=== PATIENT | female | born 1975 | race Caucasian/White ===

== ENCOUNTER → 2017-10-29 17:26 | Outpatient (CLI) | payer OTHER, SELFPAY | PROVIDERS: Family Provider Internal Medicine; PCP Internal Medicine; Visit Provider Internal Medicine | DX: M79.672 Pain in left foot (principal) | CPT/HCPCS: 73630 ==

== ENCOUNTER → 2018-01-06 16:30 | Outpatient (CLI) | payer OTHER, SELFPAY ==
[2018-01-19 13:10] LABS: HPV Reflexed? NOT INDICATED
== END ==
PROVIDERS: Family Provider Internal Medicine; PCP Internal Medicine; Referring Provider Obstetrics & Gynecology; Visit Provider Obstetrics & Gynecology
DX: Z12.4 Encounter for screening for malignant neoplasm of cervix (principal)
CPT/HCPCS: 87624; 88175; G0145

== ENCOUNTER → 2018-01-31 16:33 | Outpatient (CLI) | payer OTHER, SELFPAY ==
[2018-01-31 17:51] LABS: Ferritin 7 ng/mL (8-252); Iron 21 ug/dL (50-170); Iron Binding Capacity,Total 438 ug/dL (250-450); PERCENT IRON SATURATION 4.8 % (15.0-55.0)
--- OUTSIDE RECORDS SUMMARY | 2018-03-15 15:52 | XMS RPT_ITS | Continuity of Care Document ---
:1975 Author Organization [facility] Address [facility] [address] Phone Care Team Providers Name Role Phone Annie Anglin DO Unavailable Satish MENDENHALL, Cailin Man Unavailable Rizwan Blanca Unavailable Radha Sanford Unavailable Unavailable Phuc Quiroga Unavailable Unavailable Genesis PINTO Mohini Unavailable Unavailable Unavailable Problems Name Dates Details Abnormal blood chemistry (R79.9, 790.6) Status: Active Achilles tendinitis of left lower extremity (M76.62, 726.71) Status: Active Anemia (D64.9, 285.9) Status: Active BMI 40.0-44.9, adult (Z68.41, V85.41) Status: Active Current non-smoker (Z78.9, V49.89) Status: Active Deliveries (Parity) Comments: 2 Status: Active Elevated blood-pressure reading, without diagnosis of hypertension (Renamed from Elevated blood-pressure reading without diagnosis of hypertension) (R03.0, 796.2) Comments: drinks 3-4 16 oz coffee daily, recent ibuprofen use Status: Active Eustachian tube dysfunction (H69.80, 381.81) Status: Active Facial pressure (R68.89, 780.99) Status: Active Family history of diabetes mellitus (DM) (Z83.3, V18.0) Status: Active Family history of heart disease (Z82.49, V17.49) Status: Active Foot pain, left (M79.672, 729.5) Status: Active History of migraine (Z86.69, V12.49) Status: Active Influenza vaccination declined (Renamed from Refused influenza vaccine) (Z28.21, V64.06) Status: Active Nutritional counseling (Z71.3, V65.3) Status: Active Obesity, unspecified (E66.9, 278.00) Comments: corrina about diet and exericse and eating right Status: Active Pharyngitis, acute (J02.9, 462) Comments: antihistamien if not better and al negagitve then ent in 10 darrick Status: Active Pregnancies () Comments: 2 Status: Active Sinusitis, bacterial (J32.9, 473.9) Status: Active Well female exam with routine gynecological exam (Z01.419, V72.31) Comments: reveiwed with patient lipids and gluc at work good Status: Active Medications Name Dates Details AmLODIPine Besylate 5 MG Oral Tablet 1 (one) Tablet daily as directed for 0 days Quantity: 30 {Tablet} Refills: 1 Ordered:14-Jan-2018 Janicemohanclive PINTOKaitlynn Start : 14-Jan-2018 Active Ferrous Sulfate 325 (65 Fe) MG Oral Tablet 1 (one) Tablet two times daily for 30 days Quantity: 60 {Tablet} Refills: 0 Ordered:01-Feb-2018 Genesis PINTO Kaitlynn Collazo Start : 01-Feb-2018 Active Nasacort Allergy 24HR 55 MCG/ACT Nasal Aerosol 2 (two) Puff daily for 0 days Quantity: 1 {Bottle} Refills: 0 Ordered:14-Jan-2018 Janicemohanclive PINTOKaitlynn Start : 14-Jan-2018 Active Doxycycline Hyclate 100 MG Oral Tablet Delayed Release 1 (one) Tablet bid for 10 days Quantity: 20 {Tablet} Refills: 0 Ordered:24-Mar-2017 Klaudia Leblanc LPN Start : 24-Mar-2017 End : 03-Apr-2017 Inactive No Known Historical Medications ProAir HFA 108 (90 Base) MCG/ACT Inhalation Aerosol Solution 1 (one) Aerosol Soln tid for 0 days Quantity: 1 {Inhaler} Refills: 0 Ordered:13-Jan-2016 Enriqueta Cisse LPN Start : 19-Dec-2014 End : 13-Jan-2016 Inactive RHINOCORT AQUA, 32MCG/ACT (Nasal Suspension) 2 (two) Puff(s) daily for 0 days Quantity: 1 {Suspension} Refills: 0 Ordered:19-May-2011 Francisco Javier PARRISH Altagracia Start : 06-Apr-2011 End : 19-May-2011 Inactive Zithromax Z-Alexis 250 MG Oral Tablet 1 Tablet TAD for 0 days Quantity: 1 {Package} Refills: 0 Ordered:13-Jan-2016 Enriqueta Cisse LPN Start : 19-Dec-2014 End : 13-Jan-2016 Inactive Clarithromycin 500 MG Oral Tablet 1 (one) Tablet PO BID for 14 days Quantity: 28 {Tablet} Refills: 0 Ordered:24-Mar-2017 Magnolia Anglin DO, DO, Kathleen Start : 24-Mar-2017 End : 24-Mar-2017 Discontinued Comments:skin peeling Etodolac ER 400 MG Oral Tablet Extended Release 24 Hour 2 (two) Tablet qd with food for 0 days Quantity: 20 {Tablet} Refills: 0 Ordered:14-Jan-2018 Radha Sanford Start : 15-Jul-2017 End : 14-Jan-2018 Discontinued MULTIVITAMIN (PO Tab) 1 tab qd for 0 days Refills: 0 Ordered:18-Apr-2012 Dilcia Zepeda LPN End : 18-Apr-2012 Discontinued Comments:This order discontinued per [facility]. Allergies and Adverse Reactions Name Dates Details ketek (Renamed from PRASHANT Inhibitors) Status: Active (Allergy) Allergy to ketek (Renamed from Status: Inactive Acetaminophen) (Allergy) Biaxin *MACROLIDES* (Allergy) Status: Active Comments: skin peeling. feeling out of skin Allergy to Penicillins (Renamed from Status: Inactive Penicillins) (Allergy) Penicillins (Allergy) Status: Active Past Medical History Name Dates Details Abdominal pain, acute, left lower quadrant (R10.32, 789.04) Comments: us reveiwed with patient good. after eat certain foods so will watch .better. if return and stay then will do ct scan and scope Status: Inactive as of 28-Jul-2013 Abnormal blood chemistry (R79.9, 790.6) Status: Inactive as of 23-Jul-2008 Allergy to ketek (Renamed from Acetaminophen) Status: Inactive as of 23-Jul-2008 Allergy to Penicillins (Renamed from Penicillins) Status: Inactive as of 23-Jul-2008 Chest pain, unspecified (R07.9, 786.50) Status: Resolved as of 23-Jul-2008 Chills with fever (R50.9, 780.60) Status: Inactive as of 13-Jan-2016 Cough (R05, 786.2) Status: Inactive as of 13-Jan-2016 Cut caffeine Status: Inactive as of 23-Jul-2008 Diarrhea (R19.7, 787.91) Status: Inactive as of 28-Jul-2013 Hypertension, benign (I10, 401.1) Comments: goodoff meds. ? was stress at time. chol 11-12 125 total, 61 HDL trig 45. BS 93 Status: Inactive as of 13-Jan-2016 Need for prophylactic vaccination and inoculation against influenza (Renamed from Need for immunization against influenza) (Z23, V04.81) Status: Inactive as of 20-Mar-2016 Other chest pain (R07.89, 786.59) Status: Resolved as of 23-Jul-2008 Other specified viral infection, in conditions classified elsewhere and of unspecified site (B97.89, 079.89) Status: Inactive as of 28-Jul-2013 Physical exam (Z00.00, V70.9) Status: Inactive as of 20-Mar-2016 Screening for HPV (human papillomavirus) (Z11.51, V73.81) Status: Inactive as of 13-Jan-2016 Unspecified Diagnosis Status: Inactive as of 20-Mar-2016 Urinary frequency (R35.0, 788.41) Comments: better ? now that cut out caffiene urine cx good. Status: Inactive as of 28-Jul-2013 Procedures Procedure Dates Details Delivery Completed Comments: 1 Date Value Details 29-Oct-2017 Foot min 3 Views Result: Comments: See Note; NOTES: [facility] Imaging Services [address] [place] [address] Foot min 3 Views MR#: [id number] Acct: [id number] Name: MOISES DAVILA Rep #: [id number] : 1975 F 42 From: Harry Smith MD PCP: Linnette DO,Annie Status: REG CLI Study: Foot min 3 Views Date of Exam: 10/29/17 Exam# [id number] Ordering Dr: Annie Anglin DO STUDY: X-RAY - RIGHT FOOT CLINICAL: Female, 42 years old. Pain after trauma TECHNIQUE: 3 view(s) of the foot. COMPARISON: None. FINDINGS: Normal talus, and tarsal bones. Small calcane al spur Normal visualized subtalar, talonavicular, calcaneocuboid, tarsal and tarsometatarsal articulations. Normal metatarsi. Normal metatarsophalangeal joint of the great toe. Normal tibial and fib ular sesamoid bones. Normal interphalangeal joint of the great toe. Normal phalanges of the great toe. Normal second through fifth metatarsophalangeal joints. Normal interphalangeal joints and phalange s of the lesser toes. The soft tissue structures are unremarkable. RAD/Foot min 3 Views IMPRESSION: Calcaneal spur, no demonstrated fracture or suspicious osseous lesion Electronically Signed: Deandre Smith MD at 17:11 EDT , Service support , CC: Annie Anglin DO Senior Agricultural Assistant: Signed 20-Oct-2016 SCREENING MAMM (CAD), BILAT Result: Comments: See Note; NOTES: [facility] Imaging Services [address] [place] [id number] SCREENING MAMM (CAD), BILAT MR#: [id number] Acct: [id number] Name: LOLAMOISES Rep #: [id number] : 1975 F 41 From: Harry Kauffman MD PCP: Annie Anglin DO Status: REG CLI Study: SCREENING MAMM (CAD), BILAT Date of Exam: 10/20/16 Exam# [id number] Ordering Dr: Don Walker MAMMOGRAPHY - BILATERAL SCREENING REASON FOR EXAM: Female, 41 years old. Routine annual screening examination. PERTINENT HISTORY: Non-contributory. TECHNIQUE: Digital bilateral breast sujata (3D ma mmographic acquisition) in the CC and MLO projections. 2-D mediolateral oblique (MLO) and craniocaudad (CC) views of both breasts were obtained. CAD: Full Field Digital Mammography with Computer Added D etection was performed. COMPARISON: Comparison is made with prior study dated January 20, 2016 and October 12, 2014. FINDINGS: Breast Composition: The breasts are al most entirely fatty. There are no dominant masses or suspicious calcifications. No other significant abnormalities are identified. There has been no significant change since the prior study. HPBI/SCREENING MAMM (CAD), BILAT IMPRESSION: Stable bilateral screening mammogram. Yearly follow-up mammogram recommended. (A) ASSESSMENT CATEGORY: BIRADS Category 1: Negative. A letter regarding these results will be sent to the patient by the facility within 30 days. Approximately 10% of breast cancers are not det ected by mammography. A normal mammogram should not delay biopsy of a clinically suspicious abnormality. [id number] Electronically Signed: Harry Kauffman MD at 8:21 EDT Tel [phone], Ser vice support , CC: Don Walker MD; Annie Anglin DO Senior Agricultural Assistant: Signed 20-Jan-2016 Bilat Scrn Digital AND CAD Result: Comments: See Note; NOTES: [facility] Imaging Services [address] [place] [address] Verdana 4d Bilat Scrn Digital AND CAD MR#: [id number] Acct: [id number] Name: OLENA DAVILA Rep #: [id number] : 1975 F 40 From: Harry Kauffman MD PCP: Annie Anglin DO Status: REG CLI Study: Bilarcelia Johnson Digital AND CAD Date of Exam: 01/20/16 Exam# [id number] Ordering Dr: Don Walker MD MAMMOGRAPHY - BILATERAL SCREENING REASON FOR EXAM: Female, 40 years old. Routine annual screening examination. PERTINENT HISTORY: Non- contributory. TECHNIQUE: Digital bilateral breast to mo (3D mammographic acquisition) in the CC and MLO projections. 2-D mediolateral oblique (MLO) and craniocaudad (CC) views of both breasts were obtained. CAD: Full Field Digital Mammography with Compute r Added Detection was performed. COMPARISON: Comparison is made with prior examination dated October 12, 2014. FINDINGS: Breast Composition: The breasts are almost en tirely fatty. There are no dominant masses or suspicious calcifications. No other significant abnormalities are identified. There has been no significant change since the prior study. [facility]/Colten Johnson Digital AND CAD IMPRESSION: Stable bilateral screening mammogram. Yearly follow-up mammogram recommended. (A) __ ASSESSMENT CATEGORY: BIRADS Category 1: Negative. A letter regarding these results will be sent to the patient by the facility within 30 days. Approximately 10% of breast cancers are not detected b y mammography. A normal mammogram should not delay biopsy of a clinically suspicious abnormality. [id number] Electronically Signed: Harry Kauffman MD at 15:44 EST Tel [phone], Service s upport [phone], CC: Don Walker MD; Annie Anglin DO Senior Agricultural Assistant: Signed 12-Oct-2014 Bilat Elizabeth Digital AND CAD Result: Comments: See Note; NOTES: [facility] Imaging Services [address] [place] [address] Breast Imaging Report MR#: [id number] Acct: [id number] Name: MOISES DAVILA Rep #: [id number] : 1975 F 39 From: Harry Kauffman MD PCP: Cailin Covarrubias MD Status: REG CLI Study: Bilat Scrn Digital AND CAD Date of Exam: 10/12/14 Exam# [id number] Ordering Dr: Don Walker MD MAMMOGRAPHY - BILATERAL SCREENING REASON FOR EXAM: Female, 39 years old. Routine annual screening examination. PERTINENT HISTORY: Non-contributory. TECHNIQUE: Digital examination. Mediolater al oblique (MLO) and craniocaudad (CC) views of both breasts were obtained. CAD: CAD was performed on this study. COMPARISON: None. Baseline examination. FINDI NGS: Breast Composition: The breasts are almost entirely fatty. There are no dominant masses or suspicious calcifications. No other significant abnormalities are identified. IMPRESSION: Negative screening mammogram. Yearly followup recommended. (A) ASSESSMENT CATEGORY: BIRADS Category 1: Negative. A letter regarding these results will be sent to the patient by the facility within 30 days. Approximately 10% of breast cancers are not detected by mammography. A normal mammogram should not delay biopsy of a clinica lly suspicious abnormality. 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 Status: Active Living Situation Comments: lives with spouse Status: Active No Drug Use Status: Active Non Drinker/No Alcohol Use Status: Active Non Smoker/No Tobacco Use Status: Active Tobacco use: Never smoker. Status: Active Smoking Status Name Dates Details Never smoker Vital Signs Date Test Result Details [id number] Temperature 97.7 f Comments: Method: Temporal Pulse 112 /min Comments: Pattern: Regular Respiration Rate 16 /min Comments: Pattern: Unlabored O2 SAT 100 % Comments: Room air BP Systolic 142 mm[Hg] Comments: Patient Position: Sitting; Cuff Location: Left Arm; Cuff Size: Standard BP Diastolic 96 mm[Hg] Comments: Patient Position: Sitting; Cuff Location: Left Arm; Cuff Size: Standard Weight 242.125 lb Height 65 in Body Mass Index Calculated 40.29 kg/m2 Body Surface Area Calculated 2.15 m2 :00 Pulse 98 /min Comments: Pattern: Regular Respiration Rate 18 /min Comments: Pattern: Unlabored O2 SAT 98 % Comments: Room air BP Systolic 138 mm[Hg] Comments: Patient Position: Sitting; Cuff Location: Left Arm; Cuff Size: Large BP Diastolic 82 mm[Hg] Comments: Patient Position: Sitting; Cuff Location: Left Arm; Cuff Size: Large Weight 244 lb Height 65 in Body Mass Index Calculated 40.6 kg/m2 Body Surface Area Calculated 2.15 m2 :14 Temperature 98 f Comments: Method: Temporal Pulse 72 /min Comments: Pattern: Regular Respiration Rate 16 /min Comments: Pattern: Unlabored O2 SAT 99 % Comments: Room air BP Systolic 126 mm[Hg] Comments: Patient Position: Sitting; Cuff Location: Left Arm; Cuff Size: Standard BP Diastolic 74 mm[Hg] Comments: Patient Position: Sitting; Cuff Location: Left Arm; Cuff Size: Standard Weight 248 lb Height 65 in Body Mass Index Calculated 41.27 kg/m2 Body Surface Area Calculated 2.17 m2 [id number]:43 Temperature 97.9 f Comments: Method: Temporal Pulse 96 /min Comments: Pattern: Regular Respiration Rate 20 /min Comments: Pattern: Unlabored O2 SAT 98 % Comments: Room air BP Systolic 144 mm[Hg] Comments: Patient Position: Sitting; Cuff Location: Left Arm; Cuff Size: Large BP Diastolic 86 mm[Hg] Comments: Patient Position: Sitting; Cuff Location: Left Arm; Cuff Size: Large Weight 248 lb Height 65 in Body Mass Index Calculated 41.27 kg/m2 Body Surface Area Calculated 2.17 m2 [id number] Pulse 82 /min Comments: Pattern: Regular Respiration Rate 18 /min Comments: Pattern: Unlabored O2 SAT 99 % Comments: Room air BP Systolic 128 mm[Hg] Comments: Patient Position: Sitting; Cuff Location: Left Arm; Cuff Size: Large BP Diastolic 84 mm[Hg] Comments: Patient Position: Sitting; Cuff Location: Left Arm; Cuff Size: Large Weight 250.5 lb Height 65 in Body Mass Index Calculated 41.68 kg/m2 Body Surface Area Calculated 2.18 m2 :13 Temperature 97.9 f Comments: Method: Oral Pulse 105 /min Comments: Pattern: Regular Respiration Rate 16 /min Comments: Pattern: Unlabored O2 SAT 98 % Comments: Room air BP Systolic 115 mm[Hg] Comments: Patient Position: Sitting; Cuff Location: Left Arm; Cuff Size: Standard BP Diastolic 68 mm[Hg] Comments: Patient Position: Sitting; Cuff Location: Left Arm; Cuff Size: Standard Weight 243 lb :46 Temperature 97.8 f Pulse 66 /min Comments: Pattern: Regular Respiration Rate 18 /min Comments: Pattern: Unlabored O2 SAT 98 % Comments: Room air BP Systolic 130 mm[Hg] Comments: Patient Position: Sitting; Cuff Location: Left Arm; Cuff Size: Standard BP Diastolic 90 mm[Hg] Comments: Patient Position: Sitting; Cuff Location: Left Arm; Cuff Size: Standard Weight 243 lb :26 Temperature 97.6 f Comments: Method: Oral Pulse 86 /min Comments: Pattern: Regular Respiration Rate 20 /min Comments: Pattern: Unlabored BP Systolic 126 mm[Hg] Comments: Patient Position: Sitting; Cuff Location: Left Arm; Cuff Size: Large BP Diastolic 80 mm[Hg] Comments: Patient Position: Sitting; Cuff Location: Left Arm; Cuff Size: Large Weight 240 lb Height 65 in Body Mass Index Calculated 39.94 kg/m2 Body Surface Area Calculated 2.14 m2 :03 Temperature 99.1 f Comments: Method: Oral Pulse 104 /min Comments: Pattern: Regular Respiration Rate 16 /min Comments: Pattern: Unlabored BP Systolic 132 mm[Hg] Comments: Patient Position: Sitting; Cuff Location: Left Arm; Cuff Size: Standard BP Diastolic 74 mm[Hg] Comments: Patient Position: Sitting; Cuff Location: Left Arm; Cuff Size: Standard Weight 234 lb Height 65 in Body Mass Index Calculated 38.94 kg/m2 Body Surface Area Calculated 2.11 m2 :40 Temperature 99 f Comments: Method: Oral Pulse 88 /min Comments: Pattern: Regular Respiration Rate 16 /min Comments: Pattern: Unlabored BP Systolic 132 mm[Hg] Comments: Patient Position: Sitting; Cuff Location: Left Arm; Cuff Size: Standard BP Diastolic 80 mm[Hg] Comments: Patient Position: Sitting; Cuff Location: Left Arm; Cuff Size: Standard Weight 239 lb Height 65 in Body Mass Index Calculated 39.77 kg/m2 Body Surface Area Calculated 2.13 m2 :05 Temperature 99 f Comments: Method: Oral Pulse 98 /min Comments: Pattern: Regular Respiration Rate 16 /min O2 SAT 94 % Comments: Room air BP Systolic 132 mm[Hg] Comments: Patient Position: Sitting; Cuff Location: Left Arm; Cuff Size: Standard BP Diastolic 84 mm[Hg] Comments: Patient Position: Sitting; Cuff Location: Left Arm; Cuff Size: Standard Weight 239 lb Height 65 in Body Mass Index Calculated 39.77 kg/m2 Body Surface Area Calculated 2.13 m2 :25 Temperature 97.9 f Comments: Method: Oral Pulse 82 /min Comments: Pattern: Regular O2 SAT 99 % Comments: Room air BP Systolic 126 mm[Hg] Comments: Patient Position: Sitting; Cuff Location: Left Arm; Cuff Size: Standard BP Diastolic 76 mm[Hg] Comments: Patient Position: Sitting; Cuff Location: Left Arm; Cuff Size: Standard Weight 239 lb Height 65 in Body Mass Index Calculated 39.77 kg/m2 Body Surface Area Calculated 2.13 m2 :30 Temperature 99 f Comments: Method: Undefined Pulse 96 /min Comments: Pattern: Regular Respiration Rate 18 /min Comments: Pattern: Undefined BP Systolic 128 mm[Hg] Comments: Patient Position: Sitting; Cuff Location: Left Arm; Cuff Size: Standard BP Diastolic 76 mm[Hg] Comments: Patient Position: Sitting; Cuff Location: Left Arm; Cuff Size: Standard Weight 239 lb Height 0 in Head Circumference 0.00 cm :56 Pulse 96 /min Comments: Pattern: Regular Respiration Rate 18 /min Comments: Pattern: Unlabored O2 SAT 100 % Comments: Room air BP Systolic 148 mm[Hg] Comments: Patient Position: Sitting; Cuff Location: Left Arm; Cuff Size: Standard BP Diastolic 90 mm[Hg] Comments: Patient Position: Sitting; Cuff Location: Left Arm; Cuff Size: Standard Weight 0 lb Height 0 in Head Circumference 0.00 cm Results Date Description Value Details :35 Ferritin Comments: [facility] [id number] [place], [place], [address] FERRITIN 7 ng/mL (Abnormal) Range: 8-252 :35 Iron+Iron Binding Capacity Comments: [facility] [id number] [place], [place], [id number] IRON SATURATION 4.8 % (Abnormal) Range: 15.0-55.0 IRON 21 ug/dL (Abnormal) Range: 50-170 TIBC 438 ug/dL (Normal) Range: 250-450 :43 CALCIFEDIOL ([id number]) Comments: PATIENT NOT FASTINGPERFORMED BY: [employer] [id number] [facility] [id number] Vitamin D, 25-Hydroxy 22.0 ng/mL (Abnormal) Range: 30.0-100.0 Comments: Vitamin D deficiency has been defined by the [place] ofSt. [facility] and an Endocrine Society practice guideline as alevel of serum 25-OH vitamin D less than 20 ng/mL (1,2).The Endocrine Society went on to further define vitamin Dinsufficiency as a level between 21 and 29 ng/mL (2).1. IOM ([place] of Medicine). 2010. Dietary reference intakes for calcium and D. [place]: The National Academies Press.2. Oscar MF, Narendra NC, Andrew ORTIZ, et al. Evaluation, treatment, and prevention of vitamin D deficiency: an Endocrine Society clinical practice guideline. JCEM. 2010; 96(7):1911-30. :43 TSH ([id number]) Comments: PATIENT NOT FASTINGPERFORMED BY: [facility] [id number] [facility] [place] [id number] TSH 1.160 {uIU/mL} (Normal) Range: 0.450-4.500 4-Eya-914890:43 METABOLIC PANEL, COMPREHENSIVE Comments: PATIENT NOT FASTINGPERFORMED BY: [id number] [facility] [id number] ([id number]) ALT (SGPT) 11 [iU]/L (Normal) Range: 0-32 AST (SGOT) 14 [iU]/L (Normal) Range: 0-40 Alkaline Phosphatase 75 [iU]/L (Normal) Range: 39-117 Bilirubin, Total 0.3 mg/dL (Normal) Range: 0.0-1.2 A/G Ratio 1.3 (Normal) Range: 1.2-2.2 Globulin, Total 3.5 g/dL (Normal) Range: 1.5-4.5 Albumin 4.4 g/dL (Normal) Range: 3.5-5.5 Protein, Total 7.9 g/dL (Normal) Range: 6.0-8.5 Calcium 8.9 mg/dL (Normal) Range: 8.7-10.2 Carbon Dioxide, Total 22 mmol/L (Normal) Range: 20-29 Chloride 103 mmol/L (Normal) Range: 96-106 Potassium 3.9 mmol/L (Normal) Range: 3.5-5.2 Sodium 140 mmol/L (Normal) Range: 134-144 BUN/Creatinine Ratio 8 (Abnormal) Range: 9-23 eGFR If Africn Am 89 mL/min/1.73 (Normal) eGFR If NonAfricn Am 78 mL/min/1.73 (Normal) Creatinine 0.91 mg/dL (Normal) Range: 0.57-1.00 BUN 7 mg/dL (Normal) Range: 6-24 Glucose 102 mg/dL (Abnormal) Range: 65-99 4-Dgp-739408:43 CBC with auto diff ([id number]) Comments: PATIENT NOT FASTINGPERFORMED BY: [facility] [id number] [facility] [id number] Immature Grans (Abs) 0.0 {x10E3/uL} (Normal) Range: 0.0-0.1 Immature Granulocytes 0 % (Normal) Baso (Absolute) 0.0 {x10E3/uL} (Normal) Range: 0.0-0.2 Eos (Absolute) 0.2 {x10E3/uL} (Normal) Range: 0.0-0.4 Monocytes(Absolute) 0.5 {x10E3/uL} (Normal) Range: 0.1-0.9 Lymphs (Absolute) 1.7 {x10E3/uL} (Normal) Range: 0.7-3.1 Neutrophils (Absolute) 5.4 {x10E3/uL} (Normal) Range: 1.4-7.0 Basos 0 % (Normal) Eos 2 % (Normal) Monocytes 6 % (Normal) Lymphs 22 % (Normal) Neutrophils 70 % (Normal) Platelets 318 {x10E3/uL} (Normal) Range: 150-379 RDW 19.6 % (Abnormal) Range: 12.3-15.4 MCHC 29.7 g/dL (Abnormal) Range: 31.5-35.7 MCH 20.5 pg (Abnormal) Range: 26.6-33.0 MCV 69 fL (Abnormal) Range: 79-97 Hematocrit 31.3 % (Abnormal) Range: 34.0-46.6 Hemoglobin 9.3 g/dL (Abnormal) Range: 11.1-15.9 RBC 4.54 {x10E6/uL} (Normal) Range: 3.77-5.28 WBC 7.7 {x10E3/uL} (Normal) Range: 3.4-10.8 1-Gbv-069370:43 MICROALBUMIN: CREATININE RATIO Comments: PATIENT NOT FASTINGPERFORMED BY: [facility] [id number] [facility] [id number] ([id number]) AND ([id number]) Alb/Creat Ratio 7.8 {mg/g_creat} (Normal) Range: 0.0-30.0 Comments: Normal: 0.0 - 30.0 Albuminuria: 31.0 - 300.0 Clinical albuminuria: >300.0 Albumin, Urine 3.5 ug/mL (Normal) Creatinine, Urine 44.6 mg/dL (Normal) 1-Vie-351933:27 Urinalysis, Office ([id number]) UA - LEUKOCYTE ESTERASE Small (Normal) UA - NITRITE Negative (Normal) URINE UROBILINGN CINDY TIMED Normal mg/dL (Normal) UA - PROTEIN Negative mg/dL (Normal) UA - PH 6.0 (Normal) UA - BLOOD Non Hemolyzed Moderate (Normal) UA - SPECIFIC GRAVITY 1.025 (Normal) UA - KETONES Negative mg/dL (Normal) UA - BILIRUBIN Negative (Normal) UA - GLUCOSE Negative (Normal) 2-Rij-161821:30 PAP IG w/Reflex Comments: CYTOLOGY INFORMATION:- CLINICAL INFORMATION:- DATE LMP/MENOPAUSE: 12/30/17 LMP- COLLECTION VIAL: Thin Prep Vial- COMPUTER OPERATIONS TECHNICIAN SOURCE: CERVICAL/ENDOCERVICAL- COLLECTION TECHNIQUE: BRUSH/SPATULASpecimen Comment: HR HPV Aptima [id number] Comment: Source.............Cervix;EndocervixSpecimen Comment: LMP / Prev Treat...[id number] Comment: No. of containers..01 [facility] (refer to report for specific site)refer to report for address and phone number HPV RFLX Comment (Normal) Comments: The HPV DNA reflex criteria were not met with this specimenresult therefore, no HPV testing was performed.Performed at: [address] [id number] Director: Erika Ga MD, Phone: [phone] PAPSMR Comment (Normal) Comments: The Pap smear is a screening test designed to aid in thedetection of premalignant and malignant conditions of theuterine cervix. It is not a diagnostic procedure andshould not be used as the sole means of detecting cervicalcancer. Both false-positive and false-negative reports dooccur. COMM . (Normal) TEST METHOD Comment (Normal) Comments: This liquid based ThinPrep(R) pap test was screened withthe use of an image guided system. QC REV Comment (Normal) Comments: Lina Garcia, Supervisory Viticulturist (ASCP) PERFORM Comment (Normal) Comments: Zack Carbajal, Viticulturist (ASCP) ADEQ Comment (Normal) Comments: Satisfactory for evaluation. Endocervical and/or squamous metaplasticcells (endocervical component) are present. DIAGN Comment (Normal) Comments: NEGATIVE FOR INTRAEPITHELIAL LESION AND MALIGNANCY.THIS SPECIMEN WAS RESCREENED PART OF OUR [employer] PROGRAM. 46-Oum-096846:27 Rapid Strep Test, Office (01208) Rapid Strep Test, Office Negative (Normal) 11-Ief-128240:30 PAP I-G w/ Reflex to HR Comments: CYTOLOGY INFORMATION:- CLINICAL INFORMATION:- DATE LMP/MENOPAUSE: NO LMP GIVEN LMP- COLLECTION VIAL: Thin Prep Vial- COMPUTER OPERATIONS TECHNICIAN SOURCE: CERVICAL/ENDOCERVICAL- COLLECTION TECHNIQUE: BRUSH/SPATULACY TOLOGY INFOR HPV MATION:- CLINICAL INFORMATION:- DATE LMP/MENOPAUSE: NO LMP GIVEN LMP- COLLECTION VIAL: Thin Prep Vial- COMPUTER OPERATIONS TECHNICIAN SOURCE: CERVICAL/ENDOCERVICAL- COLLECTION TECHNIQUE: BRUSH/SPATULASpecimen Comment: [id number] Comment: No. of containers..01 CYTYC Thin Prep [facility]ialLab[facility] (refer to report for specific site)refer to report for address and phone number HPV RFLX Comment (Normal) Comments: The HPV DNA reflex criteria were not met with this specimenresult therefore, no HPV testing was performed.Performed at: [address] [id number] Director: Erika Ga MD, Phone: [phone] PAPSMR Comment (Normal) Comments: The Pap smear is a screening test designed to aid in thedetection of premalignant and malignant conditions of theuterine cervix. It is not a diagnostic procedure andshould not be used as the sole means of detecting cervicalcancer. Both false-positive and false-negative reports dooccur. COMM . (Normal) TEST METHOD Comment (Normal) Comments: This liquid based ThinPrep(R) pap test was screened withthe use of an image guided system. PERFORM Comment (Normal) Comments: Crissy Washington, Viticulturist (ASCP) ADEQ Comment (Normal) Comments: Satisfactory for evaluation. Endocervical and/or squamous metaplasticcells (endocervical component) are present. DIAGN Comment (Normal) Comments: NEGATIVE FOR INTRAEPITHELIAL LESION AND MALIGNANCY. 36-Neq-352007:19 C-REACT PROT HIGH SENS(hsCRP) Comments: PATIENT WAS FASTINGPERFORMED BY: [facility] CenterBofkxj4097 [facility] [id number] (01701) C-Reactive Protein, Cardiac 13.25 mg/L (Abnormal) Range: 0.00-3.00 Comments: Relative Risk for Future Cardiovascular Event Low <1.00 Average 1.00 - 3.00 High >3.00 87-Kxs-900293:19 GLUCOSE (82870) Comments: PATIENT WAS FASTINGPERFORMED BY: [facility]6[address] [facility] [id number] Glucose, Serum 92 mg/dL (Normal) Range: 65-99 44-Sbz-124845:19 LIPID PANEL (26932) Comments: PATIENT WAS FASTINGPERFORMED BY: [place] [id number] [facility] [id number] LDL/HDL Ratio 0.9 {ratio_units} (Normal) Range: 0.0-3.2 Comments: LDL/HDL Ratio Men Women 1/2 Avg.Risk 1.0 1.5 Av g.Risk 3.6 3.2 2X Avg.Risk 6.2 5.0 3X Avg.Risk 8.0 6.1 LDL Cholesterol Calc 56 mg/dL (Normal) Range: 0-99 VLDL Cholesterol Satinder 10 mg/dL (Normal) Range: 5-40 HDL Cholesterol 61 mg/dL (Normal) Comments: According to ATP-III Guidelines, HDL-C >59 mg/dL is considered anegative risk factor for CHD. Triglycerides 48 mg/dL (Normal) Range: 0-149 Cholesterol, Total 127 mg/dL (Normal) Range: 100-199 29-Eky-433245:09 ALFONSO CULTURE-OTHER (63789) Comments: PATIENT NOT FASTINGPERFORMED BY: [place] [id number] [facility] [id number] Information: SRC: THROAT Result 1 RRF (Normal) Comments: Routine respiratory shanice Upper Respiratory Culture Final report (Normal) 68-Uay-699384:00 Rapid Strep Test, Office (42691) Rapid Strep Test, Office Negative (Normal) 50-Aqa-09051:37 Pap IG, HPV-hr Comments: PERFORMED BY: [facility] Krnjfdpjki[address] [id number] BY: =G [facility] [address]qk[address] [id number] Information: [id number] HPV, high-risk Negative Comments: This high-risk HPV test detects thirteen high- risk types(16/18/31/33/35/39/45/51/52/56/58/59/68) without differentiation. . (Normal) Note: PAPSMR (Normal) Comments: The Pap smear is a screening test designed to aid in the detection ofpremalignant and malignant conditions of the uterine cervix. It is not adiagnostic procedure and should not be used as the sole mean s of detectingcervical cancer. Both false-positive and false-negative reports do occur. . See Note . (Normal) DIAGNOSIS: SPRCS (Normal) Comments: NEGATIVE FOR INTRAEPITHELIAL LESION AND MALIGNANCY.Satisfactory for evaluation. Endocervical and/or squamous metaplasticcells (endocervical component) are present.V70.0 ; [facility]ine [facility] ; Special screening examination, human papillomavirus [HPV]Makenna Samaniego, Viticulturist (ASCP) 50-Vdd-211760:51 PELVIC (NON ) Radiology Report See Note (Normal) Comments: PROCEDURE: ULTRASOUND OF THE FEMALE PELVIS - COMPLETE REASON FOR EXAM: Female, 36 years old. Left lower quadrant pain. LMP: Not reported TECHNIQUE: Transabdominal and Transvaginal TECHNICAL QU ALITY: Adequate. COMPARISON: None. FINDINGS:The uterus is anteverted and is in a midline position. The .4 x 4.5 x 5.6 cm. Normal uterine cervix. The endometrium measures 11mm in t hickness, and is hyperechoic. There is no demonstratedendometrialmass. There is no demonstrated myometrial mass. I.U.D. - No The right ovary is visualized. The right ovary measures 2.2 x 1.9 x 2.1c m. There is no right ovarian cyst or ovarian mass. There is novisualized right adnexal mass or complex lesion. There is normal arterialand normal venous vascularity. The left ovary is visualized. The left ovary measures 3.9 x 1.9 x 3.4cm.There is no left ovarian cyst or ovarian mass. There is no visualizedleftadnexal mass or complex lesion. There is normal arterial and normalvenousvascularity. Th ere is no fluid in the cul-de-sac. The distended urinary bladder had a volume of 522 cm? at the time of theexam. No postvoid residual volume is identified. IMPRESSION:Normal female pelvis. Signed:Yuli Fuller M.D.May 02, 2012 at 4:24:16 PM [id number] Signed DL/DL If you are the referring physician and would like to consult with theradiologist who provided this interpretation , please contact Angelika Nuñez at [phone]. If this radiologist is unavailable, youwillbe directed to another radiologist to assist. If you are a patient with a question regarding this report, pleasecontactyour referring physician directly. Professional Interpretation Provided By: ihiji, Phone , These documents contain legally protected and confidential he althinformation intended only for the use of the individual or entity namedabove. If you are not the intended recipient, you are hereby notifiedthatany disclosure, copying, distribution, or other use of these documents isstrictly prohibited. If you have received this information in error,pleasenotify the sender immediately and arrange for the return or destructionofthese documents. Dictated on 04/09 07/18 1510 by Philip Fuller MDTranscribed on 05/02/12 1657 by ITS IMPORTSign by Philip Fuller MD. on 05/02/12 1658 Sign by: Philip Fuller MD 05-Tbq-434799:21 URINE ALFONSO CULTURE (CINDY Comments: PATIENT NOT FASTINGPERFORMED BY: [facility]Co[facility] CenterXuodvi1703 [facility] [id number] Information: SRC:UR [id number] COL COUNT) ([id number]) Result 1 MUG (Normal) Comments: Mixed urogenital Colonies/mL Urine Culture,Comprehensive Final report (Normal) 73-Hxq-00832:44 Urinalysis, Office (73272) UA - BILIRUBIN Negative (Normal) UA - BLOOD Non Hemolyzed Trace (Normal) UA - GLUCOSE Negative (Normal) UA - KETONES Negative mg/dL (Normal) UA - LEUKOCYTE ESTERASE Negative (Normal) UA - NITRITE Negative (Normal) UA - PH 6.0 (Normal) UA - PROTEIN Negative mg/dL (Normal) UA - SPECIFIC GRAVITY 1.025 (Normal) Comments: 1.030 URINE UROBILINGN CINDY TIMED Normal mg/dL (Normal) 70-Hky-840723:35 LIPID CHOL 152 mg/dL (Normal) Comments: <200 mg/dL Desirable 200-240 mg/dL Borderline >240 mg/dL High Risk HDL 54 mg/dL (Normal) Comments: Reference Range HDL <40 mg/dL Low HDL Cholesterol HDL >or= 60 mg/dL High HDL Cholesterol LDL 89 mg/dL (Normal) Range: 0-130 TRIG 45 mg/dL (Normal) Comments: Serum Triglycerides Reference Interval Normal <150 mg/dL Borderline high 150 - 199 mg/dL High 200 - 499 mg/dL Very High > or = 500 mg/dL VLDL 9 mg/dL (Normal) Range: 5-40 96-Sph-043075:30 C-REACTIVE PROT 25.45 mg/L (Abnormal) Range: 0.0-6.0 Comments: Test performed using the Dimension C-Reactive ProteinExtended Range assay method. This assay meets the AHA/CDC 2003 recommendations fordetermining patients at high risk for cardiovasculardisease. Reference: High risk CRP >3.0 mg/L :30 COMP METABOLIC ALK P 78 U/L (Normal) Range: 50-136 ALT 53 U/L (Normal) Range: 30-65 CL 103 mmol/L (Normal) Range: 98-107 CO2 25.5 mmol/L (Normal) Range: 21.0-32.0 GAP 10 (Normal) Range: 5-15 K 4.0 mmol/L (Normal) Range: 3.5-5.1 NA 138 mmol/L (Normal) Range: 136-145 T BILI 0.24 mg/dL (Normal) Range: 0.00-1.00 A/G 0.9 {RATIO} (Normal) Range: 0.9-2.4 ALB 4.1 g/dL (Normal) Range: 3.4-5.0 AST 21 U/L (Normal) Range: 15-37 BUN 8 mg/dL (Normal) Range: 7-18 BUN/CRE 8.9 {RATIO} (Abnormal) Range: 10-20 CA 9.1 mg/dL (Normal) Range: 8.5-10.1 CREAT,SERUM 0.9 mg/dL (Normal) Range: 0.6-1.0 GLOB 4.5 g/dL (Abnormal) Range: 2.7-4.2 T PROT 8.6 g/dL (Abnormal) Range: 6.4-8.2 GLU 88 mg/dL (Normal) Range: 70-110 94-Dhd-942094:30 CPK ISO 2154 CK-BB 0 % (Normal) Comments: Performed At: [place] [id number] [place], [place] [id number] CK-MB 0 % (Normal) Range: 0-3 CK-MM 100 % (Normal) Range: 97-100 CPK,TOTAL,SERUM 62 U/L (Normal) Range: 24-173 Macro I 0 % (Normal) Macro II 0 % (Normal) :30 CPK TOTAL 63 U/L (Normal) Range: 21-215 :30 TSH 0.95 {uIU/mL} (Normal) Range: 0.34-4.82 Plan of Care Name Dates Details Instructions BMI 40.0-44.9, adult : Follow up in 3 weeks Indication: BMI 40.0-44.9, adult Elevated blood-pressure reading, without diagnosis of hypertension (Renamed from Elevated blood-pressure reading without diagnosis of hypertension) : Diet, Exercise, and Wt loss Indication: Elevated blood-pressure reading, without diagnosis of hypertension (Renamed from Elevated blood-pressure reading without diagnosis of hypertension) Elevated blood-pressure reading, without diagnosis of hypertension (Renamed from Elevated blood-pressure reading without diagnosis of hypertension) : HTN/CAD Red Flags Indication: Elevated blood-pressure reading, without diagnosis of hypertension (Renamed from Elevated blood-pressure reading without diagnosis of hypertension) Current non-smoker : Eprescribed prescriptions (G8553) Indication: Current non-smoker Sinusitis, bacterial : Sinusitis *: sinus infection Indication: Sinusitis, bacterial Sinusitis, bacterial : Follow up if no improvement or if symptoms worsen Indication: Sinusitis, bacterial BMI 40.0-44.9, adult : Eprescribed prescriptions (G8553) Indication: BMI 40.0-44.9, adult Abnormal blood chemistry : Reviewed Lab Indication: Abnormal blood chemistry Pharyngitis, acute : Eprescribed prescriptions (G8553) Indication: Pharyngitis, acute Pharyngitis, acute : Sore throat: diagnosis and treatment Indication: Pharyngitis, acute Well female exam with routine gynecological exam : *Well Female Maintenance (SMC) Indication: Well female exam with routine gynecological exam Well female exam with routine gynecological exam : Pap/Pelvic/Bimanual/Rectal/Breast Exam was done. Indication: Well female exam with routine gynecological exam Diarrhea : *Abd Pain Red Flags Indication: Diarrhea Diarrhea : Diarrhea instructions Indication: Diarrhea Other specified viral infection, in conditions classified elsewhere and of unspecified site : *URI Symptoms Indication: Other specified viral infection, in conditions classified elsewhere and of unspecified site Other specified viral infection, in conditions classified elsewhere and of unspecified site : *URI Treatment Indication: Other specified viral infection, in conditions classified elsewhere and of unspecified site Hypertension, benign : Diet and Exercise Indication: Hypertension, benign Cut caffeine : FOLLOW UP IN 1 WEEK Indication: Cut caffeine Hypertension, benign : Diet, Exercise, and Wt loss Indication: Hypertension, benign Hypertension, benign : HTN/CAD Red Flags Indication: Hypertension, benign Planned Observations IRON ([id number])Indication: Anemia On: 91-Wod-61314:09 Request FERRITIN (31992)Indication: Anemia On: 11-Dcq-22002:09 Request CBC & PLATELETS (AUTO) (75125)Indication: Anemia On: :09 Request OCCULT BLOOD FECES SCREEN (65461)Indication: Anemia On: :18 Request FERRITIN (38919)Indication: Anemia On: 80-Euv-10483:18 Request IRON BINDING CAPACITY (TIBC) (79768)Indication: Anemia On: :18 Request IRON (21604)Indication: Anemia On: 94-Bdf-53726:18 Request THROAT CULTURE (69373)Indication: Pharyngitis, acute On: 62-Loh-697195:35 Request Rapid Strep Test, Office (86758)Indication: Pharyngitis, acute On: 11-Wpv-171697:14 Request HPV automatic (93617)Indication: Screening for HPV (human papillomavirus) On: 09-Idp-135179:52 Request Thin prep Pap (31775) (no STD testing)Indication: Well female exam with routine gynecological exam On: 31-Xdt-359876:51 Request OVA & PARASITE DIR SMEAR (38776)Indication: Diarrhea On: :11 Request OCCULT BLOOD FECES SCREEN (71248)Indication: Diarrhea On: :11 Request LEUKOCYTE COUNT, FECAL (27693)Indication: Diarrhea On: :11 Request C-DIFFICILE, STOOL (63046)Indication: Diarrhea On: :11 Request ALFONSO CULTURE-STOOL (38838)Indication: Diarrhea On: :11 Request SED RATE ERYTHROCYTE (19843)Indication: Abnormal blood chemistry On: :47 Request C-REACTIVE PROTEIN (13572)Indication: Abnormal blood chemistry On: :47 Request Urine Protein Electrophoresis (UPEP) (81303)Indication: Abnormal blood chemistry On: :47 Request Serum Protein Electrophoresis (SPEP) (33657)Indication: Abnormal blood chemistry On: :47 Request C-Reactive Protein (53370)Indication: Chest pain, unspecified On: 20-Dms-732329:25 Request TSH (19231)Indication: Chest pain, unspecified On: 06-Vfb-426822:20 Request Lipid Panel (41299)Indication: Chest pain, unspecified On: 62-Jzk-681632:20 Request Metabolic Panel, Comprehensive (37991)Indication: Chest pain, unspecified On: 87-Yba-747759:20 Request CPK TOTAL & ISOENZYMES (43586)Indication: Chest pain, unspecified On: 92-Qld-502563:19 Request Planned Encounters Medical; 3 Week FU - On: 04-Feb-2018 14:30 [facility] Annie Anglin DO, DO, Kathleen Planned Procedures ELECTROCARDIOGRAM, COMPLETE (ECG) On: 14-Jan-2018 Intent (15140)By: Kaitlynn Hurtado CNP Comments: sinus rhtym Radiology - Foot - RightBy: Linnette WILSON, On: 29-Oct-2017 Intent Annie Carter DO ELECTROCARDIOGRAM, COMPLETE (ECG) On: 13-Jan-2016 Intent (68912)By: Annie Anglin DO Comments: see comments on ekg Annie WILSON Aerosol Treatment (86693)By: Genesis PINTO, On: 19-Dec-2014 Intent Mohini SPECIMEN HNDLNG/TRNSPRT, OFFC > LAB On: 21-Jun-2014 Intent (48002)By: Cailin Covarrubias MD Eprescribed prescriptions (G8553)By: On: 06-May-2012 Intent Dilcia Zepeda LPN Ultrasound - PelvisBy: Cailin Covarrubias MD On: 18-Apr-2012 Intent Donovan Comments: with post void residual bladder measurements. Eprescribed prescriptions (G8553)By: On: 18-Apr-2012 Intent Dilcia Zepeda LPN Stress Echo with TreadmillBy: Genesis On: 25-Aug-2007 Intent BLAIR Kaitlynn Collazo Echo CompleteBy: Ciesa BLAIR Mohini On: 25-Aug-2007 Intent EKG (38557)By: Altagracia Mcintyre LPN On: 25-Aug-2007 Intent Pulse Oximetry (00614)By: Francisco Javier PARRISH, On: 25-Aug-2007 Intent Altagracia Instructions Name Dates Details Current non-smoker : How to access health information online Indication: Current non-smoker Current non-smoker : How to access health information online - Detail Indication: Current non-smoker Current non-smoker : Patient Instructions Indication: Current non-smoker Current non-smoker : How to access health information online Indication: Current non-smoker Current non-smoker : How to access health information online - Detail Indication: Current non-smoker Current non-smoker : Patient Instructions Indication: Current non-smoker BMI 40.0-44.9, adult : How to access health information online Indication: BMI 40.0-44.9, adult BMI 40.0-44.9, adult : How to access health information online - Detail Indication: BMI 40.0-44.9, adult Sinusitis, bacterial : Patient Instructions Indication: Sinusitis, bacterial BMI 40.0-44.9, adult : How to access health information online Indication: BMI 40.0-44.9, adult BMI 40.0-44.9, adult : How to access health information online - Detail Indication: BMI 40.0-44.9, adult BMI 40.0-44.9, adult : Patient Instructions Indication: BMI 40.0-44.9, adult BMI 40.0-44.9, adult : How to access health information online Indication: BMI 40.0-44.9, adult BMI 40.0-44.9, adult : How to access health information online - Detail Indication: BMI 40.0-44.9, adult BMI 40.0-44.9, adult : Patient Instructions Indication: BMI 40.0-44.9, adult BMI 40.0-44.9, adult : How to access health information online Indication: BMI 40.0-44.9, adult BMI 40.0-44.9, adult : How to access health information online - Detail Indication: BMI 40.0-44.9, adult BMI 40.0-44.9, adult : Patient Instructions Indication: BMI 40.0-44.9, adult Pharyngitis, acute : How to access health information online Indication: Pharyngitis, acute Pharyngitis, acute : How to access health information online - Detail Indication: Pharyngitis, acute Pharyngitis, acute : Patient Instructions Indication: Pharyngitis, acute Obesity, unspecified : Patient Instructions Indication: Obesity, unspecified Abdominal pain, acute, left lower quadrant : Patient Instructions Indication: Abdominal pain, acute, left lower quadrant Urinary frequency : Patient Instructions Indication: Urinary frequency Encounters Lab Order On: 01-Feb-2018 8:07 Encounter Diagnosis: Anemia End: 01-Feb-2018 8:10 [facility] Annotation/Addendum On: 01-Feb-2018 8:05 Encounter Diagnosis: Anemia End: 01-Feb-2018 8:07 [facility] Lab Order On: 17-Jan-2018 9:15 Encounter Diagnosis: Anemia End: 17-Jan-2018 9:18 [facility] Office Visit On: 14-Jan-2018 12:58 Encounter Reason: Earache - The onset of the earache has been acute. It affects the left ear. The pain affects the internal ear. Note for Earache: Left ear pain and history of hypertension at [employer] was 190/98, End: 14-Jan-2018 14:02 [ADDITIONAL REASON] Hypertension - Note for Hypertension: Drinking too much coffee daily 3-4 16 oz coffee Encounter Diagnosis: Current non-smoker, BMI 40.0-44.9, adult, Elevated blood-pressure reading, without diagnosis of hypertension (Renamed from Elevated blood-pressure reading without diagnosis of hypertension), History of migraine, Eustachian tube dysfunction [facility] Phone Encounter On: 29-Oct-2017 12:21 Encounter Diagnosis: Foot pain, left End: 29-Oct-2017 12:23 [facility] Office Visit On: 15-Jul-2017 12:41 Encounter Reason: Ankle Pain - This condition occurred without any known injury. The patient sustained an injury to the left ankle. This occurred month(s) ago. Symptoms include ankle pain, swelling, decreased range of mo End: 15-Jul-2017 13:30 tion and difficulty bearing weight. Symptoms are located in the left ankle.Encounter Diagnosis: BMI 40.0-44.9, adult, Current non-smoker, Foot pain, left, Achilles tendinitis of left lower extremity [facility] Annotation/Addendum On: 24-Mar-2017 17:18 Encounter Diagnosis: Sinusitis, bacterial End: 24-Mar-2017 17:21 [facility] Office Visit On: 18-Mar-2017 13:13 Encounter Reason: Sinusitis/ - The duration of the symptoms are 1 1/2 months The course has been worsening. Note for Sinusitis/: Symptoms started about 5 weeks ago-headaches, facial pressure and pain along cheeks and t End: 18-Mar-2017 14:10 eeth, nasal drainage-green, slight cough, chills. No fever, SOB, CP.Encounter Diagnosis: Current non-smoker, BMI 40.0-44.9, adult, Pharyngitis, acute, Sinusitis, bacterial, Facial pressure [facility] Office Visit On: 20-Mar-2016 11:42 Encounter Reason: Follow up, Diagnostic Procedure Results - Diagnostic tests include mammography and other (labs, pap ). Date: ().Encounter Diagnosis: BMI 40.0-44.9, adult, Current non-smoker, Family history of heart disease, End: 20-Mar-2016 13:45 Abnormal blood chemistry [facility] Office Visit On: 13-Jan-2016 11:36 Encounter Reason: Physical female exam - Last seen more than 1 year ago. General health: feels well with minor complaints, has good energy level and is sleeping well. The patient's appetite is normal. Nutrition: normal/a End: 13-Jan-2016 13:29 dequate. Exercises 2 days per week. Sleeps on average 6 hours per night. Normal bowel and bladder habits. Safety measures include appropriate use of safety belts and home smoke detectors. There are no c urrent emotional problems. screening, mammography (2014) and screening, Pap smear (2014).Encounter Diagnosis: Current non-smoker, BMI 40.0-44.9, adult, Physical exam, Need for prophylactic vaccination and inoculation against influenza (Renamed from Need for immunization against influenza), Influenza vaccination declined (Renamed from Refused influenza vaccine), Family history of diabetes mellitus (DM), Family history of heart disease, Nutritional counseling [facility] Office Visit On: 19-Dec-2014 13:10 Encounter Reason: Cold Symptoms - Symptoms include nasal congestion, sore throat and dry cough. Onset was day(s) ago. The patient describes this as worsening. Associated symptoms include ear pain, fatigue and fever. Curr End: 19-Dec-2014 13:41 ent treatment includes non-prescription cold medication and antihistamines.Encounter Diagnosis: Chills with fever, Pharyngitis, acute, Cough [facility] Office Visit On: 21-Jun-2014 14:43 Encounter Reason: Sore Throat - The last clinic visit was 3 day(s) ago. No changes in management were made at the last visit. Symptoms include sore throat, dysphagia and swollen glands, while symptoms do not include odyn End: 21-Jun-2014 15:00 ophagia, nasal congestion, postnasal drainage, myalgias, drooling, stridor, fever or chills. The symptoms are on the left side more than the right. The pain radiates to the left ear, left neck, right ea r and right neck. The patient describes the pain as burning. Onset was sudden 3 day(s) ago. The symptoms occur constantly. This problem has not been previously evaluated. This problem has not been previously treated.Encounter Diagnosis: ACUTE PHARYNGITIS (462.) [facility] Office Visit On: 28-Jul-2013 11:26 Encounter Reason: Well Women Exam - The patient feels well with minor complaints, has good energy level and is sleeping well. Pap smear: date of last pap: (October 2012 ). Contraceptive history: The patient is not using a End: 28-Jul-2013 11:56 ny method of contraception at this time. Patient does not exercise. The patient's libido is normal. The patient reports that she performs monthly self breast exam. Calcium intake includes 1 serving milk daily. Menstruation: Last menstrual period date: (07-07-13 ).Encounter Diagnosis: Obesity,unspecified (278.00), Well Female (Younger Female) (V72.31), SCREENING FOR HUMAN PAPILLOMAVIRUS (HPV) (V73.81) [facility] Office Visit On: 06-May-2012 6:58 Encounter Reason: Follow up tests - Date: (U/S). Current symptoms include abdominal pain (Eerything else is gone but still the strange pain or pressure in my side (L)).Encounter Diagnosis: Abdominal Pain,LLQ (789.04), Urinary Frequency (788.41), End: 06-May-2012 7:31 HYPERTENSION (401.1), Obesity,unspecified (278.00) [facility] Office Visit On: 18-Apr-2012 9:38 Encounter Reason: Urinary problems - The urinary problems have been occurring for 10 days. Note for Urinary problems: felt had to go to bathroom alot but not had alot to urinate. not burn to urinate. feel full on left End: 18-Apr-2012 10:23 side. no urinary issues before. no new meds. just finished menses. no vaginal discharge. no pernium rash. moving bowels okayEncounter Diagnosis: Urinary Frequency (788.41), Abdominal Pain,LLQ (789.04) [facility] Office Visit On: 19-May-2011 13:56 Encounter Reason: Diarrhea - The onset of the diarrhea has been sudden and has been occurring in an intermittent pattern for 2 days. The course has been decreasing. The stools are watery. The volume of the stools is larg End: 19-May-2011 14:17 e. The symptoms have been associated with abdominal pain (cramping ), fever, nausea and weakness (on wednesday), while the symptoms have not been associated with vomiting.Encounter Diagnosis: Diarrhea (787.91) [facility] Office Visit On: 06-Apr-2011 15:19 Encounter Reason: Sinusitis/ - The duration of the symptoms are 3 days The course has been worsening. The sinusitis/ are relieved by nothing (tylenol cold multi sx ). Associated features include The symptoms have been as End: 06-Apr-2011 15:43 sociated with ear pain (bilatteral ), nasal discharge/stuffy nose (clear) and sinus pain, while the symptoms have not been associated with cough, sore throat, swollen lymph glands or teeth pain.Encounter Diagnosis: Viral infection, unspecified (079.99), Eustachian tube dysfunction (381.81) [facility] Office Visit On: 13-Sep-2007 16:21 Encounter Reason: Follow up, Diagnostic Procedure Results - Diagnostic tests include ECHO (in scanned documents). Date: (09/02/07). Note for Follow up, Diagnostic Procedure Results: she is doing better and chest pain is End: 13-Sep-2007 21:26 gone thinks musculoskeletal-- as gone- echo and stress reviewed-- she cut caffeine and stopped control-- and bp looks much better-- lost 5 pounds and she is trying to lose-- she is walking for ex ercise-- her bps are really good and she is tracking them at home-- and are great-- she is getting pap done-- , [ADDITIONAL REASON] Follow up, Laboratory Test Results - Date: (08/25/07 and 08/30/07). Encounter Diagnosis: Abnormal blood chemistry (790.6), HYPERTENSION (401.1) [facility] Office Visit On: 25-Aug-2007 15:38 Encounter Reason: Chest pain - The onset of the pain has been gradual and has been occurring in an intermittent (when taking deep breath ) pattern for 4 days. The pain is described as a mild to moderate sharp pain. The p End: 25-Aug-2007 16:43 ain is described as being located in the left chest. The pain does not radiate. There are no precipitating factors. The symptoms are aggravated by deep breathing. The symptoms have no relieving factors. There has been no associated abdominal pain ,arthritis ,blurred vision ,breast pain ,cough ,dizziness ,diaphoresis ,dysphagia ,dyspnea ,emotional stress ,fever ,headache ,hemoptysis ,history of heart d isease ,history of ulcer disease ,hypertension ,immobilization ,increased nitroglycerine consumption ,nausea ,neck pain ,palpitations ,shoulder pain ,syncope ,trauma ,vomiting ,wheezing or heartburn. Pr evious evaluations include ECG. There is no medical history of cigarette smoking. There is a family history of myocardial infarction before age 55 (mother - @ 43 ). There is a history of use of oral contraceptives and NSAIDs (aleve ). Note for Chest pain: I feel it more today, under my breast.After taking aleve for my back it went away. Today Ihave noticed. Encounter Diagnosis: HYPERTENSION (401.1), SYMPTOMS INVOLVING RESPIRATORY SYSTEM AND OTHER CHEST SYMPTOMS; UNSPECIFIED CHEST PAIN (786.50), Cut caffeine [facility] Payers Carlton Davila; clive guarantor
--- OUTSIDE RECORDS SUMMARY | 2018-03-15 15:52 | XMS RPT_ITS | Continuity of Care Document ---
:1975 Author Organization [facility] Address [address] [place] [address] Phone Care Team Providers Name Role Phone Annie Anglin DO Unavailable Satish MENDENHALL, Cailin Man Unavailable Rizwan Blanca Unavailable Radha Sanford Unavailable Unavailable Genesis PINTO, Kaitlynn Collazo Unavailable Unavailable Unavailable Problems Name Dates Details [...] days Quantity: 30 {Tablet} Refills: 1 Ordered:14-Jan-2018 Genesis PINTO Mohini Start : 14-Jan-2018 Active Nasacort Allergy 24HR 55 MCG/ACT Nasal Aerosol 2 (two) Puff daily for 0 days Quantity: 1 {Bottle} Refills: 0 Ordered:14-Jan-2018 Genesis PINTO Mohini Start : 14-Jan-2018 Active Doxycycline Hyclate 100 [...] 1 {Suspension} Refills: 0 Ordered:19-May-2011 Francisco Javier FRANCOISAltagracia Start : 06-Apr-2011 End : 19-May-2011 Inactive Zithromax Z-Alexis 250 MG Oral Tablet 1 Tablet TAD for 0 days Quantity: 1 {Package} Refills: 0 Ordered:13-Jan-2016 Enriqueta Cisse FRANCOIS Start : 19-Dec-2014 End : 13-Jan-2016 Inactive Clarithromycin 500 MG Oral Tablet 1 (one) Tablet PO BID for 14 days Quantity: 28 {Tablet} Refills: 0 Ordered:24-Mar-2017 Linnette DO DominicMargie Annie Start : 24-Mar-2017 End : 24-Mar-2017 Discontinued [...] : 18-Apr-2012 Discontinued Comments:This order discontinued per -Span. Allergies and Adverse Reactions Name Dates Details [...] 3 Views Result: Comments: See Note; NOTES: [facility] Imaging Services [address] [place] [address] Foot min 3 Views MR#: [id number] Acct: [id number] Name: MOISES DAVILA Santa Rep #: [id number] : 1975 F 42 From: Harry Smith MD PCP: Annie Anglin DO Status: REG CLI Study: Foot min 3 Views Date of Exam: 10/29/17 Exam# [id number] Ordering Dr: Annie Anglin DO STUDY: X-RAY [...] Service support , CC: Annie Anglin DO Water Pipe Installer: Signed 20-Oct-2016 SCREENING MAMM (CAD), BILAT Result: Comments: See Note; NOTES: [facility] Imaging Services [address] [place] [address] SCREENING MAMM (CAD), BILAT MR#: [id number] Acct: [id number] Name: MOISES DAVILA Rep #: [id number] : 1975 F 41 From: Harry Kuaffman MD PCP: Annie Anglin DO Status: REG CLI Study: SCREENING MAMM (CAD), BILAT Date of Exam: 10/20/16 Exam# [id number] Ordering Dr: Don Walker MAMMOGRAPHY - BILATERAL [...] delay biopsy of a clinically suspicious abnormality. [id number] Electronically Signed: Harry Kauffman MD at 8:21 EDT Tel [phone], Ser vice support , CC: Don Walker MD; Annie Anglin DO Water Pipe Installer: Signed 20-Jan-2016 Bilat Scrn Digital AND CAD Result: Comments: See Note; NOTES: [facility] Imaging Services [address] [place] [address] Verdana 4d Bilat Scrn Digital AND CAD MR#: [id number] Acct: [id number] Name: OLENA DAVILA ALIYAH Rep #: [id number] : 1975 F 40 From: Harry Kauffman MD PCP: Annie Anglin DO Status: REG CLI Study: Bilat Scrn Digital AND CAD Date of Exam: 01/20/16 Exam# [id number] Ordering Dr: Don Walker MD MAMMOGRAPHY - [...] significant change since the prior study. [facility]/Colten Velezn Digital AND CAD IMPRESSION: Stable bilateral screening mammogram. Yearly follow-up mammogram recommended. (A) __ ASSESSMENT CATEGORY: BIRADS Category 1: Negative. A letter regarding these results will be sent to the patient by the facility within 30 days. Approximately 10% of breast cancers are not detected b y mammography. A normal mammogram should not delay biopsy of a clinically suspicious abnormality. [id number] Electronically Signed: Harry Kauffman MD at 15:44 EST Tel [phone], Service s upport [phone], CC: Don Walker MD; Annie Anglin DO Water Pipe Installer: Signed 12-Oct-2014 Colten Johnson Digital AND CAD Result: Comments: See Note; NOTES: [facility] Imaging Services [address] [place] [address] Breast Imaging Report MR#: [id number] Acct: [id number] Name: MOISES DAVILA Rep #: [id number] : 1975 F 39 From: Harry Kauffman MD PCP: Cailin Covarrubias MD Status: REG CLI Study: Colten Johnson Digital AND CAD Date of Exam: 10/12/14 Exam# [id number] Ordering Dr: Don Walker MD MAMMOGRAPHY - [...] Harry Kauffman MD at 10:50 EDT Tel [phone], Service support [phone], CC: Cailin Covarrubias MD; Don Walker MD Water Pipe Installer: Signed Social History Name Dates Details Caffeine Use Comments: 3 cups qd Status: Active 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 Status: Active Living Situation Comments: lives with spouse Status: Active No Drug Use Status: Active Non Drinker/No Alcohol Use Status: Active Non Smoker/No Tobacco Use Status: Active Tobacco use: Never smoker. Status: Active Smoking Status Name Dates Details Never smoker Vital Signs Date Test Result Details 1-Onl-322394:59 Temperature 97.7 f Comments: Method: Temporal Pulse [...] kg/m2 Body Surface Area Calculated 2.15 m2 59-Ogu-978155:00 Pulse 98 /min Comments: Pattern: Regular Respiration [...] kg/m2 Body Surface Area Calculated 2.15 m2 90-Qns-867471:14 Temperature 98 f Comments: Method: Temporal Pulse [...] kg/m2 Body Surface Area Calculated 2.17 m2 17-Wso-853428:43 Temperature 97.9 f Comments: Method: Temporal Pulse [...] kg/m2 Body Surface Area Calculated 2.17 m2 3-Bvk-258157:00 Pulse 82 /min Comments: Pattern: Regular Respiration [...] 0.00 cm Results Date Description Value Details 0-Ivk-652897:43 CALCIFEDIOL (32138) Comments: PATIENT NOT FASTINGPERFORMED BY: [facility] [facility] [id number] Vitamin D, 25-Hydroxy 22.0 ng/mL (Abnormal) Range: 30.0-100.0 Comments: Vitamin D deficiency has been defined by the [place] of[place]icine and an Endocrine Society practice guideline as alevel of serum 25-OH vitamin D less than 20 ng/mL (1,2).The Endocrine Society went on to further define vitamin Dinsufficiency as a level between 21 and 29 ng/mL (2).1. IOM ([place] of Medicine). 2010. Dietary reference intakes for calcium and D. [place]: The National Academies Press.2. Oscar MF, Narendra FLETCHER, Andrew ORTIZ, et al. Evaluation, treatment, and prevention of vitamin D deficiency: an Endocrine Society clinical practice guideline. JCEM. 2010; 96(7):1911-30. 9-Gsh-023141:43 TSH (99419) Comments: PATIENT NOT FASTINGPERFORMED BY: [facility] HospitalXlbbvv4481 [facility] [id number] TSH 1.160 {uIU/mL} (Normal) Range: 0.450-4.500 8-Kxe-859645:43 METABOLIC PANEL, COMPREHENSIVE Comments: PATIENT NOT FASTINGPERFORMED BY: [facility] [facility] [id number] (71495) ALT (SGPT) 11 [iU]/L (Normal) Range: 0-32 [...] 6-24 Glucose 102 mg/dL (Abnormal) Range: 65-99 6-Yiz-961893:43 CBC with auto diff (40969) Comments: PATIENT NOT FASTINGPERFORMED BY: [facility] HospitalUglcyf6960 [facility] [id number] Immature Grans (Abs) 0.0 {x10E3/uL} (Normal) Range: [...] 3.77-5.28 WBC 7.7 {x10E3/uL} (Normal) Range: 3.4-10.8 4-Yve-512349:43 MICROALBUMIN: CREATININE RATIO Comments: PATIENT NOT FASTINGPERFORMED BY: [facility] Qbxlig0192 [facility] [id number] (14989) AND (19256) Alb/Creat Ratio 7.8 {mg/g_creat} (Normal) Range: 0.0-30.0 Comments: Normal: 0.0 - 30.0 Albuminuria: 31.0 - 300.0 Clinical albuminuria: >300.0 Albumin, Urine 3.5 ug/mL (Normal) Creatinine, Urine 44.6 mg/dL (Normal) 2-Cyu-597143:27 Urinalysis, Office (28267) UA - LEUKOCYTE ESTERASE Small (Normal) UA - NITRITE Negative (Normal) URINE UROBILINGN CINDY TIMED Normal mg/dL (Normal) UA - PROTEIN Negative mg/dL (Normal) UA - PH 6.0 (Normal) UA - BLOOD Non Hemolyzed Moderate (Normal) UA - SPECIFIC GRAVITY 1.025 (Normal) UA - KETONES Negative mg/dL (Normal) UA - BILIRUBIN Negative (Normal) UA - GLUCOSE Negative (Normal) 2-Ggr-051358:30 PAP IG w/Reflex Comments: CYTOLOGY INFORMATION:- CLINICAL INFORMATION:- DATE LMP/MENOPAUSE: 12/30/17 LMP- COLLECTION VIAL: Thin Prep Vial- NET PROGRAMMER SOURCE: CERVICAL/ENDOCERVICAL- COLLECTION TECHNIQUE: BRUSH/SPATULASpecimen Comment: HR HPV Aptima [id number] Comment: Source.............Cervix;EndocervixSpecimen Comment: LMP / Prev Treat...[id number] Comment: No. of containers..01 ThinPrep VialLabCorp (refer to report for specific site)refer to report for address and phone number HPV RFLX Comment (Normal) Comments: The HPV DNA reflex criteria were not met with this specimenresult therefore, no HPV testing was performed.Performed at: [address] [place] [id number] Director: Erika Ga MD, Phone: [phone] PAPSMR Comment (Normal) Comments: The Pap smear [...] REV Comment (Normal) Comments: Lina Garcia, Supervisory Auto Claims Adjuster (ASCP) PERFORM Comment (Normal) Comments: Zack Carbajal, Auto Claims Adjuster (ASCP) ADEQ Comment (Normal) Comments: Satisfactory for evaluation. Endocervical and/or squamous metaplasticcells (endocervical component) are present. DIAGN Comment (Normal) Comments: NEGATIVE FOR INTRAEPITHELIAL LESION AND MALIGNANCY.THIS SPECIMEN WAS RESCREENED PART OF OUR LICENSED AUDIOLOGIST PROGRAM. 64-Ntz-036615:27 Rapid Strep Test, Office (41368) Rapid Strep Test, Office Negative (Normal) 38-Dfx-237059:30 PAP I-G w/ Reflex to HR Comments: CYTOLOGY INFORMATION:- CLINICAL INFORMATION:- DATE LMP/MENOPAUSE: NO LMP GIVEN LMP- COLLECTION VIAL: Thin Prep Vial- NET PROGRAMMER SOURCE: CERVICAL/ENDOCERVICAL- COLLECTION TECHNIQUE: BRUSH/SPATULACY TOLOGY INFOR HPV MATION:- CLINICAL INFORMATION:- DATE LMP/MENOPAUSE: NO LMP GIVEN LMP- COLLECTION VIAL: Thin Prep Vial- NET PROGRAMMER SOURCE: CERVICAL/ENDOCERVICAL- COLLECTION TECHNIQUE: BRUSH/SPATULASpecimen Comment: [id number] Comment: No. of containers..01 CYTYC Thin Prep VialLabCorp (refer to report for specific site)refer to report for address and phone number HPV RFLX Comment (Normal) Comments: The HPV DNA reflex criteria were not met with this specimenresult therefore, no HPV testing was performed.Performed at: [address] [place] [id number] Director: Erika Ga MD, Phone: [phone] PAPSMR Comment (Normal) Comments: The Pap smear [...] system. PERFORM Comment (Normal) Comments: Crissy Washington, Auto Claims Adjuster (ASCP) ADEQ Comment (Normal) Comments: Satisfactory for evaluation. Endocervical and/or squamous metaplasticcells (endocervical component) are present. DIAGN Comment (Normal) Comments: NEGATIVE FOR INTRAEPITHELIAL LESION AND MALIGNANCY. 86-Fko-577756:19 C-REACT PROT HIGH SENS(hsCRP) Comments: PATIENT WAS FASTINGPERFORMED BY: [employer]6[facility] [id number] (77808) C-Reactive Protein, Cardiac 13.25 mg/L (Abnormal) Range: 0.00-3.00 Comments: Relative Risk for Future Cardiovascular Event Low <1.00 Average 1.00 - 3.00 High >3.00 52-Nhb-859752:19 GLUCOSE (15398) Comments: PATIENT WAS FASTINGPERFORMED BY: [employer]6[facility] [id number] Glucose, Serum 92 mg/dL (Normal) Range: 65-99 61-Tjw-982576:19 LIPID PANEL (62514) Comments: PATIENT WAS FASTINGPERFORMED BY: [employer]6[facility] [id number] LDL/HDL Ratio 0.9 {ratio_units} (Normal) Range: 0.0-3.2 [...] Cholesterol, Total 127 mg/dL (Normal) Range: 100-199 71-Rib-936596:09 ALFONSO CULTURE-OTHER (38397) Comments: PATIENT NOT FASTINGPERFORMED BY: [facility] HospitalYyixeg4603 [facility] [id number] Information: SRC: THROAT Result 1 RRF (Normal) Comments: Routine respiratory shanice Upper Respiratory Culture Final report (Normal) 25-Aiv-030295:00 Rapid Strep Test, Office (94718) Rapid Strep Test, Office Negative (Normal) 68-Waj-16172:37 Pap IG, HPV-hr Comments: PERFORMED BY: [employer] [place] [address] [id number] BY: =G [facility] Tfeccaenxf511 [facility] [id number] Information: [id number] HPV, high-risk Negative Comments: This high-risk HPV [...] (endocervical component) are present.V70.0 ; Routine general me dical examin [facility] hospitalV73.81 ; Special screening examination, human papillomavirus [HPV]Makenna Samaniego, Auto Claims Adjuster (ASCP) 67-Tqw-361984:51 PELVIC (NON ) Radiology Report See Note (Normal) Comments: PROCEDURE: ULTRASOUND OF THE FEMALE PELVIS - COMPLETE REASON FOR EXAM: Female, 36 years old. Left lower quadrant pain. LMP: Not reported TECHNIQUE: Transabdominal and Transvaginal TECHNICAL QU ALITY: Adequate. COMPARISON: None. FINDINGS:The uterus is anteverted and is in a midline position. The lrfnndugrllwcm60.4 x 4.5 x 5.6 cm. Normal uterine [...] Fuller M.D.May 02, 2012 at 4:24:16 PM [id number] Signed DL/DL If you are the referring physician and would like to consult with theradiologist who provided this interpretation , please contact Angelika Nuñez at [phone]. If this radiologist is unavailable, youwillbe directed to another radiologist to assist. If you are a patient with a question regarding this report, pleasecontactyour referring physician directly. Professional Interpretation Provided By: [employer], Phone , These documents contain legally protected [...] 07/18 1510 by Philip Fuller MDTranscribed on 05/02/121656 by ITS IMPORTSign by Philip Fuller MD on 05/02/121657 Sign by: Philip Fuller MD 84-Xrh-640897:21 URINE ALFONSO CULTURE (CINDY Comments: PATIENT NOT FASTINGPERFORMED BY: [facility] [id number] Information: SRC:UR [id number] COL COUNT) (10431) Result 1 MUG (Normal) Comments: Mixed urogenital [id number] Colonies/mL Urine Culture,Comprehensive Final report (Normal) 74-Agz-17400:44 Urinalysis, Office (60316) UA - BILIRUBIN Negative (Normal) UA - BLOOD Non Hemolyzed Trace (Normal) UA - GLUCOSE Negative (Normal) UA - KETONES Negative mg/dL (Normal) UA - LEUKOCYTE ESTERASE Negative (Normal) UA - NITRITE Negative (Normal) UA - PH 6.0 (Normal) UA - PROTEIN Negative mg/dL (Normal) UA - SPECIFIC GRAVITY 1.025 (Normal) Comments: 1.030 URINE UROBILINGN CINDY TIMED Normal mg/dL (Normal) 66-Udi-711158:35 LIPID CHOL 152 mg/dL (Normal) Comments: <200 [...] mg/dL VLDL 9 mg/dL (Normal) Range: 5-40 38-Uog-081983:30 C-REACTIVE PROT 25.45 mg/L (Abnormal) Range: 0.0-6.0 Comments: Test performed using the Dimension C-Reactive ProteinExtended Range assay method. This assay meets the AHA/CDC 2003 recommendations fordetermining patients at high risk for cardiovasculardisease. Reference: High risk CRP >3.0 mg/L 08-Uoe-452997:30 COMP METABOLIC ALK P 78 U/L (Normal) [...] 6.4-8.2 GLU 88 mg/dL (Normal) Range: 70-110 28-Luv-149649:30 CPK ISO 2154 CK-BB 0 % (Normal) Comments: Performed At: [address] [id number] CK-MB 0 % (Normal) Range: 0-3 CK-MM 100 % (Normal) Range: 97-100 CPK,TOTAL,SERUM 62 U/L (Normal) Range: 24-173 Macro I 0 % (Normal) Macro II 0 % (Normal) 21-Ctg-698499:30 CPK TOTAL 63 U/L (Normal) Range: 21-215 83-Sgo-263465:30 TSH 0.95 {uIU/mL} (Normal) Range: 0.34-4.82 Plan [...] routine gynecological exam : *Well Female Maintenance ([facility]) Indication: Well female exam with routine gynecological [...] Red Flags Indication: Hypertension, benign Planned Observations OCCULT BLOOD FECES SCREEN (82144)Indication: Anemia On: :18 Request FERRITIN (42355)Indication: Anemia On: :18 Request IRON BINDING CAPACITY (TIBC) (46305)Indication: Anemia On: :18 Request IRON (22912)Indication: Anemia On: :18 Request THROAT CULTURE (11199)Indication: Pharyngitis, acute On: 27-Jmi-661622:35 Request Rapid Strep Test, Office (98480)Indication: Pharyngitis, acute On: 70-Nus-027863:14 Request HPV automatic (46675)Indication: Screening for HPV (human papillomavirus) On: 28-Uez-025692:52 Request Thin prep Pap (01644) (no STD testing)Indication: Well female exam with routine gynecological exam On: 87-Rmu-104639:51 Request OVA & PARASITE DIR SMEAR (65168)Indication: Diarrhea On: 09-Inz-514914:11 Request OCCULT BLOOD FECES SCREEN (10468)Indication: Diarrhea On: 52-Zul-505390:11 Request LEUKOCYTE COUNT, FECAL (56902)Indication: Diarrhea On: 75-Luy-985239:11 Request C-DIFFICILE, STOOL (48670)Indication: Diarrhea On: 14-Fxv-019891:11 Request ALFONSO CULTURE-STOOL (85730)Indication: Diarrhea On: 82-Yed-587712:11 Request SED RATE ERYTHROCYTE (94500)Indication: Abnormal blood chemistry On: :47 Request C-REACTIVE PROTEIN (01875)Indication: Abnormal blood chemistry On: :47 Request Urine Protein Electrophoresis (UPEP) (36463)Indication: Abnormal blood chemistry On: :47 Request Serum Protein Electrophoresis (SPEP) (55169)Indication: Abnormal blood chemistry On: 4-Ycx-555746:47 Request C-Reactive Protein (95054)Indication: Chest pain, unspecified On: 68-Lrf-107576:25 Request TSH (62254)Indication: Chest pain, unspecified On: 96-Wim-748067:20 Request Lipid Panel (89899)Indication: Chest pain, unspecified On: 36-Skk-024487:20 Request Metabolic Panel, Comprehensive (74492)Indication: Chest pain, unspecified On: 42-Ifg-954306:20 Request CPK TOTAL & ISOENZYMES (81520)Indication: Chest pain, unspecified On: 02-Ybb-314943:19 Request Planned Encounters Medical; 3 Week FU - On: 04-Feb-2018 14:30 [facility] Annie Anglin DO, DO, Kathleen Planned Procedures ELECTROCARDIOGRAM, COMPLETE (ECG) On: 14-Jan-2018 Intent (29964)By: Kaitlynn Hurtado CNP Comments: sinus rhtym Radiology - Foot - RightBy: Linnette WISLON, On: 29-Oct-2017 Intent Annie Carter DO ELECTROCARDIOGRAM, COMPLETE (ECG) On: 13-Jan-2016 Intent (94873)By: Annie Anglin DO Comments: see comments on ekg Annie WILSON Aerosol Treatment (68110)By: Genesis PINTO, On: 19-Dec-2014 Intent Kaitlynn Collazo SPECIMEN HNDLNG/TRNSPRT, OFFC > LAB On: 21-Jun-2014 Intent (93523)By: Cailin Covarrubias MD Eprescribed prescriptions (G8553)By: On: 06-May-2012 Intent Dilcia Zepeda LPN Ultrasound - PelvisBy: Cailin Covarrubias MD On: 18-Apr-2012 Susie Man Comments: with post void residual bladder measurements. Eprescribed prescriptions (G8553)By: On: 18-Apr-2012 Intent Dilcia Zepeda LPN Stress Echo with TreadmillBy: Genesis On: 25-Aug-2007 Intent Kaitlynn PINTO Echo CompleteBy: Kaitlynn Hurtado CNP On: 25-Aug-2007 Intent EKG (52713)By: Altagracia Mcintyre LPN On: 25-Aug-2007 Intent Pulse Oximetry (51852)By: Francisco Javier PARRISH, On: 25-Aug-2007 Intent Altagracia [...] Indication: Urinary frequency Encounters Lab Order On: 17-Jan-2018 9:15 Encounter Diagnosis: Anemia End: 17-Jan-2018 9:18 [facility] Office Visit On: 14-Jan-2018 12:58 Encounter Reason: Earache - The onset of the earache has been acute. It affects the left ear. The pain affects the internal ear. 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
--- OUTSIDE RECORDS SUMMARY | 2018-03-15 15:52 | XMS RPT_ITS | Continuity of Care Document ---
:1975 Author Organization [facility] Address [facility] [address] Phone Care Team Providers Name Role Phone Annie Anglin DO Unavailable Satish MENDENHALL, Cailin Man Unavailable Rizwan Blanca Unavailable Radha Sanford Unavailable Unavailable Genesis PINTO, Kaitlynn Collazo Unavailable Unavailable Unavailable Problems Name Dates Details Abnormal blood chemistry (R79.9, 790.6) Status: Active Achilles tendinitis of left lower extremity (M76.62, 726.71) Status: Active BMI 40.0-44.9, adult (Z68.41, V85.41) [...] days Quantity: 1 {Suspension} Refills: 0 Ordered:19-May-2011 Altagracia Mcintyre LPN Start : 06-Apr-2011 End : 19-May-2011 Inactive [...] 3 Views Result: Comments: See Note; NOTES: [facility] Imaging Services [address] [place] [address] Foot min 3 Views MR#: [id number] Acct: [id number] Name: MOISES DAVILA Rep #: [id number] : 1975 F 42 From: Harry Smith MD PCP: Annie Anglin DO Status: REG CLI Study: Foot min 3 Views Date of Exam: 10/29/17 Exam# [id number] Ordering Dr: Annie Anglin DO STUDY: X-RAY [...] Service support , CC: Annie Anglin DO Pelt Grader: Signed 20-Oct-2016 SCREENING MAMM (CAD), BILAT Result: Comments: See Note; NOTES: [facility] Imaging Services [address] [place] [address] SCREENING MAMM (CAD), BILAT MR#: [id number] Acct: [id number] Name: MOISES DAVILA Rep #: [id number] : 1975 F 41 From: Harry Kauffman MD PCP: Annie Anglin DO Status: [facility] Study: SCREENING MAMM (CAD), BILAT Date of Exam: 10/20/16 Exam# [id number] Ordering Dr: Don Walker MAMMOGRAPHY - BILATERAL [...] delay biopsy of a clinically suspicious abnormality. [id number] Electronically Signed: Harry Kauffman MD at 8:21 EDT Tel [phone], Ser vice support , CC: Don Walker MD; Annie Anglin DO Pelt Grader: Signed 20-Jan-2016 Bilat Scrn Digital AND CAD Result: Comments: See Note; NOTES: [facility] Imaging Services [address] [place] [address] Verdana 4d Bilat Scrn Digital AND CAD MR#: [id number] Acct: [id number] Name: OLENA DAIVLA Rep #: [id number] : 1975 F 40 From: Harry Kauffman MD PCP: Annie Anglin DO Status: REG CLI Study: Bilat Scrn Digital AND CAD Date of Exam: 01/20/16 Exam# [id number] Ordering Dr: Don Walker MD MAMMOGRAPHY - [...] no significant change since the prior study. [facility]/Colten Johnson Digital AND CAD IMPRESSION: Stable bilateral screening mammogram. Yearly follow-up mammogram recommended. (A) __ ASSESSMENT CATEGORY: BIRADS Category 1: Negative. A letter regarding these results will be sent to the patient by the facility within 30 days. Approximately 10% of breast cancers are not detected b y mammography. A normal mammogram should not delay biopsy of a clinically suspicious abnormality. [id number] Electronically Signed: Harry Kauffman MD at 15:44 EST Tel [phone], Service s upport [phone], CC: Don Walker MD; Annie Anglin DO Pelt Grader: Signed 12-Oct-2014 Colten Johnson Digital AND CAD Result: Comments: See Note; NOTES: [facility] Imaging Services [address] [place] [id number] Breast Imaging Report MR#: [id number] Acct: [id number] Name: MOISES DAVILA Rep #: [id number] : 1975 F 39 From: Harry Kauffman MD PCP: Cailin Covarrubias MD Status: REG CLI Study: Colten Scrn Digital AND CAD Date of Exam: 10/12/14 Exam# [id number] Ordering Dr: Don Walker MD MAMMOGRAPHY - [...] Harry Kauffman MD at 10:50 EDT Tel [phone], Service support [phone], CC: Cailin Covarrubias MD; Don Walker MD Pelt Grader: Signed Social History Name Dates Details Caffeine Use Comments: 3 cups qd Status: Active 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 Status: Active Living Situation Comments: lives with spouse Status: Active No Drug Use Status: Active Non Drinker/No Alcohol Use Status: Active Non Smoker/No Tobacco Use Status: Active Tobacco use: Never smoker. Status: Active Smoking Status Name Dates Details Never smoker Vital Signs Date Test Result Details 1-Bji-815557:59 Temperature 97.7 f Comments: Method: Temporal Pulse [...] kg/m2 Body Surface Area Calculated 2.15 m2 67-Bay-812007:00 Pulse 98 /min Comments: Pattern: Regular Respiration [...] kg/m2 Body Surface Area Calculated 2.17 m2 61-Xbw-243329:43 Temperature 97.9 f Comments: Method: Temporal Pulse [...] kg/m2 Body Surface Area Calculated 2.17 m2 :00 Pulse 82 /min Comments: Pattern: Regular Respiration [...] 0.00 cm Results Date Description Value Details 2-Lja-182074:27 Urinalysis, Office (05283) UA - LEUKOCYTE ESTERASE Small (Normal) UA - NITRITE Negative (Normal) URINE UROBILINGN CINDY TIMED Normal mg/dL (Normal) UA - PROTEIN Negative mg/dL (Normal) UA - PH 6.0 (Normal) UA - BLOOD Non Hemolyzed Moderate (Normal) UA - SPECIFIC GRAVITY 1.025 (Normal) UA - KETONES Negative mg/dL (Normal) UA - BILIRUBIN Negative (Normal) UA - GLUCOSE Negative (Normal) 9-Yze-137998:30 PAP IG w/Reflex Comments: CYTOLOGY INFORMATION:- CLINICAL INFORMATION:- DATE LMP/MENOPAUSE: 12/30/17 LMP- COLLECTION VIAL: Thin Prep Vial- SPORTS PSYCHOLOGIST SOURCE: CERVICAL/ENDOCERVICAL- COLLECTION TECHNIQUE: BRUSH/SPATULASpecimen Comment: HR HPV Aptima [id number] Comment: Source.............Cervix;EndocervixSpecimen Comment: LMP / Prev Treat...CYQ=[id number] Comment: No. of containers..01 [facility] (refer to report for specific site)refer to report for address and phone number HPV RFLX Comment (Normal) Comments: The HPV DNA reflex criteria were not met with this specimenresult therefore, no HPV testing was performed.Performed at: [address] [id number] Director: Erika Ga MD, Phone: [phone] PAPSMR Comment (Normal) Comments: The Pap smear [...] REV Comment (Normal) Comments: Lina Garcia, Supervisory Management Associate (ASCP) PERFORM Comment (Normal) Comments: Zack Carbajal, Management Associate (ASCP) ADEQ Comment (Normal) Comments: Satisfactory for evaluation. Endocervical and/or squamous metaplasticcells (endocervical component) are present. DIAGN Comment (Normal) Comments: NEGATIVE FOR INTRAEPITHELIAL LESION AND MALIGNANCY.THIS SPECIMEN WAS RESCREENED PART OF OUR CAR SUPERVISOR PROGRAM. 71-Sml-896694:27 Rapid Strep Test, Office (31836) Rapid Strep Test, Office Negative (Normal) 54-Brd-704695:30 PAP I-G w/ Reflex to HR Comments: CYTOLOGY INFORMATION:- CLINICAL INFORMATION:- DATE LMP/MENOPAUSE: NO LMP GIVEN LMP- COLLECTION VIAL: Thin Prep Vial- SPORTS PSYCHOLOGIST SOURCE: CERVICAL/ENDOCERVICAL- COLLECTION TECHNIQUE: BRUSH/SPATULACY TOLOGY INFOR HPV MATION:- CLINICAL INFORMATION:- DATE LMP/MENOPAUSE: NO LMP GIVEN LMP- COLLECTION VIAL: Thin Prep Vial- SPORTS PSYCHOLOGIST SOURCE: CERVICAL/ENDOCERVICAL- COLLECTION TECHNIQUE: BRUSH/SPATULASpecimen Comment: [id number] Comment: No. of containers..01 CYTYC Thin Prep VialLabCorp (refer to report for specific site)refer to report for address and phone number HPV RFLX Comment (Normal) Comments: The HPV DNA reflex criteria were not met with this specimenresult therefore, no HPV testing was performed.Performed at: [address], [place] [id number] Director: Erika Ga MD, Phone: [phone] PAPSMR Comment (Normal) Comments: The Pap smear [...] system. PERFORM Comment (Normal) Comments: Crissy Washington, Management Associate (ASCP) ADEQ Comment (Normal) Comments: Satisfactory for evaluation. Endocervical and/or squamous metaplasticcells (endocervical component) are present. DIAGN Comment (Normal) Comments: NEGATIVE FOR INTRAEPITHELIAL LESION AND MALIGNANCY. 83-Tgx-256418:19 C-REACT PROT HIGH SENS(hsCRP) Comments: PATIENT WAS FASTINGPERFORMED BY: CB [facility] Zhglja3786 [facility] [id number] (42822) C-Reactive Protein, Cardiac 13.25 mg/L (Abnormal) Range: 0.00-3.00 Comments: Relative Risk for Future Cardiovascular Event Low <1.00 Average 1.00 - 3.00 High >3.00 19-Pri-235230:19 GLUCOSE (59297) Comments: PATIENT WAS FASTINGPERFORMED BY: [address] [id number] Glucose, Serum 92 mg/dL (Normal) Range: 65-99 93-Nak-843555:19 LIPID PANEL (10894) Comments: PATIENT WAS FASTINGPERFORMED BY: [address] [id number] LDL/HDL Ratio 0.9 {ratio_units} (Normal) Range: 0.0-3.2 [...] Cholesterol, Total 127 mg/dL (Normal) Range: 100-199 48-Lgp-202687:09 ALFONSO CULTURE-OTHER (13183) Comments: PATIENT NOT FASTINGPERFORMED BY: [facility] [place] [address] [id number] Information: SRC: THROAT Result 1 RRF (Normal) Comments: Routine respiratory shanice Upper Respiratory Culture Final report (Normal) 60-Nwt-530515:00 Rapid Strep Test, Office (42626) Rapid Strep Test, Office Negative (Normal) 13-Ewk-48195:37 Pap IG, HPV-hr Comments: PERFORMED BY: [address] [id number] BY: =G [facility] Ziierjbhrg19234 [address] StreetYovanyconemaugh memorial medical center [place] [id number] Information: [id number] HPV, high-risk Negative Comments: This high-risk HPV [...] (endocervical component) are present.V70.0 ; Routine general [facility] ; Special screening examination, human papillomavirus [HPV]Makenna Samaniego, Management Associate (ASCP) 82-Czb-709321:51 PELVIC (NON ) Radiology Report See Note (Normal) Comments: PROCEDURE: ULTRASOUND OF THE FEMALE PELVIS - COMPLETE REASON FOR EXAM: Female, 36 years old. Left lower quadrant pain. LMP: Not reported TECHNIQUE: Transabdominal and Transvaginal TECHNICAL QU ALITY: Adequate. COMPARISON: None. FINDINGS:The uterus is anteverted and is in a midline position. The fimyplsnmbgcqm54.4 x 4.5 x 5.6 cm. Normal uterine [...] Fuller M.D.May 02, 2012 at 4:24:16 PM [id number] Signed DL/DL If you are the referring physician and would like to consult with theradiologist who provided this interpretation , please contact Angelika Nuñez at [phone]. If this radiologist is unavailable, youwillbe directed to another radiologist to assist. If you are a patient with a question regarding this report, pleasecontactyour referring physician directly. Professional Interpretation Provided By: [employer], Phone , These documents contain legally protected [...] 07/18 1510 by Philip Fuller MDTranscribed on 05/02/127 by ITS IMPORTSign by Philip Fuller MD on 05/02/121657 Sign by: Philip Fuller MD 99-Rtd-289059:21 URINE ALFONSO CULTURE (CINDY Comments: PATIENT NOT FASTINGPERFORMED BY: [facility] Dwlbly0735 [facility] [id number] Information: SRC:LARY [id number] COL COUNT) (09598) Result 1 MUG (Normal) Comments: Mixed urogenital [id number] Colonies/mL Urine Culture,Comprehensive Final report (Normal) :44 Urinalysis, Office (89887) UA - BILIRUBIN Negative (Normal) UA - BLOOD Non Hemolyzed Trace (Normal) UA - GLUCOSE Negative (Normal) UA - KETONES Negative mg/dL (Normal) UA - LEUKOCYTE ESTERASE Negative (Normal) UA - NITRITE Negative (Normal) UA - PH 6.0 (Normal) UA - PROTEIN Negative mg/dL (Normal) UA - SPECIFIC GRAVITY 1.025 (Normal) Comments: 1.030 URINE UROBILINGN CINDY TIMED Normal mg/dL (Normal) 10-Xoa-472792:35 LIPID CHOL 152 mg/dL (Normal) Comments: <200 [...] mg/dL VLDL 9 mg/dL (Normal) Range: 5-40 91-Rqa-814718:30 C-REACTIVE PROT 25.45 mg/L (Abnormal) Range: 0.0-6.0 [...] 6.4-8.2 GLU 88 mg/dL (Normal) Range: 70-110 :30 CPK ISO 2154 CK-BB 0 % (Normal) Comments: Performed At: [facility] [id number] [place], [place] [id number] CK-MB 0 % (Normal) Range: 0-3 CK-MM 100 % (Normal) Range: 97-100 CPK,TOTAL,SERUM 62 U/L (Normal) Range: 24-173 Macro I 0 % (Normal) Macro II 0 % (Normal) 93-Rtn-407982:30 CPK TOTAL 63 U/L (Normal) Range: 21-215 89-Gcg-896511:30 TSH 0.95 {uIU/mL} (Normal) Range: 0.34-4.82 Plan [...] Red Flags Indication: Hypertension, benign Planned Observations CALCIFEDIOL (07180)Indication: Elevated blood-pressure reading, without diagnosis of hypertension (Renamed from Elevated blood-pressure reading without diagnosis of hypertension) On: 7-Yut-346329:01 Request TSH (38402)Indication: Elevated blood-pressure reading, without diagnosis of hypertension (Renamed from Elevated blood-pressure reading without diagnosis of hypertension) On: 6-Zrg-441786:54 Request METABOLIC PANEL, COMPREHENSIVE (06903)Indication: Elevated blood-pressure reading, without diagnosis of hypertension (Renamed from Elevated blood-pressure reading without diagnosis of hypertension) On: :54 Request CBC with auto diff (80024)Indication: Elevated blood-pressure reading, without diagnosis of hypertension (Renamed from Elevated blood-pressure reading without diagnosis of hypertension) On: 8-Ljw-660735:54 Request MICROALBUMIN: CREATININE RATIO (50499) AND (17817)Indication: Elevated blood-pressure reading, without diagnosis of hypertension (Renamed from Elevated blood- pressure reading without diagnosis of hypertension) On: 3-Jhw-550569:28 Request THROAT CULTURE (87320)Indication: Pharyngitis, acute On: 75-Bjv-915901:35 Request Rapid Strep Test, Office (36545)Indication: Pharyngitis, acute On: 17-Awj-962375:14 Request HPV automatic (64997)Indication: Screening for HPV (human papillomavirus) On: 92-Heu-149889:52 Request Thin prep Pap (04015) (no STD testing)Indication: Well female exam with routine gynecological exam On: 96-Diz-258601:51 Request OVA & PARASITE DIR SMEAR (05379)Indication: Diarrhea On: :11 Request OCCULT BLOOD FECES SCREEN (46151)Indication: Diarrhea On: :11 Request LEUKOCYTE COUNT, FECAL (95637)Indication: Diarrhea On: :11 Request C-DIFFICILE, STOOL (94880)Indication: Diarrhea On: :11 Request ALFONSO CULTURE-STOOL (14579)Indication: Diarrhea On: :11 Request SED RATE ERYTHROCYTE (63445)Indication: Abnormal blood chemistry On: :47 Request C-REACTIVE PROTEIN (28949)Indication: Abnormal blood chemistry On: 4-Zrq-571409:47 Request Urine Protein Electrophoresis (UPEP) (41893)Indication: Abnormal blood chemistry On: :47 Request Serum Protein Electrophoresis (SPEP) (17888)Indication: Abnormal blood chemistry On: 3-Xqh-536546:47 Request C-Reactive Protein (54550)Indication: Chest pain, unspecified On: 04-Tss-304277:25 Request TSH (29000)Indication: Chest pain, unspecified On: 00-Ysk-221677:20 Request Lipid Panel (52628)Indication: Chest pain, unspecified On: 52-Nql-501313:20 Request Metabolic Panel, Comprehensive (05902)Indication: Chest pain, unspecified On: 14-Qtr-395357:20 Request CPK TOTAL & ISOENZYMES (90057)Indication: Chest pain, unspecified On: 87-Eza-186554:19 Request Planned Encounters Medical; 3 Week FU - On: 04-Feb-2018 14:30 [facility] Linnette WILSON Annie Anglin DO Annie Planned Procedures ELECTROCARDIOGRAM, COMPLETE (ECG) On: 14-Jan-2018 Intent (37621)By: Kaitlynn Hurtado CNP Comments: sinus rhtym Radiology - Foot - RightBy: Linnette , On: 29-Oct-2017 Intent Annie Linnette WILSON Annie ELECTROCARDIOGRAM, COMPLETE (ECG) On: 13-Jan-2016 Intent (57024)By: Annie Anglin DO Comments: see comments on ekg Annie Aerosol Treatment (69719)By: Genesis PINTO, On: 19-Dec-2014 Intent Kaitlynn Collazo SPECIMEN HNDLNG/TRNSPRT, OFFC > LAB On: 21-Jun-2014 Intent (02398)By: Cailin Covarrubias MD Eprescribed prescriptions (G8553)By: On: 06-May-2012 Intent Dilcia Zepeda LPN Ultrasound - PelvisBy: Cailin Covarrubias MD On: 18-Apr-2012 Intent Donovan Comments: with post void residual bladder measurements. Eprescribed prescriptions (G8553)By: On: 18-Apr-2012 Intent Dilcia Zepeda LPN Stress Echo with TreadmillBy: Genesis On: 25-Aug-2007 Intent Kaitlynn PINTO Echo CompleteBy: Kaitlynn Hurtado CNP On: 25-Aug-2007 Intent EKG (50372)By: Altagracia Mcintyre LPN On: 25-Aug-2007 Intent Pulse Oximetry (58003)By: Francisco Javier PARRISH On: 25-Aug-2007 Intent Altagracia Instructions Name Dates [...] : Patient Instructions Indication: Urinary frequency Encounters Office Visit On: 14-Jan-2018 12:58 Encounter Reason: Earache - The onset of the earache has been acute. It affects the left ear. The pain affects the internal ear. 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
--- OUTSIDE RECORDS SUMMARY | 2018-03-15 15:53 | XMS RPT_ITS ---
:1975 Author Organization OHIP Care Team Providers Name Role Phone Annie Anglin DO Attending Unavailable Cailin Covarrubias MD Referring Unavailable Annie Anglin DO Consulting Unavailable Annie Anglin Attending Unavailable Annie Anglin Referring Unavailable Annie Anglin Primary Care Unavailable Don Walker Attending Unavailable Don Walker Referring Unavailable Annie Anglin Primary Care Unavailable Kaitlynn Hurtado Attending Unavailable Annie Anglin Primary Care Unavailable Kaitlynn Hurtado Referring Unavailable Purpose Purpose PROBLEMS PROBLEMS DATE TYPE CONDITION / CODE ATTENDING STATUS SOURCE 01/07/2018 Unknown Z12.4 - Don Walker Active [place] Encounter for Community screening for Hospital malignant Repository neoplasm of cervix / Z12.4(ICD-10) 10/29/2017 Unknown M79.672 - Pain Annie Anglin Active [place] in left foot / Community M79.672(ICD-10) Hospital Repository PROCEDURES PROCEDURES No Procedure Records FoundVITAL SIGNS VITAL SIGNS No Vital Signs Records FoundRESULTS RESULTS IRON+IRON BINDING Collected: 01/31/2018 Status: F Source: [facility]ELON CAPACITY 4:35 PM [facility] REPOSITORY TYPE CODE TESTS RESULT OUT OF RANGE REFERENCE UNITS LAB L503.6075 250-450 ug/dL TIBC Normal 438 LAB L503.6150 50-170 ug/dL Low IRON 21 LAB L503.6250 15.0-55.0 % Low IRON SATURATION 4.8 Performed By: #### L503.6030, L503.6550 #### [facility] [address] [place], [address] FERRITIN Collected: 01/31/2018 Status: F Source: [place] 4:35 PM [facility] REPOSITORY TYPE CODE TESTS RESULT OUT OF REFERENCE UNITS RANGE LAB L503.6550 8-252 ng/mL Low FERRITIN 7 Performed By: #### L503.6030, L503.6550 #### [facility] [address] [place], [address] PAP IG W/REFLEX HR Collected: 01/06/2018 Status: F Source: PELON HPV APTIMA 4:30 PM [facility] REPOSITORY Order Comment: CYTOLOGY INFORMATION: - CLINICAL INFORMATION: - DATE LMP/MENOPAUSE: 12/30/17 LMP - COLLECTION VIAL: Thin Prep Vial - STEM ROLLER OPERATOR SOURCE: CERVICAL/ENDOCERVICAL - COLLECTION TECHNIQUE: BRUSH/SPATULA Specimen Comment: [id number] Specimen Comment: Source.............Cervix;Endocervix Specimen Comment: LMP / Prev Treat...DCX=[id number] Specimen Comment: No. of containers..01 ThinPrep Vial TYPE CODE TESTS RESULT OUT OF RANGE REFERENCE UNITS LAB L7400.0800 . Normal DIAGN Comment Result Comment: NEGATIVE FOR INTRAEPITHELIAL LESION AND MALIGNANCY. THIS SPECIMEN WAS RESCREENED PART OF OUR CIRCUIT BREAKER ASSEMBLER PROGRAM. LAB L7400.0900 . Normal ADEQ Comment Result Comment: Satisfactory for evaluation. Endocervical and/or squamous metaplastic cells (endocervical component) are present. LAB L7400.1400 . Normal PERFORM Comment Result Comment: Zack Carbajal, Credit Control Manager (ASCP) LAB L7400.1500 . Normal QC Comment REV Result Comment: Lina Garcia, Supervisory Credit Control Manager (ASCP) LAB L7400.3780 . Normal TEST METHOD Comment Result Comment: This liquid based ThinPrep(R) pap test was screened with the use of an image guided system. LAB L7400.2600 . Normal . COMM LAB L7400.2700 . Normal PAPSMR Comment Result Comment: The Pap smear is a screening test designed to aid in the detection of premalignant and malignant conditions of the uterine cervix. It is not a diagnostic procedure and should not be used as the sole means of detecting cervical cancer. Both false-positive and false-negative reports do occur. LAB L7400.2800 . Normal HPV RFLX Comment Result Comment: The HPV DNA reflex criteria were not met with this specimen result therefore, no HPV testing was performed. Performed at: - [facility] [id number] Desktop Publisher: Erika Ga MD, Phone: [phone] Performed By: #### L7400.0357 #### [facility] (refer to report for specific site) refer to report for address and phone number FOOT MIN 3 VIEWS Observed: 10/29/2017 Status: F Source: [place] 5:29 PM [facility] REPOSITORY [facility] Imaging Services [address] [place] [address] Foot min 3 Views MR#: [id number] Acct: [id number] Name: MOISES FLETCHER Santa Rep #: [id number] : 1975 F 42 From: Harry Smith MD PCP: Annie Anglin DO Status: REG CLI Study: Foot min 3 Views Date of Exam: 10/29/17 Exam# [id number] Ordering Dr: Annie Anglin DO STUDY: X-RAY - RIGHT FOOT CLINICAL: Female, 42 years old. Pain after trauma TECHNIQUE: 3 view(s) of the foot. COMPARISON: None. FINDINGS: Normal talus, and tarsal bones. Small calcaneal spur Normal visualized subtalar, talonavicular, calcaneocuboid, tarsal and tarsometatarsal articulations. Normal metatarsi. Normal metatarsophalangeal joint of the great toe. Normal tibial and fibular sesamoid bones. Normal interphalangeal joint of the great toe. Normal phalanges of the great toe. Normal second through fifth metatarsophalangeal joints. Normal interphalangeal joints and phalanges of the lesser toes. The soft tissue structures are unremarkable. 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 ALLERGIES ALLERGIES No Allergies Records FoundENCOUNTERS ENCOUNTERS ADMIT/DISCHARGE ACCOUNT ADMITTING ENCOUNTER LOCATION SOURCE NUMBER CLASS 02/04/2018 [id number] Ambulatory Building:[facility] [place] Practices Repository 01/31/2018 [id number] Ambulatory [facility] ing:LAB.FUTUR Repository E 01/06/2018 [id number] Ambulatory [facility] 2 [facility] ing:LABSPEC Repository 10/29/2017 [id number] [facility] ing:RAD Repository FUNCTIONAL STATUS FUNCTIONAL STATUS No Functional Status Records FoundEQUIPMENT EQUIPMENT No Equipment Records FoundPAYERS PAYERS ENCOUNTER GUARANTOR PAYER SUBSCRIBER SOURCE 02/04/2018 Moises Pratt [facility] Moises Pratt [place] Practices DotsonDOB: Insurance:AETNABijany DotsonDOB: Repository [id number] Number: [id number] Violeta Alba [id number] 0 CORNELIA Huizar Date:[id number] [place]PORT [place], [place] [address]Pex: ([phone]) Name:SINDI VICENTE [id number]: LAMAR ONEILL [id number]: [phone] (HP) (HP)Tel: (WP) 02/04/2018 Secondary Moises L [facility] Practices Insurance:The DotsonDOB: Repository Health PlanPolicy [id number] Number: [address] [id number] [place], [place] Date:2005-03-08 [address]Trs: [phone] (HP) Name:[facility] [address] [place], [place] [address]RX: 02/04/2018 Tertiary Moises L [facility] Practices Insurance:First DotsonDOB: Repository Federal Credit [id number] [employer]Policy [address] Number: [place] Date: [address]Ycw: [phone]) [id number] [phone] (HP) Name:[id number] [address] [address]EH: 01/31/2018 MOISES L Primary MOISES L [place] [id number] Insurance:AETNAPolicy DOTSONDOB: Community OBERLY DRAPPLE Number: [id number], [place] [id number] Repository [address]Vjr: (330) Date:4196-35-23BX [phone] () [id number] LAMAR ONEILL [phone]: 01/31/2018 Secondary NOT GIVENUNK [place] Insurance:SELF PAY [facility] Number: Effective Repository Date:2018-01-25 01/06/2018 MOISES L Primary MOISES L [place] [id number] Insurance:AETNAPolicy DOTSONDOB: Community OBERLY DRAPPLE Number: [id number] Hills, [place] [id number] Repository [address]Mui: (330) Date:4129-88-94UJ [phone] (HP) [id number] LAMAR ONEILL [address]MA: 01/06/2018 Secondary NOT GIVENUNK [place] Insurance:SELF PAY [facility] Number: Effective Repository Date:2018-01-06 10/29/2017 MOISES L Primary MOISES L [place] [id number] Insurance:AETNAPolgigi DOTSONDOB: Community OBERLY DRAPPLE Number: [id number] Hills, [place] [id number] Repository [address]Rta: 330) Date:0590-58-57AG [phone] ( [id number] LAMAR ONEILL [phone]: 10/29/2017 Secondary NOT GIVENUNK [place] Insurance:SELF PAY [facility] Number: Effective Repository Date:2017-10-29 SOCIAL HISTORY SOCIAL HISTORY No Social History Records FoundFAMILY HISTORY FAMILY HISTORY No Family History Records FoundADVANCE DIRECTIVES ADVANCE DIRECTIVES No Advanced Directives Records FoundINFORMATION SOURCE INFORMATION SOURCE DATE CREATED AUTHOR AUTHOR'S ORGANIZATION 02/22/2018 CORNELIA
== END ==
PROVIDERS: Family Provider Internal Medicine; PCP Internal Medicine; Referring Provider Nurse Practitioner; Visit Provider Nurse Practitioner
DX: D64.9 Anemia, unspecified (principal)
CPT/HCPCS: 36415; 82728; 83540; 83550

== ENCOUNTER → 2018-05-14 09:27 | Outpatient (CLI) | payer OTHER, SELFPAY ==
[2018-05-14 09:56] LABS: Absolute Lymphocyte Count 1.28 X10^3/ul (0.83-4.51); Absolute Neutrophil Count 4.1 X10^3/uL (2.0-7.7); Basophil# 0.02 X10^3/uL; Basophil% 0.3 % (0-1); Eosinophils% 1.7 % (0-5); Hematocrit 38.3 % (37-47); Lymphocyte # 1.28 X10^3/ul (4.0); Lymphocyte % 21.3 % (19-41); Mean Corp Hgb Conc 31.3 g/gl (32-36); Mean Corpuscular Hgb 26.5 pg (27.0-32.0); Mean Corpuscular Volume 84.5 fL (81-99); Mean Platelet Vol. 9.8 fl (6.2-12.0); Monocyte# 0.49 X10^3/uL; Monocyte% 8.1 % (0-10); Neutrophil # 4.13 X10^3/uL (2.7-7.7); Neutrophil % 68.6 % (47-70); Platelet Count 269 K/mm3 (150-450); RBC Distribution Width CV 14.8 % (11.6-14.6); RBC Distribution Width SD 44.3 fl (35.1-43.9); Red Blood Count 4.53 M/mm3 (4.2-5.4)
[2018-05-14 10:01] LABS: POSITIVE COUNT NO; POSITIVE DIFFERENTIAL NO; POSITIVE MORPHOLOGY NO
[2018-05-14 10:29] LABS: Ferritin 19 ng/mL (8-252); Iron 48 ug/dL (50-170); Iron Binding Capacity,Total 394 ug/dL (250-450)
== END ==
PROVIDERS: Family Provider Internal Medicine; PCP Internal Medicine; Referring Provider Internal Medicine; Visit Provider Internal Medicine
DX: D50.9 Iron deficiency anemia, unspecified (principal)
CPT/HCPCS: 36415; 82728; 83540; 83550; 85025

== ENCOUNTER → 2018-12-14 | Outpatient (CLI) | payer OTHER, SELFPAY ==
[2018-12-14 14:45] VITALS: BMI 37.4
--- NOTE | 2018-12-14 14:49 | RAD_ITS ---
STUDY: X-RAY - LEFT SHOULDER REASON FOR EXAM: Female, 43 years old. Left shoulder pain. TECHNIQUE: 4 view(s) of the shoulder. COMPARISON: None. FINDINGS: Normal glenohumeral articulation. Normal acromioclavicular joint. Normal acromion. Normal humeral head and visualized proximal humerus. The soft tissue structures are unremarkable. There is no demonstrated fracture. Normal visualized pulmonary apex. RAD/Shoulder min 2 Views IMPRESSION: Normal x-ray examination of the shoulder. Electronically Signed: Sandy Katz MD at 15:43 EDT , Service support ,
== END | disposition home or self-care (01) ==
LOC: HPRAD 14:49
PROVIDERS: Family Provider Internal Medicine; PCP Internal Medicine; Referring Provider Orthopaedic Surgery; Visit Provider Orthopaedic Surgery
DX: M25.512 Pain in left shoulder (principal)
CPT/HCPCS: 73030

== ENCOUNTER → 2019-01-05 | Outpatient (CLI) | payer OTHER, SELFPAY ==
[2018-12-14 14:45] VITALS: BMI 37.4
--- NOTE | 2019-01-05 16:35 | BI_ITS ---
MAMMOGRAPHY - BILATERAL SCREENING REASON FOR EXAM: Female, 43 years old. Routine annual screening examination. PERTINENT HISTORY: Non-contributory. TECHNIQUE: Digital bilateral breast juan (3D mammographic acquisition) in the CC and MLO projections. 2-D mediolateral oblique (MLO) and craniocaudad (CC) views of both breasts were obtained. CAD: Full Field Digital Mammography with Computer Added Detection was performed. COMPARISON: Comparison is made with prior examination October 20, 2016 and January 20, 2016. FINDINGS: Breast Composition: The breasts are almost entirely fatty. There are no dominant masses or suspicious calcifications. No other significant abnormalities are identified. There has been no significant change since the prior study. BI/SCREEN MAMM (CAD) W/JUAN BILAT IMPRESSION: Stable bilateral screening mammogram. Yearly follow-up mammogram recommended. (A) ASSESSMENT CATEGORY: BIRADS Category 1: Negative. A letter regarding these results will be sent to the patient by the facility within 30 days. Approximately 10% of breast cancers are not detected by mammography. A normal mammogram should not delay biopsy of a clinically suspicious abnormality. [id number] Electronically Signed: Harry Kauffman, at 9:04 EDT , Service support ,
== END | disposition home or self-care (01) ==
PROVIDERS: Family Provider Internal Medicine; PCP Internal Medicine; Referring Provider Obstetrics & Gynecology; Visit Provider Obstetrics & Gynecology
DX: Z12.31 Encounter for screening mammogram for malignant neoplasm of breast (principal)
CPT/HCPCS: 77063; 77067

== ENCOUNTER → 2019-02-03 10:51 | Outpatient (CLI) | payer OTHER, SELFPAY ==
[2018-12-14 14:45] VITALS: BMI 37.4
== END ==
PROVIDERS: Family Provider Internal Medicine; PCP Internal Medicine; Referring Provider Internal Medicine; Visit Provider Internal Medicine
DX: R94.31 Abnormal electrocardiogram [ECG] [EKG] (principal)
CPT/HCPCS: 93225; 93226

== ENCOUNTER → 2020-01-11 14:38 | Outpatient (CLI) | payer OTHER, SELFPAY ==
[2018-12-14 14:45] VITALS: BMI 37.4
--- NOTE | 2020-01-11 14:39 | BI_ITS ---
MAMMOGRAPHY - BILATERAL SCREENING REASON FOR EXAM: Female, 44 years old. Routine annual screening examination. PERTINENT HISTORY: Non-contributory. TECHNIQUE: Digital bilateral breast juan (3D mammographic acquisition) in the CC and MLO projections. 2-D mediolateral oblique (MLO) and craniocaudad (CC) views of both breasts were obtained. CAD: Full Field Digital Mammography with Computer Added Detection was performed. COMPARISON: Comparison is made with prior study dated 01/05/2019 and 10/20/2016. FINDINGS: Breast Composition: The breasts are almost entirely fatty. There are no dominant masses or suspicious calcifications. No other significant abnormalities are identified. There has been no significant change since the prior study. BI/SCREEN MAMM (CAD) W/JUAN BILAT IMPRESSION: Stable bilateral screening mammogram. Yearly follow-up mammogram recommended. (A) ASSESSMENT CATEGORY: BIRADS Category 1: Negative. A letter regarding these results will be sent to the patient by the facility within 30 days. Approximately 10% of breast cancers are not detected by mammography. A normal mammogram should not delay biopsy of a clinically suspicious abnormality. [id number] Electronically Signed: Harry Kauffman, at 15:40 EST , Service support ,
== END ==
PROVIDERS: PCP Internal Medicine; Referring Provider Obstetrics & Gynecology; Visit Provider Obstetrics & Gynecology
DX: Z12.31 Encounter for screening mammogram for malignant neoplasm of breast (principal)
CPT/HCPCS: 77063; 77067

== ENCOUNTER → 2021-09-16 | Outpatient (CLI) | payer OTHER, SELFPAY ==
--- NOTE | 2021-09-16 10:30 | VUL_PTH ---
PATIENT: MOISES DAVILA LOC: [facility] U#:[id number] AGE/SX: 46/F ROOM: RE09/16/[address]: Dr. Don Walker MD : 1975 BED: DIS: 09/16/2021 SPEC #: [id number] RECD: 09/16/21 16:01 STATUS: JAMILAH LIVIA #: [id number] SCAR: 09/16/21 10:[address]: Don Walker DEPT: SURGICAL PATHOLOGY RECD BY: Sb Belle ENTERED: 09/17/21 09:39 SP TYPE: VULVA BX OTHR DR: Dr. Annie Anglin, DO Tissues: Vulva, NOS Procedures: Surgery Specimen Level III HEADER OPERATION: Punch biopsy PRE-OP DIAGNOSIS: N76.4 TISSUE SUBMITTED: Vulvar abscess MICROSCOPIC DIAGNOSIS Vulvar lesion, punch biopsy: Epidermal inclusion cyst. JOHNY:david 09/18/2021 MICROSCOPIC DESCRIPTION Slides are reviewed. GROSS DESCRIPTION Received in fixative is one container labeled with the patient's name and designated vulvar abscess. The specimen consists of a piece of pizano-light brown skin measuring 0.6 x 0.4 x 0.2 cm. The entire specimen is submitted in one cassette. / SJ:rg 09/17/2021 TC:5 CPT: 98005
[2021-09-18 15:45] LABS: HPV Reflexed? NOT INDICATED
== END | disposition home or self-care (01) ==
LOC: LABSPEC 14:26
PROVIDERS: PCP Internal Medicine; Visit Provider Obstetrics & Gynecology
DX: L72.0 Epidermal cyst (principal)
CPT/HCPCS: 88175; 88304; 88305; G0145

== ENCOUNTER → 2022-07-17 | Outpatient (CLI) | payer OTHER, SELFPAY ==
--- NOTE | 2022-07-16 16:16 | BI_ITS ---
MAMMOGRAPHY - BILATERAL SCREENING REASON FOR EXAM: Female, 46 years old. Routine annual screening examination. PERTINENT HISTORY: Non-contributory. TECHNIQUE: Digital bilateral breast juan (3D mammographic acquisition) in the CC and MLO projections. 2-D mediolateral oblique (MLO) and craniocaudad (CC) views of both breasts were obtained. CAD: Full Field Digital Mammography with Computer Added Detection was performed. COMPARISON: Comparison is made with prior study dated January 11, 2020 and January 05, 2019. FINDINGS: Breast Composition: The breasts are almost entirely fatty. There are no dominant masses or suspicious calcifications. Stable small benign-appearing bilateral axillary lymph nodes. No other significant abnormalities are identified. There has been no significant change since the prior study. BI/SCRN MAMM (CAD)W/JUAN BILAT IMPRESSION: Stable bilateral screening mammogram. Yearly follow-up mammogram recommended. (A) ASSESSMENT CATEGORY: BIRADS Category 2: Benign. A letter regarding these results will be sent to the patient by the facility within 30 days. Approximately 10% of breast cancers are not detected by mammography. A normal mammogram should not delay biopsy of a clinically suspicious abnormality. [id number] Electronically Signed: Harry Kauffman MD at 8:54 EDT ,
== END | disposition home or self-care (01) ==
LOC: OPBI 07-20 07:01
PROVIDERS: PCP Internal Medicine; Referring Provider Obstetrics & Gynecology; Visit Provider Obstetrics & Gynecology
DX: Z12.31 Encounter for screening mammogram for malignant neoplasm of breast (principal)
CPT/HCPCS: 77063; 77067

== ENCOUNTER → 2022-11-18 | Outpatient (CLI) | payer OTHER, SELFPAY ==
[2022-11-18 15:48] LABS: ALB/GLOB Ratio 0.8 RATIO (0.9-2.4); AST(SGOT) 13 U/L (15-37); Alanine Aminotransfer ALT/SGPT 19 U/L (13-56); Albumin, Serum 3.5 g/dL (3.2-5.0); Alkaline Phosphatase 61 U/L (45-117); Anion Gap 5 (5-15); BUN 10 mg/dL (7-18); BUN/Creat Ratio 13.1 RATIO (10-20); Calcium,Total 8.4 mg/dL (8.5-10.1); Chloride 110 mmol/L (98-107); Cholesterol 128 mg/dL (200); Creatinine, Serum 0.76 mg/dL (0.55-1.02); EST Glomerular Filtration Rate 86 mL/min (>60); Est Glom Filt Rate - Afr Amer 104 mL/min (>60); Globulin 4.2 g/dL (2.2-4.2); Glucose 95 mg/dL (74-106); High Density Lipoprotein 73 mg/dL; Potassium 3.8 mmol/L (3.5-5.1); Protein, Total 7.7 g/dL (6.4-8.2); Sodium Level 141 mmol/L (136-145); Thyroid Stim Hormone (TSH) 1.15 uIU/mL (0.358-3.74); Triglycerides 34 mg/dL; Very Low Density Lipoprotein 7 mg/dL (5-40)
[2022-11-18 15:49] LABS: Absolute Lymphocyte Count 1.72 X10^3/uL (0.83-4.51); Absolute Neutrophil Count 3.2 X10^3/uL (2.0-7.7); Basophil# 0.04 X10^3/uL; Basophil% 0.7 % (0-1); Eosinophil# 0.19 X10^3/uL; Eosinophils% 3.5 % (0-5); Hematocrit 32.6 % (37-47); Hemoglobin 9.5 g/dL (12.0-15.0); Lymphocyte # 1.72 X10^3/ul (0.83-4.51); Lymphocyte % 31.4 % (19-41); Mean Corp Hgb Conc 29.1 g/dL (32-36); Mean Corpuscular Hgb 24.1 pg (27.0-32.0); Mean Corpuscular Volume 82.7 fL (81-99); Mean Platelet Vol. 10.8 fl (6.2-12.0); Monocyte# 0.34 X10^3/uL; Monocyte% 6.2 % (0-10); NRBC Flagged by Analyzer 0 % (0-5); Neutrophil # 3.17 X10^3/uL (2.7-7.7); Neutrophil % 57.8 % (47-70); Platelet Count 314 K/mm3 (150-450); RBC Distribution Width CV 15.9 % (11.6-14.6); RBC Distribution Width SD 48.3 fl (35.1-43.9); Red Blood Count 3.94 M/mm3 (4.2-5.4); White Blood Count 5.5 K/mm3 (4.4-11.0)
[2022-11-18 15:51] LABS: Hemoglobin A1c 5.1 % (3.8-5.6)
== END | disposition home or self-care (01) ==
LOC: MTLAB 12:52
PROVIDERS: PCP Family Medicine; Referring Provider Family Medicine; Visit Provider Family Medicine
DX: Z00.00 Encounter for general adult medical examination without abnormal findings (principal); Z13.0 Encounter for screening for diseases of the blood and blood-forming organs and certain disorders involving the immune mechanism; Z13.1 Encounter for screening for diabetes mellitus; Z13.220 Encounter for screening for lipoid disorders; Z13.29 Encounter for screening for other suspected endocrine disorder
CPT/HCPCS: 36415; 80053; 80061; 83036; 84443; 85025

== ENCOUNTER → 2022-11-26 | Outpatient (CLI) | payer OTHER, SELFPAY ==
[2022-11-26 18:26] LABS: Ferritin 9 ng/mL (8-252); Iron Binding Capacity,Total 460 ug/dL (250-450)
[2022-11-26 18:28] LABS: Absolute Neutrophil Count 3.6 X10^3/uL (2.0-7.7); Basophil# 0.07 X10^3/uL; Basophil% 1.2 % (0-1); Eosinophil# 0.23 X10^3/uL; Eosinophils% 3.8 % (0-5); Hemoglobin 10.2 g/dL (12.0-15.0); Lymphocyte % 28.1 % (19-41); Mean Corp Hgb Conc 29.1 g/dL (32-36); Mean Corpuscular Hgb 23.9 pg (27.0-32.0); Mean Platelet Vol. 10.5 fl (6.2-12.0); Monocyte# 0.42 X10^3/uL; Monocyte% 6.9 % (0-10); NRBC Flagged by Analyzer 0 % (0-5); Neutrophil # 3.63 X10^3/uL (2.7-7.7); Neutrophil % 59.8 % (47-70); Platelet Count 336 K/mm3 (150-450); RBC Distribution Width SD 47.6 fl (35.1-43.9); RET-HE 26.3 pg (30-35); Red Blood Count 4.27 M/mm3 (4.2-5.4); Reticulocyte Count 1.64 % (0.5-1.5); White Blood Count 6.1 K/mm3 (4.4-11.0)
[2022-11-26 18:44] LABS: Vitamin B12 663 pg/mL (211-911)
== END | disposition home or self-care (01) ==
LOC: MFPLAB 14:16
PROVIDERS: PCP Family Medicine; Visit Provider Family Medicine
DX: D64.9 Anemia, unspecified (principal)
CPT/HCPCS: 36415; 82607; 82728; 82746; 83550; 85025; 85045

== ENCOUNTER → 2023-06-17 | Outpatient (CLI) | payer OTHER, SELFPAY ==
--- NOTE | 2023-06-17 16:03 | RAD_ITS ---
INDICATION: L hip/groin pain EXAMINATION/TECHNIQUE: X-RAY - XR Left Hip Unilateral with Pelvis when performed; 3 Views COMPARISON: FINDINGS: PELVIC BONES: No displaced fracture, destructive or sclerotic lesions. Note that overlapping bowel shadows may however obscure fine detail. Sacroiliac joints are unremarkable. No widening of the pubic symphysis. HIPS: The articular structures are unremarkable. No displaced fracture seen in this frontal view. SOFT TISSUES: No soft tissue swelling or gas. RAD/HIP, UNI W/ Pelvis 2-3 Views IMPRESSION: No evidence of displaced pelvic or hip fracture. Electronically Signed: Brady Randolph DO at 23:07 EDT Reading Location ID and State: [facility] / [place] Tel [phone], Service support ,
== END | disposition home or self-care (01) ==
LOC: MTRAD 16:03
PROVIDERS: PCP Family Medicine; Referring Provider Family Medicine; Visit Provider Family Medicine
DX: M25.552 Pain in left hip (principal)
CPT/HCPCS: 73502

== ENCOUNTER 2024-08-24 08:17 | Day surgery (SDC) | payer OTHER, SELFPAY ==
[2024-06-16 17:23] LABS: Hematocrit 34.6 % (37-47); Hemoglobin 10.9 g/dL (12.0-15.0); Mean Corp Hgb Conc 31.5 g/dL (32-36); Mean Corpuscular Hgb 26.7 pg (27.0-32.0); Mean Corpuscular Volume 84.6 fL (81-99); Mean Platelet Vol. 9.7 fl (6.2-12.0); Platelet Count 381 K/mm3 (150-450); RBC Distribution Width CV 13.2 % (11.6-14.6); RBC Distribution Width SD 40.8 fl (35.1-43.9); Red Blood Count 4.09 M/mm3 (4.2-5.4); White Blood Count 6.3 K/mm3 (4.4-11.0)
[2024-06-16 17:28] LABS: International Normalized Ratio 1.1; Prothrombin Time (Protime)PT. 14.1 SECONDS (11.7-14.9)
[2024-06-16 17:29] LABS: Partial Thromboplast Time 30.7 Seconds (24.1-36.2)
[2024-06-16 17:49] LABS: Magnesium 1.8 mg/dL (1.5-2.2)
[2024-06-16 18:24] LABS: Anion Gap 14 (5-15); BUN 11 mg/dL (4-19); BUN/Creat Ratio 13.4 RATIO (10-20); Carbon Dioxide 23.3 mmol/L (21.0-32.0); Chloride 102 mmol/L (98-108); EST Glomerular Filtration Rate 91 (>60); Glucose 84 mg/dL (70-99); Potassium 4.1 mmol/L (3.3-5.1); Sodium Level 139 mmol/L (133-145)
--- NOTE | 2024-08-14 08:37 | PCM.HP.BLA ---
History and Physical Date of Admission: 08/24/24 Expand All Collapse All Pre-Op History and Physical HPI: The patient is a 48 year old female presenting for pre-operative visit. She is scheduled for TLH, Bilateral salpingectomy, cysto for Fibroid uterus, menorrhagia on 08/24/24. Procedure discussed along with risks, benefits and complications. Other alternatives discussed for management. Consent form signed? Yes. PAST MEDICAL HISTORY PAST MEDICAL HISTORY Diagnosis Date ? Fibroids uterine PAST SURGICAL HISTORY PAST SURGICAL HISTORY Procedure Laterality Date ? DELIVERY ONLY 2002 ? ENDOMETRIAL BIOPSY 04/19/2024 ? TOOTH EXTRACTION 1994 wisdom teeth CURRENT MEDICATIONS No current outpatient medications on file. No current facility-administered medications for this visit. ALLERGIES: Penicillin G PERSONAL HISTORY: SOCIAL HISTORY Social History Tobacco Use ? Smoking status: Never ? Smokeless tobacco: Never Vaping Use ? Vaping status: Never Used Substance Use Topics ? Alcohol use: Yes Comment: rare ? Drug use: Never FAMILY HISTORY: FAMILY HISTORY FAMILY HISTORY Problem Relation Age of Onset ? Heart Attack Mother ? No Known Problems Half-brother ? No Known Problems Half-brother ? Diabetes Maternal Grandmother diet controlled ? Diabetes Maternal Grandfather ? Hypertension Maternal Grandfather REVIEW OF SYMPTOMS: negative except as noted above PHYSICAL EXAMINATION: VITALS: Last menstrual period 01/08/2024. GENERAL: The patient is well nourished, well hydrated in no acute distress. , The patient is oriented to time, place, and person. NECK: full range of motion LUNGS: Clear to auscultation bilaterally. no wheezes, rhonchi or rales HEART: Regular rate and rhythm, Normal heart sounds, and No murmurs or gallops IMPRESSION: 48yo with fibroid uterus and menorrhagia PLAN: TLH, Bilateral salpingectomy, Cyto- possible ELZA Pt has been counseled on risks/benefits and alternatives of surgery including but not limited to anesthesia, bleeding, infection, injury to pelvic structures including bowel, bladder, ureters and vessels. Pt wishes to proceed with surgery at this time. Pre and post op instructions reviewed I have reviewed and updated past medical and surgical history, medications and allergies Shante Padgett MD Office Visit on 08/11/2024 Note shared with patient
--- NOTE | 2024-08-14 10:53 | PAT.ANESEVAL ---
Pre-Assessment Diagnosis/Proposed Procedure Planned Operative Procedure(s): B) Hysterectomy,TLH, bilateral salpingectomy, cystoscopy, POSSIBLE TOTAL ABDOMINAL HYSTERECTOMY Anesthesia History Anesthesia History - glue bone drier: Anesthesia History - glue bone drier Hx Hospitalization No 08/14/24 09:17 Any Problems With Anesthesia No 08/14/24 09:17 Cholinesterase deficiency No 08/14/24 09:17 You/Your Family Experience No 08/14/24 09:17 fever (hyperthermia) with Relationship Recent Exposure to Contagious Disease Does patient have nerve No 08/14/24 09:17 stimulator Patient instructed to have device shut off --Does patient have Pacemaker or ICD? When Was Last Pacemaker Check QUESTION #4 FULL TEXT: You/Your Family Experience fever (hyperthermia) with Anesthesia Last Oral Intake Last Oral intake: Last Oral Intake NPO since Meds taken in AM with sips of water? Meds patient instructed to take am of surgery PONV PONV - glue bone drier: PONV - glue bone drier Female Yes 08/14/24 09:17 HX of Motion Sickness No 08/14/24 09:17 HX of N/V After Surgery No 08/14/24 09:17 Non-Smoker Yes 08/14/24 09:17 Duration of Surgery greater No 08/14/24 09:17 than 60 minutes Number of Risk Factors 2 08/14/24 09:17 PONV Score Moderate Risk 08/14/24 09:17 Respiratory Assessment Respiratory Assessment - glue bone drier: Respiratory Tract Infection Hx - glue bone drier Hx Respiratory Tract Infection No 08/14/24 09:17 STOP Sleep Apnea STOP Sleep Apnea - glue bone drier: STOP Sleep Apnea - glue bone drier Hx Hypertension No 08/14/24 09:17 Hx Sleep Apnea No 08/14/24 09:17 CPAP BIPAP Do you snore loudly (louder No 08/14/24 09:17 than talking or can be heard Do you often feel tired/ No 08/14/24 09:17 fatigued/ sleepy during daytime? Has anyone observed you stop No 08/14/24 09:17 breathing during sleep? STOP Results Negative 08/14/24 09:17 QUESTION #5 FULL TEXT : Do you snore loudly (louder than talking or can be heard through closed doors)? Tobacco Use History Tobacco Use History - glue bone drier: Tobacco Use History - glue bone drier Tobacco Use Smoking Status Never smoker 08/14/24 09:17 Hx Tobacco Use No 08/14/24 09:17 Years Smoking Packs Smoked per Day Smoking Cessation Date was within the last 15 years Hx Smoking Cessation Date Hx Smoking Cessation Counseling Hematologic Medial History Hematologic Hx - glue bone drier: Hematologic Medical Hx - leadite heater Hx of Blood Transfusion No 08/14/24 09:17 Hx of Transfusion in last 3 No 08/14/24 09:17 Months Date of Last Transfusion (if within last 3 months) Ever experience any problems No 08/14/24 09:17 with transfusion(s)? Specify any problems Hx of Preganancy in last 3 No 08/14/24 09:17 Months Nurse Filling Out Transfusion MGRISHU 08/14/24 09:17 & Questions: Date: 08/14/24 08/14/24 09:17 Time: 09:17 08/14/24 09:17 Patient unable to answer at this time (ie. confused, unrespo /Reproduction History /Reproductive History - glue bone drier: /Reproductive Hx- glue bone drier Hx Now No 08/14/24 09:17 Gestational Age (in weeks): EDC: Hx Hx Para Hx Section SAB No 08/14/24 09:17 [facility] Medical History (Updated 08/14/24 @ 09:45 by Marina Lopez) Anemia History of Holter monitoring History of COVID-19 Wears glasses Non-smoker History of stress test Hypertension Home Medications ?Medication ?Instructions ?Recorded ?Last Taken ?Type polysaccharide iron complex 150 mg 150 mg PO DAILY #30 caps 12/14/18 Unknown History iron capsule cholecalciferol (vitamin D3) 25 25 mcg PO DAILY 06/09/24 Unknown History mcg (1,000 unit) capsule (Vitamin D3) multivitamin 1 tab PO DAILY 08/14/24 Unknown History Allergy/AdvReac Type Severity Reaction Status Date / Time Penicillins Allergy Unknown unknown Verified 08/14/24 09:16 clarithromycin (From Biaxin) AdvReac Mild feeling Verified 08/14/24 09:16 out of body telithromycin (From Ketek) AdvReac rapid Verified 08/14/24 09:16 heart rate Surgical History (Updated 06/09/24 @ 08:35 by Bindu Joshua) Hx of section Hx of wisdom tooth extraction Social History (Updated 12/14/18 @ 15:[address] Merrill Paul, DO) Smoking Status: Never smoker Audit: Pertinent Findings Pertinent Findings Additional pertinent findings: Holter monitor. For fast heart rate. Results currently not available. Recommendation Anesthesia Recommendation Anesthesia recommendation: OPTIMIZED for anesthesia
[2024-08-19 11:19] LABS: Hematocrit 36.1 % (37-47); Hemoglobin 11.3 g/dL (12.0-15.0); Mean Corp Hgb Conc 31.3 g/dL (32-36); Mean Corpuscular Hgb 27.2 pg (27.0-32.0); Mean Platelet Vol. 10.4 fl (6.2-12.0); Platelet Count 274 K/mm3 (150-450); RBC Distribution Width CV 13.8 % (11.6-14.6); RBC Distribution Width SD 43.8 fl (35.1-43.9); Red Blood Count 4.15 M/mm3 (4.2-5.4); White Blood Count 4.7 K/mm3 (4.4-11.0)
[2024-08-19 11:29] LABS: Internal QC Validated? YES +Cl - CLEAR BKGD; Pregnancy, Urine Negative Negative
[2024-08-19 13:08] LABS: Anion Gap 12 (5-15); BUN 11 mg/dL (4-19); BUN/Creat Ratio 14.9 RATIO (10-20); Carbon Dioxide 23.2 mmol/L (21.0-32.0); Chloride 103 mmol/L (98-108); Creatinine, Serum 0.71 mg/dL (0.70-1.20); EST Glomerular Filtration Rate 104 (>60); Glucose 102 mg/dL (70-99); Sodium Level 138 mmol/L (133-145)
[2024-08-24] VITALS (13 sets, daily range): BP systolic 106–148; BP diastolic 73–98; PULSE 63–87; RESP 16; TEMP 36.1–37.2; O2SAT 97–400; BMI 39.9
--- OUTSIDE RECORDS SUMMARY | 2024-08-24 08:41 | XMS RPT_ITS | CCD ---
Author Organization [facility] Care Team Providers Care Manager Enterprise Name Role Phone Annie Anglin Unavailable Cailin Covarrubias Unavailable Rizwan Blanca Unavailable Radha Sanford Unavailable Unavailable Kaitlynn Hurtado Unavailable Unavailable Unavailable Annie Anglin Unavailable Cailin Covarrubias Unavailable Rizwan Blanca Unavailable Enriqueta Cisse Unavailable Unavailable Unavailable Unavailable Annie Anglin Attending Unavailable Cailin Covarrubias Referring Unavailable Annie Anglin Consulting Unavailable Enriqueta Cisse Unavailable Unavailable Gravius, Rae Unavailable Unavailable Phuc Quiroga Unavailable Unavailable Phuc Hernandez Unavailable Unavailable Annie Anglin DO Unavailable Cailin Covarrubias MD Unavailable Rizwan Blanca Unavailable Enriqueta Cisse RN Unavailable Unavailable Gravius SENIOR JAVA PROGRAMMER, Rae Unavailable Unavailable Phuc Hernandez LPN Unavailable Unavailable Unavailable Unavailable Unavailable Primary Care Provider Unavailabl e SHANTE FLEMING Attending Unavail able JANINE BARNARD Referring Unavailable JANINE BARNARD Referring Unavailable JANINE BARNARD Attending Unavailable JANINE BARNARD Attending Unavailable BRIDGER OFSS Attending Unavailable JANINE BARNARD Referring Unavailable SHANTE FLEMING Attending Unavail able SHANTE FLEMING Attending Unavail able SHANTE FLEMING Referring Unavail able Shante Dai Attending Unavail able Shante Dai Referring Unavail able [facility] Unavailable Allergies Allergy Classification Reported Allergen(s) Allergy Type Date of Onset Reaction(s) Facility Macrolides (antibiotic) (1 source) Clarithromycin; Translations: [Biaxin *MACROLIDES*] Drug Allergy [facility] Work Phone: Comment on above: skin peeling. feelin g out of skin Penicillins (antibiotic) (2 sources) Penicillins; Translations: [Allergy to Penicillins (Renamed from Penicillins)] Drug Allergy [facility]; [facility] Work Phone: telithromycin (1 source) telithromycin Drug Allergy [facility]; [facility] Work Phone: (15 sources) clarithromycin; Translations: [Biaxin *MACROLIDES*] Drug Allergy 12-15-19 19 feeling out of body [facility] Work Phone: Comment on above: skin peeling. feelin g out of skin (12 sources) Penicillins; Translations: [Allergy to Penicillins (Renamed from Penicillins)] allergy to substance [facility] Work Phone: (16 sources) Penicillins; Translations: [Penicillins] allergy to substance 12-15-19 19 unknown [facility] Work Phone: (1 source) allergy to substance [facility] Work Phone: (13 sources) Allergy to ketek (Renamed from Acetaminophen); Translations: [Allergy to ketek (Renamed from Acetaminophen)] allergy to substance [facility] Work Phone: (1 source) allergy to substance [facility] Work Phone: (1 source) allergy to substance [facility] Work Phone: (1 source) allergy to substance [facility] Work Phone: (1 source) allergy to substance [facility] Work Phone: (1 source) allergy to substance [facility] Work Phone: (1 source) allergy to substance [facility] Work Phone: (5 sources) telithromycin Drug Allergy [facility] Work Phone: (3 sources) telithromycin Drug Allergy 12-15-19 19 rapid heart rate [facility] (17 sources) Penicillin G; Translations: [PENICILLIN G] Drug Allergy 01-25-20 24 Unknown [facility] (1 source) Clarithromycin Drug Allergy 08-15-19 [facility] (1 source) telithromycin Drug Allergy 08-15-19 [facility] Medications Current Medications Medication Drug Class(es) Dates Sig (Normalized) Sig (Original) meloxicam 15 mg oral tablet (7 sources) Nonsteroidal Anti-inflammatory Drug Start: 12-14-2018 take 1 tablet by mouth once daily Meloxicam (Mobic) 15 mg tablet Active 15 MG PO DAILY December 14, 2018 12:00am Do not take with other NSAIDs Comment on above: for shoulder injury Xx-Aou-Uqmjy-Calcium Carb-K1 (Women's 50 Plus Multivitamin) 400 mcg-500 mg calcium-20 mcg tablet (3 sources) Start: 12-14-2018 take 1 tablet by mouth once Dl-Jkg-Rrznz-Calciu m Carb-K1 (Women's 50 Plus Multivitamin) 400 mcg-500 mg calcium-20 mcg tablet Active TABLET PO December 14, 2018 12:00am polysaccharide iron complex 150 mg oral capsule (14 sources) Start: 12-14-2018 Polysaccharide Iron Complex Active PO December 14, 2018 12:00am Start: 07-12-2018 End: 05-20-2018 take 1 capsule by mouth once daily Ferrex 150 150 MG Oral Capsule 1 (one) Capsule qd for 0 days Quantity: 30 {Capsule} Refills: 3 Ordered: 12-Jul-2018 Annie Anglin DO, DO, Kathleen Start : 12-Jul-2018 End : 20-May-2018 Active Start: 07-12-2018 End: 05-20-2018 take 1 capsule by mouth once daily Ferrex 150 150 MG Oral Capsule 1 (one) Capsule qd for 0 days Quantity: 30 {Capsule} Refills: 3 Ordered: 12-Jul-2018 Linnette DOAnnie DO, Kathleen Start : 12-Jul-2018 End : 20-May-2018 Active Start: 07-12-2018 End: 05-20-2018 take 1 capsule by mouth once daily Ferrex 150 150 MG Oral Capsule 1 (one) Capsule qd for 0 days Quantity: 30 {Capsule} Refills: 3 Ordered: 12-Jul-2018 Linnette DOAnnie DOAnnie Start : 12-Jul-2018 End : 20-May-2018 Active Start: 07-12-2018 End: 05-20-2018 take 1 capsule by mouth once daily Ferrex 150 150 MG Oral Capsule 1 (one) Capsule qd for 0 days Quantity: 30 {Capsule} Refills: 3 Ordered: 12-Jul-2018 Linnette DOAnnie DO, Kathleen Start : 12-Jul-2018 End : 20-May-2018 Active Start: 07-12-2018 End: 05-20-2018 take 1 capsule by mouth once daily Ferrex 150 150 MG Oral Capsule 1 (one) Capsule qd for 0 days Quantity: 30 {Capsule} Refills: 3 Ordered: 12-Jul-2018 Linnette DOAnnie DO, Kathleen Start : 12-Jul-2018 End : 20-May-2018 Active Start: 07-12-2018 End: 05-20-2018 take 1 capsule by mouth once daily Ferrex 150 150 MG Oral Capsule 1 (one) Capsule qd for 0 days Quantity: 30 {Capsule} Refills: 3 Ordered: 12-Jul-2018 Linnette DOAnnie DO, Kathleen Start : 12-Jul-2018 End : 20-May-2018 Active Start: 07-12-2018 End: 05-20-2018 take 1 capsule by mouth once daily Ferrex 150 150 MG Oral Capsule 1 (one) Capsule qd for 0 days Quantity: 30 {Capsule} Refills: 3 Ordered: 12-Jul-2018 Linnette DOAnnie DO, Kathleen Start : 12-Jul-2018 End : 20-May-2018 Active Start: 07-12-2018 End: 05-20-2018 take 1 capsule by mouth once daily Ferrex 150 150 MG Oral Capsule 1 (one) Capsule qd for 0 days Quantity: 30 {Capsule} Refills: 3 Ordered: 12-Jul-2018 Linnette Annie WILSON DO, Kathleen Start : 12-Jul-2018 End : 20-May-2018 Active Start: 02-04-2018 End: 05-20-2018 take 1 capsule by mouth once daily Ferrex 150 150 MG Oral Capsule 1 (one) Capsule qd for 0 days Quantity: 30 {Capsule} Refills: 3 Ordered: 20-May-2018 Enriqueta Cisse LPN Start : 04-Feb-2018 End : 20-May-2018 Inactive Completed/Discontinued Medications Medication Drug Class(es) Dates Sig (Normalized) Sig (Original) [id number] 200 actuat albuterol 0.09 mg/actuat metered dose inhaler (13 sources) beta2-Adrenergic Agonist Start: 12-19-2014 End: 01-13-2016 ProAir HFA 108 (90 Base) MCG/ACT Inhalation Aerosol Solution 1 (one) Aerosol Soln tid for 0 days Quantity: 1 {Inhaler} Refills: 0 Ordered: 13-Jan-2016 Enriqueta Cisse RN Start : 19-Dec-2014 End : 13-Jan-2016 Inactive Start: 12-19-2014 End: 01-13-2016 ProAir HFA 108 (90 Base) MCG /ACT Inhalation Aerosol Solution 1 (one) Aerosol Soln tid for 0 days Quantity: 1 {Inhaler} Refills: 0 Ordered: 13-Jan-2016 Enriqueta Cisse RN Start : 19-Dec-2014 End : 13-Jan-2016 Inactive amLODIPine 5 mg oral tablet (16 sources) Dihydropyridine Calcium Channel Yarelis Start: 01-08-2020 take 1 tablet by mouth once daily amLODIPine Besylate 5 MG Oral Tablet 1 (one) Tablet daily as directed for 0 days Quantity: 30 {Tablet} Refills: 3 Ordered: 08-Jan-2020 Annie Anglin DO, DO, Kathleen Start : 08-Jan-2020 Active Start: 08-24-2019 take 1 tablet by alexi th once daily amLODIPine Besylate 5 MG Oral Tablet 1 (one) Tablet daily as directed for 0 days Quantity: 30 {Tablet} Refills: 3 Ordered: 24-Aug-2019 Annie Anglin DO, DO, Kathleen Start : 24-Aug-2019 Active Start: 01-09-2019 take 1 tablet by alexi th once daily amLODIPine Besylate 5 MG Oral Tablet 1 (one) Tablet daily as directed for 0 days Quantity: 30 {Tablet} Refills: 0 Ordered: 09-Jan-2019 Pamela Hurtado CMA Start : 09-Jan-2019 Active Start: 12-14-2018 Amlodipine Act percy PO December 14, 2018 12:00am Start: 11-09-2018 take 1 tablet by alexi once daily amLODIPine Besylate 5 MG Oral Tablet 1 (one) Tablet daily as directed for 0 days Quantity: 30 {Tablet} Refills: 1 Ordered: 09-Nov-2018 Annie Anglin DO, DO, Kathleen Start : 09-Nov-2018 Active Start: 08-15-2018 take 1 tablet by alexi th once daily amLODIPine Besylate 5 MG Oral Tablet 1 (one) Tablet daily as directed for 0 days Quantity: 30 {Tablet} Refills: 1 Ordered: 15-Aug-2018 LinnetteAnnie carlin DO, DO, Kathleen Start : 15-Aug-2018 Active Start: 07-07-2018 take 1 tablet by alexi once daily AmLODIPine Besylate 5 MG Oral Tablet 1 (one) Tablet Tablet daily as directed for 0 days Quantity: 30 {Tablet} Refills: 1 Ordered: 07-Jul-2018 Linnette Annie DO, Kathleen Start : 07-Jul-2018 Active Start: 05-10-2018 take 1 tablet by alexi once daily AmLODIPine Besylate 5 MG Oral Tablet 1 (one) Tablet Tablet daily as directed for 0 days Quantity: 30 {Tablet} Refills: 1 Ordered: 10-May-2018 LinnetteAnnie carlin DO, DO, Kathleen Start : 10-May-2018 Active Start: 01-14-2018 take 1 tablet by alexi once daily AmLODIPine Besylate 5 MG Oral Tablet 1 (one) Tablet daily as directed for 0 days Quantity: 30 {Tablet} Refills: 1 Ordered: 14-Jan-2018 Genesis PINTO Mohini Start : 14-Jan-2018 Active azithromycin 250 mg oral tablet (13 sources) Macrolide Antimicrobial Start: 12-19-2014 End: 01-13-2016 Zithromax Z-Alexis 250 MG Oral Tablet 1 Tablet TAD for 0 days Quantity: 1 {Package} Refills: 0 Ordered: 13-Jan-2016 Enriqueta Cisse RN Start : 19-Dec-2014 End : 13-Jan-2016 Inactive budesonide 0.032 mg/actuat metered dose nasal spray (13 sources) Corticosteroid Start: 04-06-2011 End: 05-19-2011 RHINOCORT AQUA, 32MCG/ACT (Nasal Suspension) 2 (two) Puff(s) daily for 0 days Quantity: 1 {Suspension} Refills: 0 Ordered: 19-May-2011 Altagracia Mcintyre LPN Start : 06-Apr-2011 End : 19-May-2011 Inactive clarithromycin 500 mg oral tablet (13 sources) Macrolide Antimicrobial Start: 03-24-2017 End: 03-24-2017 take 1 tablet by mouth twice daily Clarithromycin 500 MG Oral Tablet 1 (one) Tablet PO BID for 14 days Quantity: 28 {Tablet} Refills: 0 Ordered: 24-Mar-2017 Annie Anglin DO, DO, Kathleen Start : 24-Mar-2017 End : 24-Mar-2017 Discontinued Comments: skin peeling Comment on above: skin peeling doxycycline hyclate 100 mg delayed release oral tablet (13 sources) Tetracycline-class Drug Start: 03-24-2017 End: 04-03-2017 take 1 tablet by mouth twice daily Doxycycline Hyclate 100 MG Oral Tablet Delayed Release 1 (one) Tablet bid for 10 days Quantity: 20 {Tablet} Refills: 0 Ordered: 24-Mar-2017 Klaudia Leblanc LPN Start : 24-Mar-2017 End : 03-Apr-2017 Inactive 24 hr etodolac 400 mg extended release oral tablet (13 sources) Nonsteroidal Anti-inflammatory Drug Start: 07-15-2017 End: 01-14-2018 take 2 tablets by mouth once daily at mealtime Etodolac ER 400 MG Oral Tablet Extended Release 24 Hour 2 (two) Tablet qd with food for 0 days Quantity: 20 {Tablet} Refills: 0 Ordered: 14-Jan-2018 Radha Sanford Start : 15-Jul-2017 End : 14-Jan-2018 Discontinued ferrous sulfate 325 mg oral tablet (11 sources) Start: 02-01-2018 End: 03-03-2018 take 1 tablet by mouth twice daily Ferrous Sulfate 325 (65 Fe) MG Oral Tablet 1 (one) Tablet Tablet two times daily for 30 days Quantity: 60 {Tablet} Refills: 0 Ordered: 10-Mar-2018 Kaitlynn Hurtado CNP Start : 01-Feb-2018 End : 03-Mar-2018 Inactive multivitamin (13 sources) End: 04-18-2012 take 1 tablet by mouth once daily MULTIVITAMIN (PO Tab) 1 tab qd for 0 days Refills: 0 Ordered: 18-Apr-2012 Dilcia Zepeda RN End : 18-Apr-2012 Discontinued Comments: This order discontinued per [facility]. End: 04-18-2012 take 1 tablet by mouth once daily MULTIVITAMIN (PO Tab) 1 tab qd for 0 days Refills: 0 Ordered: 18-Apr-2012 Dilcia Zepeda LPN End : 18-Apr-2012 Discontinued Comments: This order discontinued per [facility]. Comment on above: This order discontin ued per [facility]. triamcinolone acetonide 0.055 mg/actuat metered dose nasal spray (13 sources) Corticosteroid Start: 01-14-2018 Nasacort Allergy 24HR 55 MCG/ACT Nasal Aerosol 2 (two) Puff Puff daily for 0 days Quantity: 1 {Bottle} Refills: 0 Ordered: 04-Feb-2018 Enriqueta Cisse RN Start : 14-Jan-2018 Active NEGATED: Highlighted row has not occurred!drug or medication (12 sources) No Known Histori angelito Medications NEGATED: Highlighted row has not occurred!No Known Historical Medications (1 source) No Known Histori angelito Medications Problems Active Problems Problem Classification Problem Date Documented Da te Episodic/Chronic Abdominal pain (14 sources) Acute abdominal pain; Translations: [Abdominal pain, acute, left lower quadrant] Resolved: 07-28-2013 01-21-2015 Episodic Comment on above: us reveiwed with cale white. after eat certain foods so will watch .better. if return and stay then will do ct scan and scope Administrative/social admission (20 sources) Counseling procedure with explicit context; Translations: [Medical examinations/report s status] 01-14-2018 Episodic Comment on above: reveiwed with patisandra t lipids and gluc at work good Cardiac dysrhythmias (20 sources) Tachycardia; Translations: [Tachycardia] 05-20-2018 Episodic Comment on above: follow --nerv when c k bp Deficiency and other anemia (20 sources) Anemia; Translations: [Anemia] 01-17-2018 Episodic Deficiency and other anemia (11 sources) Iron deficiency anemia; Translations: [Iron deficiency anemia, unspecified iron deficiency anemia type] 02-04-2018 Episodic Diabetes mellitus without complication (20 sources) Hyperglycemia; Translations: [Hyperglycemia] 02-04-2018 Episodic Essential hypertension (20 sources) Benign hypertension; Translations: [Hypertensive disorder] Resolved: 01-13-2016 07-15-2017 Chronic Comment on above: goodoff meds. ? was stress at time. chol 01-17 125 total, 61 HDL trig 45. BS 93 cont louise and papito santana on lifestyle la in 3mo cont louise and papito santana on lifestyle la in6-7 has lost >20# so far Genitourinary symptoms and ill-defined conditions (20 sources) Increased frequency of urination; Translations: [Urinary frequency] Resolved: 07-28-2013 12-11-2014 Episodic Comment on above: better ? now that cu t out caffiene urine cx good. Immunizations and screening for infectious disease (16 sources) Need for prophylactic vaccination and inoculation against influenza; Translations: [Needs influenza immunization] Resolved: 03-20-2016 03-20-2016 Episodic Menopausal disorders (1 source) Excessive bleeding in the premenopausal period; Translations: [Excessive bleeding in premenopausal period] Onset: 05-10-2024 Chronic Menstrual disorders (16 sources) Menorrhagia; Translations: [Excessive and frequent menstruation with regular cycle] Onset: 04-10-2024 04-10-2024 Chronic Nutritional deficiencies (20 sources) Vitamin D deficiency; Translations: [Vitamin D deficiency] 02-04-2018 Chronic Other circulatory disease (20 sources) Elevated blood-pressure reading without diagnosis of hypertension; Translations: [Elevated blood-pressure reading, without diagnosis of hypertension (Renamed from Elevated blood-pressure reading without diagnosis of hypertension)] 01-14-2018 Episodic Comment on above: drinks 3-4 16 oz cof fee daily, recent ibuprofen use Other female genital disorders (2 sources) Abnormal uterine bleeding; Translations: [Abnormal uterine and vaginal bleeding, unspecified] 04-19-2024 Chronic Other gastrointestinal disorders (20 sources) Diarrhea; Translations: [Diarrhea] Resolved: 07-28-2013 07-28-2013 Episodic Other lower respiratory disease (20 sources) Cough; Translations: [Cough] Resolved: 01-13-2016 01-13-2016 Episodic Other nervous system disorders (20 sources) H/O: migraine; Translations: [History of migraine] 01-14-2018 Episodic Other nutritional; endocrine; and metabolic disorders (13 sources) Body mass index 40+ - severely obese; Translations: [BMI 40.0-44.9, adult] 01-14-2018 Chronic Other nutritional; endocrine; and metabolic disorders (20 sources) Obesity, unspecified Chronic Other nutritional; endocrine; and metabolic disorders (13 sources) Obesity; Translations: [Obesity, unspecified] 01-14-2018 Chronic Comment on above: corrina about diet and e xericse and eating right Other nutritional; endocrine; and metabolic disorders (20 sources) Body mass index 30+ - obesity; Translations: [BMI 36.0-36.9,adult] 02-04-2018 Chronic Other skin disorders (4 sources) Eruption; Translations: [Rash] 01-27-2019 Episodic Comment on above: heat rash??- take an tihistamine and cool layers and follow if no better see derm Other upper respiratory infections (20 sources) Acute pharyngitis; Translations: [Pharyngitis, acute] 01-14-2018 Episodic Comment on above: antihistamien if not better and al negagitve then ent in 10 darrick Otitis media and related conditions (13 sources) Dysfunction of eustachian tube; Translations: [Eustachian tube dysfunction] 01-14-2018 Episodic Residual codes; unclassified (11 sources) FH: Cardiac disorder; Translations: [Family history of heart disease] 02-04-2018 Episodic Residual codes; unclassified (1 source) Current non-smoker ; Translations: [Current non-smoker] 01-27-2019 Episodic Residual codes; unclassified (1 source) Influenza vaccination declined; Translations: [Influenza vaccination declined (Renamed from Refused influenza vaccine)] 01-27-2019 Episodic Residual codes; unclassified (1 source) Non-smoker; Translations: [Non-smoker] 01-27-2019 Episodic Unclassified (20 sources) Family history of diabetes mellitus; Translations: [FH: Cardiac disorder] Resolved: 03-20-2016 01-14-2018 Episodic Unclassified (1 source) OPENED IN ERROR 06-09-2024 Unclassified (1 source) Pre-Op Visit Onset: 08-11-2024 Viral infection (20 sources) Viral infection, unspecified; Translations: [Viral disease] Resolved: 07-28-2013 01-21-2015 Episodic Past or Other Problems Problem Classification Problem Date Documented Date Episodic/Chronic Benign neoplasm of uterus (20 sources) Uterine leiomyoma; Translations: [Uterine fibroid] Onset: 03-17-2024 01-27-2019 Episodic Comment on above: being watched by hybrid derivatives trader to remove Deficiency and other anemia (20 sources) Deficiency and other anemia Fever of unknown origin (13 sources) Fever with chills; Translations: [Chills with fever] Resolved: 01-13-2016 01-13-2016 Episodic Nonspecific chest pain (20 sources) Chest pain; Translations: [Chest pain, unspecified] Resolved: 07-23-2008 02-15-2015 Episodic Other connective tissue disease (8 sources) Pain in left foot; Translations: [Pain in left foot] Resolved: 05-20-2018 01-14-2018 Episodic Other connective tissue disease (8 sources) Achilles tendinitis, left leg; Translations: [Left achilles tendonitis] Resolved: 05-20-2018 01-14-2018 Episodic Other connective tissue disease (5 sources) Left achilles tendonitis; Translations: [Achilles tendinitis of left lower extremity] Resolved: 05-20-2018 07-07-2018 Other connective tissue disease (5 sources) Pain in left foot; Translations: [Foot pain, left] Resolved: 05-20-2018 07-07-2018 Other upper respiratory infections (13 sources) Chronic sinusitis, unspecified; Translations: [Bacterial sinusitis] Resolved: 05-20-2018 01-14-2018 Chronic Residual codes; unclassified (11 sources) Other general symptoms and signs; Translations: [Abnormal sensation] Resolved: 05-20-2018 02-04-2018 Episodic Residual codes; unclassified (10 sources) Needs influenza immunization; Translations: [Need for prophylactic vaccination and inoculation against influenza (Renamed from Need for immunization against influenza)] Resolved: 03-20-2016 03-20-2016 Episodic Unclassified (20 sources) Blood chemistry abnormal; Translations: [Electrocardiogram abnormal] Onset: 02-11-2024 Resolved: 05-20-2018 12-11-2014 Episodic Unclassified (20 sources) Cut caffeine Resolved: 07-23-2008 07-28-2013 Unclassified (13 sources) Eustachian tube dysfunction Unclassified (20 sources) Foot pain, left Unclassified (20 sources) Unclassified (20 sources) BMI 40.0-44.9, adult Unclassified (20 sources) Current non-smoker ; Translations: [Current non-smoker] 01-14-2018 Unclassified (13 sources) Achilles tendinitis of left lower extremity Unclassified (20 sources) Sinusitis, bacterial Unclassified (12 sources) Deliveries (Parity); Translations: [Deliveries (Parity)] 01-14-2018 Comment on above: 2 Unclassified (20 sources) Pharyngitis, acute Unclassified (13 sources) Facial pressure Unclassified (20 sources) Family history of heart disease Unclassified (13 sources) Abnormal blood chemistry Unclassified (15 sources) Physical exam; Translations: [Patient encounter status] Resolved: 03-20-2016 03-20-2016 Unclassified (20 sources) Influenza vaccination declined (Renamed from Refused influenza vaccine); Translations: [Influenza vaccination declined] 01-14-2018 Unclassified (13 sources) Allergy to ketek (Renamed from Acetaminophen) Resolved: 07-23-2008 08-26-2016 Unclassified (20 sources) Nutritional counseling Unclassified (13 sources) Chills with fever Unclassified (13 sources) Allergy to Penicillins (Renamed from Penicillins); Translations: [Allergy to Penicillins (Renamed from Penicillins)] Resolved: 07-23-2008 07-28-2013 Unclassified (12 sources) Pregnancies (); Translations: [Pregnancies ()] 01-14-2018 Comment on above: 2 Unclassified (13 sources) Well Female (Younger Female) (V72.31) Unclassified (13 sources) SCREENING FOR HUMAN PAPILLOMAVIRUS (HPV) (V73.81) Unclassified (20 sources) Abdominal Pain,LLQ (789.04) Unclassified (20 sources) Patient encounter status; Translations: [Screening for HPV (human papillomavirus)] Resolved: 03-20-2016 01-13-2016 Unclassified (13 sources) Unspecified Diagnosis Resolved: 03-20-2016 03-20-2016 Unclassified (13 sources) Eustachian tube dysfunction (381.81) Unclassified (13 sources) Abnormal blood chemistry (790.6) Unclassified (13 sources) SYMPTOMS INVOLVING RESPIRATORY SYSTEM AND OTHER CHEST SYMPTOMS; UNSPECIFIED CHEST PAIN (786.50) Unclassified (10 sources) Influenza vaccination declined; Translations: [Influenza vaccination declined (Renamed from Refused influenza vaccine)] 02-04-2018 Unclassified (11 sources) BMI 39.0-39.9,adult Unclassified (20 sources) HTN (hypertension), benign Unclassified (10 sources) BMI 36.0-36.9,adult Unclassified (7 sources) Non-smoker; Translations: [Non-smoker] 01-27-2019 Unclassified (4 sources) BMI 37.0-37.9, adult Unclassified (4 sources) Well woman exam (Renamed from Encounter for well woman exam) Unclassified (4 sources) Rash Unclassified (4 sources) Uterine fibroid Unclassified (4 sources) Abnormal EKG Unclassified (1 source) Deliveries (Parity); Translations: [Deliveries (Parity)] 01-27-2019 Comment on above: 2 Unclassified (1 source) Pregnancies (); Translations: [Pregnancies ()] 01-27-2019 Comment on above: 2 Results Test Name Value Interpretation Reference Range Facility Basic Metabolic Profile (BMP )on 08-19-2024 BUN/CRE 14.9 RATIO Normal 10-20 [facility] Comment on above: Performed By: #### B TSPAT, L100.0500, L500.2500, L400.7600 #### [facility] [address] [place], [address] Calcium [Mass/Vol] 9.0 mg/dL Normal 7.6-11.0 [facility] Comment on above: Performed By: #### B TSPAT, L100.0500, L500.2500, L400.7600 #### [facility] [address] [place], [address] Chloride [Moles/Vol] 103 mmol/L Normal 98-108 [facility] Comment on above: Performed By: #### B TSPAT, L100.0500, L500.2500, L400.7600 #### [facility] [address] [place], [address] CO2 [Moles/Vol] 23.2 mmol/L Normal 21.0-32.0 [facility] Comment on above: Performed By: #### B TSPAT, L100.0500, L500.2500, L400.7600 #### [facility] [address] [place], [address] Creatinine [Mass/Vol] 0.71 mg/dL Normal 0.70-1.20 [facility] Comment on above: Performed By: #### B TSPAT, L100.0500, L500.2500, L400.7600 #### [facility] [address] [place], [address] GAP 12 Normal 5-15 [facility] Comment on above: Performed By: #### B TSPAT, L100.0500, L500.2500, L400.7600 #### [facility] [address] [place], [address] GFR/1.73 sq M.predicted among non-blacks MDRD (S/P/Bld) [Vol rate/Area] 104 mL/min/{1.73_m2} Normal >60 [facility] Comment on above: Result Comment: mL/m in/1.73m2 CKD-EPI Creatinine Equation (2020) Performed By: #### B TSPAT, L100.0500, L500.2500, L400.7600 #### [facility] [address] [place], [address] Glucose [Mass/Vol] 102 mg/dL High 70-99 [facility] Comment on above: Performed By: #### B TSPAT, L100.0500, L500.2500, L400.7600 #### [facility] [address] [place], [address] Potassium [Moles/Vol] 4.0 mmol/L Normal 3.3-5.1 [facility] Comment on above: Performed By: #### B TSPAT, L100.0500, L500.2500, L400.7600 #### [facility] [address] [place], [address] Sodium [Moles/Vol] 138 mmol/L Normal 133-145 [facility] Comment on above: Performed By: #### B TSPAT, L100.0500, L500.2500, L400.7600 #### [facility] [address] [place], [address] Urea nitrogen [Mass/Vol] 11 mg/dL Normal 4-19 [facility] Comment on above: Performed By: #### B TSPAT, L100.0500, L500.2500, L400.7600 #### [facility] [address] [place], [address] CBC-Complete Blood Cnt No Di ffon 08-19-2024 Erythrocyte distribution width (RBC) [Ratio] 13.8 % Normal 11.6-14.6 [facility] Comment on above: Performed By: #### B TSPAT, L100.0500, L500.2500, L400.7600 #### [facility] [address] [place], [address] Hematocrit (Bld) [Volume fraction] 36.1 % Low 37-47 [facility] Comment on above: Performed By: #### B TSPAT, L100.0500, L500.2500, L400.7600 #### [facility] [address] [place], [address] Hemoglobin (Bld) [Mass/Vol] 11.3 g/dL Low 12.0-15.0 [facility] Comment on above: Performed By: #### B TSPAT, L100.0500, L500.2500, L400.7600 #### [facility] [address] [place], [address] MCH (RBC) [Entitic mass] 27.2 pg Normal 27.0-32.0 [facility] Comment on above: Performed By: #### B TSPAT, L100.0500, L500.2500, L400.7600 #### [facility] [address] [place], [address] MCHC (RBC) [Mass/Vol] 31.3 g/dL Low 32-36 [facility] Comment on above: Performed By: #### B TSPAT, L100.0500, L500.2500, L400.7600 #### [facility] [address] [place], [address] MCV (RBC) [Entitic vol] 87.0 fL Normal 81-99 [facility] Comment on above: Performed By: #### B TSPAT, L100.0500, L500.2500, L400.7600 #### [facility] [address] [place], [address] Platelet mean volume (Bld) [Entitic vol] 10.4 fL Normal 6.2-12.0 [facility] Comment on above: Performed By: #### B TSPAT, L100.0500, L500.2500, L400.7600 #### [facility] [address] [place], [address] Platelets (Bld) [#/Vol] 274 10*3/uL Normal 150-450 [facility] Comment on above: Performed By: #### B TSPAT, L100.0500, L500.2500, L400.7600 #### [facility] [address] [place], [address] RBC (Bld) [#/Vol] 4.15 10*6/uL Low 4.2-5.4 [facility] Comment on above: Performed By: #### B TSPAT, L100.0500, L500.2500, L400.7600 #### [facility] [address] [place], [address] RDW SD 43.8 fl Normal 35.1-43.9 [facility] Comment on above: Performed By: #### B TSPAT, L100.0500, L500.2500, L400.7600 #### [facility] [address] [place], [address] WBC (Bld) [#/Vol] 4.7 10*3/uL Normal 4.4-11.0 [facility] Comment on above: Performed By: #### B TSPAT, L100.0500, L500.2500, L400.7600 #### [facility] [address] [place], [address] ,Urineon 08-19-2024 Beta HCG ( test) Ql (U) Negative Normal [facility] Comment on above: Result Comment: Very dilute urine specimens, as indicated by a low specific gravity, may not contain agency service representative levels of hCG. If is still suspected, a first morning urine specimen should be collected 48 hours later and tested. Performed By: #### B TSPAT, L100.0500, L500.2500, L400.7600 #### [facility] [address] [place], [address] Type AND Screen - PAT ONLYon 08-19-2024 Ab SCREEN GEL Negative Normal [facility] Comment on above: Order Comment: Surge ry Date: 08/24/24 Reason for Laboratory Test PREOP [id number] No N N S (B) ERAS, Hysterectomy, TLH, Salpingectomy, Cystosopy, Performed By: #### B TSPAT, L100.0500, L500.2500, L400.7600 #### [facility] [address] [place], [address] H AND P Exam - OB/GYNon H&P Exam - SUPERVISOR DAIRY SANITATION [facility] Medical Records Department [address] [place] [address] H P Exam - SUPERVISOR [employer]Y [employer]ITATION 08/14/24 0837 MR#: [id number] Acct: [id number] Name: MOISES DAVILA Rep #: [id number] : 1975 48 From: Shante Dai MD PCP: Daya Quintana DO Status:PRE [facility] Location: PAT History and Physical Date of Admission: 08/24/24 Expand All Collapse All Pre-Op History and Physical HPI: The patient is a 48 year old female presenting for pre-operative visit. She is scheduled for TLH, Bilateral salpingectomy, cysto for Fibroid uterus, menorrhagia on 08/24/24. Procedure discussed along with risks, benefits and complications. Other alternatives discussed for management. Consent form signed? Yes. PAST MEDICAL HISTORY PAST MEDICAL HISTORY Diagnosis Date ??? Fibroids uterine PAST SURGICAL HISTORY PAST SURGICAL HISTORY Procedure Laterality Date ??? DELIVERY ONLY 2002 ??? ENDOMETRIAL BIOPSY 04/19/2024 ??? TOOTH EXTRACTION 1994 wisdom teeth CURRENT MEDICATIONS No current outpatient medications on file. No current facility-administered medications for this visit. ALLERGIES: Penicillin G PERSONAL HISTORY: SOCIAL HISTORY Social History Tobacco Use ??? Smoking status: Never ??? Smokeless tobacco: Never Vaping Use ??? Vaping status: Never Used Substance Use Topics ??? Alcohol use: Yes Comment: rare ??? Drug use: Never FAMILY HISTORY: FAMILY HISTORY FAMILY HISTORY Problem Relation Age of Onset ??? Heart Attack Mother ??? No Known Problems Half-brother ??? No Known Problems Half-brother ??? Diabetes Maternal Grandmother diet controlled ??? Diabetes Maternal Grandfather ??? Hypertension Maternal Grandfather REVIEW OF SYMPTOMS: negative except as noted above PHYSICAL EXAMINATION: VITALS: Last menstrual period 01/08/2024. GENERAL: The patient is well nourished, well hydrated in no acute distress. , The patient is oriented to time, place, and person. NECK: full range of motion LUNGS: Clear to auscultation bilaterally. no wheezes, rhonchi or rales HEART: Regular rate and rhythm, Normal heart sounds, and No murmurs or gallops IMPRESSION: 48yo with fibroid uterus and menorrhagia PLAN: TLH, Bilateral salpingectomy, Cyto- possible ELZA Pt has been counseled on risks/benefits and alternatives of surgery including but not limited to anesthesia, bleeding, infection, injury to pelvic structures including bowel, bladder, ureters and vessels. Pt wishes to proceed with surgery at this time. Pre and post op instructions reviewed I have reviewed and updated past medical and surgical history, medications and allergies Shante Vickers MD Office Visit on 08/11/2024 Note shared with patient 08/14/24 0838 Cosigner Signature (if applicable): CC: Dr Shante Dai MD; Daya Quintana DO Signed Normal [facility] MR/PAT.Aline 08-14-2024 MR/PAT.[facility] Medical Records Department [address] [address] PAT - Anesthesia 08/14/24 1053 MR#: [id number] Acct: [id number] Name: MOISES DAVILA Rep #: [id number] : 1975 48 From: Diony Walker MD PCP: Daya Quintana DO Status:PRE SDC Y Race: UTD Location: [facility] Pre-Assessment Diagnosis/Proposed Procedure Planned Operative Procedure(s): B) Hysterectomy,TLH, bilateral salpingectomy, cystoscopy, POSSIBLE TOTAL ABDOMINAL HYSTERECTOMY Anesthesia History 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 When Was Last Pacemaker Check QUESTION #4 FULL TEXT: You/Your Family Experience fever (hyperthermia) with Anesthesia Last Oral Intake Last Oral intake: Last Oral Intake NPO since Meds taken in AM with sips of water? Meds patient instructed to take am of surgery PONV PONV - sas developer analyst: PONV - sas developer analyst Female Yes 08/14/24 09:17 HX of Motion Sickness No 08/14/24 09:17 HX of N/V After Surgery No 08/14/24 09:17 Non-Smoker Yes 08/14/24 09:17 Duration of Surgery greater No 08/14/24 09:17 than 60 minutes Number of Risk Factors 2 08/14/24 09:17 PONV Score Moderate Risk 08/14/24 09:17 Respiratory Assessment Respiratory Assessment - sas developer analyst: Respiratory Tract Infection Hx - sas developer analyst Hx Respiratory Tract Infection No 08/14/24 09:17 STOP Sleep Apnea STOP Sleep Apnea - sas developer analyst: STOP Sleep Apnea - sas developer analyst Hx Hypertension No 08/14/24 09:17 Hx Sleep Apnea No 08/14/24 09:17 CPAP BIPAP Do you snore loudly (louder No 08/14/24 09:17 than talking or can be heard Do you often feel tired/ No 08/14/24 09:17 fatigued/ sleepy during daytime? Has anyone observed you stop No 08/14/24 09:17 breathing during sleep? STOP Results Negative 08/14/24 09:17 QUESTION #5 FULL TEXT : Do you snore loudly (louder than talking or can be heard through closed doors)? 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 Specify any problems Hx of Preganancy in last 3 No 08/14/24 09:17 Months Nurse Filling Out Transfusion MGRIFFITH 08/14/24 09:17 Questions: Date: 08/14/24 08/14/24 09:17 Time: 09:17 08/14/24 09:17 Patient unable to answer at this time (ie. confused, unrespo /Reproduction History /Reproductive History - sas developer analyst: /Reproductive Hx- sas developer analyst Hx Now No 08/14/24 09:17 Gestational Age (in weeks): EDC: Hx Hx Para Hx Section SAB No 08/14/24 09:17 PFSH Medical History (Updated 08/14/24 @ 09:45 by Marina Lopez) Anemia History of Holter monitoring History of COVID-19 Wears glasses Non-smoker History of stress test Hypertension Home Medications ???Medication ???Instructions ???Recorded ???Last Taken ???Type polysaccharide iron complex 150 mg 150 mg PO DAILY #30 caps 9 Unknown History iron capsule cholecalciferol (vitamin D3) 25 25 mcg PO DAILY 06/09/24 Unknown H istory mcg (1,000 unit) capsule (Vitamin D3) multivitamin 1 tab PO DAILY 08/14/24 Unknown Hi story Allergy/AdvReac Type Severity Reaction Status Date / Time Penicillins Allergy Unknown unknown Verified 08/14/24 09:16 clarithromycin (From Biaxin) AdvReac Mild feeling Verified 08/14/24 09:16 out of body telithromycin (From Ketek) AdvReac rapid Verified 08/14/24 09:16 heart rate Surgical History (Updated 06/09/24 @ 08:35 by Bindu Joshua) Hx of section Hx of wisdom tooth extraction Social History (Updated 10 (more content not included)... Normal [facility] CNOVon 08-11-2024 CNOV Office Visit (OBGYWM ) MOISES DAVILA ([id number]) 1975 F Date Time Provider Department 08/11/24 4:20 PM SHANTE FLEMING OBGYWM During your visit today, we recorded the following information about you: Blood pressure Weight Height Last Period 148/84 108.9 kg 1.651 m 08/02/24 Shante Fleming MD 08/11/2024 4:59 PM Signed Shante Fleming MD 08/11/2024 4:59 PM Signed Pre-Op History and Physical HPI: The patient is a 48 year old female presenting for pre-operative visit. She is scheduled for TLH, Bilateral salpingectomy, cysto for Fibroid uterus, menorrhagia on 08/24/24. Procedure discussed along with risks, benefits and complications. Other alternatives discussed for management. Consent form signed? Yes. PAST MEDICAL HISTORY Diagnosis Date Fibroids uterine PAST SURGICAL HISTORY Procedure Laterality Date DELIVERY ONLY 2003 ENDOMETRIAL BIOPSY 04/19/2024 TOOTH EXTRACTION 1994 wisdom teeth No current outpatient medications on file. No current facility-administered medications for this visit. ALLERGIES: Penicillin G PERSONAL HISTORY: Social History Tobacco Use Smoking status: Never Smokeless tobacco: Never Vaping Use Vaping status: Never Used Substance Use Topics Alcohol use: Yes Comment: rare Drug use: Never FAMILY HISTORY: FAMILY HISTORY Problem Relation Age of Onset Heart Attack Mother No Known Problems Half-brother No Known Problems Half-brother Diabetes Maternal Grandmother diet controlled Diabetes Maternal Grandfather Hypertension Maternal Grandfather REVIEW OF SYMPTOMS: negative except as noted above PHYSICAL EXAMINATION: VITALS: Last menstrual period 01/08/2024. GENERAL: The patient is well nourished, well hydrated in no acute distress. , The patient is oriented to time, place, and person. NECK: full range of motion LUNGS: Clear to auscultation bilaterally. no wheezes, rhonchi or rales HEART: Regular rate and rhythm, Normal heart sounds, and No murmurs or gallops IMPRESSION: 48yo with fibroid uterus and menorrhagia PLAN: TLH, Bilateral salpingectomy, Cyto- possible ELZA Pt has been counseled on risks/benefits and alternatives of surgery including but not limited to anesthesia, bleeding, infection, injury to pelvic structures including bowel, bladder, ureters and vessels. Pt wishes to proceed with surgery at this time. Pre and post op instructions reviewed I have reviewed and updated past medical and surgical history, medications and allergies Shante Vickers MD Allergies As of Date: 08/11/2024 Noted Allergy Reaction PENICILLIN G 01/25/2024 16 - Unknown Date Reviewed: 08/11/2024 Reviewed by: Glenn Monterroso MA - Fully Assessed Reason for Visit: Pre-Op Visit [1235] Primary Visit Diagnosis:Abnormal uterine bleeding (AUB) [N93.9] Other Visit Diagnosis:Uterine leiomyoma, unspecified location [D25.9] Problem List As Of Date 08/11/2024 Noted Resolved Uterine leiomyoma [D25.9] 04/10/2024 Menorrhagia with regular cycle [N92.0] 04/10/2024 Encounter Status:Closed by SHANTE VICKERS on 08/11/[address] [facility] HISTORY PHYSICALon HISTORY PHYSICAL HNO ID: [id number] Author: SHANTE FLEMING MD Service: ? Author Type: Physician Type: H&P Filed: 08/11/2024 16:59 Note Text: Pre-Op History and Physical HPI: The patient is a 48 year old female presenting for pre-operative visit. She is scheduled for TLH, Bilateral salpingectomy, cysto for Fibroid uterus, menorrhagia on 08/24/24. Procedure discussed along with risks, benefits and complications. Other alternatives discussed for management. Consent form signed? Yes. PAST MEDICAL HISTORY Diagnosis Date Fibroids uterine PAST SURGICAL HISTORY Procedure Laterality Date DELIVERY ONLY 2002 ENDOMETRIAL BIOPSY 04/19/2024 TOOTH EXTRACTION 1994 wisdom teeth No current outpatient medications on file. No current facility-administered medications for this visit. ALLERGIES: Penicillin G PERSONAL HISTORY: Social History Tobacco Use Smoking status: Never Smokeless tobacco: Never Vaping Use Vaping status: Never Used Substance Use Topics Alcohol use: Yes Comment: rare Drug use: Never FAMILY HISTORY: FAMILY HISTORY Problem Relation Age of Onset Heart Attack Mother No Known Problems Half-brother No Known Problems Half-brother Diabetes Maternal Grandmother diet controlled Diabetes Maternal Grandfather Hypertension Maternal Grandfather REVIEW OF SYMPTOMS: negative except as noted above PHYSICAL EXAMINATION: VITALS: Last menstrual period 01/08/2024. GENERAL: The patient is well nourished, well hydrated in no acute distress. , The patient is oriented to time, place, and person. NECK: full range of motion LUNGS: Clear to auscultation bilaterally. no wheezes, rhonchi or rales HEART: Regular rate and rhythm, Normal heart sounds, and No murmurs or gallops IMPRESSION: 48yo with fibroid uterus and menorrhagia PLAN: TLH, Bilateral salpingectomy, Cyto- possible ELZA Pt has been counseled on risks/benefits and alternatives of surgery including but not limited to anesthesia, bleeding, infection, injury to pelvic structures including bowel, bladder, ureters and vessels. Pt wishes to proceed with surgery at this time. Pre and post op instructions reviewed I have reviewed and updated past medical and surgical history, medications and allergies Shante Vickers MD [facility] 07-11-[address] [facility] Telephone (OBGYWM) MOISES DAVILA ([id number]) 1975 F Date Time Provider Department 07/11/24 SHANTE FLEMING During your visit today, we recorded the following information about you: Shante Fleming MD 07/11/2024 8:11 AM Signed Please notify patient that her original blood work done at [facility] for pre op shows she is anemic- please have her start PO iron daily. She will need to continue this through her surgery that was rescheduled. Allergies As of Date: 07/11/2024 Noted Allergy Reaction PENICILLIN G 01/25/2024 16 - Unknown Date Reviewed: 05/10/2024 Reviewed by: Adina Madrigal MA - Fully Assessed Reason for Visit: Results [95] Problem List As Of Date 07/11/2024 Noted Resolved Uterine leiomyoma [D25.9] 04/10/2024 Menorrhagia with regular cycle [N92.0] 04/10/2024 Encounter Status:Closed by SANJUANA ORTEZ on 07/12/24 [facility] 06-19-[address] [facility] Telephone (OBGYWM) MOISES DAVILA ([id number]) 1975 F Date Time Provider Department 06/19/24 SHANTE FLEMING During your visit today, we recorded the following information about you: Janine Moseley RN 06/19/2024 11:20 AM Signed Patient is scheduled for a TLH on Wednesday with DM. States she is still ill and has congestion. Said that DM told her to call in if she felt the same and her surgery would be cancelled for Wednesday and rescheduled. DIONNE Powell Deidre, MD 06/19/2024 11:51 AM Signed Rikki FERRERA - please schedule for convenient time for patient as I am gone in end of August- will want RR for assistance Jasmin Schilling LPN 06/20/2024 4:43 PM Signed Patient rescheduled to 08/24/2024 Allergies As of Date: 06/19/2024 Noted Allergy Reaction PENICILLIN G 01/25/2024 16 - Unknown Date Reviewed: 05/10/2024 Reviewed by: Adina Madrigal MA - Fully Assessed Reason for Visit: Cancel Surgery due to Illness [Other] Problem List As Of Date 06/19/2024 Noted Resolved Uterine leiomyoma [D25.9] 04/10/2024 Menorrhagia with regular cycle [N92.0] 04/10/2024 Encounter Status:Closed by JASMIN SCHILLING on 06/20/[address] [facility] Basic Metabolic Profile (BMP )on 06-16-2024 BUN/CRE 13.4 RATIO Normal 10-20 [facility] Comment on above: Performed By: #### L 500.2500 #### [facility] [address] [place], [place], [id number] Calcium [Mass/Vol] 9.0 mg/dL Normal 7.6-11.0 [facility] Comment on above: Performed By: #### L 500.2500 #### [facility] [address] [place], [address] Chloride [Moles/Vol] 102 mmol/L Normal 98-108 [facility] Comment on above: Performed By: #### L 500.2500 #### [facility] [address] [place], [address] CO2 [Moles/Vol] 23.3 mmol/L Normal 21.0-32.0 [facility] Comment on above: Performed By: #### L 500.2500 #### [facility] [address] [place], [address] Creatinine [Mass/Vol] 0.80 mg/dL Normal 0.70-1.20 [facility] Comment on above: Performed By: #### L 500.2500 #### [facility] [address] [place], [address] GAP 14 Normal 5-15 [facility] Comment on above: Performed By: #### L 500.2500 #### [facility] [address] [place], [address] GFR/1.73 sq M.predicted among non-blacks MDRD (S/P/Bld) [Vol rate/Area] 91 mL/min/{1.73_m2} Normal >60 [facility] Comment on above: Result Comment: mL/m in/1.73m2 CKD-EPI Creatinine Equation (2020) Performed By: #### L 500.2500 #### [facility] [address] [place], [address] Glucose [Mass/Vol] 84 mg/dL Normal 70-99 [facility] Comment on above: Performed By: #### L 500.2500 #### [facility] [address] [place], [address] Potassium [Moles/Vol] 4.1 mmol/L Normal 3.3-5.1 [facility] Comment on above: Performed By: #### L 500.2500 #### [facility] [address] [place], [address] Sodium [Moles/Vol] 139 mmol/L Normal 133-145 [facility] Comment on above: Performed By: #### L 500.2500 #### [facility] [address] [place], [address] Urea nitrogen [Mass/Vol] 11 mg/dL Normal 4-19 [facility] Comment on above: Performed By: #### L 500.2500 #### [facility] [address] [place], [address] CBC-Complete Blood Cnt No Di ffon 06-16-2024 Erythrocyte distribution width (RBC) [Ratio] 13.2 % Normal 11.6-14.6 [facility] Comment on above: Performed By: #### L 501.5200, L100.0500, L300.4310, L300.3900 #### [facility] [address] [place], [address] Hematocrit (Bld) [Volume fraction] 34.6 % Low 37-47 [facility] Comment on above: Performed By: #### L 501.5200, L100.0500, L300.4310, L300.3900 #### [facility] [address] [place], [address] Hemoglobin (Bld) [Mass/Vol] 10.9 g/dL Low 12.0-15.0 [facility] Comment on above: Performed By: #### L 501.5200, L100.0500, L300.4310, L300.3900 #### [facility] [address] [place], [address] MCH (RBC) [Entitic mass] 26.7 pg Low 27.0-32.0 [facility] Comment on above: Performed By: #### L 501.5200, L100.0500, L300.4310, L300.3900 #### [facility] Laboratory [address] [place], [address] MCHC (RBC) [Mass/Vol] 31.5 g/dL Low 32-36 [facility] Comment on above: Performed By: #### L 501.5200, L100.0500, L300.4310, L300.3900 #### [facility] Laboratory [address] [place], [address] MCV (RBC) [Entitic vol] 84.6 fL Normal 81-99 [facility] Comment on above: Performed By: #### L 501.5200, L100.0500, L300.4310, L300.3900 #### [facility] Laboratory [address] [place], [address] Platelet mean volume (Bld) [Entitic vol] 9.7 fL Normal 6.2-12.0 [facility] Comment on above: Performed By: #### L 501.5200, L100.0500, L300.4310, L300.3900 #### [facility] Laboratory [address] [place], [address] Platelets (Bld) [#/Vol] 381 10*3/uL Normal 150-450 [facility] Comment on above: Performed By: #### L 501.5200, L100.0500, L300.4310, L300.3900 #### [facility] Laboratory [address] [place], [address] RBC (Bld) [#/Vol] 4.09 10*6/uL Low 4.2-5.4 [facility] Comment on above: Performed By: #### L 501.5200, L100.0500, L300.4310, L300.3900 #### [facility] Laboratory [address] [place], [address] RDW SD 40.8 fl Normal 35.1-43.9 [facility] Comment on above: Performed By: #### L 501.5200, L100.0500, L300.4310, L300.3900 #### [facility] Laboratory [address] [place], [address] WBC (Bld) [#/Vol] 6.3 10*3/uL Normal 4.4-11.0 [facility] Comment on above: Performed By: #### L 501.5200, L100.0500, L300.4310, L300.3900 #### [facility] Laboratory [address] [place], [address] Magnesiumon 06-16-2024 Magnesium [Mass/Vol] 1.8 mg/dL Normal 1.5-2.2 [facility] Comment on above: Performed By: #### L 501.5200, L100.0500, L300.4310, L300.3900 ####[facility] [address] [place], [address] Partial Thromboplast Timeon 06-16-2024 aPTT Coag (Bld) [Time] 30.7 s Normal 24.1-36.2 [facility] Comment on above: Performed By: #### L 501.5200, L100.0500, L300.4310, L300.3900 #### [facility] Laboratory [address] [place], [address] Prothrombin Time w/INRon INR Coag (PPP) [Relative time] 1.1 {INR} Normal [facility] Comment on above: Performed By: #### L 501.5200, L100.0500, L300.4310, L300.3900 #### [facility] [address] [place], [address] PT Coag (PPP) [Time] 14.1 s Normal 11.7-14.9 [facility] Comment on above: Performed By: #### L 501.5200, L100.0500, L300.4280, L300.3900 #### [facility] Laboratory [place], [address] HISTORY PHYSICALon HISTORY PHYSICAL HNO ID: [id number] Author: SHANTE FLEMING MD Service: ? Author Type: Physician Type: H&P Filed: 06/13/2024 09:58 Note Text: HANDP virtual visit This is a virtual visit using [employer] Zoom Video Visit. It required patient-provider interaction for the medical decision making as documented below. I have communicated my name and active licensure. The patient's identity and physical location were verified at the time of this visit. Either the patient or their legal agency service representative has been informed of the risks and benefits of -- and alternatives to -- treatment through a remote evaluation and consents to proceed with the evaluation remotely. Pre-Op History and Physical HPI: The patient is a 48 year old female presenting for discussion regarding surgical mgmt for fibroids and heavy menses. pre-operative visit. She is scheduled for TLH, bilateral salpingectomy and cystoscopy and possible ELZA, for Fibroid uterus and menorrhagia on 06/23/24. Procedure discussed along with risks, benefits and complications. Other alternatives discussed for management. Consent form signed? Will come to office Wednesday06/16/24 to sign- was positive for covid last week- fever for one day. PAST MEDICAL HISTORY Diagnosis Date Fibroids uterine PAST SURGICAL HISTORY Procedure Laterality Date DELIVERY ONLY 2002 ENDOMETRIAL BIOPSY 04/19/2024 TOOTH EXTRACTION 1994 wisdom teeth No current outpatient medications on file. No current facility-administered medications for this visit. ALLERGIES: Penicillin G PERSONAL HISTORY: Social History Tobacco Use Smoking status: Never Smokeless tobacco: Never Vaping Use Vaping status: Never Used Substance Use Topics Alcohol use: Yes Comment: rare Drug use: Never FAMILY HISTORY: FAMILY HISTORY Problem Relation Age of Onset Heart Attack Mother No Known Problems Half-brother No Known Problems Half-brother Diabetes Maternal Grandmother diet controlled Diabetes Maternal Grandfather Hypertension Maternal Grandfather REVIEW OF SYMPTOMS: negative except as noted above PHYSICAL EXAMINATION: VITALS: Last menstrual period 01/08/2024. GENERAL: The patient is well nourished, well hydrated in no acute distress. , The patient is oriented to time, place, and person. NECK: full range of motion IMPRESSION: 48yo with symptomatic fibroid uterus, menorrhagia PLAN: TLH, Bilateral salpingectomy, cystoscopy possible ELZA Pt has been counseled on risks/benefits and alternatives of surgery including but not limited to anesthesia, bleeding, infection, injury to pelvic structures including bowel, bladder, ureters and vessels. Pt wishes to proceed with surgery at this time. PRE AND POST OP INSTRUCTIONS REVIEWED WILL COME TO OFFICE TO SIGN CONSENT AND WASTEWATER PROJECT ENGINEER ERAS PACKET/DRINKS/BODY WASH I have reviewed and updated past medical and surgical history, medications and allergies Shante Vickers MD Normal [facility] CBC panel Auto (Bld)on 05-10 Erythrocyte distribution width (RBC) [Ratio] 14.3 % 11.5 - 15.0 % [facility] Hematocrit (Bld) [Volume fraction] 37.5 % 36.0 - 46.0 % [facility] Hemoglobin (Bld) [Mass/Vol] 11.7 g/dL 11.5 - 15.5 g/dL [facility] Interpretation and review of laboratory results Normal [facility] MCH (RBC) [Entitic mass] 26.8 pg 26.0 - 34.0 pg [facility] MCHC (RBC) [Mass/Vol] 31.2 g/dL 30.5 - 36.0 g/dL [facility] MCV (RBC) [Entitic vol] 85.8 fL 80.0 - 100.0 fL [facility] Nucleated RBC (Bld) [#/Vol] NINF [facility] Platelet mean volume (Bld) [Entitic vol] 9.5 fL 9.0 - 12.7 fL [facility] Platelets (Bld) [#/Vol] 241 10*3/uL [facility] RBC (Bld) [#/Vol] 4.37 10*6/uL 3.90 - 5.2 0 m/uL [facility] WBC (Bld) [#/Vol] 6.22 10*3/uL [facility] Erythrocyte distribution width (RBC) [Ratio] 14.3 % Normal 11.5-15.0 [facility] Comment on above: Order Comment: Speci men Type: BLOOD SPECIMENOrdering Facility: [facility] Address: [address] [place] [address] Performed By: #### 5 8410-2 ####[facility] MILLIPARKERSBURGJUSTINELIA [id number] [place] [address] [place] Hematocrit (Bld) [Volume fraction] 37.5 % Normal 36.0-46.0 [facility] Comment on above: Order Comment: Speci men Type: BLOOD SPECIMENOrdering Facility: [facility] Address: [address] [place] [address] Performed By: #### 5 8410-2 ####[facility] [id number] [place] [address] [place] Hemoglobin (Bld) [Mass/Vol] 11.7 g/dL Normal 11.5-15.5 [facility] Comment on above: Order Comment: Speci men Type: BLOOD SPECIMENOrdering Facility: [facility] Address: [address] [place] [address] Performed By: #### 5 8410-2 ####[facility] [id number] [place] [address] [place] MCH (RBC) [Entitic mass] 26.8 pg Normal 26.0-34.0 [facility] Comment on above: Order Comment: Speci men Type: BLOOD SPECIMENOrdering Facility: [facility] Address: [address] [place] [address] Performed By: #### 5 8410-2 ####[facility] [id number] [place] [address] [place] MCHC (RBC) [Mass/Vol] 31.2 g/dL Normal 30.5-36.0 [facility] Comment on above: Order Comment: Speci men Type: BLOOD SPECIMENOrdering Facility: [facility] Address: [address] [place] [address] Performed By: #### 5 8410-2 ####[facility] [id number] [place] [address] [place] MCV (RBC) [Entitic vol] 85.8 fL Normal 80.0-100.0 [facility] Comment on above: Order Comment: Speci men Type: BLOOD SPECIMENOrdering Facility: [facility] Address: [address] [place] [address] Performed By: #### 5 8410-2 ####[facility] MILLIPARKERSBURGJENN [id number] [place] [address] [place] Nucleated RBC (Bld) [#/Vol] 10*3/uL Normal <0.01 [facility] Comment on above: Order Comment: Speci men Type: BLOOD SPECIMENOrdering Facility: [facility] Address: [address] [place] [address] Performed By: #### 5 8410-2 ####[facility] CENTERNCTATI [id number] [place] [address] [place] Platelet mean volume (Bld) [Entitic vol] 9.5 fL Normal 9.0-12.7 [facility] Comment on above: Order Comment: Speci men Type: BLOOD SPECIMENOrdering Facility: [facility] Address: [address] [place] [address] Performed By: #### 5 8410-2 ####[facility] MILLIPARKERSBURGGANESHA [id number] [place] [address] [place] Platelets (Bld) [#/Vol] 241 10*3/uL Normal 150-400 [facility] Comment on above: Order Comment: Speci men Type: BLOOD SPECIMENOrdering Facility: [facility] Address: [address] [place] [address] Performed By: #### 5 8410-2 ####[facility]CLIA [id number] [place] [address] [place] RBC (Bld) [#/Vol] 4.37 10*6/uL Normal 3.90-5.20 [facility] Comment on above: Order Comment: Speci men Type: BLOOD SPECIMENOrdering Facility: [facility] Address: [address] [place] [address] Performed By: #### 5 8410-2 ####[facility] ARIELNCLIA [id number] [place] [address] [place] WBC (Bld) [#/Vol] 6.22 10*3/uL Normal 3.70-11.00 [facility] Comment on above: Order Comment: Speci men Type: BLOOD SPECIMENOrdering Facility: [facility] Address: [address] [place] [address] Performed By: #### 5 8410-2 ####[facility] ARIELNCLIA [id number] [address] [place] CNOVon 05-10-2024 CNOV Office Visit (OBGYWM ) RAMANDEEP DAVILAOLE ([id number]) 1975 F Date Time Provider Department 05/10/24 3:00 PM SHANTE FLEMING OBGYWM During your visit today, we recorded the following information about you: Blood pressure Weight 130/84 108.4 kg Shante Fleming MD 05/10/2024 3:35 PM Signed Moises Davila is a 48 year old female who presents for discussion regarding surgical intervention for fibroid uterus. Patient reports has heavy menses for the past 5 to 6 years but getting much worse over the last year thought it was just due to changing hormones. Patient reports menses are approximately every month but they do come approximately 4 to 5 days early every month. She states that she bleeds for 6 days day 2 is typically the worst where she has to wear disposable underwear passes large clots. The menstruation interferes with her daily life during her menses she feels fatigued due to blood loss she does have anemia. She denies ever happening to have a blood transfusion or iron infusion. Patient reports she feels a lot of pelvic pressure due to the fibroids. She states she has only had 1 and 1 vaginal delivery no other abdominal surgeries. Patient did have a recent endometrial biopsy which was benign and did have a Pap which was also benign. Patient would like to proceed with surgical intervention at this time. She denies any other concerns today. 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: Sexual Activity: Yes; Male Contraception: Condom PAST MEDICAL HISTORY Diagnosis Date Fibroids uterine PAST SURGICAL HISTORY Procedure Laterality Date DELIVERY ONLY 2003 ENDOMETRIAL BIOPSY 04/19/2024 TOOTH EXTRACTION 1994 wisdom teeth FAMILY HISTORY Problem Relation Age of Onset Heart Attack Mother No Known Problems Half-brother No Known Problems Half-brother Diabetes Maternal Grandmother diet controlled Diabetes Maternal Grandfather Hypertension Maternal Grandfather Social History Tobacco Use Smoking status: Never Smokeless tobacco: Never Vaping Use Vaping status: Never Used Substance Use Topics Alcohol use: Yes Comment: rare Drug use: Never No current outpatient medications on file. No current facility-administered medications for this visit. Allergies As of Date: 05/10/2024 Allergen Noted Reaction PENICILLIN G 01/25/2024 Unknown Fully Assessed 05/10/2024 REVIEW OF SYSTEMS Abdomen: pelvic pressure Bladder: no dysuria.. Expanded ROS: GENERAL: Fatigue Allergies and current medication updated:Yes SENSITIVE EXAM: The sensitive examination was discussed with the Patient or Patient's Authorized Power And Recovery Shift Engineer. As applicable, any other physician, advance practice provider, medical student, or other health professional student that will be observing or involved in the sensitive examination for educational or training purposes was discussed with the Patient or Authorized Power And Recovery Shift Engineer. The Patient or Authorized Power And Recovery Shift Engineer has agreed to proceed with the sensitive examination. (Sensitive examination includes inspection and/or palpation of the breasts, pelvis, prostate and anorectal regions). EXAM: BP 130/84 Wt 239 lb (108.4kg) LMP 01/08/2024 GENERAL: pleasant, female in no apparent distress HEENT: atraumatic NECK: full range of motion DERMATOLOGY: without lesions ABDOMEN: soft, non-tender, and uterus palpable at 16 weeks size PELVIC: external genitalia normal, normal Bartholin's glands, urethra, [place]'s glands, no vulvar lesions, no cervical lesions, good vaginal support, physiologic discharge present, normal appearing perineal body and perianal region BIMANUAL: enlarged uterus 16 week size and fibroid(s) palpable - bulky- more on right NEURO: alert and oriented x3,exam grossly non-focal EXTREMITIES: normal ASSESSMENT AND PLAN: Assessment AND Plan Intramural, submucous, and subserous leiomyoma of uterus Excessive bleeding in premenopausal period Orders: COMPLETE BLOOD COUNT; Future THYROID STIMULATING HORMONE; Future Dysmenorrhea Pelvic pressure in female I reviewed with the patient options for surgery including consultation with minimally invasive gynecologic surgery for laparoscopic surgery. Discussed with the patient that consultation with minimally invasive gynecologic surgery for laparoscopic surgery. Discussed with the patient that I would attempt it laparoscopically however due to how bulky the uterus is this could make laparoscopic surgery more difficult. It could also make removal of the uterus through the vagina difficult. We discussed potential need for making an incision on the abdomen or possibly (more content not included)... Normal [facility] TSH SerPl-aCncon 05-10-2024 TSH Qn 1.630 m[IU]/L Normal 0.270-4.200 [facility] Comment on above: Order Comment: Speci men Type: BLOOD SPECIMENOrdering Facility: [facility] Address: [address] [place] [address] Result Comment: If t he patient is , TSH reference range varies by gestational period: First Trimester (weeks 9-12): 0.180-2.990 mIU/L Second Trimester: 0.110-3.980 mIU/L Third Trimester: 0.480-4.710 mIU/L Hilario Pratt et al. A Practical Approach for the Verifications and Determination of Site- and Trimester-Specific Reference Intervals for Thyroid Function tests in . Thyroid, 2019:29:3:412-420. Konstantin Collazo, et al. 2017 Guidelines of the [place] Thy[employer] for the Diagnosis and Management of Thyroid Disease during and the . Thyroid, 2017:27:3:315-389. Performed By: #### 3 016-3 ####[facility] LABORATORYCLIA [id number] [place] [address] [place] CNOVon 04-19-2024 CNOV Office Visit (OBGYWM ) MOISES DAVILA ([id number]) 1975 F Date Time Provider Department 04/19/24 2:45 PM BRIDGER FOSS OBGYWM During your visit today, we recorded the following information about you: Blood pressure Weight 120/80 108.4 kg Bridger Foss APRN.CNP 04/19/2024 2:59 PM Signed Radio Television Announcer offered: Patient declinesSunil James is a 48 year old Female who presents today for an endometrial biopsy for abnormal uterine bleeding. test: negative UNIVERSAL PROTOCOL / SAFETY CHECKLIST Procedure to be Performed: Endometrial Biopsy Sign In: A Moment of CARE was completed. Personnel directly involved with the procedure wore the appropriate PPE (Personal Protective Equipment). Patient/Surrogate Stated/Verified: PATIENT VERIFIED(optional for EMERGENT procedures): Patient name, Date of , Relevant allergies, and The intended procedure Time Out Communication: Intended patient and procedure match the source documents. Consent documented and matches the intended procedure. Sign Out: SIGN OUT (optional for EMERGENT procedures): All specimen containers correctly labeled. All instruments, equipment, possible retained foreign bodies accounted for. Post-procedure follow-up management communicated and Plan of Care Visit completed when applicable. Bridger Foss APRN.CNP PROCEDURE: EXTERNAL GENITALIA: Normal in appearance without lesions VAGINA: Normal in appearance without lesions BIOPSY: Speculum placed into the vagina with excellent visualization of the cervix. Cervix cleaned with betadine. Anterior lip of cervix grasped with single toothed tenaculum. Uterus sounded to 12 cm. Pipelle inserted into the uterus without difficulty and endometrial biopsy obtained. Specimen labeled and sent to pathology. Hemostasis achieved. Procedure Summary: Patient tolerated procedure well. ASSESSMENT: abnormal uterine bleeding PLAN: Specimens labeled and sent to Pathology. Will notify patient of results in 1-2 weeks. Post-procedure instructions reviewed and written material given to the patient. Bridger Foss APRN.Barb Garza MA 04/19/2024 2:00 PM Signed YOUR RECOVERY After your biopsy you may have: Vaginal bleeding (less than a normal menstrual period) Mild cramping Do NOT put anything in the vagina for 1 week after your endometrial biopsy. This includes: tampons douches and refraining from having sexual intercourse If you have any discomfort, you may take an over the counter pain medication (motrin, advil, ibuprofen, tylenol, etc). If this does not relieve your discomfort, contact the office. It is okay to wear a sanitary pad until the discharge and spotting stops. RISKS Although problems seldom occur with endometrial biopsies, there can be some complications. You may feel faint during and shortly after the procedure as well as have some bleeding after the procedure. There is also a risk of infection after the procedure. These complications are rare and can be easily treated. You should contact you doctor is you have any of the following: Heavy bleeding (more than your normal period) Bleeding with clots Severe abdominal pain Fever (more than 100.4F) Foul smelling vaginal discharge RESULTS We will have the results of your biopsy in 1-2 weeks. If you do not hear the results of your biopsy after 2 weeks, please contact the office for the results. If you have any additional questions or concerns please do not hesitate to contact the office. Referring Provider: JANINE BARNARD [[id number]] Allergies As of Date: 04/19/2024 Noted Allergy Reaction PENICILLIN G 01/25/2024 16 - Unknown Date Reviewed: 04/19/2024 Reviewed by: Bridger Foss APRN.[employer] - Fully Assessed Reason for Visit: Endometrial Biopsy [7501] Primary Visit Diagnosis:Abnormal uterine bleeding [N93.9] Order(s):ENDOMETRIAL BIOPSY [3635819] Order #: [id number] SURGICAL PATHOLOGY [MHR7629] Order #: [id number]. #:[id number] UA DIP,URINE HCG (POC) [2299424] Order #: [id number]. #:[id number] [facility] Problem List As Of Date 04/19/2024 Noted Resolved Uterine leiomyoma [D25.9] 04/10/2024 Menorrhagia with regular cycle [N92.0] 04/10/2024 Other instructions from your clinician: YOUR RECOVERY After your biopsy you may have: Vaginal bleeding (less than a normal menstrual period) Mild cramping Do NOT put anything in the vagina for 1 week after your endometrial biopsy. This includes: tampons douches and refraining from having sexual intercourse If you have any discomfort, you may take an over the counter pain medication (motrin, advil, ibuprofen, tylenol, etc). If this does not relieve your discomfort, contact the office. It is okay to wear a sanitary pad until the discharge and spotting stops. RISKS Although problems seldom occur with endometrial biopsies, there can be (more content not included)... Normal [facility] Pathology biopsy report Yogesh (Tiss)on 04-19-[address] [facility] Comment on above: Order Comment: Speci men Type: TISSUE SPECIMENOrdering Facility: [facility] Address: [address] [place] [address] Result Comment: Surg [facility] Pathology Report Case: [id number] Authorizing Provider: Bridger Foss APRN.[employer] Collected: 04/19/2024 02:58 PM Ordering Location: OB/Gynecology Received: 04/19/2024 04:05 PM Pathologist: Nithya Schwarz MD Specimen: Endometrium, Biopsy Performed By: #### 6 6121-5 ####[facility] LABCLIA [id number] [place] [address] [place] CLINICAL HISTORY uterine leiomyoma Normal [facility] Comment on above: Order Comment: Speci men Type: TISSUE SPECIMENOrdering Facility: [facility] Address: [address] [place] [address] Performed By: #### 6 6121-5 ####[facility] LABCLIA [id number] [address] [place] FINAL DIAGNOSIS Normal [facility] Comment on above: Order Comment: Speci men Type: TISSUE SPECIMENOrdering Facility: [facility] Address: [address] [place] [address] Result Comment: Endo metrium, biopsy: -Mid secretory pattern endometrium. -Benign cervical tissue. at 1430 EST Performed By: #### 6 6121-5 ####[facility] LABCLIA [id number] [place] [address] [place] FINAL PERFORMING LAB Normal [facility] Comment on above: Order Comment: Speci men Type: TISSUE SPECIMENOrdering Facility: [facility] Address: [address] [place] [address] Result Comment: Diag nostic interpretation performed at: [facility], [address] [place] [address] CLIA# [id number] Sales Trader: Prasad Corona MD Performed By: #### 6 6121-5 ####[facility] LABCLIA [id number] [address] [place] GROSS DESCRIPTION Normal [facility] Comment on above: Order Comment: Speci men Type: TISSUE SPECIMENOrdering Facility: [facility] Address: [address] [place] [address] Result Comment: A. E ndometrium, Biopsy Received in formalin are multiple brown-red, soft feathery segments of tissue admixed with mucinous material aggregating to 3.0 x 1.5 x 0.3 cm. Totally submitted in one cassette. DL April 19, 2024 9:55 PM Gross examination performed at [facility], [address] [place] [address] Performed By: #### 6 [id number] ####[facility] LABCLIA [id number] [place] [address] [place] UA DIP,URINE HCG (POC)on Beta HCG ( test) Ql (U) Negative Negative [facility] Comment on above: Location:[facility], [address], [place], [address] [employer] (POCT) Internal QC OK [facility] Location:[facility], [address], [place], [address] [facility]ARE [facility] CNOVon 04-10-2024 CNOV Office Visit (OBGYWM ) MOISES DAVILA ([id number]) 1975 F Date Time Provider Department 04/10/24 11:30 AM JANINE BARNARD During your visit today, we recorded the following information about you: Blood pressure Weight 130/88 107.8 kg Janine Barnard MD 04/10/2024 12:26 PM Signed Moises Davila is a 48 year old female who presents for problem visit f/u US HPI: Known fibroids. US from 2018 with 4 ranging from 2 cm to 3 cm at the largest dimension. Having heavy periods. Especially on day 2. Usually can't leave the house on that day. Recent US shows 5 fibroids. All have nearly doubled in size over the last 6 years. There is now a submucous fibroid that is likely the cause of the heavy bleeding. Reviewed options of Low dose Ocs, GNRH analogs, DANDC hysteroscopy with removal of submucous fibroid and hysterectomy. She does not have HTN, is not a smoker or have a HX of DVT. The uterus is over 13 cm and she can feel the heaviness. She is leaning toward a hysterectomy. Discussed EMB no matter what treatment plan she chooses. 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: Sexual Activity: Yes; Male Contraception: Condom PAST MEDICAL HISTORY Diagnosis Date Fibroids uterine PAST SURGICAL HISTORY Procedure Laterality Date DELIVERY ONLY 2003 TOOTH EXTRACTION 1994 wisdom teeth FAMILY HISTORY Problem Relation Age of Onset Heart Attack Mother No Known Problems Half-brother No Known Problems Half-brother Diabetes Maternal Grandmother diet controlled Diabetes Maternal Grandfather Hypertension Maternal Grandfather Social History Tobacco Use Smoking status: Never Smokeless tobacco: Never Vaping Use Vaping status: Never Used Substance Use Topics Alcohol use: Yes Comment: rare Drug use: Never No current outpatient medications on file. No current facility-administered medications for this visit. Allergies As of Date: 04/10/2024 Allergen Noted Reaction PENICILLIN G 01/25/2024 Unknown Fully Assessed 04/10/2024 REVIEW OF SYSTEMS Abdomen: No bloating, early satiety, indigestion, or increased flatulence. No abdominal pain, nausea, vomiting, diarrhea, or constipation. Bladder: No dysuria, gross hematuria, urinary frequency, urinary urgency, or incontinence. Breast: No breast lumps, nipple d/c, overlying skin changes, redness or skin retraction. Expanded ROS: N/A Allergies and current medication updated:Yes SENSITIVE EXAM: Sensitive exam not performed. EXAM: BP 130/88 Wt 237 lb 9.6 oz (107.8kg) LMP 01/08/2024 GENERAL: pleasant, female in no apparent distress HEENT: Normocephalic, atraumatic, mucus membranes moist, and no lesions NECK: full range of motion DERMATOLOGY: Normal, without lesions, non-icteric, and non-hirsute BREAST: deferred CHEST: Normal inspiratory effort ABDOMEN: Deferred PELVIC: deferred BIMANUAL: deferred NEURO: alert and oriented x3,exam grossly non-focal EXTREMITIES: normal ASSESSMENT AND PLAN: Assessment AND Plan Uterine leiomyoma, unspecified location Orders: ENDOMETRIAL BIOPSY Menorrhagia with regular cycle MD Akil Cross Jennifer, MD 04/10/2024 12:26 PM Written Orders: ENDOMETRIAL BIOPSY Janine Barnard MD 04/10/2024 12:26 PM Written Allergies As of Date: 04/10/2024 Noted Allergy Reaction PENICILLIN G 01/25/2024 16 - Unknown Date Reviewed: 04/10/2024 Reviewed by: Janine Barnard MD - Fully Assessed Reason for Visit: Follow Up [171] Cmt: From ultrasound Primary Visit Diagnosis:Uterine leiomyoma, unspecified location [D25.9] Other Visit Diagnosis:Menorrhagia with regular cycle [N92.0] Order(s):ENDOMETRIAL BIOPSY [[id number]] Order #: [id number] Problem List As Of Date 04/10/2024 Noted Resolved Uterine leiomyoma [D25.9] 04/10/2024 Menorrhagia with regular cycle [N92.0] 04/10/2024 Level of Service: OFFICE/OUTPATIENT ESTABLISHED LOW [facility] 20 MIN [01199] Encounter Status:Closed by JANINE BARNARD on 04/10/[address] [facility] US [place] 03-20-2024 Indication history of fibroids Impression Enlarged axial fibroid uterus that measures 136 mm x 87 mm x 95 mm. The largest fibroids are described below. 1. Size 50 mm x 38 mm x 50 mm. Mean 45.8 mm. Vol 49.086 cm . Right lateral posterior wall. Subserous 2. Size 35 mm x 38 mm x 41 mm. Mean 38.1 mm. Vol 28.756 cm . Right lateral posterior wall. intramural 3. Size 32 mm x 29 mm x 28 mm. Mean 29.6 mm. Vol 13.483 cm . Right lateral anterior wall. Subserous 4. Size 43 mm x 24 mm x 49 mm. Mean 38.6 mm. Vol 26.070 cm . Left lateral posterior wall. Subserous 5. Size 22 mm x 24 mm x 21 mm. Mean 22.5 mm. Vol 5.910 cm . Left lateral posterior wall intramural vs , Submucous, visualized without fluid enhancement Endometrium is vascular and measures 9.4 mm. Neither ovary is visualized.. No adnexal masses were observed. There is no free fluid visualized in the peritoneal cavity. Recommendations Possible submucous fibroid. Consider endometrial evaluation as clinically indicated. History Medical History Surgery: section Menstrual History LMP on 02/28/2024 Method Transabdominal, transvaginal, 3D ultrasound examination, Color Doppler examination. View: Suboptimal view: fibroids prevented a clear view of the adnexa Uterus Uterus: Visualized Uterus position: axial Description of uterine malformations: suboptimal Myometrium: heterogeneous, numerous fibroids noted Endometrium: homogenous Cervix details: normal Uterus length 136 mm Uterus width 95 mm Uterus height 87 mm Uterus Vol 587.0 cm Endometrial thickness, total 9.4 mm Fibroids: Fibroids identified Uterine fibroid D1 50 mm Uterine fibroid D2 38 mm Uterine fibroid D3 50 mm Uterine fibroid mean 45.8 mm Uterine fibroid vol 49.086 cm Uterine fibroids findings: Right lateral posterior wall. Subserous Uterine fibroid D1 35 mm Uterine fibroid D2 38 mm Uterine fibroid D3 41 mm Uterine fibroid mean 38.1 mm Uterine fibroid vol 28.756 cm Uterine fibroids findings: Right lateral posterior wall. intramural Uterine fibroid D1 32 mm Uterine fibroid D2 29 mm Uterine fibroid D3 28 mm Uterine fibroid mean 29.6 mm Uterine fibroid vol 13.483 cm Uterine fibroids findings: Right lateral anterior wall. Subserous Uterine fibroid D1 43 mm Uterine fibroid D2 24 mm Uterine fibroid D3 49 mm Uterine fibroid mean 38.6 mm Uterine fibroid vol 26.070 cm Uterine fibroids findings: Left lateral posterior wall. Subserous Uterine fibroid D1 22 mm Uterine fibroid D2 24 mm Uterine fibroid D3 21 mm Uterine fibroid mean 22.5 mm Uterine fibroid vol 5.910 cm Uterine fibroids findings: Left lateral posterior wall intramural vs , Submucous, visualized without fluid enhancement Polyps: No polyps identified Right Ovary Rt ovary: Not visualized Left Ovary Lt ovary: Not visualized Cul de Sac Visualized. no free fluid visualized Performed By: Radha Torres RDMS Read By: Ping Faulkner M.D. MATERNAL MEDICINE [facility] US Pelvison 03-17-2024 Radiology Study observation (narrative) [facility] TRISTAN SCREENING W TOMOon 02-10 TRISTAN SCREENING W JUAN * * *Final Report* * * DATE OF EXAM: Feb 11 2024 10:09AM [facility] 0582 - [facility] SCREENING W JUAN / PROCEDURE REASON: Encounter for screening mammogram for breast cancer * * * * Physician Interpretation * * * * RESULT: [address] [address] [place] [address] #[id number] - TRISTAN SCREENING W JUAN HISTORY: Patient is 48 years old and is seen for screening and is asymptomatic in both breasts. Patient states no personal history of breast cancer. Patient states no personal history of other cancers. COMPARISON STUDIES: The present examination has been compared to prior imaging studies dated 01/05/2019 (mammogram), 01/11/2020 (mammogram) and 07/16/2022 (mammogram). MAMMOGRAM TECHNIQUE: The study was acquired using full field digital technology and interpreted from soft copy. Digital Breast Tomosynthesis (DBT) images were obtained and used to assist in the interpretation of this examination. Computer-aided detection was utilized by the radiologist in the interpretation of this examination. MAMMOGRAM FINDINGS: The breasts are almost entirely fatty. No suspicious masses, calcifications or other abnormalities are seen in either breast. There are no significant interval changes. IMPRESSION: There is no mammographic evidence of malignancy. Routine screening mammogram is recommended. Annual mammogram will be due in 1 year. BI-RADS Category 1: Negative RISK: Based on the Tyrer-Cuzick (TC) risk assessment model, this patient has a 5.2% lifetime risk of developing breast cancer, meaning they are at average risk for developing breast cancer. However, this is only an estimate based on available history provided on the patient's questionnaire. We encourage all patients to talk with their providers about these results, further recommendations for managing breast health, and appropriate supplemental screening options if the patient has dense breast tissue. Interpreting Radiologist: Sandy Bal M.D. Electronically signed on: 02/15/2024 Glycerin Operator: PANFILO Transcribe Date/Time: Feb 11 2024 9:55A Dictated by: SANDY BAL MD This examination was interpreted and the report reviewed and electronically signed by: SANDY BAL MD on Feb 15 2024 2:00PM EST [id number] Normal [facility] CNOVon 01-25-2024 CNOV Office Visit (OBGYWM ) MOISES DAVILA ([id number]) 1975 F Date Time Provider Department 01/25/24 9:20 AM JANINE BARNARD OBGYWDonovan During your visit today, we recorded the following information about you: Blood pressure Weight Height Last Period 122/84 106.1 kg 1.638 m 01/08/24 Janine Barnard MD 01/25/2024 11:31 AM Signed Radio Television Announcer offered: Patient declines. Moises is a 48 year old who presents for an annual gynecologic exam with complaints, heavy and irregular bleeding. Know fibroids. About 5-6. Has been getting heavier more irregular periods. Third day is always the heaviest. Can't leave the house some times. Not a lot of pain. Last US several years ago. Menses: cycles every 21-34 days and 7 days of flow. 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: Sexual Activity: Yes; Male Contraception: Condom PAST MEDICAL HISTORY Diagnosis Date Fibroids uterine PAST SURGICAL HISTORY Procedure Laterality Date DELIVERY ONLY 2003 TOOTH EXTRACTION 1994 wisdom teeth FAMILY HISTORY Problem Relation Age of Onset Heart Attack Mother No Known Problems Half-brother No Known Problems Half-brother Diabetes Maternal Grandmother diet controlled Diabetes Maternal Grandfather Hypertension Maternal Grandfather SOCIAL HISTORY Social History Tobacco Use Smoking status: Never Smokeless tobacco: Never Vaping Use Vaping status: Never Used Substance Use Topics Alcohol use: Yes Comment: rare Drug use: Never REVIEW OF SYSTEMS Abdomen: No abdominal pain, nausea, vomiting, diarrhea, or constipation. No bloating, early satiety, indigestion, or increased flatulence. Bladder: No dysuria, gross hematuria, urinary frequency, urinary urgency, or incontinence. Breast: No breast lumps, nipple d/c, overlying skin changes, redness or skin retraction. Allergies and current medication updated:Yes SENSITIVE EXAM: The sensitive examination was discussed with the Patient or Patient's Authorized Power And Recovery Shift Engineer. As applicable, any other physician, advance practice provider, medical student, or other health professional student that will be observing or involved in the sensitive examination for educational or training purposes was discussed with the Patient or Authorized Power And Recovery Shift Engineer. The Patient or Authorized Power And Recovery Shift Engineer has agreed to proceed with the sensitive examination. (Sensitive examination includes inspection and/or palpation of the breasts, pelvis, prostate and anorectal regions). EXAM: BP 122/84 Ht 5' 4.5 (1.64m) Wt 234 lb (106.1kg) LMP 01/08/2024 BMI 39.56 kg/(m2). GENERAL: pleasant, female in no apparent distress HEENT: Normocephalic, atraumatic, mucus membranes moist, and no lesions NECK: Supple, full range of motion, no adenopathy, and thyroid normal DERMATOLOGY: Normal, without lesions, non-icteric, and non-hirsute BREAST: soft, non-tender, symmetric, no dominant mass, normal nipple-areolar complex, no lymphadenopathy, and no nipple discharge CHEST: Normal inspiratory effort ABDOMEN: soft, non-tender, and no masses PELVIC: external genitalia normal, normal Bartholin's glands, urethra, Stokesdale's glands, no vulvar lesions, no cervical lesions, good vaginal support, physiologic discharge present, normal appearing perineal body and perianal region BIMANUAL: no adnexal masses, non-tender, and enlarged uterus 16-18 week size RECTOVAGINAL: deferred. NEURO: alert and oriented x3,exam grossly non-focal EXTREMITIES: normal ASSESSMENT/PLAN: 1) Health maintenance: Pap done with HPV. Mammogram ordered. US to evaluate fibroid size and location 2) Contraception: condoms. Contraceptive options reviewed and information provided. 3) STD screening: Declined STD check. 4) Follow up one year or sooner as needed Janine Barnard MD Allergies As of Date: 01/25/2024 Noted Allergy Reaction PENICILLIN G 01/25/2024 16 - Unknown Date Reviewed: 01/25/2024 Reviewed by: Janine Barnard MD - Fully Assessed Reason for Visit: Well Woman [1463] Primary Visit Diagnosis:Encounter for gynecological examination (general) (routine) without abnormal findings [Z01.419] Other Visit Diagnoses:Screening for cervical cancer [Z12.4] Encounter for screening for human papillomavirus (HPV) [Z11.51] Encounter for screening mammogram for breast cancer [Z12.31] Uterine leiomyoma, unspecified location [D25.9] Order(s):PAP TEST [[id number]] Order #: [id number]. #:[id number] TRISTAN SCREENING W JUAN [[id number]] Order (more content not included)... Normal [facility] HIGH RISK HUMAN PAPILLOMA CAROLA (HPV), PCR FOR DETECTION AND GENOTYPINGon 01-25-2024 HPV 16 Ag Ql (Unsp spec) Not detected Normal Not detected [facility] Comment on above: Order Comment: Speci men Type: FLUID SPECIMENOrdering Facility: [facility] Address: [address] [place] [address] Performed By: #### H PVHRT ####[facility] LABCLIA [id number] [place] [address] [place] HPV 18 Ag Ql (Unsp spec) Not detected Normal Not detected [facility] Comment on above: Order Comment: Speci men Type: FLUID SPECIMENOrdering Facility: [facility] Address: [address] [place] [address] Performed By: #### H PVHRT ####[facility]CLIA [id number] [place] [address] [place] HPV 31+33+35+39+45+51+52+ 56+58+59+66+68 DNA LAURITA+probe Ql (Cvx) Not detected Normal Not detected [facility] Comment on above: Order Comment: Speci men Type: FLUID SPECIMENOrdering Facility: [facility] Address: [address] [place] [address] Result Comment: High Risk HPV Other Type includes HPV types 31, 33, 35, 39, 45, 51, 52, 56, 58, 59, 66 and 68. Performed By: #### H PVHRT ####[facility]CL[facility] [id number] [place] [address] [place] PAP TESTon 01-25-2024 ADEQUACY Satisfactory for interpretation. Normal [facility] Comment on above: Order Comment: Speci men Type: FLUID SPECIMENOrdering Facility: [facility] Address: [address] [place] [address] Performed By: #### L [id number] ####[facility] [id number] [address] LABCLIA [id number] [place] [address] [place] CASE REPORT Normal [facility] Comment on above: Order Comment: Speci men Type: FLUID SPECIMENOrdering Facility: [facility] Address: [address] [place] [address] Result Comment: Gyne cologic Cytology Report Case: [id number] Authorizing Provider: Janine Barnard MD Collected: 01/25/2024 09:43 AM Ordering Location: OB/Gynecology Received: 01/25/2024 01:04 PM First Screen: Faraz Jose CT, ASCP Pathologist: Lai Myers MD Specimen: Pap Test, ThinPrep, Cervix Performed By: #### L [id number] ####[facility]ORY[facility]IA [id number] [place] [address] [place] [facility] LABCLIA [id number] [place] [address] [place] CLINICAL HISTORY, CYTOLOGY, TRACK PATROL Routine Exam Normal [facility] Comment on above: Order Comment: Speci men Type: FLUID SPECIMENOrdering Facility: [facility] Address: [address] [place] [address] Performed By: #### L [id number] ####[facility]ORY[facility]IA [id number] [place] [address] [place] [facility] [id number] [place] [address] [place] FINAL PERFORMING LAB Normal [facility] Comment on above: Order Comment: Speci men Type: FLUID SPECIMENOrdering Facility: [facility] Address: [address] [place] [address] Result Comment: Tech nical component, farm management professor screening performed at [facility], [address] [place], [place] [id number] CLIA# [id number] Diagnostic interpretation performed at [facility], [address] [facility], [place] [address] CLIA# [id number] Sales Trader: Heaven Gaona M.D. Performed By: #### L [id number] ####[facility] [id number] [address] STATES OF [facility] LABCLIA [id number] [place] [address] [place] INTERPRETATION, CYTOLOGY, TRACK PATROL Normal [facility] Comment on above: Order Comment: Speci men Type: FLUID SPECIMENOrdering Facility: [facility] Address: [address] [place] [address] Result Comment: Nega tive for intraepithelial lesion or malignancy. Performed By: #### L [id number] ####[facility]ORYCLIA [id number] [place] [address] [place] [facility] [id number] [place] [address] [place] LMP 01/08/[address] [facility] Comment on above: Order Comment: Speci men Type: FLUID SPECIMENOrdering Facility: [facility] Address: [address] [place] [address] Performed By: #### L [id number] ####[facility]ORYCLIA [id number] [place] [address] [place] [facility] [id number] [place] [address] [place] PAP DISCLAIMER COMMENT The Pap Smear is a screening test for cervical cancer. False negative results occur with all screening tests, emphasizing the need for rescreening at recommended intervals, and clinical correlation. Normal [facility] Comment on above: Order Comment: Speci men Type: FLUID SPECIMENOrdering Facility: [facility] Address: [address] [place] [address] Performed By: #### L [id number] ####[facility]ORY[facility]IA [id number] [address] LABCLIA [id number] [place] [address] [place] PAP CONFERENCE CONCIERGE COMMENT This specimen has be en analyzed by the ThinPrep Imaging System, an automated imaging and review system, which assists the laboratory in evaluating cells on ThinPrep Pap tests. Following automated imaging, selected mcgowan from every slide are reviewed by a farm management professor. Normal [facility] Comment on above: Order Comment: Speci men Type: FLUID SPECIMENOrdering Facility: [facility] Address: [address] [place] [address] Performed By: #### L [id number] ####[facility] [id number] [address] LABCLIA [id number] [address] [place] Absolute lymphocyte countOrd ered By: Brooke Quintana on 11-26-2022 Lymphocytes Auto (Unsp spec) [#/Vol] 1.70 10*3/uL 0.83-4.51 [facility] Basophil percentageOrdered B y: Brooke Quintana on 11-26-2022 Basophils/100 WBC (Bld) 1.2 % 0-1 [facility] Eosinophils/100 WBC (Bld) 3.8 % 0-5 [facility] Neutrophils (Bld) [#/Vol] 3.6 10*3/uL 2.0-7.7 [facility] Neutrophils/100 WBC (Bld) 59.8 % 47-70 [facility] WBC (Bld) [#/Vol] 6.1 10*3/uL 4.4-11.0 [facility] Blood erythrocytes count (nu mber/volume)Ordered By: Brooke Quintana on 11-26-2022 RBC (Bld) [#/Vol] 4.27 10*6/uL 4.2-5.4 [facility] Blood hemoglobin measurement (mass/volume)Ordered By: Brooke Quintana on 11-26-2022 Hemoglobin (Bld) [Mass/Vol] 10.2 g/dL 12.0-15.0 [facility] Blood lymphocytes/100 leukoc ytesOrdered By: Brooke Quintana on 11-26-2022 Lymphocytes/100 WBC (Bld) 28.1 % 19-41 [facility] Blood monocytes/100 leukocyt esOrdered By: Brooke Quintana on 11-26-2022 Monocytes/100 WBC (Bld) 6.9 % 0-10 [facility] Blood platelet mean volumeOr dered By: Brooke Quintana on 11-26-2022 Platelet mean volume (Bld) [Entitic vol] 10.5 fL 6.2-12.0 [facility] Determination of erythrocyte mean corpuscular volume (MCV)Ordered By: Brooke Quintana on 11-26-2022 MCV (RBC) [Entitic vol] 82.0 fL 81-99 [facility] Hematocrit Auto (Bld) [Volum e fraction]Ordered By: Brooke Quintana on 11-26-2022 Hematocrit (Bld) [Volume fraction] 35.0 % 37-47 [facility] Hemoglobin in reticulocytes (mass per reticulocyte)Ordered By: Brooke Quintana on 11-26-2022 Hemoglobin (Reticulocytes) [Entitic mass] 26.3 pg 30-35 [facility] Laboratory - Chemistry and C hemistry - challengeOrdered By: Brooke Quintana on 11-26-2022 Cobalamin (Vitamin B12) [Mass/Vol] 663 pg/mL 211-911 [facility] - Hematology and Cell countsOrdered By: Brooke Quintana on 11-26-2022 Erythrocyte distribution width (RBC) [Entitic vol] 47.6 fL 35.1-43.9 [facility] Erythrocyte distribution width (RBC) [Ratio] 16.0 % 11.6-14.6 [facility] Immature granulocytes/100 WBC (Bld) 0.200 % 0.0-0.9 [facility] Comment on above: IG% - Immature Granu locytes (promyelocytes, myelocytes and metamyelocytes) > 1% indicates that a LEFT SHIFT is Present. MCH (RBC) [Entitic mass] 23.9 pg 27.0-32.0 [facility] Nucleated RBC/100 WBC (Bld) [Ratio] 0 % 0-5 [facility] MCHC Auto (RBC) [Mass/Vol]Or dered By: Brooke Quintana on 11-26-2022 MCHC (RBC) [Mass/Vol] 29.1 g/dL 32-36 [facility] No Panel InformationOrdered By: Brooke Quintana on 11-26-2022 Immature Reticulocyte Fraction 20.30 % 3.00-15.90 [facility] Reticulocyte Count 1.64 % 0.5-1.5 [facility] Total Iron Binding Capacity 460 ug/dL 250-450 [facility] Platelets bldOrdered By: Ghada Quintana on 11-26-2022 Platelets (Bld) [#/Vol] 336 10*3/uL 150-450 [facility] Serum or plasma ferritin amanda surement (mass/volume)Ordered By: Brooke Quintana on 11-26-2022 Ferritin [Mass/Vol] 9 ng/mL 8-252 [facility] Serum or plasma folate measu rement (mass/volume)Ordered By: Brooke Quintana on 11-26-2022 Folate [Mass/Vol] 19.30 ng/mL 3.1-55.4 [facility] Absolute lymphocyte countOrd ered By: Brooke Quintana on 11-18-2022 Lymphocytes Auto (Unsp spec) [#/Vol] 1.72 10*3/uL 0.83-4.51 [facility] Basophil percentageOrdered B y: Brooke Quintana on 11-18-2022 Basophils/100 WBC (Bld) 0.7 % 0-1 [facility] Bilirubin [Mass/Vol] 0.30 mg/dL 0.20-1.00 [facility] Comment on above: For patients on eltr ombopag therapy, use of Dimension [place] TBIL is not recommended. Chloride [Moles/Vol] 110 mmol/L 98-107 [facility] Cholesterol [Mass/Vol] 128 mg/dL <200 [facility] Comment on above: <200 mg/dL Desirable 200-240 mg/dL Borderline >240 mg/dL High Risk Eosinophils/100 WBC (Bld) 3.5 % 0-5 [facility] Glucose [Mass/Vol] 95 mg/dL 74-106 [facility] Neutrophils (Bld) [#/Vol] 3.2 10*3/uL 2.0-7.7 [facility] Neutrophils/100 WBC (Bld) 57.8 % 47-70 [facility] Potassium [Moles/Vol] 3.8 mmol/L 3.5-5.1 [facility] Protein [Mass/Vol] 7.7 g/dL 6.4-8.2 [facility] Sodium [Moles/Vol] 141 mmol/L 136-145 [facility] Triglyceride [Mass/Vol] 34 mg/dL <199 [facility] Comment on above: The drugs N-Acetylcy steine and Metamizole may falsely depress this assay.Serum Triglycerides Reference Interval Normal <150 mg/dL Borderline high 150 - 199 mg/dL High 200 - 499 mg/dL Very High > or = 500 mg/dL WBC (Bld) [#/Vol] 5.5 10*3/uL 4.4-11.0 [facility] Blood erythrocytes count (nu mber/volume)Ordered By: Brooke Quintana on 11-18-2022 RBC (Bld) [#/Vol] 3.94 10*6/uL 4.2-5.4 [facility] Blood hemoglobin measurement (mass/volume)Ordered By: Brooke Quintana on 11-18-2022 Hemoglobin (Bld) [Mass/Vol] 9.5 g/dL 12.0-15.0 [facility] Blood lymphocytes/100 leukoc ytesOrdered By: Brooke Quintana on 11-18-2022 Lymphocytes/100 WBC (Bld) 31.4 % 19-41 [facility] Blood monocytes/100 leukocyt esOrdered By: Brooke Quintana on 11-18-2022 Monocytes/100 WBC (Bld) 6.2 % 0-10 [facility] Blood platelet mean volumeOr dered By: Brooke Quintana on 11-18-2022 Platelet mean volume (Bld) [Entitic vol] 10.8 fL 6.2-12.0 [facility] Determination of erythrocyte mean corpuscular volume (MCV)Ordered By: Brooke Quintana on 11-18-2022 MCV (RBC) [Entitic vol] 82.7 fL 81-99 [facility] Hematocrit Auto (Bld) [Volum e fraction]Ordered By: Brooke Quintana on 11-18-2022 Hematocrit (Bld) [Volume fraction] 32.6 % 37-47 [facility] Laboratory - Chemistry and C hemistry - challengeOrdered By: Brooke Quintana on 11-18-2022 ALP [Catalytic activity/Vol] 61 U/L 45-117 [facility] ALT [Catalytic activity/Vol] 19 U/L 13-56 [facility] CO2 [Moles/Vol] 26.0 mmol/L 21.0-32.0 [facility] Globulin (S) [Mass/Vol] 4.2 g/dL 2.2-4.2 [facility] Urea nitrogen/Creatinine [Mass ratio] 13.1 mg/mg 10-20 [facility] Laboratory - Hematology and Cell countsOrdered By: Brooke Quintana on 11-18-2022 Erythrocyte distribution width (RBC) [Entitic vol] 48.3 fL 35.1-43.9 [facility] Erythrocyte distribution width (RBC) [Ratio] 15.9 % 11.6-14.6 [facility] Immature granulocytes/100 WBC (Bld) 0.400 % 0.0-0.9 [facility] Comment on above: IG% - Immature Granu locytes (promyelocytes, myelocytes and metamyelocytes) > 1% indicates that a LEFT SHIFT is Present. MCH (RBC) [Entitic mass] 24.1 pg 27.0-32.0 [facility] Nucleated RBC/100 WBC (Bld) [Ratio] 0 % 0-5 [facility] MCHC Auto (RBC) [Mass/Vol]Or dered By: Brooke Quintana on 11-18-2022 MCHC (RBC) [Mass/Vol] 29.1 g/dL 32-36 [facility] No Panel InformationOrdered By: Brooke Quintana on 11-18-2022 Estimated GFR (MDRD) Amer 104 mL/min >60 [facility] Comment on above: GFR Calc Estimated GFR (MDRD) Non-Af Amer 86 mL/min >60 [facility] Comment on above: Non- GFR Calc Thyroid Stimulating Hormone (TSH) 1.15 uIU/mL 0.358-3.74 [facility] Platelets bldOrdered By: Ghada Quintana on 11-18-2022 Platelets (Bld) [#/Vol] 314 10*3/uL 150-450 [facility] Serum or plasma albumin paul urement (mass/volume)Ordered By: Brooke Quintana on 11-18-2022 Albumin [Mass/Vol] 3.5 g/dL 3.2-5.0 [facility] Serum or plasma albumin/glob ulin mass ratioOrdered By: Brooke Quintana on 11-18-2022 Albumin/Globulin [Mass ratio] 0.8 {ratio} 0.9-2.4 [facility] Serum or plasma calcium paul urement (mass/volume)Ordered By: Brooke Quintana on 11-18-2022 Calcium [Mass/Vol] 8.4 mg/dL 8.5-10.1 [facility] Serum or plasma cholesterol in HDL measurement (mass/volume)Ordered By: Brooke Quintana on 11-18-2022 Cholesterol in HDL [Mass/Vol] 73 mg/dL >40 [facility] Comment on above: The drugs N-Acetylcy steine and Metamizole may falsely depress this assay. Reference Range HDL <40 mg/dL Low HDL Cholesterol HDL >or= 60 mg/dL High HDL Cholesterol Serum or plasma cholesterol in VLDL measurement (mass/volume)Ordered By: Brooke Quintana on 11-18-2022 Cholesterol in VLDL [Mass/Vol] 7 mg/dL 5-40 [facility] Serum or plasma creatinine m easurement (mass/volume)Ordered By: Brooke Quintana on 11-18-2022 Creatinine [Mass/Vol] 0.76 mg/dL 0.55-1.02 [facility] Comment on above: The validity of the calculated GFR & GFRAA in patients over 70 years has not been determined. Clinical correlation is essential. Serum or plasma low density lipoprotein (LDL) cholesterol measurement (mass/volume)Ordered By: Brooke Quintana on 11-18-2022 Cholesterol in LDL [Mass/Vol] 48 mg/dL 0-130 [facility] Serum or plasma urea nitroge n measurement (mass/volume)Ordered By: Brooke Quintana on 11-18-2022 Urea nitrogen [Mass/Vol] 10 mg/dL 7-18 [facility] Thin prep Papanicolaou smear with manual screeningOrdered By: Brooke Quintana on 11-18-2022 Thin prep Papanicolaou smear with manual screening 13 U/L 15-37 [facility] Thin prep Papanicolaou smear with manual screening 5 5-15 [facility] Whole blood hemoglobin A1c/t otal hemoglobin ratio (mass fraction)Ordered By: Brooke Quintana on 11-18-2022 HbA1c (Bld) [Mass fraction] 5.1 % 3.8-5.6 [facility] Comment on above: Normal < 5.7 % Predi abetic 5.7 - 6.4 % Diabetic >or= 6.5 % Please note range changes. Cervical or vagninal specime n microscopic examination by cytology stain (reported ason 09-16-2021 Cytology report Cyto stain Doc (Cvx/Vag) Comment . [facility] Work Phone: Comment on above: The Pap smear is a s creening test designed to aid in thedetection of premalignant and malignant conditions of theuterine cervix. It is not a diagnostic procedure andshould not be used as the sole means of detecting cervicalcancer. Both false-positive and false-negative reports dooccur. Laboratory - Cytologyon 09-05 Multiple Slide Operator Cyto stain Nom (Cvx/Vag) [ID] Comment . [facility] Work Phone: Comment on above: Donya Mesa, Cyto technologist (ASCP) Laboratory - Miscellaneous t estson 09-16-2021 Service comment (Unsp spec) [Interp] Comment . [facility] Work Phone: Comment on above: This liquid based Th inPrep(R) pap test was screened withthe use of an image guided system. Service comment (Unsp spec) [Interp] . . [facility] Work Phone: No Panel Informationon 09-16 Human Papillomavirus Screen Comment . [facility] Work Phone: Comment on above: The HPV DNA reflex c riteria were not met with this specimenresult therefore, no HPV testing was performed.Performed at: [facility] [employer] [place], [place] [id number] Director: Erika Ga MD, Phone: [phone] Pathology report final diagnosis Narrative Comment . [facility] Work Phone: Comment on above: NEGATIVE FOR INTRAEP ITHELIAL LESION OR MALIGNANCY. HPV Auto Reflex PAP (05597)O rdered By: Industrial Organization Manager on 01-27-2019 Microscopic observation Other stain Nom (Unsp spec) . Normal [facility] Work Phone: Comment on above: Source.............C ervix;EndocervixNo. of containers..01 ThinPrep VialPATIENT NOT FASTINGPERFORMED BY: wywy [address] [id number] Information: [id number] Pathology report final diagnosis Narrative [facility] Normal [facility] Work Phone: Comment on above: NEGATIVE FOR INTRAEP ITHELIAL LESION OR MALIGNANCY.Satisfactory for evaluation. Endocervical and/or squamous metaplasticcells (endocervical component) are present.Z01.419Elizakatie Haskins Endoscopy Tech (ASCP) Source.............C ervix;EndocervixNo. of containers..01 ThinPrep VialPATIENT NOT FASTINGPERFORMED BY: [employer] [id number] Information: [id number] HPV Auto Reflex PAP (86537) PAPSMR Normal [facility] Work Phone: Comment on above: The Pap smear is a s creening test designed to aid in the detection ofpremalignant and malignant conditions of the uterine cervix. It is not adiagnostic procedure and should not be used as the sole means of detectingcervical cancer. Both false-positive and false-negative reports do occur. .This liquid based ThinPrep(R) pap test was screened with theuse of an image guided system.The HPV DNA reflex criteria were not met with this specimen resulttherefore, no HPV testing was performed. . Source.............C ervix;EndocervixNo. of containers..01 ThinPrep VialPATIENT NOT FASTINGPERFORMED BY: LabC[employer] [place] [id number] Information: [id number] CALCIFIDIOL (10042) VIT D 25 Ordered By: Industrial Organization Manager on 01-24-2019 25-Hydroxyvitamin D2+25-Hydroxyvitamin D3 [Mass/Vol] 50.8 ng/mL Normal 30.0-100.0 [facility] Work Phone: Comment on above: Vitamin D deficiency has been defined by the [place] ofMedicine and an Endocrine Society practice guideline as alevel of serum 25-OH vitamin D less than 20 ng/mL (1,2).The Endocrine Society went on to further define vitamin Dinsufficiency as a level between 21 and 29 ng/mL (2).1. IOM ([place] of Medicine). 2010. Dietary reference intakes for calcium and D. [place]: The National Academies Press.2. Oscar MF, Narendra FLETCHER, Andrew VILLALTA, et al. Evaluation, treatment, and prevention of vitamin D deficiency: an Endocrine Society clinical practice guideline. JCEM. 2010; 96(7):1911-30. Test(s) 898569-OOB-S ; 248535-ROC-M; 204816-OTS-O; 035118-Iaxmlflbjjvqp; 619899-Elpbkqenttk, Total; 888361-VVM-G (Total);678730-Mbjxd LDL-P; 568998-MXD Size; 025960-AM-LQ Scorewas developed and its performance characteristics determinedby wywy. It has not been cleared or approved by the Foodand Drug Administration.PATIENT WAS FASTINGPERFORMED BY: BN [employer] Braqtgzxsv4485 [facility] [id number] BY: CB LabC.D. Barkley Insurance AgencySt. Francis Medical CenterGjxzaw3720 [facility] [id number] CBC W/AUTO DIFF WBC (43697)O rdered By: Industrial Organization Manager on 01-24-2019 Basophils (Bld) [#/Vol] 0.0 {x10E3/uL} Normal 0.0-0.2 [facility] Work Phone: Comment on above: Test(s) 894541-ULC-K ; 909768-VMH-V; 829979-KFH-S; 940487-Xkraidclgilvb; 739097-Iylfdacemys, Total; 788569-TTE-Q (Total);078800-Mwjru LDL-P; 767842-GTZ Size; 042268-PS-OC Scorewas developed and its performance characteristics determinedby wywy. It has not been cleared or approved by the Foodand Drug Administration.PATIENT WAS FASTINGPERFORMED BY: [employer] [address] [id number] BY: [employer] [facility] [id number] Basophils (Bld) [#/Vol] 0.0 10*3/uL Normal 0.0-0.2 [facility]; [facility] Work Phone: Comment on above: Test(s) 806293-COT-O ; 927034-GKD-U; 164011-JHC-C; 426357-Xyxfyunltmmye; 728576-Pdjgmksifcf, Total; 392677-YUF-O (Total);926005-Zofzj LDL-P; 309148-JSC Size; 108016-FN-DP Scorewas developed and its performance characteristics determinedby wywy. It has not been cleared or approved by the Foodand Drug Administration.PATIENT WAS FASTINGPERFORMED BY: [employer] [address] [id number] BY: Brille24[address] [place] UnpaktAtrium Health [facility] [id number] Basophils/100 WBC (Bld) 1 % Normal [facility] Work Phone: Comment on above: Test(s) 351700-UHZ-Q ; 377469-FQO-D; 072419-AHV-E; 312052-Pheaddmhwgmvu; 694324-Ekhcyqemkiw, Total; 398274-QEE-E (Total);484185-Dcqnr LDL-P; 003671-RCL Size; 879854-ZN-XR Scorewas developed and its performance characteristics determinedby wywy. It has not been cleared or approved by the Foodand Drug Administration.PATIENT WAS FASTINGPERFORMED BY: [employer] [id number] BY: IDENTEC GROUPJeffery Ville 9730970 [facility] [id number] Eosinophils (Bld) [#/Vol] 0.1 {x10E3/uL} Normal 0.0-0.4 [facility] Work Phone: Comment on above: Test(s) 491523-CNV-S ; 387557-YVA-I; 659092-KOE-G; 385923-Acvwglberfpmo; 211722-Uilawuzgyta, Total; 181685-XWQ-Z (Total);409344-Rsltb LDL-P; 573848-DNC Size; 602277-CD-QT Scorewas developed and its performance characteristics determinedby wywy. It has not been cleared or approved by the Foodand Drug Administration.PATIENT WAS FASTINGPERFORMED BY: wywy [address] [id number] BY: IDENTEC GROUPSt. Francis Medical CenterOgnnmo2807 [facility] [id number] Eosinophils (Bld) [#/Vol] 0.1 10*3/uL Normal 0.0-0.4 [facility]; [facility] Work Phone: Comment on above: Test(s) 449268-LMV-G ; 851361-BAB-L; 715554-BGS-D; 278442-Fvwokrzrfhjfk; 287953-Hklspnzopqw, Total; 464975-QZF-U (Total);130800-Xgwkb LDL-P; 615966-PCO Size; 536845-DO-VL Scorewas developed and its performance characteristics determinedby wywy. It has not been cleared or approved by the Foodand Drug Administration.PATIENT WAS FASTINGPERFORMED BY: [employer] [id number] BY: Fin Quiver6370 [facility] [id number] Eosinophils/100 WBC (Bld) 3 % Normal [facility] Work Phone: Comment on above: Test(s) 047258-XWE-D ; 280541-BCX-G; 174830-GXT-I; 322164-Ntlcrhakvprkd; 338782-Bbvzfxxcpmt, Total; 896386-BMY-K (Total);872429-Jwdzy LDL-P; 923439-ROL Size; 169839-MT-CJ Scorewas developed and its performance characteristics determinedby wywy. It has not been cleared or approved by the Foodand Drug Administration.PATIENT WAS FASTINGPERFORMED BY: [employer] [id number] BY: Fin Quiver6370 BrigadeAtrium Health [facility] [id number] Erythrocyte distribution width (RBC) [Ratio] 14.7 % Normal 12.3-15.4 [facility] Work Phone: Comment on above: Test(s) 268799-VUT-U ; 319524-KHL-Q; 224918-ARD-R; 651122-Xvmmazhutigve; 191907-Iltcidosbgj, Total; 091245-FDH-G (Total);053542-Mxrek LDL-P; 488699-DQN Size; 910506-ES-KV Scorewas developed and its performance characteristics determinedby wywy. It has not been cleared or approved by the Foodand Drug Administration.PATIENT WAS FASTINGPERFORMED BY: [employer] [address] [id number] BY: Fin Quiver6370 [facility] [id number] Hematocrit (Bld) [Volume fraction] 38.2 % Normal 34.0-46.6 [facility] Work Phone: Comment on above: Test(s) 727325-VYU-V ; 989421-EGL-V; 785143-YSX-Q; 094296-Zhjjdfkcrrnyy; 470842-Wlcfmwofsew, Total; 425125-CBO-G (Total);629476-Sxwjs LDL-P; 304411-ZVN Size; 140952-PE-CX Scorewas developed and its performance characteristics determinedby wywy. It has not been cleared or approved by the Foodand Drug Administration.PATIENT WAS FASTINGPERFORMED BY: [employer] [address] [id number] BY: [employer]70 [facility] [id number] Hemoglobin (Bld) [Mass/Vol] 12.4 g/dL Normal 11.1-15.9 [facility] Work Phone: Comment on above: Test(s) 969273-GIY-V ; 364704-NJD-H; 183872-NZQ-C; 196929-Xoohrmdcclmxn; 711948-Ojuonzpnnse, Total; 308817-PSR-B (Total);333588-Xlutt LDL-P; 630209-YKL Size; 026432-ZR-BS Scorewas developed and its performance characteristics determinedby wywy. It has not been cleared or approved by the Foodand Drug Administration.PATIENT WAS FASTINGPERFORMED BY: [employer] [address] [id number] BY: Fin Quiver6370 [facility] [id number] Immature granulocytes (Bld) [#/Vol] 0.0 {x10E3/uL} Normal 0.0-0.1 [facility] Work Phone: Comment on above: Test(s) 779320-ROL-G ; 754905-XLJ-M; 709051-EEQ-G; 058741-Vchrxshmzcldp; 919485-Ebemghyqehn, Total; 532978-ZPI-M (Total);062066-Wzvqa LDL-P; 047758-IMN Size; 343348-VK-NQ Scorewas developed and its performance characteristics determinedby wywy. It has not been cleared or approved by the Foodand Drug Administration.PATIENT WAS FASTINGPERFORMED BY: [employer] [address] [id number] BY: Fin Quiver6370 [facility] [id number] Immature granulocytes (Bld) [#/Vol] 0.0 10*3/uL Normal 0.0-0.1 [facility]; [facility] Work Phone: Comment on above: Test(s) 451636-DFW-C ; 765682-FXC-Y; 068238-YXZ-E; 829039-Zxdlixxgyewzw; 143309-Noiuznixfpv, Total; 539573-BCH-U (Total);743091-Xiwmn LDL-P; 669533-UOK Size; 197300-GA-IX Scorewas developed and its performance characteristics determinedby wywy. It has not been cleared or approved by the Foodand Drug Administration.PATIENT WAS FASTINGPERFORMED BY: [employer] [address] [id number] BY: Fin Quiver6370 [facility] [id number] Immature granulocytes/100 WBC (Bld) 0 % Normal [facility] Work Phone: Comment on above: Test(s) 746776-RCN-X ; 775974-AQT-O; 897210-FZO-B; 581090-Kthjfbwwzayff; 991170-Hodvcbsrzeq, Total; 230336-YPW-J (Total);718652-Ceuok LDL-P; 472919-NIU Size; 347121-OF-WJ Scorewas developed and its performance characteristics determinedby wywy. It has not been cleared or approved by the Foodand Drug Administration.PATIENT WAS FASTINGPERFORMED BY: [employer] [address] [id number] BY: [employer] Nwytcg6395 [facility] [id number] Lymphocytes (Bld) [#/Vol] 1.7 {x10E3/uL} Normal 0.7-3.1 [facility] Work Phone: Comment on above: Test(s) 419100-RVW-V ; 972607-FYU-A; 432037-JPL-D; 746815-Cfyonlpwaujnc; 748907-Cbtlkekgnoh, Total; 758617-AXG-J (Total);680080-Rlmix LDL-P; 067458-VFR Size; 644994-JY-YX Scorewas developed and its performance characteristics determinedby wywy. It has not been cleared or approved by the Foodand Drug Administration.PATIENT WAS FASTINGPERFORMED BY: [employer] [address] [id number] BY: wywy Qlyuvi9741 [facility] [id number] Lymphocytes (Bld) [#/Vol] 1.7 10*3/uL Normal 0.7-3.1 [facility]; [facility] Work Phone: Comment on above: Test(s) 147719-XYB-K ; 784695-KXT-J; 401699-JKS-J; 292042-Cvfouylkyfatc; 052125-Ajvgclhdvco, Total; 036277-YXH-T (Total);355036-Zwaqd LDL-P; 157174-QTG Size; 901520-AI-XA Scorewas developed and its performance characteristics determinedby wywy. It has not been cleared or approved by the Foodand Drug Administration.PATIENT WAS FASTINGPERFORMED BY: [employer] [address] [id number] BY: Fin Quiver6370 [facility] [id number] Lymphocytes/100 WBC (Bld) 33 % Normal [facility] Work Phone: Comment on above: Test(s) 817724-ZQO-O ; 097361-WBE-L; 063297-CHV-K; 965021-Uhrxtqgbfqihe; 178849-Bhgmoqbijyp, Total; 826291-GXV-A (Total);253493-Hoirx LDL-P; 255953-UZW Size; 546072-MA-BN Scorewas developed and its performance characteristics determinedby wywy. It has not been cleared or approved by the Foodand Drug Administration.PATIENT WAS FASTINGPERFORMED BY: [employer] [address] [id number] BY: Fin Quiver6370 AndersonW[facility] Memorial HospitalDistributive NetworksFormerly [facility] [id number] MCH (RBC) [Entitic mass] 28.2 pg Normal 26.6-33.0 [facility] Work Phone: Comment on above: Test(s) 260143-BKO-W ; 282859-JFR-T; 304933-XGA-I; 719760-Iakozlmekpisv; 449421-Bnadjblpqne, Total; 133063-HEO-R (Total);581192-Fvcvt LDL-P; 810290-LXV Size; 103661-ED-IV Scorewas developed and its performance characteristics determinedby wywy. It has not been cleared or approved by the Foodand Drug Administration.PATIENT WAS FASTINGPERFORMED BY: [employer] [id number] BY: Fin Quiver6370 AndersonW[facility] Memorial HospitalDistributive NetworksFormerly [facility] [id number] MCHC (RBC) [Mass/Vol] 32.5 g/dL Normal 31.5-35.7 [facility] Work Phone: Comment on above: Test(s) 045283-RYF-M ; 274331-YBZ-U; 188404-IHB-C; 841514-Ifdtfdauijdek; 301609-Kqlggalrarn, Total; 873829-MIN-E (Total);626485-Ekteh LDL-P; 415954-QMD Size; 521657-AW-OJ Scorewas developed and its performance characteristics determinedby wywy. It has not been cleared or approved by the Foodand Drug Administration.PATIENT WAS FASTINGPERFORMED BY: [employer] [address] [id number] BY: Fin Quiver6370 [facility] [id number] MCV (RBC) [Entitic vol] 87 fL Normal 79-97 [facility] Work Phone: Comment on above: Test(s) 322055-YXB-C ; 523154-WOE-I; 503714-BXE-J; 614011-Ejlxyviscchwm; 544555-Loltvvnddof, Total; 296807-RKA-Q (Total);121712-Ruaiv LDL-P; 660379-DVT Size; 398677-FP-PM Scorewas developed and its performance characteristics determinedby wywy. It has not been cleared or approved by the Foodand Drug Administration.PATIENT WAS FASTINGPERFORMED BY: [employer] GROUP[address] [id number] BY: IDENTEC GROUPSt. Francis Medical CenterAzvvmv1972 [facility] [id number] Monocytes (Bld) [#/Vol] 0.4 {x10E3/uL} Normal 0.1-0.9 [facility] Work Phone: Comment on above: Test(s) 363127-SUO-K ; 263628-PUM-D; 918591-WST-L; 165066-Jnzrnibglrhyt; 676042-Ducdmlqarqh, Total; 815021-PQB-R (Total);244047-Ehlya LDL-P; 462942-VEK Size; 055537-NI-OG Scorewas developed and its performance characteristics determinedby wywy. It has not been cleared or approved by the Foodand Drug Administration.PATIENT WAS FASTINGPERFORMED BY: wywy [address] [id number] BY: IDENTEC GROUPSt. Francis Medical CenterPmotgw1050 [facility] [id number] Monocytes (Bld) [#/Vol] 0.4 10*3/uL Normal 0.1-0.9 [facility]; [facility] Work Phone: Comment on above: Test(s) 368326-SOD-Z ; 781268-YKA-E; 837212-WKR-P; 502219-Fhxxgskgebjpi; 818344-Cyicytrkojj, Total; 879415-KSB-V (Total);247381-Aogmv LDL-P; 356461-OZQ Size; 255088-BK-EU Scorewas developed and its performance characteristics determinedby wywy. It has not been cleared or approved by the Foodand Drug Administration.PATIENT WAS FASTINGPERFORMED BY: wywy [address] [id number] BY: [employer] Lkezzj7424 [facility] [id number] Monocytes/100 WBC (Bld) 7 % Normal [facility] Work Phone: Comment on above: Test(s) 242353-FNO-A ; 524913-RWC-W; 154978-EAU-V; 859710-Njanbxcbgxtpk; 311353-Heunodrdchq, Total; 358382-ZJP-B (Total);265020-Lzkey LDL-P; 278724-XGE Size; 726972-AT-BY Scorewas developed and its performance characteristics determinedby wywy. It has not been cleared or approved by the Foodand Drug Administration.PATIENT WAS FASTINGPERFORMED BY: [employer] [address] [id number] BY: Fin Quiver6370 [facility] [id number] Neutrophils (Bld) [#/Vol] 3.0 {x10E3/uL} Normal 1.4-7.0 [facility] Work Phone: Comment on above: Test(s) 792698-CKE-O ; 276060-WIL-L; 308064-FKG-E; 577547-Liuzvtyfpbvok; 051878-Ojlyaqdhmjs, Total; 592657-OIA-G (Total);050346-Zgdjp LDL-P; 534807-NDT Size; 574388-ZE-CS Scorewas developed and its performance characteristics determinedby wywy. It has not been cleared or approved by the Foodand Drug Administration.PATIENT WAS FASTINGPERFORMED BY: [employer] [address] [id number] BY: [employer] Ypxduu6725 [facility] [id number] Neutrophils (Bld) [#/Vol] 3.0 10*3/uL Normal 1.4-7.0 [facility]; [facility] Work Phone: Comment on above: Test(s) 095254-OSV-G ; 015378-KFP-H; 856446-VCA-L; 135147-Gntdyqtrnfdmj; 581557-Zozdateaoer, Total; 833360-LDW-J (Total);253332-Wksbl LDL-P; 559380-QGE Size; 918499-NU-PU Scorewas developed and its performance characteristics determinedby wywy. It has not been cleared or approved by the Foodand Drug Administration.PATIENT WAS FASTINGPERFORMED BY: [employer] [address] [id number] BY: Stylitics70 [place] airpimFormerly [facility] [id number] Neutrophils/100 WBC (Bld) 56 % Normal [facility] Work Phone: Comment on above: Test(s) 543423-DJP-Y ; 781053-MXY-X; 491633-SHV-N; 008815-Pfrccergplqye; 432185-Ynfokxujrvo, Total; 468054-IBM-Q (Total);319962-Jrvej LDL-P; 780456-BQK Size; 198401-GC-TV Scorewas developed and its performance characteristics determinedby wywy. It has not been cleared or approved by the Foodand Drug Administration.PATIENT WAS FASTINGPERFORMED BY: [employer] [address] [id number] BY: Fin Quiver6370 [facility] [id number] Platelets (Bld) [#/Vol] 235 {x10E3/uL} Normal 150-450 [facility] Work Phone: Comment on above: Test(s) 038716-BNB-C ; 938916-UWE-T; 468635-FJU-Q; 064340-Uxuvgnfddslwn; 222441-Wfznijsbjkf, Total; 727361-WSC-M (Total);040456-Isrqv LDL-P; 891356-VHR Size; 643161-YT-OR Scorewas developed and its performance characteristics determinedby wywy. It has not been cleared or approved by the Foodand Drug Administration.PATIENT WAS FASTINGPERFORMED BY: [employer] [address] [id number] BY: Brille2470 [facility] [id number] Platelets (Bld) [#/Vol] 235 10*3/uL Normal 150-450 [facility]; [facility] Work Phone: Comment on above: Test(s) 837254-QTB-D ; 382637-WMD-N; 808533-WTO-Y; 592389-Wjqsofoblyqmz; 785226-Dbddurkwtpe, Total; 032605-SAT-E (Total);617979-Ujufu LDL-P; 666466-VKG Size; 419657-OE-GV Scorewas developed and its performance characteristics determinedby wywy. It has not been cleared or approved by the Foodand Drug Administration.PATIENT WAS FASTINGPERFORMED BY: Linkage[address] [id number] BY: Fin Quiver6370 [facility] [id number] RBC (Bld) [#/Vol] 4.39 {x10E6/uL} Normal 3.77-5.28 [facility] Work Phone: Comment on above: Test(s) 962298-WBI-N ; 741798-QYS-I; 115307-DYO-C; 217155-Vetbejfuccdso; 053807-Kvyimzkemkq, Total; 437650-FJP-S (Total);765589-Goznh LDL-P; 874681-BQH Size; 591839-QO-XU Scorewas developed and its performance characteristics determinedby wywy. It has not been cleared or approved by the Foodand Drug Administration.PATIENT WAS FASTINGPERFORMED BY: [employer] [address] [id number] BY: [employer] Twrjhv9708 [facility] [id number] RBC (Bld) [#/Vol] 4.39 10*6/uL Normal 3.77-5.28 [facility]; [facility] Work Phone: Comment on above: Test(s) 055318-MBW-G ; 879148-NYA-P; 044413-XEX-K; 355439-Nfdsdiztrwzku; 192965-Iykyxjsynig, Total; 696333-XSP-L (Total);292489-Xxwmk LDL-P; 134102-YUB Size; 562182-MM-HC Scorewas developed and its performance characteristics determinedby wywy. It has not been cleared or approved by the Foodand Drug Administration.PATIENT WAS FASTINGPERFORMED BY: [employer] [address] [id number] BY: [employer] Fiijuo7756 [facility] [id number] WBC (Bld) [#/Vol] 5.3 {x10E3/uL} Normal 3.4-10.8 [facility] Work Phone: Comment on above: Test(s) 803080-MUE-Q ; 014979-CCY-E; 499499-KKI-C; 463372-Klekasvqmedkn; 544675-Zerxybidukg, Total; 549385-YJH-I (Total);023523-Crpfi LDL-P; 977239-IQG Size; 832397-YW-SU Scorewas developed and its performance characteristics determinedby wywy. It has not been cleared or approved by the Foodand Drug Administration.PATIENT WAS FASTINGPERFORMED BY: [employer] [address] [id number] BY: [employer] Uncuri0859 [facility] [id number] WBC (Bld) [#/Vol] 5.3 10*3/uL Normal 3.4-10.8 [facility]; [facility] Work Phone: Comment on above: Test(s) 559202-NDY-I ; 455635-EHH-W; 854751-ADT-G; 186444-Vrktjqscxgfbe; 979020-Afniyvkxeju, Total; 808662-SBP-X (Total);690370-Yxpsc LDL-P; 906482-TZU Size; 829344-OC-FL Scorewas developed and its performance characteristics determinedby wywy. It has not been cleared or approved by the Foodand Drug Administration.PATIENT WAS FASTINGPERFORMED BY: PubNative7 [facility] [id number] BY: Brille2470 [place] [facility]aktAt[facility] [id number] FERRITIN (90229)Ordered By: Industrial Organization Manager on 01-24-2019 Ferritin [Mass/Vol] 17 ng/mL Normal 15-150 [facility] Work Phone: Comment on above: Test(s) 772988-KSS-N ; 349876-QAH-T; 574305-QXB-I; 123015-Tnhqobwurhtrk; 014057-Pumeszzgido, Total; 342426-LUY-M (Total);865433-Fdcec LDL-P; 462906-OPO Size; 147598-YN-WP Scorewas developed and its performance characteristics determinedby wywy. It has not been cleared or approved by the Foodand Drug Administration.PATIENT WAS FASTINGPERFORMED BY: Senzari [facility] [id number] BY: Brille2470 [facility] [id number] IRON BINDING CAPACITY (TIBC) (00183)Ordered By: Industrial Organization Manager on 01-24-2019 Iron [Mass/Vol] 36 ug/dL Normal 27-159 [facility] Internal Medicine Work Phone: Comment on above: Test(s) 407531-LEK-F ; 739807-EUS-V; 319451-AII-B; 836743-Drozjbyceybjr; 193328-Sevzuphkdfu, Total; 134873-UMZ-A (Total);642664-Lucri LDL-P; 891198-NSZ Size; 371198-JM-TL Scorewas developed and its performance characteristics determinedby wywy. It has not been cleared or approved by the Foodand Drug Administration.PATIENT WAS FASTINGPERFORMED BY: Linkageton1447 [facility] [id number] BY: Fin Quiver6370 [facility] [id number] Iron binding capacity [Mass/Vol] 328 ug/dL Normal 250-450 [facility] Internal Medicine Work Phone: Comment on above: Test(s) 150817-CRT-X ; 651941-FGL-G; 239325-KAL-T; 117438-Hwxhupyucnxkw; 200601-Uvifhysdtle, Total; 409955-CPU-M (Total);044195-Icnpp LDL-P; 551233-QQQ Size; 990299-MJ-DH Scorewas developed and its performance characteristics determinedby wywy. It has not been cleared or approved by the Foodand Drug Administration.PATIENT WAS FASTINGPERFORMED BY: [employer] [address] [id number] BY: Brille2470 BrigadeAt[facility] [id number] Iron binding capacity.unsaturated [Mass/Vol] 292 ug/dL Normal 131-425 [facility] Work Phone: Comment on above: Test(s) 674123-PWB-N ; 424201-MWU-Z; 797695-HUX-S; 745288-Odrdscdgxkqvk; 264885-Colelciicqj, Total; 061989-TCB-B (Total);413777-Usmcl LDL-P; 827291-YKM Size; 855268-XT-AG Scorewas developed and its performance characteristics determinedby wywy. It has not been cleared or approved by the Foodand Drug Administration.PATIENT WAS FASTINGPERFORMED BY: [employer] [address] [id number] BY: Fin Quiver6370 [place] UnpaktAt[facility] [id number] Iron saturation [Mass fraction] 11 % Abnormal 15-55 [facility] Work Phone: Comment on above: Test(s) 150624-EYJ-B ; 387278-CHJ-Y; 875367-JHT-O; 224185-Eaxmcvlgcldwr; 206845-Orzgvlkqoti, Total; 977665-PZO-Z (Total);069043-Rjbiq LDL-P; 936843-WCG Size; 880721-JP-ZL Scorewas developed and its performance characteristics determinedby wywy. It has not been cleared or approved by the Foodand Drug Administration.PATIENT WAS FASTINGPERFORMED BY: Linkageton1447 [facility] [id number] BY: Fin Quiver6370 [facility] [id number] METABOLIC PANEL, COMPREHENSI VE (79866)Ordered By: Industrial Organization Manager on 01-24-2019 Albumin [Mass/Vol] 4.2 g/dL Normal 3.5-5.5 [facility] Internal Medicine Work Phone: Comment on above: Test(s) 556558-LQN-M ; 742251-GTT-V; 712952-ESS-O; 783334-Agrsxwfqfnspp; 048092-Dmxelwagbxc, Total; 097871-OFE-C (Total);204762-Pnlcp LDL-P; 421577-APP Size; 219521-LY-BV Scorewas developed and its performance characteristics determinedby wywy. It has not been cleared or approved by the Foodand Drug Administration.PATIENT WAS FASTINGPERFORMED BY: Linkage[address] [id number] BY: Fin Quiver6370 [facility] [id number] Albumin/Globulin [Mass ratio] 1.3 {ratio} Normal 1.2-2.2 [facility] Internal Medicine Work Phone: Comment on above: Test(s) 709890-SEU-X ; 955170-OTK-K; 586211-WEE-R; 035088-Lmzutdpwbfowy; 420552-Enxqoofoubv, Total; 829606-QHJ-Z (Total);738526-Eigjd LDL-P; 675162-HDT Size; 961339-CQ-HU Scorewas developed and its performance characteristics determinedby wywy. It has not been cleared or approved by the Foodand Drug Administration.PATIENT WAS FASTINGPERFORMED BY: [employer] [address] [id number] BY: Fin Quiver6370 [facility] [id number] ALP [Catalytic activity/Vol] 59 [iU]/L Normal 39-117 [facility] Work Phone: Comment on above: Test(s) 325631-LGE-X ; 814183-HEW-D; 403363-VKH-V; 239762-Vwozozfpyhsgn; 719964-Efjelekorrg, Total; 890303-MIW-I (Total);925631-Ufsvq LDL-P; 080303-ZBY Size; 844121-LB-HZ Scorewas developed and its performance characteristics determinedby wywy. It has not been cleared or approved by the Foodand Drug Administration.PATIENT WAS FASTINGPERFORMED BY: wywy [address] [id number] BY: Stylitics70 [facility] [id number] ALP [Catalytic activity/Vol] 59 U/L Normal 39-117 [facility]; [facility] Work Phone: Comment on above: Test(s) 570781-ZYK-K ; 446304-GQZ-B; 459650-ABO-E; 970708-Sdhzjaqbofeka; 761705-Nngbidsyfgp, Total; 337141-KRO-O (Total);666019-Lwftz LDL-P; 543877-IYO Size; 158143-GO-CJ Scorewas developed and its performance characteristics determinedby wywy. It has not been cleared or approved by the Foodand Drug Administration.PATIENT WAS FASTINGPERFORMED BY: [employer] GROUP[address] [id number] BY: Vinsula6370 [facility] [id number] ALT [Catalytic activity/Vol] 13 [iU]/L Normal 0-32 [facility] Work Phone: Comment on above: Test(s) 933666-ARQ-T ; 675157-MCI-D; 234042-IFA-Z; 506729-Ttjwqfrkxepvz; 393713-Fmaiyhxness, Total; 378444-PNR-R (Total);949325-Ltfwn LDL-P; 999095-SAA Size; 506510-NH-FJ Scorewas developed and its performance characteristics determinedby wywy. It has not been cleared or approved by the Foodand Drug Administration.PATIENT WAS FASTINGPERFORMED BY: [employer] GROUP[address] [id number] BY: IDENTEC GROUPSt. Francis Medical CenterXjgsqy0002 [facility] [id number] ALT [Catalytic activity/Vol] 13 U/L Normal 0-32 [facility]; [facility] Work Phone: Comment on above: Test(s) 210902-TAS-C ; 458950-KWV-F; 470449-VOJ-R; 276520-Tyloxsgwhbgym; 049759-Lorizhqshvw, Total; 679417-SUL-Z (Total);692419-Jvuhp LDL-P; 844730-RPL Size; 460679-ST-AD Scorewas developed and its performance characteristics determinedby [employer]. It has not been cleared or approved by the Foodand Drug Administration.PATIENT WAS FASTINGPERFORMED BY: Becovillage[address] [id number] BY: [employer] Btomxm2783 [facility] [id number] AST [Catalytic activity/Vol] 17 [iU]/L Normal 0-40 [facility] Work Phone: Comment on above: Test(s) 327570-SBU-T ; 368780-TKC-C; 328088-NTI-Y; 788804-Zlvqriqscirdy; 755318-Bifdxnqvqcm, Total; 307292-SZG-R (Total);860983-Owefl LDL-P; 080219-LXT Size; 632494-QL-PT Scorewas developed and its performance characteristics determinedby wywy. It has not been cleared or approved by the Foodand Drug Administration.PATIENT WAS FASTINGPERFORMED BY: [employer] GROUP[address] [id number] BY: IDENTEC GROUPJeffery Ville 9730970 [facility] [id number] AST [Catalytic activity/Vol] 17 U/L Normal 0-40 [facility]; [facility] Work Phone: Comment on above: Test(s) 843988-JTA-B ; 705263-KEX-T; 656937-RYF-Q; 627695-Uknrfnckcylqy; 067446-Xbcwccepyxf, Total; 690036-TII-K (Total);961790-Myevf LDL-P; 362331-XIP Size; 343288-DG-YX Scorewas developed and its performance characteristics determinedby wywy. It has not been cleared or approved by the Foodand Drug Administration.PATIENT WAS FASTINGPERFORMED BY: [employer] [address] [id number] BY: wywy Qckhff7455 [facility] [id number] Bilirubin [Mass/Vol] 0.2 mg/dL Normal 0.0-1.2 [facility] Internal Medicine Work Phone: Comment on above: Test(s) 111074-FVG-E ; 469885-CSX-Z; 549855-WRV-A; 815820-Pfcetirvauucu; 941704-Istylgvkcdr, Total; 990583-CKU-V (Total);970846-Aszrh LDL-P; 765106-ZWD Size; 476323-VZ-KJ Scorewas developed and its performance characteristics determinedby wywy. It has not been cleared or approved by the Foodand Drug Administration.PATIENT WAS FASTINGPERFORMED BY: [employer] [address] [id number] BY: wywy Vskqba8709 [facility] [id number] Calcium [Mass/Vol] 8.7 mg/dL Normal 8.7-10.2 [facility] Internal Medicine Work Phone: Comment on above: Test(s) 228076-HNJ-P ; 374049-NSJ-R; 409266-WKC-B; 376217-Rbdkolrjyvxqu; 470393-Jgqstslahox, Total; 201454-ZWR-K (Total);142205-Qryho LDL-P; 586741-MZH Size; 917380-QN-SF Scorewas developed and its performance characteristics determinedby wywy. It has not been cleared or approved by the Foodand Drug Administration.PATIENT WAS FASTINGPERFORMED BY: BN LabCo[address] [id number] BY: IDENTEC GROUPSt. Francis Medical CenterDmootp3450 [facility] [id number] Chloride [Moles/Vol] 107 mmol/L Abnormal 96-106 [facility] Work Phone: Comment on above: Test(s) 761052-KKZ-I ; 791717-KCD-G; 715470-ZOE-I; 212016-Ryuoegfilwbhe; 497790-Tgrlbcfbuwv, Total; 752969-QHH-Y (Total);818588-Ibsek LDL-P; 438371-KDD Size; 699882-YJ-DQ Scorewas developed and its performance characteristics determinedby wywy. It has not been cleared or approved by the Foodand Drug Administration.PATIENT WAS FASTINGPERFORMED BY: Linkage[address] [id number] BY: Vinsula6370 [facility] [id number] CO2 [Moles/Vol] 21 mmol/L Normal 20-29 [facility] Internal Medicine Work Phone: Comment on above: Test(s) 236565-PPI-N ; 507997-BUV-Z; 398315-QZM-C; 409874-Xtjolmwraovgi; 532328-Btqxsmvawhj, Total; 394674-KSY-J (Total);570858-Tgbgz LDL-P; 831650-ACR Size; 596499-DN-OK Scorewas developed and its performance characteristics determinedby wywy. It has not been cleared or approved by the Foodand Drug Administration.PATIENT WAS FASTINGPERFORMED BY: wywy [address] [id number] BY: wywy Rblzdu7938 [facility] [id number] Creatinine [Mass/Vol] 0.86 mg/dL Normal 0.57-1.00 [facility] Work Phone: Comment on above: Test(s) 880024-MGQ-H ; 180552-AQG-F; 725081-PZY-L; 871493-Jelfidlfarlxw; 995847-Bitfonizpaf, Total; 148224-MNR-Q (Total);444594-Dpiie LDL-P; 543825-ISG Size; 698207-CB-QH Scorewas developed and its performance characteristics determinedby wywy. It has not been cleared or approved by the Foodand Drug Administration.PATIENT WAS FASTINGPERFORMED BY: [employer] GROUP[address] [id number] BY: IDENTEC GROUPJeffery Ville 9730970 [facility] [id number] GFR/1.73 sq M predicted among blacks CKD-EPI (S/P/Bld) [Vol rate/Area] 95 mL/min/1.73 Normal [facility] Work Phone: Comment on above: Test(s) 324635-GQV-T ; 566274-JYT-K; 852940-QBG-V; 606120-Ycsbrgeulavcm; 990758-Ypmhoeigoah, Total; 338142-HPJ-J (Total);115132-Jmhmm LDL-P; 060753-NBL Size; 780084-KD-NO Scorewas developed and its performance characteristics determinedby wywy. It has not been cleared or approved by the Foodand Drug Administration.PATIENT WAS FASTINGPERFORMED BY: [employer] GROUP[address] [id number] BY: wywy Dwficr8513 [facility] [id number] GFR/1.73 sq M predicted among non-blacks CKD-EPI (S/P/Bld) [Vol rate/Area] 82 mL/min/1.73 Normal [facility] Work Phone: Comment on above: Test(s) 736782-MKX-H ; 389433-JZX-S; 967207-AJD-J; 836703-Kudpbtskhntni; 878519-Hwjvecgefmn, Total; 175187-XMR-T (Total);476863-Ahxfg LDL-P; 395513-AKD Size; 250711-AC-FW Scorewas developed and its performance characteristics determinedby wywy. It has not been cleared or approved by the Foodand Drug Administration.PATIENT WAS FASTINGPERFORMED BY: [employer] [address] [id number] BY: [employer] Thkupg4053 [place] UnpaktAtrium Health [facility] [id number] Globulin (S) [Mass/Vol] 3.2 g/dL Normal 1.5-4.5 [facility] Internal Medicine Work Phone: Comment on above: Test(s) 135506-WAE-T ; 315708-OZO-Z; 426521-VGE-U; 296621-Vrdapvhwqwtde; 453398-Pdpkwppajhx, Total; 911013-RJU-Z (Total);592121-Osziq LDL-P; 057883-WEI Size; 795013-XC-TD Scorewas developed and its performance characteristics determinedby wywy. It has not been cleared or approved by the Foodand Drug Administration.PATIENT WAS FASTINGPERFORMED BY: Linkage[address] [id number] BY: Fin Quiver6370 [facility] [id number] Glucose [Mass/Vol] 95 mg/dL Normal 65-99 [facility] Internal Medicine Work Phone: Comment on above: Test(s) 277819-TVM-G ; 915104-NCG-O; 217199-SQY-I; 760159-Liubvnbljskbg; 140789-Csvsiggmcxm, Total; 710888-IBB-D (Total);117683-Sgsqw LDL-P; 094591-AAL Size; 303948-XH-IQ Scorewas developed and its performance characteristics determinedby wywy. It has not been cleared or approved by the Foodand Drug Administration.PATIENT WAS FASTINGPERFORMED BY: Becovillage[address] [id number] BY: [employer] Qogttb5532 [facility] [id number] Potassium [Moles/Vol] 4.5 mmol/L Normal 3.5-5.2 [facility] Internal Medicine Work Phone: Comment on above: Test(s) 122192-QOQ-H ; 727273-BIL-A; 484311-QPB-P; 667130-Omjtytvxbwfxn; 970749-Bckckfvmyve, Total; 445845-ECM-C (Total);721002-Mukbq LDL-P; 771134-LKO Size; 908496-XO-ND Scorewas developed and its performance characteristics determinedby wywy. It has not been cleared or approved by the Foodand Drug Administration.PATIENT WAS FASTINGPERFORMED BY: [employer] [address] [id number] BY: [employer] Kagwqz9964 [facility] [id number] Protein [Mass/Vol] 7.4 g/dL Normal 6.0-8.5 [facility] Internal Medicine Work Phone: Comment on above: Test(s) 209702-VAO-N ; 016872-NKP-O; 968367-UPM-W; 077444-Qjdzliqtwelvn; 176257-Inctmaxicwc, Total; 719886-CLR-S (Total);578167-Etjfu LDL-P; 721672-DLD Size; 141207-GF-EH Scorewas developed and its performance characteristics determinedby wywy. It has not been cleared or approved by the Foodand Drug Administration.PATIENT WAS FASTINGPERFORMED BY: [employer] [address] [id number] BY: wywy Ubmcdv6725 [facility] [id number] Sodium [Moles/Vol] 141 mmol/L Normal 134-144 [facility] Internal Medicine Work Phone: Comment on above: Test(s) 932413-WQP-T ; 386972-CLF-S; 072135-KUA-W; 952446-Qyrhrktbcyalj; 832652-Ixryxsanwsl, Total; 854013-FMD-M (Total);544359-Qxpmt LDL-P; 598013-MGN Size; 298208-LX-UR Scorewas developed and its performance characteristics determinedby wywy. It has not been cleared or approved by the Foodand Drug Administration.PATIENT WAS FASTINGPERFORMED BY: BN [employer] [id number] BY: [employer] Uxqcra4790 [facility] [id number] Urea nitrogen [Mass/Vol] 14 mg/dL Normal 6-24 [facility] Work Phone: Comment on above: Test(s) 122106-SFE-E ; 537619-VCV-A; 455931-YAG-T; 409854-Kjqkzmxvgnoih; 636355-Ktpakxyftjz, Total; 104801-AIA-B (Total);987103-Qnxya LDL-P; 188248-WUB Size; 279224-GA-PC Scorewas developed and its performance characteristics determinedby wywy. It has not been cleared or approved by the Foodand Drug Administration.PATIENT WAS FASTINGPERFORMED BY: [employer] [address] [id number] BY: Fin Quiver6370 [facility] [id number] Urea nitrogen/Creatinine [Mass ratio] 16 mg/mg Normal 9- [facility] Work Phone: Comment on above: Test(s) 530188-FVP-O ; 197943-PNZ-R; 713113-VVF-M; 244613-Viafgoqraonkc; 160790-Wlmqgmujjym, Total; 394131-XPT-J (Total);062882-Ucgcx LDL-P; 071198-XWQ Size; 543614-LO-TP Scorewas developed and its performance characteristics determinedby wywy. It has not been cleared or approved by the Foodand Drug Administration.PATIENT WAS FASTINGPERFORMED BY: [employer] [address] [id number] BY: Quanergy SystemsSt. Francis Medical CenterAoqdpz8688 [facility] [id number] MICROALBUMINOrdered By: Syst em Engineer Station [employer] on 01-24-2019 Albumin DL <= 20 mg/L (U) [Mass/Vol] 5.7 ug/mL Normal [facility] Work Phone: Comment on above: Test(s) 380764-FRJ-C ; 417520-HNO-A; 705711-MSU-O; 439198-Rwqyysotcdjol; 013558-Awaecorrzrd, Total; 702456-PBL-M (Total);176410-Stpka LDL-P; 598684-LTY Size; 605932-OD-VG Scorewas developed and its performance characteristics determinedby wywy. It has not been cleared or approved by the Foodand Drug Administration.PATIENT WAS FASTINGPERFORMED BY: [employer] [address] [id number] BY: [employer] Exffwf1907 [facility] [id number] Albumin/Creatinine (U) [Mass ratio] 5.3 {mg/g_creat} Normal 0.0-30.0 [facility] Work Phone: Comment on above: Normal: 0.0 - 30.0 A lbuminuria: 31.0 - 300.0 Clinical albuminuria: >300.0 Test(s) 822859-OTN-N ; 758277-OJS-Q; 770826-ZRG-L; 885652-Vcllrvdxepklq; 312064-Jllknkzayxv, Total; 009286-UIS-U (Total);542953-Ppsri LDL-P; 049881-HJP Size; 567904-XU-WR Scorewas developed and its performance characteristics determinedby wywy. It has not been cleared or approved by the FoodO [place]reg[place] Drug Administration.PATIENT WAS FASTINGPERFORMED BY: [employer] [address] [id number] BY: [employer] Rjears0504 [facility] [id number] Creatinine (U) [Mass/Vol] 107.8 mg/dL Normal [facility] Work Phone: Comment on above: Test(s) 457363-ZFR-V ; 307817-RYZ-Y; 132328-AVI-P; 385727-Musvihsdyqnsu; 751995-Nwebestmipp, Total; 269337-YJC-U (Total);652346-Usria LDL-P; 428332-MOR Size; 670178-IW-ZH Scorewas developed and its performance characteristics determinedby wywy. It has not been cleared or approved by the Foodand Drug Administration.PATIENT WAS FASTINGPERFORMED BY: [employer] [address] [id number] BY: [employer] Qtydkd4634 [facility] [id number] NMR Profile (67628)Ordered B y: Industrial Organization Manager on 01-24-2019 Cholesterol [Mass/Vol] 140 mg/dL Normal 100-199 [facility] Work Phone: Comment on above: Test(s) 243633-BGL-I ; 174640-FDB-A; 849161-EQT-X; 425968-Uihjbijwisgew; 386641-Nxdmsvclksu, Total; 257232-RQO-Z (Total);549966-Xsuiu LDL-P; 704438-DYC Size; 604328-JL-UB Scorewas developed and its performance characteristics determinedby wywy. It has not been cleared or approved by the Foodand Drug Administration.PATIENT WAS FASTINGPERFORMED BY: [employer] [address] [id number] BY: Brille2470 [facility] [id number] Cholesterol in HDL [Mass/Vol] 69 mg/dL Normal [facility] Work Phone: Comment on above: Test(s) 495184-JGJ-S ; 828394-OGG-I; 659267-RLQ-O; 627425-Rwueuipsowrnl; 771192-Gnnlairjsqw, Total; 312803-PRQ-U (Total);504603-Dkchi LDL-P; 006069-WJN Size; 901335-OE-SQ Scorewas developed and its performance characteristics determinedby wywy. It has not been cleared or approved by the Foodand Drug Administration.PATIENT WAS FASTINGPERFORMED BY: [employer] [address] [id number] BY: IDENTEC GROUPSt. Francis Medical CenterDmahmh1931 [facility] [id number] Lipoprotein.alpha [Moles/Vol] 38.6 umol/L Normal [facility] Work Phone: Comment on above: Test(s) 858372-RYS-K ; 548070-KFN-S; 905577-CKX-E; 517390-Loffwxeiumhvq; 561575-Klctzjyoksc, Total; 459841-QAG-Q (Total);687540-Ocuab LDL-P; 707593-UKP Size; 482717-FQ-IC Scorewas developed and its performance characteristics determinedby wywy. It has not been cleared or approved by the Foodand Drug Administration.PATIENT WAS FASTINGPERFORMED BY: BN [facility] Akrepkiqvm6753 [facility] [id number] BY: CB [facility] Ugednf8734 [facility] [id number] Lipoprotein.beta.subp article [Entitic length] 20.0 nm Abnormal [facility] Work Phone: Comment on above: INTERPRETATIVE INFORMATION PARTICLE CONCENTRATION AND SIZE <--Lower CVD Risk Higher CVD Risk--> LDL AND HDL PARTICLES Percentile in Reference Population HDL-P (total) High 75th 50th 25th Low >34.9 34.9 30.5 26.7 <26.7 . Small LDL-P Low 25th 50th 75th High <117 117 527 839 >839 . LDL Size <-Large (Pattern A)-> <-Small (Pattern B)-> 23.0 20.6 20.5 19.0 Small LDL-P and LDL Size are associated with CVD risk, but not afterLDL-P is taken into account. Test(s) 134558-TJW-X ; 050427-GCY-G; 311988-RSJ-J; 758180-Bljiddeeqciph; 249716-Gvledlonkvr, Total; 857325-UVG-V (Total);493778-Yqnfh LDL-P; 885758-HOW Size; 878695-AJ-AG Scorewas developed and its performance characteristics determinedby wywy. It has not been cleared or approved by the Foodand Drug Administration.PATIENT WAS FASTINGPERFORMED BY: [employer] [address] [id number] BY: IDENTEC GROUPSt. Francis Medical CenterJudxqc12[address] [place] [address] [id number] Lipoprotein.beta.subp article [Moles/Vol] 569 nmol/L Normal Comprehensiv e Internal Medicine Work Phone: Comment on above: Low < 1000 Moderate 1000 - 1299 Borderline-High 1300 - 1599 High 1600 - 2000 Very High > 2000 Test(s) 048093-LWM-Q ; 523251-QQE-J; 516005-QEV-N; 554067-Fiycevolpwcrp; 471833-Qwaeliexelx, Total; 321339-VBV-Q (Total);811845-Gakdq LDL-P; 897134-QXG Size; 260244-KE-EG Scorewas developed and its performance characteristics determinedby wywy. It has not been cleared or approved by the Foodand Drug Administration.PATIENT WAS FASTINGPERFORMED BY: [employer] [address] [id number] BY: [employer] Cxzxzg1549 [facility] [id number] Lipoprotein.beta.subp article.small [Moles/Vol] 337 nmol/L Normal [facility] Work Phone: Comment on above: Test(s) 617326-AWB-J ; 854101-HXO-P; 598128-KPN-J; 649259-Qryexfjqcxswc; 157936-Evvusgwvsxo, Total; 315876-YAY-A (Total);301637-Irgha LDL-P; 070371-QPM Size; 928323-ET-HR Scorewas developed and its performance characteristics determinedby wywy. It has not been cleared or approved by the Foodand Drug Administration.PATIENT WAS FASTINGPERFORMED BY: [employer] [address] [id number] BY: Fin Quiver6370 [facility] [id number] Triglyceride [Mass/Vol] 43 mg/dL Normal 0-149 [facility] Work Phone: Comment on above: Test(s) 532710-LEZ-F ; 968238-YGQ-I; 204888-DBX-D; 972907-Wgngqsbxixqqa; 282410-Ouimacmvgxq, Total; 434004-EEV-J (Total);594209-Mduik LDL-P; 466984-QAV Size; 023301-FR-RD Scorewas developed and its performance characteristics determinedby wywy. It has not been cleared or approved by the Foodand Drug Administration.PATIENT WAS FASTINGPERFORMED BY: [employer] [id number] BY: Brille2470 [place] [facility] HospitalDistributive NetworksFormerly [facility] [id number] NMR Profile (82674) 62 mg/dL Normal 0-99 [facility] Internal Medicine Work Phone: Comment on above: . Optimal < 100 Abov e optimal 100 - 129 Borderline 130 - 159 High 160 - 189 Very high > 189 .LDL-C is inaccurate if patient is non-fasting. Test(s) 871973-JSR-M ; 385337-SBX-C; 559757-FLH-N; 678127-Kiinlcjfpxuvj; 059748-Xnbvmisysfy, Total; 402851-YGG-A (Total);288399-Knebf LDL-P; 984678-PGW Size; 062528-VY-IN Scorewas developed and its performance characteristics determinedby wywy. It has not been cleared or approved by the Foodand Drug Administration.PATIENT WAS FASTINGPERFORMED BY: [employer] [address] [id number] BY: Fin Quiver6370 [facility] [id number] URINALYSIS, W/ MICRO (95241) Ordered By: Industrial Organization Manager on 01-24-2019 Appearance (U) Clear Normal Comprehens percy Internal Medicine Work Phone: Comment on above: Test(s) 138290-JMA-J ; 316162-XRY-K; 536522-PBK-G; 415941-Spbxfbamyxbuf; 893540-Clvzzuumsmu, Total; 385238-KCN-Q (Total);785167-Ibfod LDL-P; 929193-QGL Size; 839248-TG-JY Scorewas developed and its performance characteristics determinedby wywy. It has not been cleared or approved by the Foodand Drug Administration.PATIENT WAS FASTINGPERFORMED BY: [employer] [address] [id number] BY: [employer] Kfuwpg5516 [facility] [id number] Bilirubin Ql (U) Negative Normal Comprehe nsive Internal Medicine Work Phone: Comment on above: Test(s) 735096-RTO-A ; 008953-JQI-W; 809053-JSM-K; 990247-Pdyknmtqrnshw; 569499-Dplqsyrgwhw, Total; 769951-OTI-C (Total);737156-Kwdie LDL-P; 824519-DJA Size; 728274-JT-GA Scorewas developed and its performance characteristics determinedby wywy. It has not been cleared or approved by the Foodand Drug Administration.PATIENT WAS FASTINGPERFORMED BY: [employer] [address] [id number] BY: Fin Quiver6370 [facility] [id number] Bilirubin Ql (U) Negative Normal Comprehe nsive Internal Medicine; [facility] Work Phone: Comment on above: Test(s) 424355-VGP-K ; 797439-TRW-X; 333468-MVI-Q; 319447-Inkkeqdvqdhex; 455850-Ukmajjyitxg, Total; 064771-YJH-I (Total);210953-Gbeia LDL-P; 827874-NXT Size; 686050-PJ-UG Scorewas developed and its performance characteristics determinedby wywy. It has not been cleared or approved by the Foodand Drug Administration.PATIENT WAS FASTINGPERFORMED BY: BN [employer] [id number] BY: IDENTEC GROUPJeffery Ville 9730970 [facility] [id number] Color (U) Yellow Normal [facility] Work Phone: Comment on above: Test(s) 850731-OPD-T ; 221821-AQM-S; 559227-COX-Q; 782904-Eiztoajmdzejh; 932854-Jsojixtnjip, Total; 436044-HAF-W (Total);377169-Alefr LDL-P; 405757-MWC Size; 880209-HC-TE Scorewas developed and its performance characteristics determinedby [employer]. It has not been cleared or approved by the Foodand Drug Administration.PATIENT WAS FASTINGPERFORMED BY: [employer] GROUP[address] [id number] BY: [employer] Hsalsz2607 [facility] [id number] Glucose Ql (U) Negative Normal Comprehens percy Internal Medicine Work Phone: Comment on above: Test(s) 175071-FCH-A ; 913589-PCM-J; 132789-RZZ-C; 876073-Sazpavaurqdjv; 072589-Evahnmiarlq, Total; 884571-THU-C (Total);516132-Vowtz LDL-P; 625878-JJH Size; 547392-JA-TU Scorewas developed and its performance characteristics determinedby wywy. It has not been cleared or approved by the Foodand Drug Administration.PATIENT WAS FASTINGPERFORMED BY: [employer] [id number] BY: IDENTEC GROUPSt. Francis Medical CenterLdhdfp0159 [facility] [id number] Glucose Ql (U) Negative Normal Comprehens percy Internal Medicine; [facility] Work Phone: Comment on above: Test(s) 933253-XKR-O ; 147399-BCT-Q; 806217-ZRR-A; 085128-Zxxkxxoaqcljq; 313220-Wmrbeemzsqe, Total; 754923-LIQ-J (Total);103765-Sfiht LDL-P; 408775-SKP Size; 309602-RR-LS Scorewas developed and its performance characteristics determinedby wywy. It has not been cleared or approved by the Foodand Drug Administration.PATIENT WAS FASTINGPERFORMED BY: [employer] [id number] BY: ID[employer] GROUPJeffery Ville 9730970 [facility] [id number] Hemoglobin Ql (U) Negative Normal Compreh ensive Internal Medicine Work Phone: Comment on above: Test(s) 850113-IMO-W ; 169821-VEK-K; 331755-YWA-D; 068273-Aicbchnqimgus; 588450-Mqqepbsvslg, Total; 052441-UTP-U (Total);045843-Yqovn LDL-P; 123401-MQW Size; 548950-BI-JY Scorewas developed and its performance characteristics determinedby wywy. It has not been cleared or approved by the Foodand Drug Administration.PATIENT WAS FASTINGPERFORMED BY: [employer] [address] [id number] BY: Price Interactivelin6370 [facility] [id number] Hemoglobin Ql (U) Negative Normal Compreh ensive Internal Medicine; [facility] Work Phone: Comment on above: Test(s) 326000-WKV-D ; 720031-YOG-N; 787591-OAV-B; 809410-Jkwzuddhphuxx; 791130-Xtmkrhzjlnw, Total; 333661-IGW-L (Total);417989-Aryor LDL-P; 895380-HSG Size; 465375-AK-JU Scorewas developed and its performance characteristics determinedby wywy. It has not been cleared or approved by the Foodand Drug Administration.PATIENT WAS FASTINGPERFORMED BY: Becovillage[address] [id number] BY: IDENTEC GROUPSt. Francis Medical CenterGoylkp9124 [facility] [id number] Ketones Ql (U) Negative Normal Comprehens percy Internal Medicine Work Phone: Comment on above: Test(s) 455523-MRQ-X ; 161973-NHH-J; 733116-VDY-W; 364361-Zpfopjcmdgsku; 730923-Tbmkvfwxusj, Total; 105175-GKN-R (Total);390608-Edebc LDL-P; 578849-MIH Size; 809714-UL-KW Scorewas developed and its performance characteristics determinedby wywy. It has not been cleared or approved by the Foodand Drug Administration.PATIENT WAS FASTINGPERFORMED BY: [employer] [address] [id number] BY: Brille2470 [facility] [id number] Ketones Ql (U) Negative Normal [facility] Internal Medicine; [facility] Work Phone: Comment on above: Test(s) 917466-LAP-E ; 102065-ICW-X; 017892-KBF-Z; 227625-Cosuxesxghfiy; 152110-Oxjqqfuzfan, Total; 545151-OBB-I (Total);416487-Gaclu LDL-P; 070570-CVK Size; 454819-QK-MQ Scorewas developed and its performance characteristics determinedby wywy. It has not been cleared or approved by the Foodand Drug Administration.PATIENT WAS FASTINGPERFORMED BY: [employer] [address] [id number] BY: Fin Quiver6370 [facility] [id number] Leukocyte esterase Test strip Ql (U) Negative Normal [facility] Work Phone: Comment on above: Test(s) 960324-JHP-I ; 489647-WTR-J; 861536-IXC-W; 486497-Jxfrgcabewhng; 010270-Zjjxnwobwpo, Total; 408796-YYZ-Y (Total);563357-Atzhw LDL-P; 959591-KGH Size; 794398-LL-XG Scorewas developed and its performance characteristics determinedby wywy. It has not been cleared or approved by the Foodand Drug Administration.PATIENT WAS FASTINGPERFORMED BY: [employer] [address] [id number] BY: [employer] Tloiyo7958 BrigadeAtrium Health [facility] [id number] Leukocyte esterase Test strip Ql (U) Negative Normal [facility]; [facility] Work Phone: Comment on above: Test(s) 314067-VMV-I ; 479286-VHC-O; 989589-HKB-Z; 664529-Tjimwxfrmyfpu; 881313-Opqgicgcxen, Total; 580630-KZQ-L (Total);013097-Pnufj LDL-P; 953937-DAM Size; 489963-CY-WP Scorewas developed and its performance characteristics determinedby wywy. It has not been cleared or approved by the Foodand Drug Administration.PATIENT WAS FASTINGPERFORMED BY: [employer] [address] [id number] BY: Brille2470 BrigadeAtrium Health [facility] [id number] Microscopic observation LM Nom (Urine sed) See below: Normal [facility] Work Phone: Comment on above: Microscopic was ashok cated and was performed. Test(s) 206136-RFZ-D ; 664513-NJG-Y; 156403-SKM-G; 172060-Jrnxkfurgqiwa; 214661-Ylcbwchaqez, Total; 864808-UDV-J (Total);394866-Boqjl LDL-P; 865015-CCQ Size; 011659-FY-ZY Scorewas developed and its performance characteristics determinedby wywy. It has not been cleared or approved by the Foodand Drug Administration.PATIENT WAS FASTINGPERFORMED BY: [employer] [address] [id number] BY: [employer] Hinefw4292 [facility] [id number] Microscopic observation LM Nom (Urine sed) MICRON Normal [facility] Work Phone: Comment on above: Microscopic follows if indicated. Test(s) 759836-SST-J ; 072135-UMH-L; 043710-AKA-M; 056624-Uhpzicmfithsk; 074407-Weuufcchjrm, Total; 516016-HWY-C (Total);270673-Bcrig LDL-P; 680405-XXO Size; 877247-VR-EB Scorewas developed and its performance characteristics determinedby wywy. It has not been cleared or approved by the Foodand Drug Administration.PATIENT WAS FASTINGPERFORMED BY: Becovillage[address] [id number] BY: [employer] Zjxneb6622 [facility] [id number] Nitrite Ql (U) Negative Normal Comprehens percy Internal Medicine Work Phone: Comment on above: Test(s) 276782-KMN-Z ; 913705-UIJ-B; 618231-FNA-N; 107752-Cqujdyfzcmrmu; 549751-Vjaemsgagdw, Total; 266110-BAH-R (Total);474513-Iufcv LDL-P; 938941-ZGR Size; 482597-BH-XM Scorewas developed and its performance characteristics determinedby wywy. It has not been cleared or approved by the Foodand Drug Administration.PATIENT WAS FASTINGPERFORMED BY: [employer] [address] [id number] BY: Brille2470 [facility] [id number] Nitrite Ql (U) Negative Normal Comprehens percy Internal Medicine; [facility] Work Phone: Comment on above: Test(s) 048940-KKV-C ; 891322-PHW-R; 933236-JFH-V; 543679-Lsxffscnjoyqe; 291159-Bmdzkqqkoui, Total; 494642-IIR-S (Total);822636-Yvtjp LDL-P; 313757-KKQ Size; 476015-VG-HN Scorewas developed and its performance characteristics determinedby wywy. It has not been cleared or approved by the Foodand Drug Administration.PATIENT WAS FASTINGPERFORMED BY: [employer] [address] [id number] BY: Brille2470 [facility] [id number] pH (U) 6.5 [pH] Normal 5.0-7.5 [facility] Work Phone: Comment on above: Test(s) 809971-EFR-N ; 012866-KQO-J; 913087-GHI-N; 851396-Iovimgvuwgpvg; 538524-Psxwgppumyq, Total; 603916-SNI-O (Total);855050-Oirgn LDL-P; 117070-HHL Size; 861254-IY-XD Scorewas developed and its performance characteristics determinedby wywy. It has not been cleared or approved by the Foodand Drug Administration.PATIENT WAS FASTINGPERFORMED BY: Linkage[address] [id number] BY: wywy Wjxpba2677 [facility] [id number] Protein Ql (U) Negative Normal Comprehens percy Internal Medicine Work Phone: Comment on above: Test(s) 656957-TUB-A ; 273060-TIA-H; 135123-MHP-F; 931551-Udjycehtkadmc; 542433-Xvzryofvwsp, Total; 980098-NWG-S (Total);619781-Tmiqp LDL-P; 230454-FJC Size; 811673-UQ-FY Scorewas developed and its performance characteristics determinedby wywy. It has not been cleared or approved by the Foodand Drug Administration.PATIENT WAS FASTINGPERFORMED BY: Linkage[address] [id number] BY: [employer] Alkybr9737 [facility] [id number] Protein Ql (U) Negative Normal Comprehens percy Internal Medicine; [facility] Work Phone: Comment on above: Test(s) 202304-IJH-J ; 979526-QEP-P; 088722-QAA-K; 815177-Erordokevpzxm; 371078-Ubacwxhtgup, Total; 781473-OSB-A (Total);800282-Rjnvk LDL-P; 736894-VZQ Size; 946970-NQ-IS Scorewas developed and its performance characteristics determinedby wywy. It has not been cleared or approved by the Foodand Drug Administration.PATIENT WAS FASTINGPERFORMED BY: Becovillage[address] [id number] BY: Brille2470 CommutePaysFormerly [facility] [id number] Specific gravity (U) [Rel density] 1.020 1 Normal 1.005-1.030 [facility] Internal Medicine Work Phone: Comment on above: Test(s) 562444-CRF-W ; 032411-ZBG-C; 744299-IMK-N; 888109-Bdnzomfjdvvks; 358106-Exewtftzojs, Total; 850108-HNA-A (Total);485102-Hbatq LDL-P; 585070-FYG Size; 415792-SF-UZ Scorewas developed and its performance characteristics determinedby wywy. It has not been cleared or approved by the Foodand Drug Administration.PATIENT WAS FASTINGPERFORMED BY: [employer] [address] [id number] BY: Brille2470 BrigadeAtrium Health [facility] [id number] Urobilinogen (U) [Mass/Vol] 0.2 mg/dL Normal 0.2-1.0 [facility] Internal Medicine; [facility] Internal Medicine Work Phone: Comment on above: Test(s) 595123-DCL-E ; 570214-FXO-M; 515163-BEI-N; 610957-Imozwinntmnxc; 032987-Jsskyofxvxr, Total; 975624-NQH-F (Total);215036-Rdxop LDL-P; 106831-XRA Size; 466621-QU-AE Scorewas developed and its performance characteristics determinedby wywy. It has not been cleared or approved by the Foodand Drug Administration.PATIENT WAS FASTINGPERFORMED BY: ID[employer]EC GROUP[address] [id number] BY: Price Interactivelin6370 [place] UnpaktAtrium Health Wake [facility] [id number] Urobilinogen Test strip (U) [Mass/Vol] 0.2 mg/dL Normal 0.2-1.0 Comprehensi ve Internal Medicine Work Phone: Comment on above: Test(s) 165869-WZQ-C ; 286732-NPY-G; 268482-OMO-E; 244548-Iwqtgdckktivr; 618252-Wpmccjlpqmd, Total; 121410-MNE-B (Total);176749-Bkhiy LDL-P; 161636-AIZ Size; 334881-SK-RH Scorewas developed and its performance characteristics determinedby [employer]. It has not been cleared or approved by the Foodand Drug Administration.PATIENT WAS FASTINGPERFORMED BY: BN [facility] Kghdjolkyo8290 [facility] [id number] BY: CB [facility] Jtbhvs6448 [facility] [id number] CBC W/Diff, AutomatedOrdered By: Industrial Organization Manager on 05-14-2018 Absolute Neut 4.1 {X10_3/uL} Normal 2.0-7.7 Compreh ensive Internal Medicine Work Phone: Comment on above: STARTED [facility] [address] [place], [place], [phone] Basophils/100 WBC (Bld) 0.3 % Normal 0-1 [facility] Work Phone: Comment on above: STARTED [facility] [address] [place], [place], [phone] Eosinophils/100 WBC (Bld) 1.7 % Normal 0-5 [facility] Work Phone: Comment on above: STARTED [facility] [address] [place], [place], [id number] Erythrocyte distribution width Ratio (RBC) 14.8 % Abnormal 11.6-14.6 [facility] Work Phone: Comment on above: STARTED [facility] [address] [place], [address] Hematocrit Volume Fraction (Bld) 38.3 % Normal 37-47 [facility] Work Phone: Comment on above: STARTED [facility] [address] [place], [address] Hemoglobin mass conc (Bld) 12.0 g/dL Normal 12.0-15.0 [facility] Work Phone: Comment on above: STARTED [facility] [address] [place], [address] IM GRAN % 0.000 % Normal 0.0-0.9 [facility] Work Phone: Comment on above: IG% - Immature Granu locytes (promyelocytes, myelocytes andmetamyelocytes) > 1% indicates that a LEFT SHIFT is Present. STARTED [facility] [address] [place], [address] Lymphocytes #/vol (Bld) 1.28 {X10_3/ul} Normal 0.83-4.51 [facility] Work Phone: Comment on above: STARTED [facility] [address] [place], [address] Lymphocytes/100 WBC (Bld) 21.3 % Normal 19-41 [facility] Work Phone: Comment on above: STARTED [facility] [address] [place], [address] MCH Entitic mass (RBC) 26.5 pg Abnormal 27.0-32.0 [facility] Work Phone: Comment on above: STARTED [facility] [address] [place], [address] MCHC mass conc (RBC) 31.3 {g/gl} Abnormal 32-36 Com prehensive Internal Medicine Work Phone: Comment on above: STARTED [facility] [address] [place], [address] MCV Entitic volume (RBC) 84.5 fL Normal 81-99 [facility] Work Phone: Comment on above: STARTED [facility] [address] [place], [address] Monocytes/100 WBC (Bld) 8.1 % Normal 0-10 [facility] Work Phone: Comment on above: STARTED [facility] [address] [place], [address] Neutrophils/100 WBC (Bld) 68.6 % Normal 47-70 [facility] Work Phone: Comment on above: STARTED [facility] [address] [place], [address] Platelet mean volume Entitic volume (Bld) 9.8 fL Normal 6.2-12.0 Comprehensi ve Internal Medicine Work Phone: Comment on above: STARTED [facility] [address] [place], [address] Platelets #/vol (Bld) 269 10*3/uL Normal 150-450 Co mprehensive Internal Medicine Work Phone: Comment on above: STARTED [facility] [address] [place], [address] RBC #/vol (Bld) 4.53 {M/mm3} Normal 4.2-5.4 Compreh ensive Internal Medicine Work Phone: Comment on above: STARTED [facility] [address] [place], [address] RDW SD 44.3 fL Abnormal 35.1-43.9 [facility] Work Phone: Comment on above: STARTED [facility] [address] [place], [address] WBC #/vol (Bld) 6.0 10*3/uL Normal 4.4-11.0 Comprehe nsive Internal Medicine Work Phone: Comment on above: STARTED [facility] [address] [place], [place], [id number] FerritinOrdered By: System Donovan ndiayeger on 05-14-2018 Ferritin mass conc 19 ng/mL Normal 8-252 Compre hensive Internal Medicine Work Phone: Comment on above: STARTED [facility] [address] [place], [address] IronOrdered By: System Manag er on 05-14-2018 Iron mass conc 48 ug/dL Abnormal 50-170 Comprehens percy Internal Medicine Work Phone: Comment on above: STARTED [facility] [address] [place], [address] Iron Binding Capacity,TotalO rdered By: Industrial Organization Manager on 05-14-2018 Iron binding capacity mass conc 394 ug/dL Normal 250-450 [facility] Work Phone: Comment on above: STARTED [facility] [address] [place], [address] HgA1C , Office ([id number])Ordere d By: Rae Jalloh on 02-04-2018 Hemoglobin A1c/Hemoglobin.total mass fraction (Bld) 5.3 % Normal 4.6 - 7.1 Comprehensiv e Internal Medicine Work Phone: FerritinOrdered By: System Donovan leavitt on 01-31-2018 Ferritin mass conc 7 ng/mL Abnormal 8-252 Compre hensive Internal Medicine Work Phone: Comment on above: [facility] [address] [place], [address] Iron+Iron Binding CapacityOr dered By: Industrial Organization Manager on 01-31-2018 Iron mass conc 21 ug/dL Abnormal 50-170 Comprehens percy Internal Medicine Work Phone: Comment on above: [facility] [address] [place], [place], [id number] Iron+Iron Binding Capacity 438 ug/dL Normal 250-450 [facility] Work Phone: Comment on above: [facility] [address] [place], [place], [id number] Iron+Iron Binding Capacity 4.8 % Abnormal 15.0-55.0 [facility] Work Phone: Comment on above: [facility] [address] [place], [place], [id number] CALCIFEDIOL ([id number])Ordered B y: Industrial Organization Manager on 01-14-2018 25-Hydroxyvitamin D2+25-Hydroxyvitamin D3 mass conc 22.0 ng/mL Abnormal 30.0-100.0 [facility] Work Phone: Comment on above: Vitamin D deficiency has been defined by the [place] [facility] and an Endocrine Society practice guideline as alevel of serum 25-OH vitamin D less than 20 ng/mL (1,2).The Endocrine Society went on to further define vitamin Dinsufficiency as a level between 21 and 29 ng/mL (2).1. IOM ([place] of Medicine). 2010. Dietary reference intakes for calcium and D. [place]: The National Academies Press.2. Oscar MF, Narendra FLETCHER, Andrew VILLALTA, et al. Evaluation, treatment, and prevention of vitamin D deficiency: an Endocrine Society clinical practice guideline. JCEM. 2010; 96(7):1911-30. PATIENT NOT FASTINGP ERFORMED BY: Fin Quiver6370 CommutePaysFormerly [facility] [id number] CBC with auto diff ([id number])Or dered By: Industrial Organization Manager on 01-14-2018 Basophils #/vol (Bld) 0.0 {x10E3/uL} Normal 0.0-0.2 [facility] Work Phone: Comment on above: PATIENT NOT FASTINGP ERFORMED BY: YkoneFormerly [facility] [id number] Basophils (Bld) [#/Vol] 0.0 10*3/uL Normal 0.0-0.2 [facility]; [facility] Work Phone: Comment on above: PATIENT NOT FASTINGP ERFORMED BY: LabNathan [place] [id number] [facility] [id number] Basophils Auto #/vol (Bld) 0.0 {x10E3/uL} Normal 0.0-0.2 [facility] Work Phone: Basophils/100 WBC (Bld) 0 % Normal [facility] Work Phone: Comment on above: PATIENT NOT FASTINGP ERFORMED BY: [address] [id number] Basophils/100 WBC Auto (Bld) 0 % Normal [facility] Work Phone: Eosinophils #/vol (Bld) 0.2 {x10E3/uL} Normal 0.0-0.4 [facility] Work Phone: Comment on above: PATIENT NOT FASTINGP ERFORMED BY: [place] [id number] [facility] [id number] Eosinophils (Bld) [#/Vol] 0.2 10*3/uL Normal 0.0-0.4 [facility]; [facility] Work Phone: Comment on above: PATIENT NOT FASTINGP ERFORMED BY: [address] [id number] Eosinophils Auto #/vol (Bld) 0.2 {x10E3/uL} Normal 0.0-0.4 [facility] Work Phone: Eosinophils/100 WBC (Bld) 2 % Normal [facility] Work Phone: Comment on above: PATIENT NOT FASTINGP ERFORMED BY: Lab[place] [id number] [facility] [id number] Eosinophils/100 WBC Auto (Bld) 2 % Normal [facility] Work Phone: Erythrocyte distribution width Auto Ratio (RBC) 19.6 % Abnormal 12.3-15.4 [facility] Work Phone: Erythrocyte distribution width Ratio (RBC) 19.6 % Abnormal 12.3-15.4 [facility] Work Phone: Comment on above: PATIENT NOT FASTINGP ERFORMED BY: HERMINIO LabCogaldino [address] [facility] [place] [id number] Hematocrit Auto Volume Fraction (Bld) 31.3 % Abnormal 34.0-46.6 [facility] Internal Medicine Work Phone: Hematocrit Volume Fraction (Bld) 31.3 % Abnormal 34.0-46.6 [facility] Work Phone: Comment on above: PATIENT NOT FASTINGP ERFORMED BY: CB [facility] J[address]bl[address] [facility] [place] [id number] Hemoglobin mass conc (Bld) 9.3 g/dL Abnormal 11.1-15.9 [facility] Work Phone: Comment on above: PATIENT NOT FASTINGP ERFORMED BY: CB [facility] Lxzpsm0741 Anderson RoadNovant Health Clemmons Medical Centerin [place] [id number] Immature granulocytes #/vol (Bld) 0.0 {x10E3/uL} Normal 0.0-0.1 [facility] Work Phone: Comment on above: PATIENT NOT FASTINGP ERFORMED BY: CB [facility] Ovdkhg3220 Anderson RoadNovant Health Clemmons Medical Centerin [place] [id number] Immature granulocytes (Bld) [#/Vol] 0.0 10*3/uL Normal 0.0-0.1 [facility]; [facility] Work Phone: Comment on above: PATIENT NOT FASTINGP ERFORMED BY: CB [facility] Yngiql2706 Anderson Roadblin [place] [id number] Immature granulocytes/100 WBC (Bld) 0 % Normal [facility] Work Phone: Comment on above: PATIENT NOT FASTINGP ERFORMED BY: CB [facility] Nhimqa3285 Anderson RoadDublin [place] [id number] Lymphocytes #/vol (Bld) 1.7 {x10E3/uL} Normal 0.7-3.1 [facility] Work Phone: Comment on above: PATIENT NOT FASTINGP ERFORMED BY: HERMINIO [facility]6370 [facility] [id number] Lymphocytes (Bld) [#/Vol] 1.7 10*3/uL Normal 0.7-3.1 [facility]; [facility] Work Phone: Comment on above: PATIENT NOT FASTINGP ERFORMED BY: HERMINIO [place] 9103670 [facility] [id number] Lymphocytes Auto #/vol (Bld) 1.7 {x10E3/uL} Normal 0.7-3.1 [facility] Work Phone: Lymphocytes/100 WBC (Bld) 22 % Normal [facility] Work Phone: Comment on above: PATIENT NOT FASTINGP ERFORMED BY: HERMINIO [facility] Ganauw9654 [facility] [id number] Lymphocytes/100 WBC Auto (Bld) 22 % Normal [facility] Work Phone: MCH Auto Entitic mass (RBC) 20.5 pg Abnormal 26.6-33.0 [facility] Work Phone: MCH Entitic mass (RBC) 20.5 pg Abnormal 26.6-33.0 [facility] Work Phone: Comment on above: PATIENT NOT FASTINGP ERFORMED BY: HERMINIO [place] 9103670 [facility] [id number] MCHC Auto mass conc (RBC) 29.7 g/dL Abnormal 31.5-35.7 [facility] Work Phone: MCHC mass conc (RBC) 29.7 g/dL Abnormal 31.5-35.7 Comp rehensive Internal Medicine Work Phone: Comment on above: PATIENT NOT FASTINGP ERFORMED BY: HERMINIO [place] [id number] [facility] [id number] MCV Auto Entitic volume (RBC) 69 fL Abnormal 79-97 [facility] Work Phone: MCV Entitic volume (RBC) 69 fL Abnormal 79-97 [facility] Work Phone: Comment on above: PATIENT NOT FASTINGP ERFORMED BY: HERMINIO LabCogaldino FloydWxjukj[address] [facility]in [place] [id number] Monocytes #/vol (Bld) 0.5 {x10E3/uL} Normal 0.1-0.9 [facility] Work Phone: Comment on above: PATIENT NOT FASTINGP ERFORMED BY: CB [facility] Malvmr[address] [facility]in [place] [id number] Monocytes (Bld) [#/Vol] 0.5 10*3/uL Normal 0.1-0.9 [facility]; [facility] Work Phone: Comment on above: PATIENT NOT FASTINGP ERFORMED BY: HERMINIO [address] [facility]in [place] [id number] Monocytes Auto #/vol (Bld) 0.5 {x10E3/uL} Normal 0.1-0.9 [facility] Work Phone: Monocytes/100 WBC (Bld) 6 % Normal [facility] Work Phone: Comment on above: PATIENT NOT FASTINGP ERFORMED BY: HERMINIO Floyd6370 [facility] [id number] Monocytes/100 WBC Auto (Bld) 6 % Normal [facility] Work Phone: Neutrophils #/vol (Bld) 5.4 {x10E3/uL} Normal 1.4-7.0 [facility] Work Phone: Comment on above: PATIENT NOT FASTINGP ERFORMED BY: HERMINIO [facility] Xdabrw[address] [facility]in [place] [id number] Neutrophils (Bld) [#/Vol] 5.4 10*3/uL Normal 1.4-7.0 [facility]; [facility] Work Phone: Comment on above: PATIENT NOT FASTINGP ERFORMED BY: CB [facility] Pycydm1271 [address] [facility] Centerblin [place] [id number] Neutrophils Auto #/vol (Bld) 5.4 {x10E3/uL} Normal 1.4-7.0 [facility] Work Phone: Neutrophils/100 WBC (Bld) 70 % Normal [facility] Work Phone: Comment on above: PATIENT NOT FASTINGP ERFORMED BY: HERMINIO LabCogaldino FloydQqmroa0101 [facility] [id number] Neutrophils/100 WBC Auto (Bld) 70 % Normal [facility] Work Phone: Platelets #/vol (Bld) 318 {x10E3/uL} Normal 150-379 [facility] Work Phone: Comment on above: PATIENT NOT FASTINGP ERFORMED BY: CB [facility] Whbssy1687 [facility] [id number] Platelets (Bld) [#/Vol] 318 10*3/uL Normal 150-379 [facility]; [facility] Work Phone: Comment on above: PATIENT NOT FASTINGP ERFORMED BY: CB [facility] Vsdxyg6890 [facility] [id number] Platelets Auto #/vol (Bld) 318 {x10E3/uL} Normal 150-379 [facility] Work Phone: RBC #/vol (Bld) 4.54 {x10E6/uL} Normal 3.77-5.28 [facility] Internal Medicine Work Phone: Comment on above: PATIENT NOT FASTINGP ERFORMED BY: CB Lab[facility] Alddig3746 [facility] [id number] RBC (Bld) [#/Vol] 4.54 10*6/uL Normal 3.77-5.28 [facility] Internal Medicine; [facility] Work Phone: Comment on above: PATIENT NOT FASTINGP ERFORMED BY: CB [facility] Iwzsoa7973 [facility] [id number] RBC Auto #/vol (Bld) 4.54 {x10E6/uL} Normal 3.77-5.28 [facility] Work Phone: WBC #/vol (Bld) 7.7 {x10E3/uL} Normal 3.4-10.8 [facility] Internal Medicine Work Phone: Comment on above: PATIENT NOT FASTINGP ERFORMED BY: HERMINIO [facility] Riqjop2432 [address] RoadDublin [place] [id number] WBC (Bld) [#/Vol] 7.7 10*3/uL Normal 3.4-10.8 [facility] Internal Medicine; [facility] Work Phone: Comment on above: PATIENT NOT FASTINGP ERFORMED BY: CB [facility] Ugpfgu8541 [address] RoadDublin [place] [id number] WBC Auto #/vol (Bld) 7.7 {x10E3/uL} Normal 3.4-10.8 [facility] Work Phone: METABOLIC PANEL, COMPREHENSI VE ([id number])Ordered By: Industrial Organization Manager on 01-14-2018 Albumin mass conc 4.4 g/dL Normal 3.5-5.5 Compreh [facility] Internal Medicine Work Phone: Comment on above: PATIENT NOT FASTINGP ERFORMED BY: CB [facility] Cfzxld1074 [address] RoadDublin [place] [id number] Albumin/Globulin mass ratio 1.3 {ratio} Normal 1.2-2.2 [facility] Work Phone: Comment on above: PATIENT NOT FASTINGP ERFORMED BY: HERMINIO [facility] Bdcgfz9157 [address] RoadDublin [place] [id number] ALP [Catalytic activity/Vol] 75 U/L Normal 39-117 [facility]; [facility] Work Phone: Comment on above: PATIENT NOT FASTINGP ERFORMED BY: CB [facility] Wkrnbg2437 [address] RoadDublin [place] [id number] ALP enzyme act/vol 75 [iU]/L Normal 39-117 [facility] Internal Medicine Work Phone: Comment on above: PATIENT NOT FASTINGP ERFORMED BY: CB [facility] Dxpblz1770 [address] RoadDublin [place] [id number] ALT [Catalytic activity/Vol] 11 U/L Normal 0-32 [facility]; [facility] Work Phone: Comment on above: PATIENT NOT FASTINGP ERFORMED BY: CB [facility] Rwxgiu1007 [address] RoadDublin [place] [id number] ALT enzyme act/vol 11 [iU]/L Normal 0-32 Compre [facility] Internal Medicine Work Phone: Comment on above: PATIENT NOT FASTINGP ERFORMED BY: CB [facility] Goppio7322 [address] RoadDublin [place] [id number] AST [Catalytic activity/Vol] 14 U/L Normal 0-40 [facility]; [facility] Internal Medicine Work Phone: Comment on above: PATIENT NOT FASTINGP ERFORMED BY: CB [facility] Pjjkdj4952 [address] RoadDublin [place] [id number] AST enzyme act/vol 14 [iU]/L Normal 0-40 [facility] Internal Medicine Work Phone: Comment on above: PATIENT NOT FASTINGP ERFORMED BY: CB [facility] Fsyjvj3721 [address] RoadDublin [place] [id number] Bilirubin mass conc 0.3 mg/dL Normal 0.0-1.2 Compr ensive Internal Medicine Work Phone: Comment on above: PATIENT NOT FASTINGP ERFORMED BY: HERMINIO [facility] Xgjoaj4512 [address] RoadDublin [place] [id number] Calcium mass conc 8.9 mg/dL Normal 8.7-10.2 Compreh ensive Internal Medicine Work Phone: Comment on above: PATIENT NOT FASTINGP ERFORMED BY: CB [facility] Ipdqiz0331 [address] RoadDublin [place] [id number] Chloride molar conc 103 mmol/L Normal 96-106 Compr ehensive Internal Medicine Work Phone: Comment on above: PATIENT NOT FASTINGP ERFORMED BY: CB [facility] Yscxdx3111 [address] RoadDublin [place] [id number] CO2 molar conc 22 mmol/L Normal 20-29 Comprehens percy Internal Medicine Work Phone: Comment on above: PATIENT NOT FASTINGP ERFORMED BY: CB [facility] Accsfr6443 [address] RoadDublin [place] [id number] Creatinine mass conc 0.91 mg/dL Normal 0.57-1.00 Comp rehensive Internal Medicine Work Phone: Comment on above: PATIENT NOT FASTINGP ERFORMED BY: HERMINIO Belkys Wcremg2193 [facility] [id number] GFR/1.73 sq M predicted among blacks CKD-EPI vol rate/area (S/P/Bld) 89 mL/min/1.73 Normal Comprehensiv e Internal Medicine Work Phone: Comment on above: PATIENT NOT FASTINGP ERFORMED BY: LabUniversity [facility]6370 [facility] [id number] GFR/1.73 sq M predicted among non-blacks CKD-EPI vol rate/area (S/P/Bld) 78 mL/min/1.73 Normal [facility] Work Phone: Comment on above: PATIENT NOT FASTINGP ERFORMED BY: [facility]6370 [facility] [id number] Globulin Calculated mass conc (S) 3.5 g/dL Normal 1.5-4.5 [facility] Work Phone: Globulin mass conc (S) 3.5 g/dL Normal 1.5-4.5 [facility] Work Phone: Comment on above: PATIENT NOT FASTINGP ERFORMED BY: LabUniversity [facility]6370 [facility] [id number] Glucose mass conc 102 mg/dL Abnormal 65-99 Compreh ensive Internal Medicine Work Phone: Comment on above: PATIENT NOT FASTINGP ERFORMED BY: [facility] Eosrrw1423 [facility] [id number] Potassium molar conc 3.9 mmol/L Normal 3.5-5.2 Comp rehensive Internal Medicine Work Phone: Comment on above: PATIENT NOT FASTINGP ERFORMED BY: [facility] Hnctbh5840 [facility] [id number] Protein mass conc 7.9 g/dL Normal 6.0-8.5 Compreh ensive Internal Medicine Work Phone: Comment on above: PATIENT NOT FASTINGP ERFORMED BY: HERMINIO [facility] Aorwrl[address] [facility]in [place] [id number] Sodium molar conc 140 mmol/L Normal 134-144 Compreh ensive Internal Medicine Work Phone: Comment on above: PATIENT NOT FASTINGP ERFORMED BY: HERMINIO [facility] Kptrdm6881 [address] [facility] [id number] Urea nitrogen mass conc 7 mg/dL Normal 6- [facility] Work Phone: Comment on above: PATIENT NOT FASTINGP ERFORMED BY: HERMINIO [facility] Iktiso[address]03 [address] [facility] [id number] Urea nitrogen/Creatinine mass ratio 8 mg/mg Abnormal 9- [facility] Work Phone: Comment on above: PATIENT NOT FASTINGP ERFORMED BY: HERMINIO [facility] Efrkux1704 [facility] [id number] MICROALBUMINOrdered By: Syst em Engineer Station Mainline on 01-14-2018 Albumin DL <= 20 mg/L mass conc (U) 3.5 ug/mL Normal [facility] Work Phone: Comment on above: PATIENT NOT FASTINGP ERFORMED BY: HERMINIO [facility] Icosjn0111 [facility] [id number] Albumin/Creatinine mass ratio (U) 7.8 {mg/g_creat} Normal 0.0-30.0 [facility] Work Phone: Comment on above: Normal: 0.0 - 30.0 A lbuminuria: 31.0 - 300.0 Clinical albuminuria: >300.0 PATIENT NOT FASTINGP ERFORMED BY: HERMINIO [facility] Upeylc[address] [facility]in [place] [id number] Creatinine mass conc (U) 44.6 mg/dL Normal [facility] Work Phone: Comment on above: PATIENT NOT FASTINGP ERFORMED BY: HERMINIO [facility] Cxuasf1949 [address] [facility] [id number] TSH ([id number])Ordered By: Syste m Engineer [employer] on 01-14-2018 Thyrotropin Qn 1.160 {uIU/mL} Normal 0.450-4.500 Compr ehensive Internal Medicine Work Phone: Comment on above: PATIENT NOT FASTINGP ERFORMED BY: HERMINIO [facility] Pookvn8286 [facility] [id number] Urinalysis, Office ([id number])Or dered By: Dilcia Zepeda on 01-14-2018 Bilirubin Ql (U) Negative Normal Comprehe nsive Internal Medicine Work Phone: Bilirubin Ql (U) Negative Normal Comprehe nsive Internal Medicine; [facility] Work Phone: Glucose Test strip (U) [Mass/Vol] Negative Normal [facility]; [facility] Work Phone: Glucose Test strip mass conc (U) Negative Normal [facility] Work Phone: Hemoglobin Ql (U) Non Hemolyzed Moderate Normal [facility] Work Phone: Hemoglobin Test strip Ql (U) Non Hemolyzed Moderate Normal Comprehen sive Internal Medicine Work Phone: Ketones Ql (U) Negative Normal Comprehens percy Internal Medicine Work Phone: Ketones Ql (U) Negative Normal Comprehens percy Internal Medicine; [facility] Work Phone: Leukocyte esterase Test strip Ql (U) Small Normal [facility] Work Phone: Nitrite Ql (U) Negative Normal Comprehens percy Internal Medicine Work Phone: Nitrite Ql (U) Negative Normal Comprehens percy Internal Medicine; [facility] Work Phone: Nitrite Test strip Ql (U) Negative Normal [facility] Work Phone: pH (U) 6.0 [pH] Normal [facility] Work Phone: pH Test strip (U) 6.0 [pH] Normal Compreh ensive Internal Medicine Work Phone: Protein Ql (U) Negative Normal Comprehens percy Internal Medicine Work Phone: Protein Ql (U) Negative Normal Comprehens percy Internal Medicine; [facility] Work Phone: Protein Test strip Ql (U) Negative Normal [facility] Work Phone: Specific gravity Relative Density (U) 1.025 1 Normal Comprehensi ve Internal Medicine Work Phone: Urobilinogen mass/time (24H U) Normal Normal [facility] Work Phone: PAP IG w/Reflex HR HPV Aptim aOrdered By: Industrial Organization Manager on 01-06-2018 COMM . Normal [facility] Work Phone: PAPSMR Comment Normal [facility] Work Phone: Comment on above: The Pap smear is a s creening test designed to aid in thedetection of premalignant and malignant conditions of theuterine cervix. It is not a diagnostic procedure andshould not be used as the sole means of detecting cervicalcancer. Both false-positive and false-negative reports dooccur. This liquid based Th inPrep(R) pap test was screened withthe use of an image guided system. Vanna Wagner rvjose Endoscopy Tech (ASCP) Andres Dalton totechnologist (ASCP) Satisfactory for roshan luation. Endocervical and/or squamous metaplasticcells (endocervical component) are present. The HPV DNA reflex c riteria were not met with this specimenresult therefore, no HPV testing was performed.Performed at: [address] [id number] Director: Erika Ga MD, Phone: [phone] NEGATIVE FOR INTRAEP ITHELIAL LESION AND MALIGNANCY.THIS SPECIMEN WAS RESCREENED PART OF OUR SEWER AND INSPECTOR PROGRAM. PAP IG w/Reflex HR HPV Aptima Comment Normal [facility] Work Phone: Comment on above: The Pap smear is a s creening test designed to aid in thedetection of premalignant and malignant conditions of theuterine cervix. It is not a diagnostic procedure andshould not be used as the sole means of detecting cervicalcancer. Both false-positive and false-negative reports dooccur. CYTOLOGY INFORMATION :- CLINICAL INFORMATION:- DATE LMP/MENOPAUSE: 12/30/17 LMP- COLLECTION VIAL: Thin Prep Vial- TRACK PATROL SOURCE: CERVICAL/ENDOCERVICAL- COLLECTION TECHNIQUE: BRUSH/SPATULASpecimen Comment: [id number] Comment: Source.............Cervix;EndocervixSpecimen Comment: LMP / Prev Treat...[id number] Comment: No. of containers..01 ThinPrep VialLabCorp (refer to report for specific site)refer to report for address and phone number The HPV DNA reflex c kraig were not met with this specimenresult therefore, no HPV testing was performed.Performed at: [address] [id number] Director: Erika Ga MD, Phone: [phone] Satisfactory for roshan luation. Endocervical and/or squamous metaplasticcells (endocervical component) are present. NEGATIVE FOR INTRAEP ITHELIAL LESION AND MALIGNANCY.THIS SPECIMEN WAS RESCREENED PART OF OUR SEWER AND INSPECTOR PROGRAM. Andres Dalton totechnologist (ASCP) Vanna Wagner Endoscopy Tech (ASCP) This liquid based Th inPrep(R) pap test was screened withthe use of an image guided system. PAP IG w/Reflex HR HPV Aptima . Normal [facility] Work Phone: Comment on above: CYTOLOGY INFORMATION :- CLINICAL INFORMATION:- DATE LMP/MENOPAUSE: 12/30/17 LMP- COLLECTION VIAL: Thin Prep Vial- TRACK PATROL SOURCE: CERVICAL/ENDOCERVICAL- COLLECTION TECHNIQUE: BRUSH/SPATULASpecimen Comment: [id number] Comment: Source.............Cervix;EndocervixSpecimen Comment: LMP / Prev Treat...[id number] Comment: No. of containers..01 ThinPrep VialLabCorp (refer to report for specific site)refer to report for address and phone number Rapid Strep Test, Office ([phone])Ordered By: Dilcia Zepeda on 03-18-2017 S. pyogenes Ag EIA Ql (Throat) Negative Normal [facility]; [facility] Work Phone: S. pyogenes Ag IA Ql (Unsp spec) Negative Normal [facility] Work Phone: C-REACT PROT HIGH SENS(hsCRP ) ([id number])Ordered By: Industrial Organization Manager on 01-20-2016 CRP High sensitivity method mass conc 13.25 mg/L Abnormal 0.00-3.00 [facility] Work Phone: Comment on above: Relative Risk for Fu ture Cardiovascular Event Low <1.00 Average 1.00 - 3.00 High >3.00 PATIENT WAS FASTINGP ERFORMED BY: [employer] [facility] [id number] [employer] [facility] [id number] GLUCOSE ([id number])Ordered By: S ystem Engineer Station [employer] on 01-20-2016 Glucose mass conc 92 mg/dL Normal 65-99 Compreh ensive [facility] Medicine Work Phone: Comment on above: PATIENT WAS FASTINGP ERFORMED BY: [employer] [facility] [id number] [employer] [facility] [id number] LIPID PANEL ([id number])Ordered B y: Industrial Organization Manager on 01-20-2016 Cholesterol in HDL mass conc 61 mg/dL Normal [facility] Work Phone: Comment on above: According to ATP-III Guidelines, HDL-C >59 mg/dL is considered anegative risk factor for CHD. PATIENT WAS FASTINGP ERFORMED BY: [employer] [facility] [id number] [employer] [facility] [id number] Cholesterol in LDL mass conc 56 mg/dL Normal 0-99 [facility] Work Phone: Comment on above: PATIENT WAS FASTINGP ERFORMED BY: [employer] [id number] [facility] [id number] Cholesterol in LDL/Cholesterol in HDL mass ratio 0.9 {ratio_units} Normal 0.0-3.2 [facility] Work Phone: Comment on above: LDL/HDL Ratio Men Wo men 1/2 Avg.Risk 1.0 1.5 Avg.Risk 3.6 3.2 2X Avg.Risk 6.2 5.0 3X Avg.Risk 8.0 6.1 PATIENT WAS FASTINGP ERFORMED BY: [facility] [id number] [facility] [id number] Cholesterol in VLDL mass conc 10 mg/dL Normal 5-40 [facility] Work Phone: Comment on above: PATIENT WAS FASTINGP ERFORMED BY: [facility] [id number] [facility] [id number] Cholesterol mass conc 127 mg/dL Normal 100-199 [facility] prehensive Internal Medicine Work Phone: Comment on above: PATIENT WAS FASTINGP ERFORMED BY: [facility] [id number] [facility] [id number] Triglyceride mass conc 48 mg/dL Normal 0-149 [facility] Work Phone: Comment on above: PATIENT WAS FASTINGP ERFORMED BY: [facility] [id number] [facility] [id number] PAP I-G w/ Reflex to HR HPVO rdered By: Industrial Organization Manager on 01-20-2016 ADEQ Comment Normal [facility] Work Phone: Comment on above: Satisfactory for roshan luation. Endocervical and/or squamous metaplasticcells (endocervical component) are present. Crissy Washington, Cyto technologist ([facility]) This liquid based Th inPrep(R) pap test was screened withthe use of an image guided system. The Pap smear is a s creening test designed to aid in thedetection of premalignant and malignant conditions of theuterine cervix. It is not a diagnostic procedure andshould not be used as the sole means of detecting cervicalcancer. Both false-positive and false-negative reports dooccur. The HPV DNA reflex treva cornell were not met with this specimenresult therefore, no HPV testing was performed.Performed at: [address] [place] [id number] Director: Erika Ga MD, Phone: [phone] NEGATIVE FOR INTRAEP ITHELIAL LESION AND MALIGNANCY. COMM . Normal [facility] Work Phone: PAP I-G w/ Reflex to HR HPV . Normal [facility] Work Phone: Comment on above: CYTOLOGY INFORMATION :- CLINICAL INFORMATION:- DATE LMP/MENOPAUSE: NO LMP GIVEN LMP- COLLECTION VIAL: Thin Prep Vial- TRACK PATROL SOURCE: CERVICAL/ENDOCERVICAL- COLLECTION TECHNIQUE: BRUSH/SPATULACYTOLOGY INFORMATION:- CLINICAL INFORMATION:- DATE LMP/MENOPAUSE: NO LMP GIVEN LMP- COLLECTION VIAL: Thin Prep Vial- TRACK PATROL SOURCE: CERVICAL/ENDOCERVICAL- COLLECTION TECHNIQUE: BRUSH/SPATULASpecimen Comment: [id number] Comment: No. of containers..01 CYTYC Thin Prep VialLabCorp (refer to report for specific site)refer to report for address and phone number PAP I-G w/ Reflex to HR HPV Comment Normal [facility] Work Phone: Comment on above: This liquid based Th inPrep(R) pap test was screened withthe use of an image guided system. CYTOLOGY INFORMATION :- CLINICAL INFORMATION:- DATE LMP/MENOPAUSE: NO LMP GIVEN LMP- COLLECTION VIAL: Thin Prep Vial- TRACK PATROL SOURCE: CERVICAL/ENDOCERVICAL- COLLECTION TECHNIQUE: BRUSH/SPATULACYTOLOGY INFORMATION:- CLINICAL INFORMATION:- DATE LMP/MENOPAUSE: NO LMP GIVEN LMP- COLLECTION VIAL: Thin Prep Vial- TRACK PATROL SOURCE: CERVICAL/ENDOCERVICAL- COLLECTION TECHNIQUE: BRUSH/SPATULASpecimen Comment: [id number] Comment: No. of containers..01 CYTYC Thin Prep VialLabCorp (refer to report for specific site)refer to report for address and phone number Crissy Washington, Cyto technologist (ASCP) Satisfactory for roshan luation. Endocervical and/or squamous metaplasticcells (endocervical component) are present. NEGATIVE FOR INTRAEP ITHELIAL LESION AND MALIGNANCY. The Pap smear is a s creening test designed to aid in thedetection of premalignant and malignant conditions of theuterine cervix. It is not a diagnostic procedure andshould not be used as the sole means of detecting cervicalcancer. Both false-positive and false-negative reports dooccur. The HPV DNA reflex c kraig were not met with this specimenresult therefore, no HPV testing was performed.Performed at: [address] [id number] Director: Erika Ga MD, Phone: [phone] ALFONSO CULTURE-OTHER ([id number])Ord ered By: Industrial Organization Manager on 06-22-2014 Bacteria identified Respiratory culture Nom (Unsp spec) RRF Normal [facility] Work Phone: Comment on above: Routine respiratory shanice PATIENT NOT FASTINGP ERFORMED BY: HERMINIO [facility] [id number] [facility] [id number] Information: SRC: THROAT Bacteria identified Respiratory culture Nom (Unsp spec) Final report Normal [facility] Work Phone: Comment on above: PATIENT NOT FASTINGP ERFORMED BY: [facility] [id number] [facility] [id number] Information: SRC: THROAT Rapid Strep Test, Office ([id number] [id number])Ordered By: Dilcia Zepeda on 06-21-2014 S. pyogenes Ag EIA Ql (Throat) Negative Normal [facility]; [facility] Work Phone: S. pyogenes Ag IA Ql (Unsp spec) Negative Normal [facility] Work Phone: Pap IG, HPV-hrOrdered By: Sy stem Engineer Station [employer] on 07-29-2013 HPV 16+18+31+33+35+39+45+ 51+52+56+58+59+68 DNA Probe+sig amp Ql (Cvx) Negative Normal [facility] Work Phone: Comment on above: This high-risk HPV t est detects thirteen high-risk types(16/18/31/33/35/39/45/51/52/56/58/59/68) without differentiation. . PERFORMED BY: [facility] [id number] BY: =[employer] [id number] Information: [id number] Microscopic observation Other stain Nom (Unsp spec) . Normal Comprehens percy [facility] Work Phone: Comment on above: PERFORMED BY: [facility] [id number] BY: =G XDC120 [facility] CenterbenjaminSymbolic IOrlancaster rehabilitation hospital W [id number] Information: [id number] Pathology report final diagnosis Narrative SPRCS Normal [facility] Work Phone: Comment on above: NEGATIVE FOR INTRAEP ITHELIAL LESION AND MALIGNANCY.Satisfactory for evaluation. Endocervical and/or squamous metaplasticcells (endocervical component) are present.V70.0 ; Routine general medical examination at health care qlmcjhtbZ38.81 ; Special screening examination, human papillomavirus [HPV]Makenna Samaniego, Endoscopy Tech (ASCP) PERFORMED BY: [facility] W [id number] BY: =G XDC120 [facility] [place] W [id number] Information: [id number] Pap IG, HPV-hr PAPSMR Normal [facility] Internal [facility] Work Phone: Comment on above: The Pap smear is a s creening test designed to aid in the detection ofpremalignant and malignant conditions of the uterine cervix. It is not adiagnostic procedure and should not be used as the sole means of detectingcervical cancer. Both false-positive and false-negative reports do occur. . PERFORMED BY: [facility]120 [employer] InstrumentsrSwogobayonne medical center W [id number] BY: =G [employer] [facility] [place] W [id number] Information: [id number] PELVIC (NON )Ordered By: Industrial Organization Manager on 05-02-2012 PELVIC (NON ) See Note Normal [facility] prehensive Internal Medicine Work Phone: Comment on above: PROCEDURE: ULTRASOUN D OF THE FEMALE PELVIS - COMPLETE REASON FOR EXAM: Female, 36 years old. Left lower quadrant pain. LMP: Not reported TECHNIQUE: Transabdominal and Transvaginal TECHNICAL QUALITY: Adequate. COMPARISON: None. FINDINGS:The uterus is anteverted and is in a midline position. The tdjuglnphdwzxs19.4 x 4.5 x 5.6 cm. Normal uterine cervix. The endometrium measures 11mm in thickness, and is hyperechoic. There is no demonstratedendometrialmass. There is no demonstrated myometrial mass. I.U.D. - No The right ovary is visualized. The right ovary measures 2.2 x 1.9 x 2.1cm. There is no right ovarian cyst or ovarian mass. There is novisualized right adnexal mass or complex lesion. There is normal arterialand normal venous vascularity. The left ovary is visualized. The left ovary measures 3.9 x 1.9 x 3.4cm.There is no left ovarian cyst or ovarian mass. There is no visualizedleftadnexal mass or complex lesion. There is normal arterial and normalvenousvascularity. There is no fluid in the cul-de-sac. The distended urinary bladder had a volume of 522 cm? at the time of theexam. No postvoid residual volume is identified. IMPRESSION:Normal female pelvis. Signed:Philip Fuller M.D.May 02, 2012 at 4:24:16 PM [id number] Signed DL/DL If you are the referring physician and would like to consult with theradiologist who provided this interpretation, please contact Angelika Nuñez at [phone]. If this radiologist is unavailable, youwillbe directed to another radiologist to assist. If you are a patient with a question regarding this report, pleasecontactyour referring physician directly. Professional Interpretation Provided By: [employer], Phone , These documents contain legally protected and confidential healthinformation intended only for the use of the individual or entity namedabove. If you are not the intended recipient, you are hereby notifiedthatany disclosure, copying, distribution, or other use of these documents isstrictly prohibited. If you have received this information in error,pleasenotify the sender immediately and arrange for the return or destructionofthese documents. Dictated on 05/02/12 1510 by Philip Fuller MDTranscribed on 05/02/121656 by ITS IMPORTSign by Philip Fuller MD on 02/25/13 1658 Sign by: Philip Fuller MD URINE ALFONSO CULTURE (CINDY COL COUNT) ([id number])Ordered By: Industrial Organization Manager on 04-18-2012 Bacteria identified Cx Nom (U) Final report Normal [facility] Work Phone: Comment on above: PATIENT NOT FASTINGP ERFORMED BY: CB [facility] [id number] [facility] [id number] Information: SRC:UR [id number] Bacteria identified Cx Nom (U) MUG Normal [facility] Work Phone: Comment on above: Mixed urogenital eun ra700 Colonies/mL PATIENT NOT FASTINGP ERFORMED BY: CB [facility] [id number] [facility] [id number] Information: SRC:UR [id number] Urinalysis, Office ([id number])Or dered By: Sybil France on 04-18-2012 Bilirubin Ql (U) Negative Normal Comprehe nsive Internal Medicine Work Phone: Glucose Test strip mass conc (U) Negative Normal [facility] Work Phone: Hemoglobin Ql (U) Non Hemolyzed Trace Normal [facility] Work Phone: Hemoglobin Test strip Ql (U) Non Hemolyzed Trace Normal Comprehensiv e [facility] Work Phone: Ketones Ql (U) Negative Normal Comprehens percy [facility] Work Phone: Leukocyte esterase Test strip Ql (U) Negative Normal [facility] Work Phone: Nitrite Ql (U) Negative Normal Comprehens per[facility] Work Phone: Nitrite Test strip Ql (U) Negative Normal [facility] Work Phone: pH (U) 6.0 [pH] Normal [facility] Work Phone: pH Test strip (U) 6.0 [pH] Normal Compreh ensive [facility] Work Phone: Protein Ql (U) Negative Normal Comprehens per[facility] Work Phone: Protein Test strip Ql (U) Negative Normal [facility] Work Phone: Specific gravity Relative Density (U) 1.025 1 Normal Comprehensi ve Internal Medicine Work Phone: Comment on above: 1.030 Urobilinogen mass/time (24H U) Normal Normal [facility] Work Phone: Urinalysis, Office ([id number])on 04-18-2012 Bilirubin Ql (U) Negative Normal Comprehe nsive Internal Medicine; [facility] Work Phone: Glucose Test strip (U) [Mass/Vol] Negative Normal [facility]; [facility] Work Phone: Ketones Ql (U) Negative Normal Comprehens per[facility]; [facility] Work Phone: Leukocyte esterase Test strip Ql (U) Negative Normal [facility]; [facility] Work Phone: Nitrite Ql (U) Negative Normal Comprehens [facility]; [facility] Work Phone: Protein Ql (U) Negative Normal Comprehens per[facility]; [facility] Work Phone: LIPIDOrdered By: Shanique rae on 08-30-2007 Cholesterol in HDL mass conc 54 mg/dL Normal [facility] Work Phone: Comment on above: Reference Range HDL <40 mg/dL Low HDL Cholesterol HDL >or= 60 mg/dL High HDL Cholesterol Cholesterol in LDL mass conc 89 mg/dL Normal 0-130 [facility] Work Phone: Cholesterol in VLDL mass conc 9 mg/dL Normal 5-40 [facility] Work Phone: Cholesterol mass conc 152 mg/dL Normal Com prehensive [facility] Medicine Work Phone: Comment on above: <200 mg/dL Desirable 200-240 mg/dL Borderline >240 mg/dL High Risk Triglyceride mass conc 45 mg/dL Normal [facility] Work Phone: Comment on above: Serum Triglycerides Reference Interval Normal <150 mg/dL Borderline high 150 - 199 mg/dL High 200 - 499 mg/dL Very High > or = 500 mg/dL C-REACTIVE PROTOrdered By: Jacob ystem Engineer Station [employer] on 08-25-2007 CRP mass conc 25.45 mg/L Abnormal 0.0-6.0 [facility] Work Phone: Comment on above: Test performed using the Dimension C-Reactive ProteinExtended Range assay method. This assay meets the AHA/CDC 2003 recommendations fordetermining patients at high risk for cardiovasculardisease. Reference: High risk CRP >3.0 mg/L COMP METABOLICOrdered By: Iftikhar yuriy Engineer Station [employer] on 08-25-2007 Albumin mass conc 4.1 g/dL Normal 3.4-5.0 [facility] Internal Medicine Work Phone: Albumin/Globulin mass ratio 0.9 {RATIO} Normal 0.9-2.4 [facility] Internal Medicine Work Phone: ALP enzyme act/vol 78 U/L Normal 50-136 [facility] Internal Medicine Work Phone: ALT enzyme act/vol 53 U/L Normal 30-65 [facility] Internal [facility] Work Phone: Anion gap 3 molar conc 10 mmol/L Normal 5-15 [facility] Internal Medicine Work Phone: Anion gap molar conc 10 mmol/L Normal 5-15 [facility] Internal Medicine Work Phone: AST enzyme act/vol 21 U/L Normal 15-37 [facility] Internal Medicine Work Phone: Bilirubin mass conc 0.24 mg/dL Normal 0.00-1.00 [facility] Internal [facility] Work Phone: Calcium mass conc 9.1 mg/dL Normal 8.5-10.1 [facility] Internal Medicine Work Phone: Chloride molar conc 103 mmol/L Normal 98-107 [facility] Internal [facility] Work Phone: CO2 molar conc 25.5 mmol/L Normal 21.0-32.0 [facility] Internal Medicine Work Phone: Creatinine mass conc 0.9 mg/dL Normal 0.6-1.0 [facility] Internal Medicine Work Phone: Globulin Calculated mass conc (S) 4.5 g/dL Abnormal 2.7-4.2 [facility] Work Phone: Globulin mass conc (S) 4.5 g/dL Abnormal 2.7-4.2 [facility] Work Phone: Glucose mass conc 88 mg/dL Normal 70-110 Compreh ensive [facility] Medicine Work Phone: Potassium molar conc 4.0 mmol/L Normal 3.5-5.1 Comp rehensive Internal Medicine Work Phone: Protein mass conc 8.6 g/dL Abnormal 6.4-8.2 Compreh ensive [facility] Work Phone: Sodium molar conc 138 mmol/L Normal 136-145 Compreh ensive [facility] Work Phone: Urea nitrogen mass conc 8 mg/dL Normal 7-18 [facility] Work Phone: Urea nitrogen/Creatinine mass ratio 8.9 {RATIO} Abnormal 10-20 [facility] Work Phone: CPK ISO 2154Ordered By: Syst em Engineer Station [employer] on 08-25-2007 CK.MB mass conc 0 % Normal 0-3 Comprehen sive Internal Medicine Work Phone: CPK ISO 2154 100 % Normal 97-100 Comprehensiv e Internal Medicine Work Phone: CPK ISO 2154 0 % Normal Comprehensiv e [facility] Medicine Work Phone: Comment on above: Performed At: [address] [id number] CPK ISO 2154 62 U/L Normal 24-173 Comprehensiv e Internal Medicine Work Phone: CPK TOTALOrdered By: Industrial Organization Manager on 08-25-2007 CPK TOTAL 63 U/L Normal 21-215 [facility] Work Phone: TSHOrdered By: System Manage r on 08-25-2007 Thyrotropin Qn 0.95 {uIU/mL} Normal 0.34-4.82 Compreh ensive Internal Medicine Work Phone: Vital Signs Date Time Vital Sign Value Performing Clinician Facility 08-11-2024 16:02-0400 Body height 165.1 cm Shante Vickers MD Work Phone: [facility] 08-11-2024 16:02-0400 Body mass index (BMI) [Ratio] 39.94 kg/m2 Shante Vickers MD Work Phone: [facility] 08-11-2024 16:02-0400 Body weight 108.86 kg Shante Vickers MD Work Phone: [facility] 08-11-2024 16:02-0400 Diastolic blood pressure 84 mm[Hg] Shante Vickers MD Work Phone: [facility] 08-11-2024 16:02-0400 Systolic blood pressure 148 mm[Hg] Shante Vickers MD Work Phone: [facility] 05-10-2024 14:57-0500 Body mass index (BMI) [Ratio] 40.39 kg/m2 Shante Vickers MD Work Phone: [facility] 05-10-2024 14:57-0500 Body weight 108.41 kg Shante Vickers MD Work Phone: [facility] 05-10-2024 14:57-0500 Diastolic blood pressure 84 mm[Hg] Shante Vickers MD Work Phone: [facility] 05-10-2024 14:57-0500 Systolic blood pressure 130 mm[Hg] Shante Vickers MD Work Phone: [facility] 04-19-2024 14:50-0500 Diastolic blood pressure 80 mm[Hg] Bridger Foss APRN.[employer] SAL[employer] Work Phone: [facility] 04-19-2024 14:50-0500 Systolic blood pressure 120 mm[Hg] Bridger Foss APRN.[employer] Work Phone: [facility] 04-19-2024 14:34-0500 Body mass index (BMI) [Ratio] 40.39 kg/m2 Bridger Villaltaroseanna DUMBWAITER OPERATOR.[employer] Work Phone: [facility] 04-19-2024 14:34-0500 Body weight 108.41 kg Bridger Villaltaroseanna ALAS.[employer] SAL[employer] Work Phone: [facility] 04-10-2024 11:10-0500 Body mass index (BMI) [Ratio] 40.15 kg/m2 Janine Barnard MD Work Phone: [facility] 04-10-2024 11:10-0500 Body weight 107.78 kg Janine Barnard MD Work Phone: [facility] 04-10-2024 11:10-0500 Diastolic blood pressure 88 mm[Hg] Janine Barnard MD Work Phone: [facility] 04-10-2024 11:10-0500 Systolic blood pressure 130 mm[Hg] Janine Barnard MD Work Phone: [facility] 01-25-2024 09:22-0500 Body height 163.8 cm Janine Barnard MD Work Phone: [facility] 01-25-2024 09:22-0500 Body mass index (BMI) [Ratio] 39.55 kg/m2 Janine Barnard MD Work Phone: [facility] 01-25-2024 09:22-0500 Body weight 106.14 kg Janine Barnard MD Work Phone: [facility] 01-25-2024 09:22-0500 Diastolic blood pressure 84 mm[Hg] Janine Barnard MD Work Phone: [facility] 01-25-2024 09:22-0500 Systolic blood pressure 122 mm[Hg] Janine Barnard MD Work Phone: [facility] 01-27-2019 07:14-0500 BMI (Body Mass Index) 37.96 kg/m2 Rae Jalloh [facility] Internal Medicine Work Phone: 01-27-2019 07:14-0500 Body Temperature 97.6 [degF] Rae Jalloh [facility] Work Phone: Comment on above: Method: Temporal 01-27-2019 07:14-0500 Body weight 103.48 kg Rae Jalloh [facility] Internal Medicine Work Phone: 01-27-2019 07:14-0500 BP Diastolic 82 mm[Hg] Rae Jalloh [facility] Internal Medicine Work Phone: Comment on above: Patient Position: Sitting; Cuff Location : Left Arm; Cuff Size: Standard 01-27-2019 07:14-0500 BP Systolic 110 mm[Hg] Rae Jalloh [facility] Internal Medicine Work Phone: Comment on above: Patient Position: Sitting; Cuff Location : Left Arm; Cuff Size: Standard 01-27-2019 07:14-0500 BSA (Body Surface Area) 2.09 m2 Rae Jalloh [facility] Internal Medicine Work Phone: 01-27-2019 07:14-0500 Height 165.1 cm Rae Jalloh [facility] Internal Medicine Work Phone: 01-27-2019 07:14-0500 Pulse (Heart Rate) 106 /min Rae Jalloh [facility] Internal Medicine Work Phone: Comment on above: Pattern: Regular 01-27-2019 07:14-0500 Pulse Oximetry 98 % Annie Anglin [facility] Internal Medicine Work Phone: Comment on above: Room air 01-27-2019 07:14-0500 Respiratory Rate 18 /min Rae Jalloh [facility] Internal Medicine Work Phone: Comment on above: Pattern: Unlabored 01-27-2019 07:14-0500 SaO2% (BldA) [Mass fraction] 98 % Rae Jalloh [facility] Internal Medicine; [facility] Work Phone: Comment on above: Room air 05-20-2018 07:06-0400 BMI (Body Mass Index) 36.96 kg/m2 Enriqueta Cisse RN [facility] Work Phone: 05-20-2018 07:06-0400 Body weight 100.76 kg Enriqueta Cisse RN [facility] Work Phone: 05-20-2018 07:06-0400 BP Diastolic 84 mm[Hg] Enriqueta Cisse RN [facility] Work Phone: Comment on above: Patient Position: Sitting; Cuff Location : Left Arm; Cuff Size: Large 05-20-2018 07:06-0400 BP Systolic 122 mm[Hg] Enriqueta Cisse RN [facility] Work Phone: Comment on above: Patient Position: Sitting; Cuff Location : Left Arm; Cuff Size: Large 05-20-2018 07:06-0400 BSA (Body Surface Area) 2.07 m2 Enriqueta Cisse RN [facility] Work Phone: 05-20-2018 07:06-0400 Height 165.1 cm Enriqueta Cisse RN [facility] Work Phone: 05-20-2018 07:06-0400 Pulse (Heart Rate) 104 /min Enriqueta Cisse RN [facility] Work Phone: Comment on above: Pattern: Regular 05-20-2018 07:06-0400 Pulse Oximetry 94 % Annie Anglin [facility] Work Phone: Comment on above: Room air 05-20-2018 07:06-0400 Respiratory Rate 18 /min Enriqueta Cisse RN [facility] Work Phone: Comment on above: Pattern: Unlabored 05-20-2018 07:06-0400 SaO2% (BldA) [Mass fraction] 94 % Enriqueta Cisse RN [facility]; [facility] Work Phone: Comment on above: Room air 05-20-2018 07:06-0400 Weight 100.76 kg Annie Anglin [facility] Work Phone: 02-04-2018 14:43-0500 BMI (Body Mass Index) 39.17 kg/m2 Enriqueta Cisse RN [facility] Work Phone: 02-04-2018 14:43-0500 Body weight 106.77 kg Enriqueta Cisse RN [facility] Work Phone: 02-04-2018 14:43-0500 BP Diastolic 98 mm[Hg] Enriqueta Cisse RN [facility] Work Phone: Comment on above: Patient Position: Sitting; Cuff Location : Left Arm; Cuff Size: Large 02-04-2018 14:43-0500 BP Systolic 138 mm[Hg] Enriqueta Cisse RN [facility] Work Phone: Comment on above: Patient Position: Sitting; Cuff Location : Left Arm; Cuff Size: Large 02-04-2018 14:43-0500 BSA (Body Surface Area) 2.12 m2 Enriqueta Cisse RN [facility] Work Phone: 02-04-2018 14:43-0500 Height 165.1 cm Enriqueta Cisse RN [facility] Work Phone: 02-04-2018 14:43-0500 Pulse (Heart Rate) 107 /min Enriqueta Cisse RN [facility] Work Phone: Comment on above: Pattern: Regular 02-04-2018 14:43-0500 Pulse Oximetry 99 % Annie Anglin [facility] Work Phone: Comment on above: Room air 02-04-2018 14:43-0500 Respiratory Rate 18 /min Enriqueta Cisse RN [facility] Work Phone: Comment on above: Pattern: Unlabored 02-04-2018 14:43-0500 SaO2% (BldA) [Mass fraction] 99 % Enriqueta Cisse RN [facility]; [facility] Work Phone: Comment on above: Room air 02-04-2018 14:43-0500 Weight 106.77 kg Annie Anglin [facility] Medicine Work Phone: 01-14-2018 12:59-0500 BMI (Body Mass Index) 40.29 kg/m2 Radha Sanford [facility] Internal Medicine Work Phone: 01-14-2018 12:59-0500 Body Temperature 97.7 [degF] Radha Sanford [facility] Work Phone: Comment on above: Method: Temporal 01-14-2018 12:59-0500 Body weight 109.83 kg Radha Sanford [facility] Medicine Work Phone: 01-14-2018 12:59-0500 BP Diastolic 96 mm[Hg] Radha Sanford [facility] Work Phone: Comment on above: Patient Position: Sitting; Cuff Location : Left Arm; Cuff Size: Standard 01-14-2018 12:59-0500 BP Systolic 142 mm[Hg] Radha Sanford [facility] Work Phone: Comment on above: Patient Position: Sitting; Cuff Location : Left Arm; Cuff Size: Standard 01-14-2018 12:59-0500 BSA (Body Surface Area) 2.15 m2 Radha Sanford [facility] Work Phone: 01-14-2018 12:59-0500 Height 165.1 cm Radha Sanford [facility] Work Phone: 01-14-2018 12:59-0500 Pulse (Heart Rate) 112 /min Radha Sanford [facility] Work Phone: Comment on above: Pattern: Regular 01-14-2018 12:59-0500 Pulse Oximetry 100 % Annie Anglin [facility] Work Phone: Comment on above: Room air 01-14-2018 12:59-0500 Respiratory Rate 16 /min Radha Sanford [facility] Work Phone: Comment on above: Pattern: Unlabored 01-14-2018 12:59-0500 SaO2% (BldA) [Mass fraction] 100 % Radha Sanford [facility]; [facility] Work Phone: Comment on above: Room air 01-14-2018 12:59-0500 Weight 109.83 kg Annie Anglin [facility] Work Phone: 07-15-2017 13:00-0400 BMI (Body Mass Index) 40.6 kg/m2 Enriqueta Cisse RN [facility] Work Phone: 07-15-2017 13:00-0400 Body weight 110.68 kg Enriqueta Cisse RN [facility] Work Phone: 07-15-2017 13:00-0400 BP Diastolic 82 mm[Hg] Enriqueta Cisse RN [facility] Work Phone: Comment on above: Patient Position: Sitting; Cuff Location : Left Arm; Cuff Size: Large 07-15-2017 13:00-0400 BP Systolic 138 mm[Hg] Enriqueta Cisse RN [facility] Work Phone: Comment on above: Patient Position: Sitting; Cuff Location : Left Arm; Cuff Size: Large 07-15-2017 13:00-0400 BSA (Body Surface Area) 2.15 m2 Enriqueta Cisse RN [facility] Work Phone: 07-15-2017 13:00-0400 Height 165.1 cm Enriqueta Cisse RN [facility] Work Phone: 07-15-2017 13:00-0400 Pulse (Heart Rate) 98 /min Enriqueta Cisse RN [facility] Work Phone: Comment on above: Pattern: Regular 07-15-2017 13:00-0400 Pulse Oximetry 98 % Annie Anglin [facility] Work Phone: Comment on above: Room air 07-15-2017 13:00-0400 Respiratory Rate 18 /min Enriqueta Cisse RN [facility] Work Phone: Comment on above: Pattern: Unlabored 07-15-2017 13:00-0400 SaO2% (BldA) [Mass fraction] 98 % Enriqueta Cisse RN [facility]; [facility] Work Phone: Comment on above: Room air 07-15-2017 13:00-0400 Weight 110.68 kg Annie Anglin [facility] Work Phone: 03-18-2017 13:14-0500 BMI (Body Mass Index) 41.27 kg/m2 Dilcia Zepeda RN [facility] Internal Medicine Work Phone: 03-18-2017 13:14-0500 Body Temperature 98 [degF] Dilcia Zepeda RN [facility] Work Phone: Comment on above: Method: Temporal 03-18-2017 13:14-0500 Body weight 112.49 kg Dilcia Zepeda RN [facility] Work Phone: 03-18-2017 13:14-0500 BP Diastolic 74 mm[Hg] Dilcia Zepeda RN [facility] Work Phone: Comment on above: Patient Position: Sitting; Cuff Location : Left Arm; Cuff Size: Standard 03-18-2017 13:14-0500 BP Systolic 126 mm[Hg] Dilcia Zepeda RN [facility] Work Phone: Comment on above: Patient Position: Sitting; Cuff Location : Left Arm; Cuff Size: Standard 03-18-2017 13:14-0500 BSA (Body Surface Area) 2.17 m2 Dilcia Zepeda RN [facility] Work Phone: 03-18-2017 13:14-0500 Height 165.1 cm Dilcia Zepeda RN [facility] Work Phone: 03-18-2017 13:14-0500 Pulse (Heart Rate) 72 /min Dilcia Zepeda RN [facility] Work Phone: Comment on above: Pattern: Regular 03-18-2017 13:14-0500 Pulse Oximetry 99 % Annie Anglin [facility] Work Phone: Comment on above: Room air 03-18-2017 13:14-0500 Respiratory Rate 16 /min Dilcia Zepeda RN [facility] Work Phone: Comment on above: Pattern: Unlabored 03-18-2017 13:14-0500 SaO2% (BldA) [Mass fraction] 99 % Dilcia Zepeda RN [facility]; [facility] Work Phone: Comment on above: Room air 03-18-2017 13:14-0500 Weight 112.49 kg Annie Anglin [facility] Work Phone: 03-20-2016 11:43-0500 BMI (Body Mass Index) 41.27 kg/m2 GUERA Donahue LPN [facility] Work Phone: 03-20-2016 11:43-0500 Body Temperature 97.9 [degF] GUERA Donahue LPN [facility] Work Phone: Comment on above: Method: Temporal 03-20-2016 11:43-0500 Body weight 112.49 kg GUERA Donahue LPN [facility] Work Phone: 03-20-2016 11:43-0500 BP Diastolic 86 mm[Hg] GUERA Donahue LPN [facility] Work Phone: Comment on above: Patient Position: Sitting; Cuff Location : Left Arm; Cuff Size: Large 03-20-2016 11:43-0500 BP Systolic 144 mm[Hg] GUERA Donahue FRANCOIS [facility] Work Phone: Comment on above: Patient Position: Sitting; Cuff Location : Left Arm; Cuff Size: Large 03-20-2016 11:43-0500 BSA (Body Surface Area) 2.17 m2 GUERA Donahue [facility] Work Phone: 03-20-2016 11:43-0500 Height 165.1 cm GUERA Donahue [facility] Work Phone: 03-20-2016 11:43-0500 Pulse (Heart Rate) 96 /min GUERA Donahue [facility] Work Phone: Comment on above: Pattern: Regular 03-20-2016 11:43-0500 Pulse Oximetry 98 % Annie Linnette [facility] Work Phone: Comment on above: Room air 03-20-2016 11:43-0500 Respiratory Rate 20 /min GUERA Donahue FR[facility]COIS [facility] Work Phone: Comment on above: Pattern: Unlabored 03-20-2016 11:43-0500 SaO2% (BldA) [Mass fraction] 98 % GUERA Godfrey PARRISH [facility]; [facility] Work Phone: Comment on above: Room air 03-20-2016 11:43-0500 Weight 112.49 kg Annie Anglin [facility] Work Phone: 01-13-2016 12:00-0500 BMI (Body Mass Index) 41.68 kg/m2 Enriqueta Cisse RN [facility] Work Phone: 01-13-2016 12:00-0500 Body weight 113.63 kg Enriqueta Cisse RN [facility] Work Phone: 01-13-2016 12:00-0500 BP Diastolic 84 mm[Hg] Enriqueta Cisse RN [facility] Work Phone: Comment on above: Patient Position: Sitting; Cuff Location : Left Arm; Cuff Size: Large 01-13-2016 12:00-0500 BP Systolic 128 mm[Hg] Enriqueta Cisse RN [facility] Work Phone: Comment on above: Patient Position: Sitting; Cuff Location : Left Arm; Cuff Size: Large 01-13-2016 12:00-0500 BSA (Body Surface Area) 2.18 m2 Enriqueta Cisse RN [facility] Work Phone: 01-13-2016 12:00-0500 Height 165.1 cm Enriqueta Cisse RN [facility] Work Phone: 01-13-2016 12:00-0500 Pulse (Heart Rate) 82 /min Enriqueta Cisse RN [facility] Work Phone: Comment on above: Pattern: Regular 01-13-2016 12:00-0500 Pulse Oximetry 99 % Annie Anglin [facility] Work Phone: Comment on above: Room air 01-13-2016 12:00-0500 Respiratory Rate 18 /min Enriqueta Cisse RN [facility] Work Phone: Comment on above: Pattern: Unlabored 01-13-2016 12:00-0500 SaO2% (BldA) [Mass fraction] 99 % Enriqueta Cisse RN [facility]; [facility] Work Phone: Comment on above: Room air 01-13-2016 12:00-0500 Weight 113.63 kg Annie Anglin [facility] Work Phone: 12-19-2014 13:13-0400 Body Temperature 97.9 [degF] Pamela Hurtado [facility] Work Phone: Comment on above: Method: Oral 12-19-2014 13:13-0400 Body weight 110.22 kg Pamela Hurtado [facility] Work Phone: 12-19-2014 13:13-0400 BP Diastolic 68 mm[Hg] Pamela Hurtado [facility] Work Phone: Comment on above: Patient Position: Sitting; Cuff Location : Left Arm; Cuff Size: Standard 12-19-2014 13:13-0400 BP Systolic 115 mm[Hg] Pamela Hurtado [facility] Work Phone: Comment on above: Patient Position: Sitting; Cuff Location : Left Arm; Cuff Size: Standard 12-19-2014 13:13-0400 Pulse (Heart Rate) 105 /min Pamela Hurtado [facility] Internal Medicine Work Phone: Comment on above: Pattern: Regular 12-19-2014 13:13-0400 Pulse Oximetry 98 % Annie Anglin [facility] Internal Medicine Work Phone: Comment on above: Room air 12-19-2014 13:13-0400 Respiratory Rate 16 /min Pamela Hurtado [facility] Internal Medicine Work Phone: Comment on above: Pattern: Unlabored 12-19-2014 13:13-0400 SaO2% (BldA) [Mass fraction] 98 % Pamela Hurtado [facility]; [facility] Work Phone: Comment on above: Room air 12-19-2014 13:13-0400 Weight 110.22 kg Annie Anglin [facility] Work Phone: 06-21-2014 14:46-0400 Body Temperature 97.8 [degF] [facility] Internal [facility] Work Phone: 06-21-2014 14:46-0400 Body weight 110.22 kg [facility] Internal [facility] Work Phone: 06-21-2014 14:46-0400 BP Diastolic 90 mm[Hg] [facility] Work Phone: Comment on above: Patient Position: Sitting; Cuff Location : Left Arm; Cuff Size: Standard 06-21-2014 14:46-0400 BP Systolic 130 mm[Hg] [facility] Work Phone: Comment on above: Patient Position: Sitting; Cuff Location : Left Arm; Cuff Size: Standard 06-21-2014 14:46-0400 Pulse (Heart Rate) 66 /[facility] Work Phone: Comment on above: Pattern: Regular 06-21-2014 14:46-0400 Pulse Oximetry 98 % Annie Anglin [facility] Internal Medicine Work Phone: Comment on above: Room air 06-21-2014 14:46-0400 Respiratory Rate 18 /min [facility] Work [facility]: Comment on above: Pattern: Unlabored 06-21-2014 14:46-0400 SaO2% (BldA) [Mass fraction] 98 % Amara Smith [facility]; [facility] Work Phone: Comment on above: Room air 06-21-2014 14:46-0400 Weight 110.22 kg Annie Anglin [facility] Medicine Work Phone: 07-28-2013 11:26-0400 BMI (Body Mass Index) 39.94 kg/m2 GUERA Donahue [facility] Internal Medicine Work Phone: 07-28-2013 11:26-0400 Body Temperature 97.6 [degF] GUERA Donahue [facility] Internal Medicine Work Phone: Comment on above: Method: Oral 07-28-2013 11:26-0400 Body weight 108.86 kg GUERA Donahue [facility] Internal Medicine Work Phone: 07-28-2013 11:26-0400 BP Diastolic 80 mm[Hg] GUERA Donahue [facility] Internal Medicine Work Phone: Comment on above: Patient Position: Sitting; Cuff Location : Left Arm; Cuff Size: Large 07-28-2013 11:26-0400 BP Systolic 126 mm[Hg] GUERA Donahue [facility] Internal Medicine Work Phone: Comment on above: Patient Position: Sitting; Cuff Location : Left Arm; Cuff Size: Large 07-28-2013 11:26-0400 BSA (Body Surface Area) 2.14 m2 GUERA Donahue HE[employer] EDUCATION SPECIALIST [facility] Internal Medicine Work Phone: 07-28-2013 11:26-0400 Height 165.1 cm GUERA Donahue [facility] Internal Medicine Work Phone: 07-28-2013 11:26-0400 Pulse (Heart Rate) 86 /min GUERA Godfrey PARRISH [facility] Work Phone: Comment on above: Pattern: Regular 07-28-2013 11:26-0400 Respiratory Rate 20 /min GUERA Donahue FRANCOIS [facility] Work Phone: Comment on above: Pattern: Unlabored 07-28-2013 11:26-0400 Weight 108.86 kg Annie Anglin [facility] Work Phone: 05-06-2012 07:03-0500 BMI (Body Mass Index) 38.94 kg/m2 Dilcia Zepeda RN [facility] Internal Medicine Work Phone: 05-06-2012 07:03-0500 Body Temperature 99.1 [degF] Dilcia Zepeda RN [facility] Work Phone: Comment on above: Method: Oral 05-06-2012 07:03-0500 Body weight 106.14 kg Dilcia Zepeda RN [facility] Work Phone: 05-06-2012 07:03-0500 BP Diastolic 74 mm[Hg] Dilcia Zepeda RN [facility] Work Phone: Comment on above: Patient Position: Sitting; Cuff Location : Left Arm; Cuff Size: Standard 05-06-2012 07:03-0500 BP Systolic 132 mm[Hg] Dilcia Zepeda RN [facility] Work Phone: Comment on above: Patient Position: Sitting; Cuff Location : Left Arm; Cuff Size: Standard 05-06-2012 07:03-0500 BSA (Body Surface Area) 2.11 m2 Dilcia Zepeda RN [facility] Work Phone: 05-06-2012 07:03-0500 Height 165.1 cm Dilcia Zepeda RN [facility] Work Phone: 05-06-2012 07:03-0500 Pulse (Heart Rate) 104 /min Dilcia Zepeda RN [facility] Work Phone: Comment on above: Pattern: Regular 05-06-2012 07:03-0500 Respiratory Rate 16 /min Dilcia Zepeda RN [facility] Work Phone: Comment on above: Pattern: Unlabored 05-06-2012 07:03-0500 Weight 106.14 kg Annie Anglin [facility] Internal Medicine Work Phone: 04-18-2012 09:40-0500 BMI (Body Mass Index) 39.77 kg/m2 Dilcia Zepeda RN [facility] Internal Medicine Work Phone: 04-18-2012 09:40-0500 Body Temperature 99 [degF] Dilcia Zepeda RN [facility] Work Phone: Comment on above: Method: Oral 04-18-2012 09:40-0500 Body weight 108.41 kg Dilcia Zepeda RN [facility] Work Phone: 04-18-2012 09:40-0500 BP Diastolic 80 mm[Hg] Dilcia Zepeda RN [facility] Work Phone: Comment on above: Patient Position: Sitting; Cuff Location : Left Arm; Cuff Size: Standard 04-18-2012 09:40-0500 BP Systolic 132 mm[Hg] Dilcia Zepeda RN [facility] Work Phone: Comment on above: Patient Position: Sitting; Cuff Location : Left Arm; Cuff Size: Standard 04-18-2012 09:40-0500 BSA (Body Surface Area) 2.13 m2 Dilcia Zepeda RN [facility] Work Phone: 04-18-2012 09:40-0500 Height 165.1 cm Dilcia Zepeda RN [facility] Work Phone: 04-18-2012 09:40-0500 Pulse (Heart Rate) 88 /min Dilcia Zepeda RN [facility] Work Phone: Comment on above: Pattern: Regular 04-18-2012 09:40-0500 Respiratory Rate 16 /min Dilcia Zepeda RN [facility] Work Phone: Comment on above: Pattern: Unlabored 04-18-2012 09:40-0500 Weight 108.41 kg Annie Anglin [facility] Medicine Work Phone: 05-19-2011 14:05-0400 BMI (Body Mass Index) 39.77 kg/m2 Altagracia Mcintyre LPN [facility] Work Phone: 05-19-2011 14:05-0400 Body Temperature 99 [degF] Altagracia Mcintyre LPN [facility] Internal Medicine Work Phone: Comment on above: Method: Oral 05-19-2011 14:05-0400 Body weight 108.41 kg Altagracia Mcintyre LPN [facility] Work Phone: 05-19-2011 14:05-0400 BP Diastolic 84 mm[Hg] Altagracia Mcintyre LPN [facility] Work Phone: Comment on above: Patient Position: Sitting; Cuff Location : Left Arm; Cuff Size: Standard 05-19-2011 14:05-0400 BP Systolic 132 mm[Hg] Altagracia Mcintyre LPN [facility] Work Phone: Comment on above: Patient Position: Sitting; Cuff Location : Left Arm; Cuff Size: Standard 05-19-2011 14:05-0400 BSA (Body Surface Area) 2.13 m2 Altagracia Mcintyre LPN [facility] Work Phone: 05-19-2011 14:05-0400 Height 165.1 cm Altagracia Mcintyre LPN [facility] Internal Medicine Work Phone: 05-19-2011 14:05-0400 Pulse (Heart Rate) 98 /min Altagracia Mcintyre LPN [facility] Work Phone: Comment on above: Pattern: Regular 05-19-2011 14:05-0400 Pulse Oximetry 94 % Annie Anglin [facility] Work Phone: Comment on above: Room air 05-19-2011 14:05-0400 Respiratory Rate 16 /min Altagracia Mcintyre LPN [facility] Work Phone: 05-19-2011 14:05-0400 SaO2% (BldA) [Mass fraction] 94 % Altagracia Mcintyre LPN [facility]; [facility] Work Phone: Comment on above: Room air 05-19-2011 14:05-0400 Weight 108.41 kg Annie Anglin [facility] Work Phone: 04-06-2011 15:25-0500 BMI (Body Mass Index) 39.77 kg/m2 Altagracia Mcintyre LPN [facility] Work Phone: 04-06-2011 15:25-0500 Body Temperature 97.9 [degF] Altagracia Mcintyre LPN [facility] Work Phone: Comment on above: Method: Oral 04-06-2011 15:25-0500 Body weight 108.41 kg Altagracia Mcintyre LPN [facility] Work Phone: 04-06-2011 15:25-0500 BP Diastolic 76 mm[Hg] Altagracia Mcintyre LPN [facility] Work Phone: Comment on above: Patient Position: Sitting; Cuff Location : Left Arm; Cuff Size: Standard 04-06-2011 15:25-0500 BP Systolic 126 mm[Hg] Altagracia Mcintyre LPN [facility] Work Phone: Comment on above: Patient Position: Sitting; Cuff Location : Left Arm; Cuff Size: Standard 04-06-2011 15:25-0500 BSA (Body Surface Area) 2.13 m2 Altagracia Mcintyre LPN [facility] Work Phone: 04-06-2011 15:25-0500 Height 165.1 cm Altagracia Mcintyre LPN [facility] Work Phone: 04-06-2011 15:25-0500 Pulse (Heart Rate) 82 /min Altagracia Mcintyre LPN [facility] Work Phone: Comment on above: Pattern: Regular 04-06-2011 15:25-0500 Pulse Oximetry 99 % Annie Agnlin [facility] Work Phone: Comment on above: Room air 04-06-2011 15:25-0500 SaO2% (BldA) [Mass fraction] 99 % Altagracia Mcintyre LPN [facility]; [facility] Work Phone: Comment on above: Room air 04-06-2011 15:25-0500 Weight 108.41 kg Annie Anglin [facility] Internal Medicine Work Phone: 2007 16:30-0400 Body Temperature 99 [degF] Janine Smileyhiral [facility] Work Phone: Comment on above: Method: Undefined 2007 16:30-0400 Body weight 108.41 kg Janine Smileyhiral [facility] Work Phone: 2007 16:30-0400 BP Diastolic 76 mm[Hg] Janine George [facility] Work Phone: Comment on above: Patient Position: Sitting; Cuff Location : Left Arm; Cuff Size: Standard 2007 16:30-0400 BP Systolic 128 mm[Hg] Janine George [facility] Work Phone: Comment on above: Patient Position: Sitting; Cuff Location : Left Arm; Cuff Size: Standard 2007 16:30-0400 Head Circumference 0 cm Annie Anglin [facility] Internal Medicine Work Phone: 2007 16:30-0400 Head Occipital-frontal circumference 0 cm Janine George [facility]; [facility] Work Phone: 2007 16:30-0400 Height 0 cm Janine Vazquez [facility] Work Phone: 2007 16:30-0400 Pulse (Heart Rate) 96 /min [facility] Work Phone: Comment on above: Pattern: Regular 2007 16:30-0400 Respiratory Rate 18 /min Janine Vazquez [facility] Work Phone: Comment on above: Pattern: Undefined 2007 16:30-0400 Weight 108.41 kg Annie Anglin [facility] Work Phone: 08-25-2007 15:56-0400 Body weight 0 kg Altagracia Mcintyre LPN [facility] Work Phone: 08-25-2007 15:56-0400 BP Diastolic 90 mm[Hg] Altagracia Mcintyre LPN [facility] Work Phone: Comment on above: Patient Position: Sitting; Cuff Location : Left Arm; Cuff Size: Standard 08-25-2007 15:56-0400 BP Systolic 148 mm[Hg] Altagracia Mcintyre LPN [facility] Work Phone: Comment on above: Patient Position: Sitting; Cuff Location : Left Arm; Cuff Size: Standard 08-25-2007 15:56-0400 Head Circumference 0 cm Annie Anglin [facility] Work Phone: 08-25-2007 15:56-0400 Head Occipital-frontal circumference 0 cm Altagracia Mcintyre FRANCOIS [facility]; [facility] Work Phone: 08-25-2007 15:56-0400 Height 0 cm Altagracia Mcintyre LPN [facility] Work Phone: 08-25-2007 15:56-0400 Pulse (Heart Rate) 96 /min Altagracia Mcintyre LPN [facility] Work Phone: Comment on above: Pattern: Regular 08-25-2007 15:56-0400 Pulse Oximetry 100 % Annie Anglin [facility] Work Phone: Comment on above: Room air 08-25-2007 15:56-0400 Respiratory Rate 18 /min Altagracia Mcintyre LPN [facility] Work Phone: Comment on above: Pattern: Unlabored 08-25-2007 15:56-0400 SaO2% (BldA) [Mass fraction] 100 % Altagracia Mcintyre HE[employer] EDUC[employer] SPECIALIST [facility]; [facility] Work Phone: Comment on above: Room air 08-25-2007 15:56-0400 Weight 0 kg Annie Anglin [facility] Work Phone: Encounters Encounter Date Encounter Type Care Provider Facility Start: 08-24-2024 ambulatory Shante AllyDayron Facility:[facility] Start: 08-19-2024 Encounter for other preprocedural examination Shante Dai [facility] Start: 08-11-2024 End: 08-11-2024 Patient encounter procedure Shante Vickers MD Work Phone: OB/Gynecology Comment on above: Abnormal uterine ble eding (AUB) (Primary Dx); Uterine leiomyoma, unspecified location Start: 08-11-2024 End: 08-11-2024 ambulatory SHANTE VICKERS Facility:[facility] Start: 07-11-2024 End: 07-12-2024 Telephone encounter Shante Vickers MD Work Phone: OB/Gynecology Comment on above: Results Start: 06-19-2024 End: 06-20-2024 Telephone encounter Shante Vickers MD Work Phone: OB/Gynecology Comment on above: Cancel Surgery due t o Illness Start: 06-13-2024 End: 06-13-2024 ambulatory Shante Vickers MD Work Phone: OB/Gynecology Comment on above: Uterine leiomyoma, u nspecified location (Primary Dx); Menorrhagia with regular cycle; Pre-op exam Start: 06-13-2024 End: 06-13-2024 Preprocedural examination done Shante Vickers MD Work Phone: [facility] Start: 06-13-2024 End: 06-13-2024 Telemedicine consultation with patient Shante Vickers MD Work Phone: OB/Gynecology Start: 06-09-2024 End: 07-05-2024 Admission to same day surgery center [facility] OB/Gynecology Comment on above: surgery confirmation Start: 06-09-2024 End: 07-05-2024 E-mail encounter from caregiver [facility] OB/Gynecology Start: 06-09-2024 End: 06-09-2024 Unlisted evaluation and management service Shante Vickers MD Work Phone: OB/Gynecology Comment on above: Opened In Error Start: 05-17-2024 End: 06-05-2024 Admission to same day surgery center [facility] Provider OB/Gynecology Comment on above: surgery dates Start: 05-17-2024 End: 06-05-2024 E-mail encounter from caregiver [facility] Provider OB/Gynecology Start: 05-11-2024 End: 07-11-2024 Follow-up encounter Shante Vickers MD Work Phone: OB/Gynecology Start: 05-10-2024 End: 05-10-2024 ambulatory SHANTE VICKERS Facility:[facility] Start: 05-10-2024 End: 05-10-2024 Patient encounter procedure Shante Vickers MD Work Phone: OB/Gynecology Comment on above: Intramural, submucou s, and subserous leiomyoma of uterus (Primary Dx); Excessive bleeding in premenopausal period; Dysmenorrhea; Pelvic pressure in female Start: 04-20-2024 End: 06-20-2024 Follow-up encounter Bridger Foss APRN.[employer] Work Phone: OB/Gynecology Start: 04-19-2024 End: 04-19-2024 ambulatory BRIDGER FOSS Facility:[facility] Start: 04-19-2024 End: 04-19-2024 Patient encounter procedure Bridger Foss APRN.[employer] Work Phone: OB/Gynecology Comment on above: Abnormal uterine ble eding (Primary Dx) Start: 04-10-2024 End: 04-10-2024 Office outpatient visit 15 minutes Janine Barnard MD Work Phone: OB/Gynecology Comment on above: Uterine leiomyoma, u nspecified location (Primary Dx); Menorrhagia with regular cycle Start: 04-10-2024 End: 04-10-2024 ambulatory JANINE BARNARD Facility:[facility] Start: 03-23-2024 End: 03-24-2024 ambulatory Janine Barnard MD Work Phone: OB/Gynecology Comment on above: Prior test results Start: 03-17-2024 End: 03-17-2024 ambulatory Manager [employer] Remote Work Phone: OB/Gynecology Start: 03-17-2024 End: 03-17-2024 Patient encounter procedure Manager [employer] Work Phone: OB/Gynecology Start: 02-11-2024 End: 02-11-2024 ambulatory JANINE BARNARD Facility:[facility] Start: 02-11-2024 End: 02-11-2024 Subsequent hospital visit by physician Screen Mammo [facility] Mammogram Comment on above: Encounter for screen ing mammogram for breast cancer [Z12.31] Start: 01-25-2024 End: 01-25-2024 ambulatory JANINE BARNARD Facility:[facility] Start: 01-25-2024 End: 01-25-2024 Initial preventive medicine new patient 40-64yrs Janine Barnard MD Work Phone: OB/Gynecology Comment on above: Encounter for gyneco logical examination (general) (routine) without abnormal findings (Primary Dx); Screening for cervical cancer; Encounter for screening for human papillomavirus (HPV); Encounter for screening mammogram for breast cancer; Uterine leiomyoma, unspecified location Start: 01-25-2024 End: 01-25-2024 Patient encounter status Janine Barnard MD Work Phone: [facility] Start: 06-17-2023 End: 06-17-2023 ambulatory [facility] Work Phone: Start: 06-17-2023 End: 06-17-2023 Patient encounter procedure [facility] Work Phone: Start: 11-26-2022 End: 11-26-2022 ambulatory [facility] Work Phone: Start: 11-26-2022 End: 11-26-2022 [facility] Start: 11-18-2022 End: 11-18-2022 Patient encounter procedure [facility] Work Phone: Start: 09-16-2021 End: 09-16-2021 Patient encounter procedure [facility], Specimen Start: 02-08-2019 End: 02-08-2019 Annotation/Addendum Annie Estrada [facility] Start: 01-27-2019 End: 01-27-2019 Periodic preventive med est patient 40-64yrs Annie Estrada [facility] Start: 05-20-2018 Patient encounter procedure Annie Estrada [facility] Start: 05-20-2018 End: 05-20-2018 Office outpatient visit 25 minutes Annie Estrada [facility] Start: 05-20-2018 Review Annie Guajardo [facility] Start: 02-04-2018 End: 02-04-2018 Office outpatient visit 25 minutes Annie Estrada [facility] Start: 02-01-2018 End: 02-01-2018 Lab Order Annie Estrada [facility] Start: 02-01-2018 End: 02-01-2018 Annotation/Addendum Annie Estrada [facility] Start: 01-17-2018 End: 01-17-2018 Lab Order Annie Estrada [facility] Start: 01-14-2018 End: 01-14-2018 Office outpatient visit 25 minutes Annie Estrada [facility] Start: 10-29-2017 End: 10-29-2017 Phone Encounter Annie Estrada [facility] Start: 07-15-2017 End: 07-15-2017 Office outpatient visit 10 minutes Annie Estrada [facility] Start: 03-24-2017 End: 03-24-2017 Annotation/Addendum Annie Estrada [facility] Start: 03-18-2017 End: 03-18-2017 Office outpatient visit 15 minutes Annie Estrada [facility] Start: 03-20-2016 End: 03-20-2016 Office outpatient visit 15 minutes Annie Estrada [facility] Start: 01-13-2016 End: 01-13-2016 Office outpatient visit 25 minutes Annie Estrada [facility] Start: 12-19-2014 End: 12-19-2014 Office outpatient visit 15 minutes Annie Estrada [facility] Start: 06-21-2014 End: 06-21-2014 Office outpatient visit 40 minutes Annie Estrada [facility] Start: 07-28-2013 End: 07-28-2013 Patient encounter Annie Anglin [facility] Start: 05-06-2012 End: 05-06-2012 Patient encounter Annie Anglin [facility] Start: 04-18-2012 End: 04-18-2012 Patient encounter Annie Anglin [facility] Start: 05-19-2011 End: 05-19-2011 Office outpatient visit 25 minutes Annie Linnette [facility] Start: 04-06-2011 End: 04-06-2011 Office outpatient visit 25 minutes Annie Linnette [facility] Start: 2007 End: 2007 Patient encounter Annie Anglin [facility] Start: 08-25-2007 End: 08-25-2007 Office outpatient visit 40 minutes Annie Anglin [facility] Medical examinations/reports status Rae Jalloh [facility]; [facility] Work Phone: Comment on above: reveiwed with patien t lipids and gluc at work good Patient encounter procedure Rae Jalloh [facility]; [facility] Work Phone: End: 03-20-2016 Physical examination GUERA Donahue LPN [facility]; [facility] Work Phone: Procedures Date Procedure Procedure Detail Performing Clinician Start: 04-19-2024 UA DIP,URINE HCG (POC) Bridger Foss APRN.[employer] Work Phone: Start: 03-17-2024 Us pelvic nonobstetric real-time image complete Janine Barnard MD Work Phone: Start: 06-17-2023 Plain x-ray of pelvi s and lower extremity Start: 01-11-2020 End: 01-11-2020 SCREEN MAMM (CAD) W/JUAN BILAT Comments: See Note; NOTES: [facility] Imaging Services [address] [place] [address] SCREEN MAMM (CAD) W/JUAN BILAT MR#: [id number] Acct: [id number] Name: MOISES DAVILA Rep #: [id number] : 1975 F 44 From: Harry quiroz MD PCP: Dr. Annie Anglin, DO Status: REG CLI Study: SCREEN MAMM (CAD) W/JUAN BILAT Date of Exam: 03/12/19 Exam# [id number] Ordering Dr: Don Walker MD MAMMOGRAPHY - BILATERAL SCREENING REASON FOR EXAM: Female, 44 years old. Routine annual screening examination. PERTINENT HISTORY: Non-contributory. TECHNIQUE: Digital bilateral breast juan (3D mammographic acquisition) in the CC and MLO projections. 2-D mediolateral oblique (MLO) and craniocaudad (CC) views of both breasts were obtained. CAD: Full Field Digital Mammography with Computer Added Detection was performed. COMPARISON: Comparison is made with prior study dated 01/05/2019 and 10/20/2016. FINDINGS: Breast Composition: The breasts are almost entirely fatty. There are no dominant masses or suspicious calcifications. No other significant abnormalities are identified. There has been no significant change since the prior study. BI/SCREEN MAMM (CAD) W/JUAN BILAT IMPRESSION: Stable bilateral screening mammogram. Yearly follow-up mammogram recommended. (A) ASSESSMENT CATEGORY: BIRADS Category 1: Negative. A letter regarding these results will be sent to the patient by the facility within 30 days. Approximately 10% of breast cancers are not detected by mammography. A normal mammogram should not delay biopsy of a clinically suspicious abnormality. [id number] Electronically Signed: Harry Jamari, at 15:40 EST , Service support , CC: Dr. Don Walker MD; Dr. Annie Anglin DO Glycerin Operator: Signed Annie Anglin Start: 01-05-2019 End: 01-06-2019 SCREEN MAMM (CAD) W/JUAN BILAT Comments: See Note; NOTES: [facility] Imaging Services [address] [place] [address] SCREEN MAMM (CAD) W/JUAN BILAT MR#: [id number] Acct: [id number] Name: MOISES DAVILA Rep #: [id number] : 1975 F 43 From: Harry Kauffman MD PCP: Annie Anglin DO Status: REG CLI Study: SCREEN MAMM (CAD) W/JUAN BILAT Date of Exam: 01/05/19 Exam# [id number] Ordering Dr: Don Walker MD MAMMOGRAPHY - BILATERAL SCREENING REASON FOR EXAM: Female, 43 years old. Routine annual screening examination. PERTINENT HISTORY: Non-contributory. TECHNIQUE: Digital bilateral breast juan (3D mammographic acquisition) in the CC and MLO projections. 2-D mediolateral oblique (MLO) and craniocaudad (CC) views of both breasts were obtained. CAD: Full Field Digital Mammography with Computer Added Detection was performed. COMPARISON: Comparison is made with prior examination October 20, 2016 and January 20, 2016. FINDINGS: Breast Composition: The breasts are almost entirely fatty. There are no dominant masses or suspicious calcifications. No other significant abnormalities are identified. There has been no significant change since the prior study. BI/SCREEN MAMM (CAD) W/JUAN BILAT IMPRESSION: Stable bilateral screening mammogram. Yearly follow-up mammogram recommended. (A) ASSESSMENT CATEGORY: BIRADS Category 1: Negative. A letter regarding these results will be sent to the patient by the facility within 30 days. Approximately 10% of breast cancers are not detected by mammography. A normal mammogram should not delay biopsy of a clinically suspicious abnormality. [id number] Electronically Signed: Harry Kauffman, at 9:04 EDT , Service support , CC: Don Walker MD; Annie Anglin DO Glycerin Operator: Signed Annie Anglin Start: 12-14-2018 End: 12-14-2018 Shoulder min 2 Views Comments: See Note; NOTES: [facility] Imaging Services [address] [place] [address] Shoulder min 2 Views MR#: [id number] Acct: [id number] Name: MOISES DAVILA Rep #: [id number] : 1975 F 43 From: Sandy Katz MD PCP: Annie Anglin DO Status: REG CLI Study: Shoulder min 2 Views Date of Exam: 12/14/18 Exam# [id number] Ordering Dr: Merrill Paul DO STUDY: X-RAY - LEFT SHOULDER REASON FOR EXAM: Female, 43 years old. Left shoulder pain. TECHNIQUE: 4 view(s) of the shoulder. COMPARISON: None. FINDINGS: Normal glenohumeral articulation. Normal acromioclavicular joint. Normal acromion. Normal humeral head and visualized proximal humerus. The soft tissue structures are unremarkable. There is no demonstrated fracture. Normal visualized pulmonary apex. RAD/Shoulder min 2 Views IMPRESSION: Normal x-ray examination of the shoulder. Electronically Signed: Sandy Katz MD at 15:43 EDT , Service support , CC: Merrill Paul DO; Annie Anglin DO Glycerin Operator: Signed Annie Anglin Start: 10-29-2017 End: 10-30-2017 Foot min 3 Views Comments: See Note; NOTES: [facility] Imaging Services [address] [place] [address] Foot min 3 Views MR#: [id number] Acct: [id number] Name: MOISES DAVILA Rep #: [id number] : 1975 F 42 From: Harry Smith MD PCP: Annie Anglin DO Status: REG CLI Study: Foot min 3 Views Date of Exam: 10/29/17 Exam# [id number] Ordering Dr: Annie Anglin DO STUDY: X-RAY [...] Service support , CC: Annie Anglin DO Glycerin Operator: Signed Annie Anglin Work Phone: Start: 10-20-2016 End: 10-21-2016 SCREENING MAMM (CAD), BILAT Comments: See Note; NOTES: [facility] Imaging Services [address] [place] [address] SCREENING MAMM (CAD), BILAT MR#: [id number] Acct: [id number] Name: MOISES DAVILA Rep #: [id number] : 1975 F 41 From: Harry Kauffman MD PCP: Annie Anglin DO Status: REG CLI Study: SCREENING MAMM (CAD), BILAT Date of Exam: 10/20/16 Exam# [id number] Ordering Dr: Don Walker MD MAMMOGRAPHY - BILATERAL SCREENING REASON FOR EXAM: Female, 41 years old. Routine annual screening examination. PERTINENT HISTORY: Non-contributory. TECHNIQUE: Digital bilateral breast juan (3D mammographic acquisition) in the CC and MLO projections. 2-D mediolateral oblique (MLO) and craniocaudad (CC) views of both breasts were obtained. CAD: Full Field Digital Mammography with Computer Added Detection was performed. COMPARISON: Comparison is made with prior study dated January 20, 2016 and October 12, 2014. FINDINGS: Breast Composition: The breasts are almost entirely [...] delay biopsy of a clinically suspicious abnormality. [id number] Electronically Signed: Harry Kauffman MD at 8:21 EDT Tel [phone], Service support , CC: Don Walker MD; Annie Anglin DO Glycerin Operator: Signed Annie Anglin Start: 01-20-2016 End: 01-20-2016 Bilat Scrn Digital AND CAD Comments: See Note; NOTES: [facility] Imaging Services [address] [place] [address] Verdana 4d Bilat Scrn Digital AND CAD MR#: [id number] Acct: [id number] Name: MOISES DAVILA Rep #: [id number] : 1975 F 40 From: Harry Kauffman MD PCP: Annie Anglin DO Status: REG CLI Study: Bilat Scrn Digital AND CAD Date of Exam: 01/20/16 Exam# [id number] Ordering Dr: Don Walker MD MAMMOGRAPHY - BILATERAL SCREENING REASON FOR EXAM: Female, 40 years old. Routine annual screening examination. PERTINENT HISTORY: Non-contributory. TECHNIQUE: Digital bilateral breast juan (3D mammographic acquisition) in the CC and MLO projections. 2-D mediolateral oblique (MLO) and craniocaudad (CC) views of both breasts were obtained. CAD: Full Field Digital Mammography with Computer Added Detection was performed. COMPARISON: Comparison is made with prior examination dated October 12, 2014. FINDINGS: Breast Composition: The breasts are almost entirely fatty. There are no dominant masses or suspicious calcifications. No other significant abnormalities are identified. There has been no significant change since the prior study. HPBI/Bilat Scrn Digital AND CAD IMPRESSION: Stable bilateral screening mammogram. Yearly follow-up mammogram recommended. (A) ASSESSMENT CATEGORY: BIRADS Category 1: Negative. A letter regarding these results will be sent to the patient by the facility within 30 days. Approximately 10% of breast cancers are not detected by mammography. A normal mammogram should not delay biopsy of a clinically suspicious abnormality. [id number] Electronically Signed: Harry Kauffman MD at 15:44 EST Tel [phone], Service support [phone], CC: Don Walker MD; Annie Anglin DO Glycerin Operator: Signed Annie Anglin Start: 10-12-2014 End: 10-15-2014 Bilat Scrn Digital AND CAD Comments: See Note; NOTES: [facility] Imaging Services [address] [place] [address] Breast Imaging Report MR#: [id number] Acct: [id number] Name: MOISES DAVILA Rep #: [id number] : 1975 F 39 From: Harry Kauffman MD PCP: Cailin Covarrubias MD Status: REG CLI Study: Bilat Scrn Digital AND CAD Date of Exam: 10/12/14 Exam# [id number] Ordering Dr: Don Walker MD MAMMOGRAPHY - BILATERAL SCREENING REASON FOR EXAM: Female, 39 years old. Routine annual screening examination. PERTINENT HISTORY: Non-contributory. TECHNIQUE: Digital examination. Mediolateral oblique (MLO) and craniocaudad (CC) views of both breasts were obtained. CAD: CAD was performed on this study. COMPARISON: None. Baseline examination. FINDINGS: Breast Composition: The breasts are almost entirely [...] delay biopsy of a clinically suspicious abnormality. Electronically Signed: Harry Kauffman MD at 10:50 EDT Tel [phone], Service support [phone], CC: Cailin Covarrubias MD; Don Walker MD Glycerin Operator: Signed Annie Anglin section Radha duarte Comment on above: 1 section Enriqueta espinosa Comment on above: 1 section Enriqueta espinosa Comment on above: 1 section Rae Grav ius Comment on above: 1 Plan of Treatment Date Care Activity Detail Author Start: 01-24-2029 Screening for malignant neoplasm of cervix Cervical Cancer Screening [facility] Start: 02-10-2025 Screening for malignant neoplasm of breast Mammogram Screening [facility] Start: 01-25-2025 End: 01-25-2025 Patient encounter procedure OB/Gynecology Comment on above: Annual Start: 08-31-2024 End: 08-31-2024 Patient encounter procedure 08/31/2024 10:50 AM EDT Office Visit OB/Gynecology [address] [place] [address] Anna Marie MD [address] [place] [address] 1 week post op OB/Gynecology Comment on above: 1 week post op Start: 08-11-2024 End: 08-11-2024 Patient encounter procedure 08/11/2024 4:20 PM EDT Office Visit OB/Gynecology [address] [place] [address] Shante Fleming MD [address] [place] [address] surgery 08/24 OB/Gynecology Comment on above: surgery 08/24 Start: 06-13-2024 End: 06-13-2024 Patient encounter procedure 06/13/2024 9:20 AM EDT Office Visit OB/Gynecology [address] [place] [address] Shante Fleming MD [address] [place] [address] surgery 06/23/2024 OB/Gynecology Comment on above: surgery 06/23/2024 Start: 05-10-2024 End: 08-09-2024 Thyrotropin [Units/volume] in Serum or Plasma [facility] Work Phone: Comment on above: Expected: 05/10/2024, Expires: Start: 04-19-2024 End: 04-19-2024 Patient encounter procedure 04/19/2024 2:45 PM EST Office Visit OB/Gynecology [address] [place] [address] Bridger Foss APRN.[employer] [address] [place] [address] Supervision of high risk in third trimester [O09.93] OB/Gynecology Comment on above: Supervision of high risk in th ird trimester [O09.93] Start: 03-17-2024 End: 03-17-2024 ambulatory 03/17/2024 2:30 PM EST Procedure OB/Gynecology [address] [place] [address] Remote, Manager [employer] [address] [place] [address] Uterine leiomyoma, unspecified location [D25.9] OB/Gynecology Comment on above: Uterine leiomyoma, unspecified location [D25.9] Start: 02-11-2024 End: 02-11-2024 ambulatory 02/11/2024 10:30 AM EST Procedure OB/Gynecology [address] [place] [address] Remote, Manager [employer] [address] [place] [address] Uterine leiomyoma, unspecified location [D25.9] OB/Gynecology Comment on above: Uterine leiomyoma, unspecified location [D25.9] Start: 02-11-2024 End: 02-11-2024 Patient encounter procedure 02/11/2024 9:50 AM EST Appointment Mammogram [address] [place] [address] Encounter for screening mammogram for breast cancer [Z12.31] Mammogram Comment on above: Encounter for screening mammogram for br east cancer [Z12.31] Start: 01-25-2024 End: 01-24-2025 US Pelvis [facility]EL[facility] Routine Uterine leiomyoma, unspecified location Expected: 01/25/2024, Expires: 01/24/2025 [facility] Comment on above: Expected: 01/25/2024, Expires: Start: 11-07-2023 Covid-19 Vaccine () Covid-19 Vaccine () [facility] Start: 11-07-2023 Influenza vaccination Influenza Vaccine (#1) [facility] Start: 09-14-2019 Diabetes Screening Diabetes Screening [facility] Start: 09-14-2019 Lipid panel Lipid Screening [facility] Start: 09-14-2019 Screening for malignant neoplasm of colon [facility] Start: 02-08-2019 Assay of thyroid stimulating hormone tsh TSH (THYROID STIMULATING HORMONE) (65321) [facility] Work Phone: Start: 02-08-2019 TSH Qn TSH (THYROID STIMULATING HORMONE) (37100) [facility] Work Phone: Start: 01-27-2019 Procedure Education Eprescribed prescriptions (G8553) [facility] Work Phone: Start: 01-27-2019 Provider Instructions for Treatment [facility] Work Phone: Start: 05-20-2018 Provider Instructions for Treatment Follow up in 6-7 months [facility] Work Phone: Start: 05-20-2018 Iron binding capacity IRON BINDING CAPACITY (TIBC) (62643) [facility] Work Phone: Start: 05-20-2018 Assay of iron IRON (64872) [facility]; [facility] Work Phone: Start: 05-20-2018 Iron mass conc IRON (76746) [facility] Work Phone: Start: 05-20-2018 Ferritin mass conc FERRITIN (96683) [facility] Work Phone: Start: 05-20-2018 25 hydroxy includes fractions if performed CALCIFIDIOL (51108) VIT D 25 [facility] Work Phone: Start: 05-20-2018 Urnls dip stick/tablet reagent auto microscopy URINALYSIS, W/ MICRO (94401) [facility] Work Phone: Start: 05-20-2018 Urine albumin quantitative MICROALBUMIN: CREATININE RATIO (76353) AND (18967) [facility] Work Phone: Start: 05-20-2018 Comprehensive metabolic panel METABOLIC PANEL, COMPREHENSIVE (21402) [facility] Work Phone: Start: 05-20-2018 Blood count complete auto&auto difrntl wbc CBC W/AUTO DIFF WBC (53699) [facility] Work Phone: Start: 05-20-2018 Lipoprotein blood cindy numbers & subclasses NMR Profile (04857) [facility] Work Phone: Start: 05-20-2018 Protein mass conc NMR Profile (58460) [facility] Work Phone: Start: 02-04-2018 Iron binding capacity IRON BINDING CAPACITY (TIBC) (73049) [facility] Work Phone: Start: 02-04-2018 Assay of iron IRON (67160) [facility]; [facility] Work Phone: Start: 02-04-2018 Iron mass conc IRON (49998) [facility] Work Phone: Start: 02-04-2018 Assay of ferritin FERRITIN (52107) [facility]; [facility] Work Phone: Start: 02-04-2018 Ferritin mass conc FERRITIN (85329) [facility] Work Phone: Start: 02-04-2018 Blood count complete auto&auto difrntl wbc CBC, PLATELETS & AUT DIFF (57412) [facility] Work Phone: Start: 02-04-2018 Provider Instructions for Treatment [facility] Work Phone: Start: 02-01-2018 Assay of iron IRON (79378) [facility]; [facility] Work Phone: Start: 02-01-2018 Iron mass conc IRON (82007) [facility] Work Phone: Start: 02-01-2018 Assay of ferritin FERRITIN (10783) [facility]; [facility] Work Phone: Start: 02-01-2018 Ferritin mass conc FERRITIN (17432) [facility] Work Phone: Start: 02-01-2018 Blood count complete automated CBC & PLATELETS (AUTO) (53521) [facility] Work Phone: Start: 01-17-2018 Blood occult peroxidase actv qual feces 1 deter OCCULT BLOOD FECES SCREEN (33628) [facility] Work Phone: Start: 01-17-2018 Assay of ferritin FERRITIN (62866) [facility] Work Phone: Start: 01-17-2018 Ferritin mass conc FERRITIN (63668) [facility] Work Phone: Start: 01-17-2018 Iron binding capacity IRON BINDING CAPACITY (TIBC) (63237) [facility] Work Phone: Start: 01-17-2018 Assay of iron IRON (43402) [facility]; [facility] Work Phone: Start: 01-17-2018 Iron mass conc IRON (04058) [facility] Work Phone: Start: 01-14-2018 25 hydroxy includes fractions if performed CALCIFEDIOL (31253) [facility] Work Phone: Start: 01-14-2018 Procedure Education Eprescribed prescriptions (G8553) [facility] Work Phone: Start: 01-14-2018 Provider Instructions for Treatment [facility] Work Phone: Start: 01-14-2018 Thyrotropin Qn TSH (96833) [facility] Work Phone: Start: 01-14-2018 Comprehensive metabolic panel METABOLIC PANEL, COMPREHENSIVE (85269) [facility] Work Phone: Start: 01-14-2018 Blood count manual cell count each CBC with auto diff (64500) [facility] Work Phone: Start: 01-14-2018 Urine albumin quantitative MICROALBUMIN: CREATININE RATIO (41971) AND (63658) [facility] Work Phone: Start: 03-18-2017 Patient Education Sinusitis *: sinus infection [facility] Work Phone: Start: 03-18-2017 Procedure Education Eprescribed prescriptions (G8553) [facility] Work Phone: Start: 03-18-2017 Provider Instructions for Treatment Follow up if no improvement or if symptoms worsen [facility] Work Phone: Start: 03-18-2017 Throat culture THROAT CULTURE (11636) [facility] Work Phone: Start: 03-20-2016 Provider Instructions for Treatment Reviewed Lab [facility] Work Phone: Start: 12-19-2014 Procedure Education Eprescribed prescriptions (G8553) [facility] Work Phone: Start: 12-19-2014 Iaadiadoo streptococcus group a Rapid Strep Test, Office (79050) [facility]; [facility] Work Phone: Start: 12-19-2014 S. pyogenes Ag IA Ql (Unsp spec) Rapid Strep Test, Office (46080) [facility] Work Phone: Start: 2014 Screening for malignant neoplasm of breast Mammogram Screening [facility] Start: 06-21-2014 Patient Education Sore throat: diagnosis and treatment [facility] Work Phone: Start: 07-28-2013 Provider Instructions for Treatment [facility] Work Phone: Start: 07-28-2013 Hpv, dna, amp probe HPV automatic (01502) [facility] Work Phone: Start: 07-28-2013 Cytp cerv/vag auto thin layer prep mnl screen Thin prep Pap (87024) (no STD testing) [facility] Work Phone: Start: 05-19-2011 Blood occult peroxidase actv qual feces 1 deter OCCULT BLOOD FECES SCREEN (91044) [facility] Work Phone: Start: 05-19-2011 Leukocyte assmt fecal qual/semiquantitative LEUKOCYTE COUNT, FECAL (85875) [facility] Work Phone: Start: 05-19-2011 Ova&parasites direct smears concentration & id OVA & PARASITE DIR SMEAR (87159) [facility] Work Phone: Start: 05-19-2011 Cul bact stool aerobic isol salmonella&shigell ALFONSO CULTURE-STOOL (07725) [facility] Work Phone: Start: 05-19-2011 Culture bacterial any source anaerobic iso&id C-DIFFICILE, STOOL (13953) [facility] Work Phone: Start: 05-19-2011 Provider Instructions for Treatment [facility] Work Phone: Start: 04-06-2011 Provider Instructions for Treatment [facility] Work Phone: Start: 2007 Sedimentation rate rbc non-automated SED RATE ERYTHROCYTE (77658) [facility] Work Phone: Start: 2007 C-reactive protein C-REACTIVE PROTEIN (61815) [facility]; [facility] Work Phone: Start: 2007 CRP mass conc C-REACTIVE PROTEIN (71398) [facility] Work Phone: Start: 2007 Protein mass conc (U) Urine Protein Electrophoresis (UPEP) (52426) [facility] Work Phone: Start: 2007 Protein electrophoretic fractj&quantj serum [facility] Work Phone: Start: 2007 Protein mass conc Serum Protein Electrophoresis (SPEP) (37518) [facility] Work Phone: Start: 2007 Provider Instructions for Treatment Diet and Exercise [facility] Work Phone: Start: 08-25-2007 C-reactive protein C-Reactive Protein (74666) [facility]; [facility] Work Phone: Start: 08-25-2007 CRP mass conc C-Reactive Protein (08049) [facility] Work Phone: Start: 08-25-2007 Assay of thyroid stimulating hormone tsh TSH (92392) [facility]; [facility] Work Phone: Start: 08-25-2007 Thyrotropin Qn TSH (01028) [facility] Work Phone: Start: 08-25-2007 Lipid panel Lipid Panel (66210) [facility] Work Phone: Start: 08-25-2007 Comprehensive metabolic panel Metabolic Panel, Comprehensive (46557) [facility] Work Phone: Start: 08-25-2007 Creatine kinase isoenzymes CPK TOTAL & ISOENZYMES (59040) [facility] Work Phone: Start: 08-25-2007 Provider Instructions for Treatment [facility] Work Phone: Start: 09-14-1995 Screening for malignant neoplasm of cervix Cervical Cancer Screening [facility] Start: 1993 Hepatitis B Vaccine (1 of 3 - 19+ 3-dose series) Hepatitis B Vaccine (1 of 3 - 19+ 3-dose series) [facility] Start: 1993 Urine microalbumin profile DTaP,Tdap,Td Vaccine (1 - Tdap) [facility] Start: 1992 Anxiety Screening Anxiety Screening [facility] Start: 1992 Depression Screening Depression Screening [facility] Start: 1992 Hepatitis C screening Hepatitis C Screening [facility] Start: 1992 HIV screening HIV Screening [facility] End: 02-23-2025 DBT Breast - bilateral screening [facility]CRE[facility] Radiology Routine Encounter for screening mammogram for breast cancer 1 Occurrences starting 01/25/2024 until 02/23/2025 [facility] Work Phone: Comment on above: 1 Occurrences starting 01/25/2024 until 02/23/2025 DBT Breast - bilater al screening TRISTAN SCREENING [facility] Radiology Routine Encounter for screening mammogram for breast cancer 02/11/2024 10:09 AM [facility] Work Phone: Endometrial bx w/wo endocervix bx w/o dilat spx ENDOMETRIAL BIOPSY Procedures Routine Uterine leiomyoma, unspecified location Ordered: 04/10/2024 [facility] Work Phone: Comment on above: Ordered: 04/10/2024 Endometrial bx w/wo endocervix bx w/o dilat spx ENDOMETRIAL BIOPSY Procedures Routine Abnormal uterine bleeding Ordered: 04/19/2024 [facility] Work Phone: Comment on above: Ordered: 04/19/2024 PAP TEST PAP TEST Lab [place] [facility] Encounter for gynecological examination (general) (routine) without abnormal findings Screening for cervical cancer Encounter for screening for human papillomavirus (HPV) 01/25/2024 9:43 AM [facility] Tissue Pathology bio psy report SURGICAL PATHOLOGY Lab Routine Abnormal uterine bleeding 04/19/2024 2:58 PM [facility] Work Phone: [facility] Work Phone: [facility] Work Phone: [facility] Work Phone: [facility] Work Phone: [facility] Work Phone: [facility] Work Phone: [facility] Work Phone[facility] Work Phone: [facility] Work Phone[facility] Work Phone: [facility] Work Phone: [facility] Work Phone: [facility] Work Phone: Immunizations Immunization Date Immunization Notes Care Provider [facility] 12-28-2023 influenza virus vaccine, unspecified formulation [facility] Provider [facility] 12-06-2018 influenza, seasonal, injectable Annie Anglin [facility] Work Phone: Payers Date Payer Category Payer Self-pay [id number] 2020 Private Health Insurance [id number] 2006 Private Health Insurance [id number] 2005 Unknown [id number] 1974 Unknown [id number] Unknown Unknown [id number] Social History Date Type Detail Facility Start: 01-25-2024 End: 08-11-2024 Caffeine Use Never smoker [facility] Work Phone: Comment on above: 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 [facility] Work Phone: Tobacco use: Never smoker. [facility] Work Phone: Exercise History: Exercise History: [facility]; [facility] Work Phone: Tobacco use: Tobacco use: [facility]; [facility] Work Phone: Start: 1975 Sex Assigned At Female [facility] Start: 01-25-2024 [facility] Start: 01-25-2024 Tobacco use and exposure Smokeless tobacco non-user [facility] Start: 01-25-2024 End: 08-11-2024 Alcoholic beverage intake Current drinker of alcohol (finding) [facility] Start: 01-25-2024 End: 08-11-2024 Tobacco use panel [facility] National Score (1-100), lower number is lower risk 46 [facility] Start: 01-25-2024 Alcohol Comment rare [facility] Start: 12-11-2023 Gender identity Identifies as female gender (finding) [facility] Functional Status Date Assessment Result Facility 01-24-2019 LP-IR Score LP-IR Score <25 [facility] Work Phone: Comment on above: INSULIN RESISTANCE Donovan HARRY <--Insulin Sensitive Insulin Resistant--> Percentile in Reference PopulationInsulin Resistance ScoreLP-IR Score Low 25th 50th 75th High <27 27 45 63 >63LP-IR Score is inaccurate if patient is non-fasting. .The LP-IR score is a laboratory developed index that has beenassociated with insulin resistance and diabetes risk and should beused as one component of a physician's clinical assessment. Test(s) 859749-AAT-Z ; 342771-ETK-G; 063080-EHD-G; 494477-Cugntfcjtgzvg; 489025-Btsbzsqrlxg, Total; 410904-GDP-Q (Total);143801-Brphk LDL-P; 100116-YUB Size; 396976-NE-HG Scorewas developed and its performance characteristics determinedby [facility]. It has not been cleared or approved by the Foodand Drug Administration.PATIENT WAS FASTINGPERFORMED BY: BN [facility] [address] [id number] BY: CB [facility] [id number] [facility] [id number] Clinical Notes 09-16-2021 to 08-11-2024 Shante Fleming MD - 08/11/2024 4:20 PM Shante Plaza MD - 08/11/2024 4:20 PM Shante Plaza MD - 08/11/2024 4:00 PM EDTPatient Instructions Note Date & Type Note Facility 08-11-2024 History and physical note Pre-Op History and Physical HPI: The patient is a 48 year old female presenting for pre-operative visit. She is scheduled for TLH, Bilateral salpingectomy, cysto for Fibroid uterus, menorrhagia on 08/24/24. Procedure discussed along with risks, benefits and complications. Other alternatives discussed for management. Consent form signed? Yes. PAST MEDICAL HISTORY Diagnosis Date Fibroids uterine PAST SURGICAL HISTORY Procedure Laterality Date DELIVERY ONLY 2002 ENDOMETRIAL BIOPSY 04/19/2024 TOOTH EXTRACTION 1994 wisdom teeth No current outpatient medications on file. No current facility-administered medications for this visit. ALLERGIES: Penicillin G PERSONAL HISTORY: Social History Tobacco Use Smoking status: Never Smokeless tobacco: Never Vaping Use Vaping status: Never Used Substance Use Topics Alcohol use: Yes Comment: rare Drug use: Never FAMILY HISTORY: FAMILY HISTORY Problem Relation Age of Onset Heart Attack Mother No Known Problems Half-brother No Known Problems Half-brother Diabetes Maternal Grandmother diet controlled Diabetes Maternal Grandfather Hypertension Maternal Grandfather REVIEW OF SYMPTOMS: negative except as noted above PHYSICAL EXAMINATION: VITALS: Last menstrual period 01/08/2024. GENERAL: The patient is well nourished, well hydrated in no acute distress. , The patient is oriented to time, place, and person. NECK: full range of motion LUNGS: Clear to auscultation bilaterally. no wheezes, rhonchi or rales HEART: Regular rate and rhythm, Normal heart sounds, and No murmurs or gallops IMPRESSION: 48yo with fibroid uterus and menorrhagia PLAN: TLH, Bilateral salpingectomy, Cyto- possible ELZA Pt has been counseled on risks/benefits and alternatives of surgery including but not limited to anesthesia, bleeding, infection, injury to pelvic structures including bowel, bladder, ureters and vessels. Pt wishes to proceed with surgery at this time. Pre and post op instructions reviewed I have reviewed and updated past medical and surgical history, medications and allergies Shante Vickers MD [facility] 08-11-2024 History and physical note Pre-Op History and Physical HPI: The patient is a 48 year old female presenting for pre-operative visit. She is scheduled for TLH, Bilateral salpingectomy, cysto for Fibroid uterus, menorrhagia on 08/24/24. Procedure discussed along with risks, benefits and complications. Other alternatives discussed for management. Consent form signed? Yes. PAST MEDICAL HISTORY Diagnosis Date Fibroids uterine PAST SURGICAL HISTORY Procedure Laterality Date DELIVERY ONLY 2002 ENDOMETRIAL BIOPSY 04/19/2024 TOOTH EXTRACTION 1994 wisdom teeth No current outpatient medications on file. No current facility-administered medications for this visit. ALLERGIES: Penicillin G PERSONAL HISTORY: Social History Tobacco Use Smoking status: Never Smokeless tobacco: Never Vaping Use Vaping status: Never Used Substance Use Topics Alcohol use: Yes Comment: rare Drug use: Never FAMILY HISTORY: FAMILY HISTORY Problem Relation Age of Onset Heart Attack Mother No Known Problems Half-brother No Known Problems Half-brother Diabetes Maternal Grandmother diet controlled Diabetes Maternal Grandfather Hypertension Maternal Grandfather REVIEW OF SYMPTOMS: negative except as noted above PHYSICAL EXAMINATION: VITALS: Last menstrual period 01/08/2024. GENERAL: The patient is well nourished, well hydrated in no acute distress. , The patient is oriented to time, place, and person. NECK: full range of motion LUNGS: Clear to auscultation bilaterally. no wheezes, rhonchi or rales HEART: Regular rate and rhythm, Normal heart sounds, and No murmurs or gallops IMPRESSION: 48yo with fibroid uterus and menorrhagia PLAN: TLH, Bilateral salpingectomy, Cyto- possible ELZA Pt has been counseled on risks/benefits and alternatives of surgery including but not limited to anesthesia, bleeding, infection, injury to pelvic structures including bowel, bladder, ureters and vessels. Pt wishes to proceed with surgery at this time. Pre and post op instructions reviewed I have reviewed and updated past medical and surgical history, medications and allergies Shante Vickers MD documented in this encounter [facility] 08-11-2024 Note HNO ID: [id number] Author: SHANTE FLEMING MD Service: ? Author Type: Physician Type: Progress Notes Filed: 08/11/2024 16:59 Note Text: [facility] 08-11-2024 History of Presen t illness Narrative documented in this encounter [facility] 07-11-2024 Telephone encounter Note Please notify patient that her original blood work done at [facility] for pre op shows she is anemic- please have her start PO iron daily. She will need to continue this through her surgery that was rescheduled. [facility] 07-11-2024 Miscellaneous Notes Please notify patient that her original blood work done at [facility] for pre op shows she is anemic- please have her start PO iron daily. She will need to continue this through her surgery that was rescheduled. documented in this encounter [facility] 06-20-2024 Telephone encounter Note Patient rescheduled to 08/24/2024 [facility] 06-20-2024 Miscellaneous Notes Patient rescheduled to 08/24/2024 [facility]- FYI - please schedule for convenient time for patient as I am gone in end of August- will want RR for assistance Patient is scheduled for a TLH on Wednesday with DM. States she is still ill and has congestion. Said that DM told her to call in if she felt the same and her surgery would be cancelled for Wednesday and rescheduled. Janine Moseley, RN documented in this encounter [facility] 06-19-2024 Telephone encounter Note [facility]- FYI - please schedule for convenient time for patient as I am gone in end of August- will want RR for assistance T [facility] 06-19-2024 Telephone encounter Note Patient is scheduled for a TLH on Wednesday with DM. States she is still ill and has congestion. Said that DM told her to call in if she felt the same and her surgery would be cancelled for Wednesday and rescheduled. Janine Moseley RN [facility] 06-13-2024 History and physical note H&P virtual visit This is a virtual visit using Episencialom Video Visit. It required patient-provider interaction for the medical decision making as documented below. I have communicated my name and active licensure. The patient's identity and physical location were verified at the time of this visit. Either the patient or their legal agency service representative has been informed of the risks and benefits of -- and alternatives to -- treatment through a remote evaluation and consents to proceed with the evaluation remotely. Pre-Op History and Physical HPI: The patient is a 48 year old female presenting for discussion regarding surgical mgmt for fibroids and heavy menses. pre-operative visit. She is scheduled for TLH, bilateral salpingectomy and cystoscopy and possible ELZA, for Fibroid uterus and menorrhagia on 06/23/24. Procedure discussed along with risks, benefits and complications. Other alternatives discussed for management. Consent form signed? Will come to office Wednesday06/16/24 to sign- was positive for covid last week- fever for one day. PAST MEDICAL HISTORY Diagnosis Date Fibroids uterine PAST SURGICAL HISTORY Procedure Laterality Date DELIVERY ONLY 2002 ENDOMETRIAL BIOPSY 04/19/2024 TOOTH EXTRACTION 1994 wisdom teeth No current outpatient medications on file. No current facility-administered medications for this visit. ALLERGIES: Penicillin G PERSONAL HISTORY: Social History Tobacco Use Smoking status: Never Smokeless tobacco: Never Vaping Use Vaping status: Never Used Substance Use Topics Alcohol use: Yes Comment: rare Drug use: Never FAMILY HISTORY: FAMILY HISTORY Problem Relation Age of Onset Heart Attack Mother No Known Problems Half-brother No Known Problems Half-brother Diabetes Maternal Grandmother diet controlled Diabetes Maternal Grandfather Hypertension Maternal Grandfather REVIEW OF SYMPTOMS: negative except as noted above PHYSICAL EXAMINATION: VITALS: Last menstrual period 01/08/2024. GENERAL: The patient is well nourished, well hydrated in no acute distress. , The patient is oriented to time, place, and person. NECK: full range of motion IMPRESSION: 48yo with symptomatic fibroid uterus, menorrhagia PLAN: TLH, Bilateral salpingectomy, cystoscopy possible ELZA Pt has been counseled on risks/benefits and alternatives of surgery including but not limited to anesthesia, bleeding, infection, injury to pelvic structures including bowel, bladder, ureters and vessels. Pt wishes to proceed with surgery at this time. 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 Author Type: Physician Type: Progress Notes Filed: 06/13/2024 09:58 Note Text: [facility] 06-13-2024 History and physical note H&P virtual visit This is a virtual visit using Episencialom Video Visit. It required patient-provider interaction for the medical decision making as documented below. I have communicated my name and active licensure. The patient's identity and physical location were verified at the time of this visit. Either the patient or their legal agency service representative has been informed of the risks and benefits of -- and alternatives to -- treatment through a remote evaluation and consents to proceed with the evaluation remotely. Pre-Op History and Physical HPI: The patient is a 48 year old female presenting for discussion regarding surgical mgmt for fibroids and heavy menses. pre-operative visit. She is scheduled for TLH, bilateral salpingectomy and cystoscopy and possible ELZA, for Fibroid uterus and menorrhagia on 06/23/24. Procedure discussed along with risks, benefits and complications. Other alternatives discussed for management. Consent form signed? Will come to office Wednesday06/16/24 to sign- was positive for covid last week- fever for one day. PAST MEDICAL HISTORY Diagnosis Date Fibroids uterine PAST SURGICAL HISTORY Procedure Laterality Date DELIVERY ONLY 2002 ENDOMETRIAL BIOPSY 04/19/2024 TOOTH EXTRACTION 1994 wisdom teeth No current outpatient medications on file. No current facility-administered medications for this visit. ALLERGIES: Penicillin G PERSONAL HISTORY: Social History Tobacco Use Smoking status: Never Smokeless tobacco: Never Vaping Use Vaping status: Never Used Substance Use Topics Alcohol use: Yes Comment: rare Drug use: Never FAMILY HISTORY: FAMILY HISTORY Problem Relation Age of Onset Heart Attack Mother No Known Problems Half-brother No Known Problems Half-brother Diabetes Maternal Grandmother diet controlled Diabetes Maternal Grandfather Hypertension Maternal Grandfather REVIEW OF SYMPTOMS: negative except as noted above PHYSICAL EXAMINATION: VITALS: Last menstrual period 01/08/2024. GENERAL: The patient is well nourished, well hydrated in no acute distress. , The patient is oriented to time, place, and person. NECK: full range of motion IMPRESSION: 48yo with symptomatic fibroid uterus, menorrhagia PLAN: TLH, Bilateral salpingectomy, cystoscopy possible ELZA Pt has been counseled on risks/benefits and alternatives of surgery including but not limited to anesthesia, bleeding, infection, injury to pelvic structures including bowel, bladder, ureters and vessels. Pt wishes to proceed with surgery at this time. PRE AND POST OP INSTRUCTIONS REVIEWED WILL COME TO OFFICE TO SIGN CONSENT AND WASTEWATER PROJECT ENGINEER ERAS PACKET/DRINKS/BODY WASH I have reviewed and updated past medical and surgical history, medications and allergies Shante Vickers MD documented in this encounter [facility] 06-13-2024 History of Presen t illness Narrative documented in this encounter [facility] 06-09-2024 Telephone encounter Note This encounter was opened in error. [facility] 06-09-2024 Miscellaneous Notes This encounter was opened in error. documented in this encounter [facility] 05-10-2024 Note HNO ID: [id number] Author: SHANTE FLEMING MD Service: ? Author Type: Physician Type: Progress Notes Filed: 05/10/2024 15:35 Note Text: Moises Davila is a 48 year old female who presents for discussion regarding surgical intervention for fibroid uterus. Patient reports has heavy menses for the past 5 to 6 years but getting much worse over the last year thought it was just due to changing hormones. Patient reports menses are approximately every month but they do come approximately 4 to 5 days early every month. She states that she bleeds for 6 days day 2 is typically the worst where she has to wear disposable underwear passes large clots. The menstruation interferes with her daily life during her menses she feels fatigued due to blood loss she does have anemia. She denies ever happening to have a blood transfusion or iron infusion.Patient reports she feels a lot of pelvic pressure due to the fibroids.She states she has only had 1 and 1 vaginal delivery no otherabdominal surgeries. Patient did have a recent endometrial biopsy which was benign and did have a Pap which was also benign. Patient would like to proceed with surgical intervention at this time. She denies any other concerns today. 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: Sexual Activity: Yes; Male Contraception: Condom PAST MEDICAL HISTORY Diagnosis Date Fibroids uterine PAST SURGICAL HISTORY Procedure Laterality Date DELIVERY ONLY 2003 ENDOMETRIAL BIOPSY 04/19/2024 TOOTH EXTRACTION 1994 wisdom teeth FAMILY HISTORY Problem Relation Age of Onset Heart Attack Mother No Known Problems Half-brother No Known Problems Half-brother Diabetes Maternal Grandmother diet controlled Diabetes Maternal Grandfather Hypertension Maternal Grandfather Social History Tobacco Use Smoking status: Never Smokeless tobacco: Never Vaping Use Vaping status: Never Used Substance Use Topics Alcohol use: Yes Comment: rare Drug use: Never No current outpatient medications on file. No current facility-administered medications for this visit. Allergies As of Date: 05/10/2024 Allergen Noted Reaction PENICILLIN G 01/25/2024 Unknown Fully Assessed 05/10/2024 REVIEW OF SYSTEMS Abdomen: pelvic pressure Bladder: no dysuria.. Expanded ROS: GENERAL: Fatigue Allergies and current medication updated:Yes SENSITIVE EXAM: The sensitive examination was discussed with the Patient or Patient's Authorized Power And Recovery Shift Engineer. As applicable, any other physician, advance practice provider, medical student, or other health professional student that will be observing or involved in the sensitive examination for educational or training purposes was discussed with the Patient or Authorized Power And Recovery Shift Engineer. The Patient or Authorized Power And Recovery Shift Engineer has agreed to proceed with the sensitive examination. (Sensitive examination includes inspection and/or palpation of the breasts, pelvis, prostate and anorectal regions). EXAM: BP 130/84 Wt 239 lb (108.4kg) LMP 01/08/2024 GENERAL: pleasant, female in no apparent distress HEENT: atraumatic NECK: full range of motion DERMATOLOGY: without lesions ABDOMEN: soft, non-tender, and uterus palpable at 16 weeks size PELVIC: external genitalia normal, normal Bartholin's glands, urethra, Stokes[place]'s glands, no vulvar lesions, no cervical lesions, good vaginal support, physiologic discharge present, normal appearing perineal body and perianal region BIMANUAL: enlarged uterus 16 week size and fibroid(s) palpable - bulky- more on right NEURO: alert and oriented x3,exam grossly non-focal EXTREMITIES: normal ASSESSMENT AND PLAN: Assessment AND Plan Intramural, submucous, and subserous leiomyoma of uterus Excessive bleeding in premenopausal period Orders: COMPLETE BLOOD COUNT; Future THYROID STIMULATING HORMONE; Future Dysmenorrhea Pelvic pressure in female I reviewed with the patient options for surgery including consultation with minimally invasive gynecologic surgery for laparoscopic surgery. Discussed with the patient that consultation with minimally invasive gynecologic surgery for laparoscopic surgery. Discussed with the patient that I would attempt it laparoscopically however due to how bulky the uterus is this could make laparoscopic surgery more difficult. It could also make removal of the uterus through the vagina difficult. We discussed potential need for making an incision on the abdomen or possibly proceeding with a total abdominal hysterectomy. Patient verbalized understanding was given the opportunity to have a consult with [facility] and patient declines. Patient would like to proceed with surgery at [facility] we will (more content not included)... [facility] 05-10-2024 History of Presen t illness Narrative Moises Davila is a 48 year old female who presents for discussion regarding surgical intervention for fibroid uterus. Patient reports has heavy menses for the past 5 to 6 years but getting much worse over the last year thought it was just due to changing hormones. Patient reports menses are approximately every month but they do come approximately 4 to 5 days early every month. She states that she bleeds for 6 days day 2 is typically the worst where she has to wear disposable underwear passes large clots. The menstruation interferes with her daily life during her menses she feels fatigued due to blood loss she does have anemia. She denies ever happening to have a blood transfusion or iron infusion. Patient reports she feels a lot of pelvic pressure due to the fibroids. She states she has only had 1 and 1 vaginal delivery no other abdominal surgeries. Patient did have a recent endometrial biopsy which was benign and did have a Pap which was also benign. Patient would like to proceed with surgical intervention at this time. She denies any other concerns today. 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: Sexual Activity: Yes; Male Contraception: Condom PAST MEDICAL HISTORY Diagnosis Date Fibroids uterine PAST SURGICAL HISTORY Procedure Laterality Date DELIVERY ONLY 2003 ENDOMETRIAL BIOPSY 04/19/2024 TOOTH EXTRACTION 1994 wisdom teeth FAMILY HISTORY Problem Relation Age of Onset Heart Attack Mother No Known Problems Half-brother No Known Problems Half-brother Diabetes Maternal Grandmother diet controlled Diabetes Maternal Grandfather Hypertension Maternal Grandfather Social History Tobacco Use Smoking status: Never Smokeless tobacco: Never Vaping Use Vaping status: Never Used Substance Use Topics Alcohol use: Yes Comment: rare Drug use: Never No current outpatient medications on file. No current facility-administered medications for this visit. Allergies As of Date: 05/10/2024 Allergen Noted Reaction PENICILLIN G 01/25/2024 Unknown Fully Assessed 05/10/2024 REVIEW OF SYSTEMS Abdomen: pelvic pressure Bladder: no dysuria.. Expanded ROS: GENERAL: Fatigue Allergies and current medication updated:Yes SENSITIVE EXAM: The sensitive examination was discussed with the Patient or Patient's Authorized Power And Recovery Shift Engineer. As applicable, any other physician, advance practice provider, medical student, or other health professional student that will be observing or involved in the sensitive examination for educational or training purposes was discussed with the Patient or Authorized Power And Recovery Shift Engineer. The Patient or Authorized Power And Recovery Shift Engineer has agreed to proceed with the sensitive examination. (Sensitive examination includes inspection and/or palpation of the breasts, pelvis, prostate and anorectal regions). EXAM: BP 130/84 Wt 239 lb (108.4kg) LMP 01/08/2024 GENERAL: pleasant, female in no apparent distress HEENT: atraumatic NECK: full range of motion DERMATOLOGY: without lesions ABDOMEN: soft, non-tender, and uterus palpable at 16 weeks size PELVIC: external genitalia normal, normal Bartholin's glands, urethra, [place]'s glands, no vulvar lesions, no cervical lesions, good vaginal support, physiologic discharge present, normal appearing perineal body and perianal region BIMANUAL: enlarged uterus 16 week size and fibroid(s) palpable - bulky- more on right NEURO: alert and oriented x3,exam grossly non-focal EXTREMITIES: normal ASSESSMENT AND PLAN: Assessment & Plan Intramural, submucous, and subserous leiomyoma of uterus Excessive bleeding in premenopausal period Orders: COMPLETE BLOOD COUNT; Future THYROID STIMULATING HORMONE; Future Dysmenorrhea Pelvic pressure in female I reviewed with the patient options for surgery including consultation with minimally invasive gynecologic surgery for laparoscopic surgery. Discussed with the patient that consultation with minimally invasive gynecologic surgery for laparoscopic surgery. Discussed with the patient that I would attempt it laparoscopically however due to how bulky the uterus is this could make laparoscopic surgery more difficult. It could also make removal of the uterus through the vagina difficult. We discussed potential need for making an incision on the abdomen or possibly proceeding with a total abdominal hysterectomy. Patient verbalized understanding was given the opportunity to have a consult with [facility] and patient declines. Patient would like to proceed with surgery at [facility] we will attempt a total laparoscopic hysterectomy with a bilateral salpingectomy, cystoscopy possible total abdominal hysterectomy. We reviewed expectations and recovery. We reviewed risk for surgery. OR booking sheet was filled out. Will call the patient with her surgery date. Patient will return to the office for preoperative visit and to discuss in more detail. Medical Decision Making: Problems: Moderate: 1+ chronic illnesses with change Data: Unique test(s) ordered: 2 Risk: High: Decision on elective major surgery w/ risk factors Medical Decision Making Level: 4 - Moderate Shante Dai MD documented in this encounter [facility] 04-19-2024 Instructions Barb Carter MA - 04/19/2024 2:00 PM EST YOUR RECOVERY After your biopsy you may have: Vaginal bleeding (less than a normal menstrual period) Mild cramping Do NOT put anything in the vagina for 1 week after your endometrial biopsy. This includes: tampons douches and refraining from having sexual intercourse If you have any discomfort, you may take an over the counter pain medication (motrin, advil, ibuprofen, tylenol, etc). If this does not relieve your discomfort, contact the office. It is okay to wear a sanitary pad until the discharge and spotting stops. RISKS Although problems seldom occur with endometrial biopsies, there can be some complications. You may feel faint during and shortly after the procedure as well as have some bleeding after the procedure. There is also a risk of infection after the procedure. These complications are rare and can be easily treated. You should contact you doctor is you have any of the following: Heavy bleeding (more than your normal period) Bleeding with clots Severe abdominal pain Fever (more than 100.4F) Foul smelling vaginal discharge RESULTS We will have the results of your biopsy in 1-2 weeks. If you do not hear the results of your biopsy after 2 weeks, please contact the office for the results. If you have any additional questions or concerns please do not hesitate to contact the office. documented in this encounter [facility] 04-19-2024 Note HNO ID: [id number] Author: BRIDGER FOSS APRN.BLAIR Service: ? Author Type: Nurse Practitioner Type: Progress Notes Filed: 04/19/2024 14:59 Note Text: Radio Television Announcer offered: Patient declinesSunil James is a 48 year old Female who presents today for an endometrial biopsy for abnormal uterine bleeding. test: negative UNIVERSAL PROTOCOL / SAFETY CHECKLIST Procedure to be Performed: Endometrial Biopsy Sign In: A Moment of CARE was completed. Personnel directly involved with the procedure wore the appropriate PPE (Personal Protective Equipment). Patient/Surrogate Stated/Verified: PATIENT VERIFIED(optional for EMERGENT procedures): Patient name, Date of , Relevant allergies, and The intended procedure Time Out Communication: Intended patient and procedure match the source documents. Consent documented and matches the intended procedure. Sign Out: SIGN OUT (optional for EMERGENT procedures): All specimen containers correctly labeled. All instruments, equipment, possible retained foreign bodies accounted for. Post-procedure follow-up management communicated and Plan of Care Visit completed when applicable. Bridger Foss APRN.[employer] PROCEDURE: EXTERNAL GENITALIA: Normal in appearance without lesions VAGINA: Normal in appearance without lesions BIOPSY: Speculum placed into the vagina with excellent visualization of the cervix. Cervix cleaned with betadine. Anterior lip of cervix grasped with single toothed tenaculum. Uterus sounded to 12 cm. Pipelle inserted into the uterus without difficulty and endometrial biopsy obtained. Specimen labeled and sent to pathology. Hemostasis achieved. Procedure Summary: Patient tolerated procedure well. ASSESSMENT: abnormal uterine bleeding PLAN: Specimens labeled and sent to Pathology. Will notify patient of results in 1-2 weeks. Post-procedure instructions reviewed and written material given to the patient. Bridger Foss APRN.[facility] 04-19-2024 History of Presen t illness Narrative Radio Television Announcer offered: Patient declines. Moises is a 48 year old Female who presents today for an endometrial biopsy for abnormal uterine bleeding. test: negative UNIVERSAL PROTOCOL / SAFETY CHECKLIST Procedure to be Performed: Endometrial Biopsy Sign In: A Moment of CARE was completed. Personnel directly involved with the procedure wore the appropriate PPE (Personal Protective Equipment). Patient/Surrogate Stated/Verified: PATIENT VERIFIED(optional for EMERGENT procedures): Patient name, Date of , Relevant allergies, and The intended procedure Time Out Communication: Intended patient and procedure match the source documents. Consent documented and matches the intended procedure. Sign Out: SIGN OUT (optional for EMERGENT procedures): All specimen containers correctly labeled. All instruments, equipment, possible retained foreign bodies accounted for. Post-procedure follow-up management communicated and Plan of Care Visit completed when applicable. Bridger Foss APRN.CNP PROCEDURE: EXTERNAL GENITALIA: Normal in appearance without lesions VAGINA: Normal in appearance without lesions BIOPSY: Speculum placed into the vagina with excellent visualization of the cervix. Cervix cleaned with betadine. Anterior lip of cervix grasped with single toothed tenaculum. Uterus sounded to 12 cm. Pipelle inserted into the uterus without difficulty and endometrial biopsy obtained. Specimen labeled and sent to pathology. Hemostasis achieved. Procedure Summary: Patient tolerated procedure well. ASSESSMENT: abnormal uterine bleeding PLAN: Specimens labeled and sent to Pathology. Will notify patient of results in 1-2 weeks. Post-procedure instructions reviewed and written material given to the patient. Bridger Foss APRN.BLAIR documented in this encounter [facility] 04-10-2024 Note HNO ID: [id number] Author: JANINE BARNARD MD Service: ? Author Type: Physician Type: Progress Notes Filed: 04/10/2024 12:26 Note Text: Moises Davila is a 48 year old female who presents for problem visit f/u US HPI: Known fibroids. US from 2018 with 4 ranging from 2 cm to 3 cm at the largest dimension. Having heavy periods. Especially on day 2. Usually can't leave the house on that day. Recent US shows 5 fibroids. All have nearly doubled in size over the last 6 years. There is now a submucous fibroid that is likely the cause of the heavy bleeding. Reviewed options of Low dose Ocs, GNRH analogs, DANDC hysteroscopy with removal of submucous fibroid and hysterectomy. She does not have HTN, is not a smoker or have a HX of DVT. The uterus is over 13 cm and she can feel the heaviness. She is leaning toward a hysterectomy. Discussed EMB no matter what treatment plan she chooses. 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: Sexual Activity: Yes; Male Contraception: Condom PAST MEDICAL HISTORY Diagnosis Date Fibroids uterine PAST SURGICAL HISTORY Procedure Laterality Date DELIVERY ONLY 2002 TOOTH EXTRACTION 1993 wisdom teeth FAMILY HISTORY Problem Relation Age of Onset Heart Attack Mother No Known Problems Half-brother No Known Problems Half-brother Diabetes Maternal Grandmother diet controlled Diabetes Maternal Grandfather Hypertension Maternal Grandfather Social History Tobacco Use Smoking status: Never Smokeless tobacco: Never Vaping Use Vaping status: Never Used Substance Use Topics Alcohol use: Yes Comment: rare Drug use: Never No current outpatient medications on file. No current facility-administered medications for this visit. Allergies As of Date: 04/10/2024 Allergen Noted Reaction PENICILLIN G 01/25/2024 Unknown Fully Assessed 04/10/2024 REVIEW OF SYSTEMS Abdomen: No bloating, early satiety, indigestion, or increased flatulence. No abdominal pain, nausea, vomiting, diarrhea, or constipation. Bladder: No dysuria, gross hematuria, urinary frequency, urinary urgency, or incontinence. Breast: No breast lumps, nipple d/c, overlying skin changes, redness or skin retraction. Expanded ROS: N/A Allergies and current medication updated:Yes SENSITIVE EXAM: Sensitive exam not performed. EXAM: BP 130/88 Wt 237 lb 9.6 oz (107.8kg) LMP 01/08/2024 GENERAL: pleasant, female in no apparent distress HEENT: Normocephalic, atraumatic, mucus membranes moist, and no lesions NECK: full range of motion DERMATOLOGY: Normal, without lesions, non-icteric, and non-hirsute BREAST: deferred CHEST: Normal inspiratory effort ABDOMEN: Deferred PELVIC: deferred BIMANUAL: deferred NEURO: alert and oriented x3,exam grossly non-focal EXTREMITIES: normal ASSESSMENT AND PLAN: Assessment AND Plan Uterine leiomyoma, unspecified location Orders: ENDOMETRIAL BIOPSY Menorrhagia with regular cycle Janine Barnard MD [facility] 04-10-2024 History of Presen t illness Narrative Moises Davila is a 48 year old female who presents for problem visit f/u US HPI: Known fibroids. US from 2018 with 4 ranging from 2 cm to 3 cm at the largest dimension. Having heavy periods. Especially on day 2. Usually can't leave the house on that day. Recent US shows 5 fibroids. All have nearly doubled in size over the last 6 years. There is now a submucous fibroid that is likely the cause of the heavy bleeding. Reviewed options of Low dose Ocs, GNRH analogs, D&C hysteroscopy with removal of submucous fibroid and hysterectomy. She does not have HTN, is not a smoker or have a HX of DVT. The uterus is over 13 cm and she can feel the heaviness. She is leaning toward a hysterectomy. Discussed EMB no matter what treatment plan she chooses. 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: Sexual Activity: Yes; Male Contraception: Condom PAST MEDICAL HISTORY Diagnosis Date Fibroids uterine PAST SURGICAL HISTORY Procedure Laterality Date DELIVERY ONLY 2002 TOOTH EXTRACTION 1994 wisdom teeth FAMILY HISTORY Problem Relation Age of Onset Heart Attack Mother No Known Problems Half-brother No Known Problems Half-brother Diabetes Maternal Grandmother diet controlled Diabetes Maternal Grandfather Hypertension Maternal Grandfather Social History Tobacco Use Smoking status: Never Smokeless tobacco: Never Vaping Use Vaping status: Never Used Substance Use Topics Alcohol use: Yes Comment: rare Drug use: Never No current outpatient medications on file. No current facility-administered medications for this visit. Allergies As of Date: 04/10/2024 Allergen Noted Reaction PENICILLIN G 01/25/2024 Unknown Fully Assessed 04/10/2024 REVIEW OF SYSTEMS Abdomen: No bloating, early satiety, indigestion, or increased flatulence. No abdominal pain, nausea, vomiting, diarrhea, or constipation. Bladder: No dysuria, gross hematuria, urinary frequency, urinary urgency, or incontinence. Breast: No breast lumps, nipple d/c, overlying skin changes, redness or skin retraction. Expanded ROS: N/A Allergies and current medication updated:Yes SENSITIVE EXAM: Sensitive exam not performed. EXAM: BP 130/88 Wt 237 lb 9.6 oz (107.8kg) LMP 01/08/2024 GENERAL: pleasant, female in no apparent distress HEENT: Normocephalic, atraumatic, mucus membranes moist, and no lesions NECK: full range of motion DERMATOLOGY: Normal, without lesions, non-icteric, and non-hirsute BREAST: deferred CHEST: Normal inspiratory effort ABDOMEN: Deferred PELVIC: deferred BIMANUAL: deferred NEURO: alert and oriented x3,exam grossly non-focal EXTREMITIES: normal ASSESSMENT AND PLAN: Assessment & Plan Uterine leiomyoma, unspecified location Orders: ENDOMETRIAL BIOPSY Menorrhagia with regular cycle Janine Barnard MD documented in this encounter [facility] 03-20-2024 Note HNO ID: [id number] Author: PING FAULKNER MD Service: ? 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 Encounter Diagnosis ICD-10-CM 1. Uterine leiomyoma, unspecified location D25.9 Please see report under imaging tab. Ping Faulkner MD March 20, 2024 3:[address] 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 Encounter Diagnosis ICD-10-CM 1. Uterine leiomyoma, unspecified location D25.9 Please see report under imaging tab. Ping Faulkner MD March 20, 2024 3:51 PM documented in this encounter [facility] 02-11-2024 History of Presen t illness Narrative Radiology Service Progress Note PATIENT NAME: Moises Davila DATE OF SERVICE: February 11, 2024 TIME: 10:43 AM PATIENT IDENTITY VERIFICATION COMPLETED USING TWO (2) IDENTIFIERS: Name and Date of confirmed by patient verbally. FALL SCREENING: Has the patient had 2 falls in the last year or 1 fall with injury or currently using an Ambulatory Assistive Device (Walker, Cane, Wheelchair, Crutches, etc.)? No PATIENT GENDER DATA: Female. status: : No status: NO. PATIENT RELEVANT IMPLANT DATA REVIEWED: Not Applicable PATIENT PRESENTS WITH AN IMPLANTABLE OR ATTACHED NURSING UNIT MANAGER: No RADIOLOGY DEPARTMENT: Mammography PERIPHERAL IV DATA: Not applicable SIGNED BY: RT Collin(Crys) February 11, 2024 10:43 AM documented in this encounter [facility] 02-11-2024 Note HNO ID: [id number] Author: DAYA SOTO RT(Crys) Service: ? Author Type: Technologist Type: Progress Notes Filed: 02/11/2024 10:44 Note Text: Radiology Service Progress Note PATIENT NAME: Moises Davila DATE OF SERVICE: February 11, 2024 TIME: 10:43 AM PATIENT IDENTITY VERIFICATION COMPLETED USING TWO (2) IDENTIFIERS: Name and Date of confirmed by patient verbally. FALL SCREENING: Has the patient had 2 falls in the last year or 1 fall with injury or currently using an Ambulatory Assistive Device (Walker, Cane, Wheelchair, Crutches, etc.)? No PATIENT GENDER DATA: Female. status: : No status: NO. PATIENT RELEVANT IMPLANT DATA REVIEWED: Not Applicable PATIENT PRESENTS WITH AN IMPLANTABLE OR ATTACHED NURSING UNIT MANAGER: No RADIOLOGY DEPARTMENT: Mammography PERIPHERAL IV DATA: Not applicable SIGNED BY: RT Collin(R) February 11, 2024 10:[address] [facility] 01-25-2024 Note HNO ID: [id number] Author: JANINE BARNARD MD Service: ? Author Type: Physician Type: Progress Notes Filed: 01/25/2024 11:31 Note Text: Radio Television Announcer offered: Patient declines. Moises is a 48 year old who presents for an annual gynecologic exam with complaints, heavy and irregular bleeding. Know fibroids. About 5-6. Has been getting heavier more irregular periods. Third day is always the heaviest. Can't leave the house some times. Not a lot of pain. Last US several years ago. Menses: cycles every 21-34 days and 7 days of flow. 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: Sexual Activity: Yes; Male Contraception: Condom PAST MEDICAL HISTORY Diagnosis Date Fibroids uterine PAST SURGICAL HISTORY Procedure Laterality Date DELIVERY ONLY 2003 TOOTH EXTRACTION 1994 wisdom teeth FAMILY HISTORY Problem Relation Age of Onset Heart Attack Mother No Known Problems Half-brother No Known Problems Half-brother Diabetes Maternal Grandmother diet controlled Diabetes Maternal Grandfather Hypertension Maternal Grandfather SOCIAL HISTORY Social History Tobacco Use Smoking status: Never Smokeless tobacco: Never Vaping Use Vaping status: Never Used Substance Use Topics Alcohol use: Yes Comment: rare Drug use: Never REVIEW OF SYSTEMS Abdomen: No abdominal pain, nausea, vomiting, diarrhea, or constipation. No bloating, early satiety, indigestion, or increased flatulence. Bladder: No dysuria, gross hematuria, urinary frequency, urinary urgency, or incontinence. Breast: No breast lumps, nipple d/c, overlying skin changes, redness or skin retraction. Allergies and current medication updated:Yes SENSITIVE EXAM: The sensitive examination was discussed with the Patient or Patient's Authorized Power And Recovery Shift Engineer. As applicable, any other physician, advance practice provider, medical student, or other health professional student that will be observing or involved in the sensitive examination for educational or training purposes was discussed with the Patient or Authorized Power And Recovery Shift Engineer. The Patient or Authorized Power And Recovery Shift Engineer has agreed to proceed with the sensitive examination. (Sensitive examination includes inspection and/or palpation of the breasts, pelvis, prostate and anorectal regions). EXAM: BP 122/84 Ht 5' 4.5 (1.64m) Wt 234 lb (106.1kg) LMP 01/08/2024 BMI 39.56 kg/(m2). GENERAL: pleasant, female in no apparent distress HEENT: Normocephalic, atraumatic, mucus membranes moist, and no lesions NECK: Supple, full range of motion, no adenopathy, and thyroid normal DERMATOLOGY: Normal, without lesions, non-icteric, and non-hirsute BREAST: soft, non-tender, symmetric, no dominant mass, normal nipple-areolar complex, no lymphadenopathy, and no nipple discharge CHEST: Normal inspiratory effort ABDOMEN: soft, non-tender, and no masses PELVIC: external genitalia normal, normal Bartholin's glands, urethra, Stokes[place]'s glands, no vulvar lesions, no cervical lesions, good vaginal support, physiologic discharge present, normal appearing perineal body and perianal region BIMANUAL: no adnexal masses, non-tender, and enlarged uterus 16-18 week size RECTOVAGINAL: deferred. NEURO: alert and oriented x3,exam grossly non-focal EXTREMITIES: normal ASSESSMENT/PLAN: 1) Health maintenance: Pap done with HPV. Mammogram ordered. US to evaluate fibroid size and location 2) Contraception: condoms. Contraceptive options reviewed and information provided. 3) STD screening: Declined STD check. 4) Follow up one year or sooner as needed Janine Barnard MD [facility] 01-25-2024 History of Presen t illness Narrative Radio Television Announcer offered: Patient declines. Moises is a 48 year old who presents for an annual gynecologic exam with complaints, heavy and irregular bleeding. Know fibroids. About 5-6. Has been getting heavier more irregular periods. Third day is always the heaviest. Can't leave the house some times. Not a lot of pain. Last US several years ago. Menses: cycles every 21-34 days and 7 days of flow. 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: Sexual Activity: Yes; Male Contraception: Condom PAST MEDICAL HISTORY Diagnosis Date Fibroids uterine PAST SURGICAL HISTORY Procedure Laterality Date DELIVERY ONLY 2003 TOOTH EXTRACTION 1994 wisdom teeth FAMILY HISTORY Problem Relation Age of Onset Heart Attack Mother No Known Problems Half-brother No Known Problems Half-brother Diabetes Maternal Grandmother diet controlled Diabetes Maternal Grandfather Hypertension Maternal Grandfather SOCIAL HISTORY Social History Tobacco Use Smoking status: Never Smokeless tobacco: Never Vaping Use Vaping status: Never Used Substance Use Topics Alcohol use: Yes Comment: rare Drug use: Never REVIEW OF SYSTEMS Abdomen: No abdominal pain, nausea, vomiting, diarrhea, or constipation. No bloating, early satiety, indigestion, or increased flatulence. Bladder: No dysuria, gross hematuria, urinary frequency, urinary urgency, or incontinence. Breast: No breast lumps, nipple d/c, overlying skin changes, redness or skin retraction. Allergies and current medication updated:Yes SENSITIVE EXAM: The sensitive examination was discussed with the Patient or Patient's Authorized Power And Recovery Shift Engineer. As applicable, any other physician, advance practice provider, medical student, or other health professional student that will be observing or involved in the sensitive examination for educational or training purposes was discussed with the Patient or Authorized Power And Recovery Shift Engineer. The Patient or Authorized Power And Recovery Shift Engineer has agreed to proceed with the sensitive examination. (Sensitive examination includes inspection and/or palpation of the breasts, pelvis, prostate and anorectal regions). EXAM: BP 122/84 Ht 5' 4.5 (1.64m) Wt 234 lb (106.1kg) LMP 01/08/2024 BMI 39.56 kg/(m^2). GENERAL: pleasant, female in no apparent distress HEENT: Normocephalic, atraumatic, mucus membranes moist, and no lesions NECK: Supple, full range of motion, no adenopathy, and thyroid normal DERMATOLOGY: Normal, without lesions, non-icteric, and non-hirsute BREAST: soft, non-tender, symmetric, no dominant mass, normal nipple-areolar complex, no lymphadenopathy, and no nipple discharge CHEST: Normal inspiratory effort ABDOMEN: soft, non-tender, and no masses PELVIC: external genitalia normal, normal Bartholin's glands, urethra, [place]'s glands, no vulvar lesions, no cervical lesions, good vaginal support, physiologic discharge present, normal appearing perineal body and perianal region BIMANUAL: no adnexal masses, non-tender, and enlarged uterus 16-18 week size RECTOVAGINAL: deferred. NEURO: alert and oriented x3,exam grossly non-focal EXTREMITIES: normal ASSESSMENT/PLAN: 1) Health maintenance: Pap done with HPV. Mammogram ordered. US to evaluate fibroid size and location 2) Contraception: condoms. Contraceptive options reviewed and information provided. 3) STD screening: Declined STD check. 4) Follow up one year or sooner as needed Janine Barnard MD documented in this encounter [facility] 09-16-2021 Note [facility] Work Phone: Pap Smear Specimen Adequacy September 16, 2021 10:15am Comment . Satisfactory for evaluation. Endocervical and/or squamous metaplasticcells (endocervical component) are present. Comment on above: Satisfactory for roshan luation. Endocervical and/or squamous metaplasticcells (endocervical component) are present. Evaluation note No assessment information availa [facility] Work Phone: Evaluation note Diagnosis Encounter for gynecological examination (general) (routine) without abnormal findings- Primary Screening for cervical cancer Screening for malignant neoplasm of the cervix Encounter for screening for human papillomavirus (HPV) Special screening examination for human papillomavirus (HPV) Encounter for screening mammogram for breast cancer Uterine leiomyoma, unspecified location [facility] Diagnosis Encounter for screening mammogram for breast cancer [facility] Diagnosis Uterine leiomyoma, unspecified location documented in this encounter [facility] note* Diagnosis Uterine leiomyoma, unspecified location- Primary Menorrhagia with regular cycle Excessive or frequent menstruation * Assessment & Plan Note - Janine Barnard MD - 04/10/2024 12:26 PM EST Associated Problem(s): Menorrhagia with regular cycle * Assessment & Plan Note - Janine Barnard MD - 04/10/2024 12:26 PM EST Associated Problem(s): Uterine leiomyoma Orders: ENDOMETRIAL BIOPSY documented in this encounter [facility] note* Diagnosis Uterine leiomyoma, unspecified location- Primary Menorrhagia with regular cycle Excessive or frequent menstruation Abnormal uterine bleeding- Primary Unspecified disorder of menstruation and other abnormal bleeding from female genital tract documented in this encounter [facility] note* Diagnosis Uterine leiomyoma, unspecified location- Primary Menorrhagia with regular cycle Excessive or frequent menstruation Intramural, submucous, and subserous leiomyoma of uterus- Primary Excessive bleeding in premenopausal period Premenopausal menorrhagia Dysmenorrhea Pelvic pressure in female Other specified symptom associated with female genital organs * Assessment & Plan Note - Shante Fleming MD - 05/10/2024 3:35 PM EST Associated Problem(s): Uterine leiomyoma documented in this encounter [facility] note* Diagnosis Uterine leiomyoma, unspecified location- Primary Menorrhagia with regular cycle Excessive or frequent menstruation Intramural, submucous, and subserous leiomyoma of uterus- Primary Excessive bleeding in premenopausal period Premenopausal menorrhagia Dysmenorrhea Pelvic pressure in female Other specified symptom associated with female genital organs OPENED IN ERROR- Primary To allow closing an encounter opened in error (used in SmartSet) documented in this encounter [facility] note* Diagnosis Uterine leiomyoma, unspecified location- Primary Menorrhagia with regular cycle Excessive or frequent menstruation Intramural, submucous, and subserous leiomyoma of uterus- Primary Excessive bleeding in premenopausal period Premenopausal menorrhagia Dysmenorrhea Pelvic pressure in female Other specified symptom associated with female genital organs Uterine leiomyoma, unspecified location- Primary Menorrhagia with regular cycle Excessive or frequent menstruation Pre-op exam Preoperative examination, unspecified documented in this encounter [facility] note* Diagnosis Uterine leiomyoma, unspecified location- Primary Menorrhagia with regular cycle Excessive or frequent menstruation Intramural, submucous, and subserous leiomyoma of uterus- Primary Excessive bleeding in premenopausal period Premenopausal menorrhagia Dysmenorrhea Pelvic pressure in female Other specified symptom associated with female genital organs Abnormal uterine bleeding (AUB)- Primary Uterine leiomyoma, unspecified location [facility] Name Dates Details How to access health informa tion online Indication:Non-smoker Start:27-Jan-2019 Instruction Type:Patient Education How to access health informa tion online - Detail Indication:Non-smoker Start:27-Jan-2019 Instruction Type:Patient Education Patient Instructions Indication:Non-smoker Start:27-Jan-2019 Instruction Type:Provider Instructions for Treatment How to access health informa tion online Indication:BMI 36.0-36.9,adult Start:20-May-2018 Instruction Type:Patient Education How to access health informa tion online - Detail Indication:BMI 36.0-36.9,adult Start:20-May-2018 Instruction Type:Patient Education Patient Instructions Indication:BMI 36.0-36.9,adult Start:20-May-2018 Instruction Type:Provider Instructions for Treatment How to access health informa tion online Indication:Current non-smoker Start:04-Feb-2018 Instruction Type:Patient Education How to access health informa tion online - Detail Indication:Current non-smoker Start:04-Feb-2018 Instruction Type:Patient Education Patient Instructions Indication:Current non-smoker Start:04-Feb-2018 Instruction Type:Provider Instructions for Treatment How to access health informa tion online Indication:Current non-smoker Start:14-Jan-2018 Instruction Type:Patient Education How to access health informa tion online - Detail Indication:Current non-smoker Start:14-Jan-2018 Instruction Type:Patient Education Patient Instructions Indication:Current non-smoker Start:14-Jan-2018 Instruction Type:Provider Instructions for Treatment How to access health informa tion online Indication:Current non-smoker Start:15-Jul-2017 Instruction Type:Patient Education How to access health informa tion online - Detail Indication:Current non-smoker Start:15-Jul-2017 Instruction Type:Patient Education Patient Instructions Indication:Current non-smoker Start:15-Jul-2017 Instruction Type:Provider Instructions for Treatment How to access health informa tion online Indication:BMI 40.0-44.9, adult Start:18-Mar-2017 Instruction Type:Patient Education How to access health informa tion online - Detail Indication:BMI 40.0-44.9, adult Start:18-Mar-2017 Instruction Type:Patient Education Patient Instructions Indication:Sinusitis, bacterial Start:18-Mar-2017 Instruction Type:Provider Instructions for Treatment How to access health informa tion online Indication:BMI 40.0-44.9, adult Start:20-Mar-2016 Instruction Type:Patient Education How to access health informa tion online - Detail Indication:BMI 40.0-44.9, adult Start:20-Mar-2016 Instruction Type:Patient Education Patient Instructions Indication:BMI 40.0-44.9, adult Start:20-Mar-2016 Instruction Type:Provider Instructions for Treatment How to access health informa tion online Indication:BMI 40.0-44.9, adult Start:13-Jan-2016 Instruction Type:Patient Education How to access health informa tion online - Detail Indication:BMI 40.0-44.9, adult Start:13-Jan-2016 Instruction Type:Patient Education Patient Instructions Indication:BMI 40.0-44.9, adult Start:13-Jan-2016 Instruction Type:Provider Instructions for Treatment How to access health informa tion online Indication:BMI 40.0-44.9, adult Start:13-Jan-2016 Instruction Type:Patient Education How to access health informa tion online - Detail Indication:BMI 40.0-44.9, adult Start:13-Jan-2016 Instruction Type:Patient Education Patient Instructions Indication:BMI 40.0-44.9, adult Start:13-Jan-2016 Instruction Type:Provider Instructions for Treatment How to access health informa tion online Indication:Pharyngitis, acute Start:19-Dec-2014 Instruction Type:Patient Education How to access health informa tion online - Detail Indication:Pharyngitis, acute Start:19-Dec-2014 Instruction Type:Patient Education Patient Instructions Indication:Pharyngitis, acute Start:19-Dec-2014 Instruction Type:Provider Instructions for Treatment Patient Instructions Indication:Obesity, unspecified Start:28-Jul-2013 Instruction Type:Provider Instructions for Treatment Patient Instructions Indication:Abdominal pain, acute, left lower quadrant Start:06-May-2012 Instruction Type:Provider Instructions for Treatment Patient Instructions Indication:Urinary frequency Start:18-Apr-2012 Instruction Type:Provider Instructions for Treatment [facility] Work Phone: reason for referral (narrative)* Diagnostic Procedure Only (Routine) - Authorized Specialty Diagnoses / Procedures Referred By Jericho luna Referred To Contact [facility] Diagnoses Uterine leiomyoma, unspecified location Procedures PELVIC US WHI US PELVIC NONOBSTETRIC REAL-TIME IMAGE COMPLETE Janine Barnard MD [address] [place] [address] [facility] [address] [place] [id number] Referral ID Status Reason Start Date Expiration Date Visits Requested Visits Authorized [id number] Authorized Auto-Generat ed Referral 4 01/24/2025 1 1 * Diagnostic Procedure Only (Routine) - Authorized Specialty Diagnoses / Procedures Referred By Jericho luna Referred To Contact [facility] Diagnoses Encounter for screening mammogram for breast cancer Procedures TRISTAN SCREENING W JUAN SCREENING DIGITAL BREAST TOMOSYNTHESIS BI SCREENING MAMMOGRAPHY BI 2-VIEW BREAST INC CAD Janine Barnard MD [address] [place] [address] [facility] [address] [place] [address] Referral ID Status Reason Start Date Expiration Date Visits Requested Visits Authorized [id number] Authorized Auto-Generat ed Referral 02/23/2025 1 1 [facility] for referral (narrative)* Outpatient Procedure (Routine) - Authorized Specialty Diagnoses / Procedures Referred By Jericho luna Referred To Contact [facility] Diagnoses Uterine leiomyoma, unspecified location Procedures ENDOMETRIAL BIOPSY ENDOMETRIAL BX W/WO ENDOCERVIX BX W/O DILAT SPX Janine Barnard MD [address] [place] [address] [facility] [address] [address] Referral ID Status Reason Start Date Expiration Date Visits Requested Visits Authorized [id number] Authorized Auto-Generat ed Referral 04/10/2024 04/10/2025 1 1 [facility] for visit Narrative* Diagnostic Procedure Only (Routine) - Closed Specialty Diagnoses / Procedures Referred By Jericho luna Referred To Contact [facility] Diagnoses Encounter for screening mammogram for breast cancer Procedures TRISTAN SCREENING W JUAN SCREENING DIGITAL BREAST TOMOSYNTHESIS BI SCREENING MAMMOGRAPHY BI 2-VIEW BREAST INC Janine Earl MD [address] [place] [address] [facility] [address] [place] [address] Referral ID Status Reason Start Date Expiration Date V isits Requested Visits Authorized [id number] Closed Auto-Generate d Referral 01/25/2024 02/23/2025 1 1 [facility] for visit Narrative* Diagnostic Procedure Only (Routine) - Closed Specialty Diagnoses / Procedures Referred By Jericho luna Referred To Contact [facility] Diagnoses Uterine leiomyoma, unspecified location Procedures PELVIC US WHI US PELVIC NONOBSTETRIC REAL-TIME IMAGE COMPLETE Janine Barnard MD [address] [place] [address] [facility] [address] [place] [address] Referral ID Status Reason Start Date Expiration Date V isits Requested Visits Authorized [id number] Closed Auto-Generate d Referral 01/25/2024 01/24/2025 1 1 [facility] Instructions Name Dates Details Current non-smoker : How to access health information online Indication:Current non-smoker Current non-smoker : How to access health information online - Detail Indication:Current non-smoker Current non-smoker : Patient Instructions Indication:Current non-smoker BMI 40.0-44.9, adult : How t o access health information online Indication:BMI 40.0-44.9, adult BMI 40.0-44.9, adult : How t o access health information online - Detail Indication:BMI 40.0-44.9, adult Sinusitis, bacterial : Patie nt Instructions Indication:Sinusitis, bacterial BMI 40.0-44.9, adult : Patie nt Instructions Indication:BMI 40.0-44.9, adult Pharyngitis, acute : How to access health information online Indication:Pharyngitis, acute Pharyngitis, acute : How to access health information online - Detail Indication:Pharyngitis, acute Pharyngitis, acute : Patient Instructions Indication:Pharyngitis, acute Obesity, unspecified : Patie nt Instructions Indication:Obesity, unspecified Abdominal pain, acute, left lower quadrant : Patient Instructions Indication:Abdominal pain, acute, left lower quadrant Urinary frequency : Patient Instructions Indication:Urinary frequency Name Dates Details Current non-smoker : How to access health information online Indication:Current non-smoker Current non-smoker : How to access health information online - Detail Indication:Current non-smoker Current non-smoker : Patient Instructions Indication:Current non-smoker BMI 40.0-44.9, adult : How t o access health information online Indication:BMI 40.0-44.9, adult BMI 40.0-44.9, adult : How t o access health information online - Detail Indication:BMI 40.0-44.9, adult Sinusitis, bacterial : Patie nt Instructions Indication:Sinusitis, bacterial BMI 40.0-44.9, adult : Patie nt Instructions Indication:BMI 40.0-44.9, adult Pharyngitis, acute : How to access health information online Indication:Pharyngitis, acute Pharyngitis, acute : How to access health information online - Detail Indication:Pharyngitis, acute Pharyngitis, acute : Patient Instructions Indication:Pharyngitis, acute Obesity, unspecified : Patie nt Instructions Indication:Obesity, unspecified Abdominal pain, acute, left lower quadrant : Patient Instructions Indication:Abdominal pain, acute, left lower quadrant Urinary frequency : Patient Instructions Indication:Urinary frequency Name Dates Details Current non-smoker : How to access health information online Indication:Current non-smoker Current non-smoker : How to access health information online - Detail Indication:Current non-smoker Current non-smoker : Patient Instructions Indication:Current non-smoker BMI 40.0-44.9, adult : How t o access health information online Indication:BMI 40.0-44.9, adult BMI 40.0-44.9, adult : How t o access health information online - Detail Indication:BMI 40.0-44.9, adult Sinusitis, bacterial : Patie nt Instructions Indication:Sinusitis, bacterial BMI 40.0-44.9, adult : Patie nt Instructions Indication:BMI 40.0-44.9, adult Pharyngitis, acute : How to access health information online Indication:Pharyngitis, acute Pharyngitis, acute : How to access health information online - Detail Indication:Pharyngitis, acute Pharyngitis, acute : Patient Instructions Indication:Pharyngitis, acute Obesity, unspecified : Patie nt Instructions Indication:Obesity, unspecified Abdominal pain, acute, left lower quadrant : Patient Instructions Indication:Abdominal pain, acute, left lower quadrant Urinary frequency : Patient Instructions Indication:Urinary frequency Name Dates Details BMI 36.0-36.9,adult : How to access health information online Indication:BMI 36.0-36.9,adult BMI 36.0-36.9,adult : How to access health information online - Detail Indication:BMI 36.0-36.9,adult BMI 36.0-36.9,adult : Patien t Instructions Indication:BMI 36.0-36.9,adult Current non-smoker : How to access health information online Indication:Current non-smoker Current non-smoker : How to access health information online - Detail Indication:Current non-smoker Current non-smoker : Patient Instructions Indication:Current non-smoker BMI 40.0-44.9, adult : How t o access health information online Indication:BMI 40.0-44.9, adult BMI 40.0-44.9, adult : How t o access health information online - Detail Indication:BMI 40.0-44.9, adult Sinusitis, bacterial : Patie nt Instructions Indication:Sinusitis, bacterial BMI 40.0-44.9, adult : Patie nt Instructions Indication:BMI 40.0-44.9, adult Pharyngitis, acute : How to access health information online Indication:Pharyngitis, acute Pharyngitis, acute : How to access health information online - Detail Indication:Pharyngitis, acute Pharyngitis, acute : Patient Instructions Indication:Pharyngitis, acute Obesity, unspecified : Patie nt Instructions Indication:Obesity, unspecified Abdominal pain, acute, left lower quadrant : Patient Instructions Indication:Abdominal pain, acute, left lower quadrant Urinary frequency : Patient Instructions Indication:Urinary frequency Name Dates Details BMI 36.0-36.9,adult : How to access health information online Indication:BMI 36.0-36.9,adult BMI 36.0-36.9,adult : How to access health information online - Detail Indication:BMI 36.0-36.9,adult BMI 36.0-36.9,adult : Patien t Instructions Indication:BMI 36.0-36.9,adult Current non-smoker : How to access health information online Indication:Current non-smoker Current non-smoker : How to access health information online - Detail Indication:Current non-smoker Current non-smoker : Patient Instructions Indication:Current non-smoker BMI 40.0-44.9, adult : How t o access health information online Indication:BMI 40.0-44.9, adult BMI 40.0-44.9, adult : How t o access health information online - Detail Indication:BMI 40.0-44.9, adult Sinusitis, bacterial : Patie nt Instructions Indication:Sinusitis, bacterial BMI 40.0-44.9, adult : Patie nt Instructions Indication:BMI 40.0-44.9, adult Pharyngitis, acute : How to access health information online Indication:Pharyngitis, acute Pharyngitis, acute : How to access health information online - Detail Indication:Pharyngitis, acute Pharyngitis, acute : Patient Instructions Indication:Pharyngitis, acute Obesity, unspecified : Patie nt Instructions Indication:Obesity, unspecified Abdominal pain, acute, left lower quadrant : Patient Instructions Indication:Abdominal pain, acute, left lower quadrant Urinary frequency : Patient Instructions Indication:Urinary frequency Name Dates Details How to access health informa tion online Indication:BMI 36.0-36.9,adult Start:20-May-2018 Instruction Type:Patient Education How to access health informa tion online - Detail Indication:BMI 36.0-36.9,adult Start:20-May-2018 Instruction Type:Patient Education Patient Instructions Indication:BMI 36.0-36.9,adult Start:20-May-2018 Instruction Type:Provider Instructions for Treatment How to access health informa tion online Indication:Current non-smoker Start:04-Feb-2018 Instruction Type:Patient Education How to access health informa tion online - Detail Indication:Current non-smoker Start:04-Feb-2018 Instruction Type:Patient Education Patient Instructions Indication:Current non-smoker Start:04-Feb-2018 Instruction Type:Provider Instructions for Treatment How to access health informa tion online Indication:Current non-smoker Start:14-Jan-2018 Instruction Type:Patient Education How to access health informa tion online - Detail Indication:Current non-smoker Start:14-Jan-2018 Instruction Type:Patient Education Patient Instructions Indication:Current non-smoker Start:14-Jan-2018 Instruction Type:Provider Instructions for Treatment How to access health informa tion online Indication:Current non-smoker Start:15-Jul-2017 Instruction Type:Patient Education How to access health informa tion online - Detail Indication:Current non-smoker Start:15-Jul-2017 Instruction Type:Patient Education Patient Instructions Indication:Current non-smoker Start:15-Jul-2017 Instruction Type:Provider Instructions for Treatment How to access health informa tion online Indication:BMI 40.0-44.9, adult Start:18-Mar-2017 Instruction Type:Patient Education How to access health informa tion online - Detail Indication:BMI 40.0-44.9, adult Start:18-Mar-2017 Instruction Type:Patient Education Patient Instructions Indication:Sinusitis, bacterial Start:18-Mar-2017 Instruction Type:Provider Instructions for Treatment How to access health informa tion online Indication:BMI 40.0-44.9, adult Start:20-Mar-2016 Instruction Type:Patient Education How to access health informa tion online - Detail Indication:BMI 40.0-44.9, adult Start:20-Mar-2016 Instruction Type:Patient Education Patient Instructions Indication:BMI 40.0-44.9, adult Start:20-Mar-2016 Instruction Type:Provider Instructions for Treatment How to access health informa tion online Indication:BMI 40.0-44.9, adult Start:13-Jan-2016 Instruction Type:Patient Education How to access health informa tion online - Detail Indication:BMI 40.0-44.9, adult Start:13-Jan-2016 Instruction Type:Patient Education Patient Instructions Indication:BMI 40.0-44.9, adult Start:13-Jan-2016 Instruction Type:Provider Instructions for Treatment How to access health informa tion online Indication:Pharyngitis, acute Start:19-Dec-2014 Instruction Type:Patient Education How to access health informa tion online - Detail Indication:Pharyngitis, acute Start:19-Dec-2014 Instruction Type:Patient Education Patient Instructions Indication:Pharyngitis, acute Start:19-Dec-2014 Instruction Type:Provider Instructions for Treatment Patient Instructions Indication:Obesity, unspecified Start:28-Jul-2013 Instruction Type:Provider Instructions for Treatment Patient Instructions Indication:Abdominal pain, acute, left lower quadrant Start:06-May-2012 Instruction Type:Provider Instructions for Treatment Patient Instructions Indication:Urinary frequency Start:18-Apr-2012 Instruction Type:Provider Instructions for Treatment Name Dates Details How to access health informa tion online Indication:BMI 36.0-36.9,adult Start:20-May-2018 Instruction Type:Patient Education How to access health informa tion online - Detail Indication:BMI 36.0-36.9,adult Start:20-May-2018 Instruction Type:Patient Education Patient Instructions Indication:BMI 36.0-36.9,adult Start:20-May-2018 Instruction Type:Provider Instructions for Treatment How to access health informa tion online Indication:Current non-smoker Start:04-Feb-2018 Instruction Type:Patient Education How to access health informa tion online - Detail Indication:Current non-smoker Start:04-Feb-2018 Instruction Type:Patient Education Patient Instructions Indication:Current non-smoker Start:04-Feb-2018 Instruction Type:Provider Instructions for Treatment How to access health informa tion online Indication:Current non-smoker Start:14-Jan-2018 Instruction Type:Patient Education How to access health informa tion online - Detail Indication:Current non-smoker Start:14-Jan-2018 Instruction Type:Patient Education Patient Instructions Indication:Current non-smoker Start:14-Jan-2018 Instruction Type:Provider Instructions for Treatment How to access health informa tion online Indication:Current non-smoker Start:15-Jul-2017 Instruction Type:Patient Education How to access health informa tion online - Detail Indication:Current non-smoker Start:15-Jul-2017 Instruction Type:Patient Education Patient Instructions Indication:Current non-smoker Start:15-Jul-2017 Instruction Type:Provider Instructions for Treatment How to access health informa tion online Indication:BMI 40.0-44.9, adult Start:18-Mar-2017 Instruction Type:Patient Education How to access health informa tion online - Detail Indication:BMI 40.0-44.9, adult Start:18-Mar-2017 Instruction Type:Patient Education Patient Instructions Indication:Sinusitis, bacterial Start:18-Mar-2017 Instruction Type:Provider Instructions for Treatment How to access health informa tion online Indication:BMI 40.0-44.9, adult Start:20-Mar-2016 Instruction Type:Patient Education How to access health informa tion online - Detail Indication:BMI 40.0-44.9, adult Start:20-Mar-2016 Instruction Type:Patient Education Patient Instructions Indication:BMI 40.0-44.9, adult Start:20-Mar-2016 Instruction Type:Provider Instructions for Treatment How to access health informa tion online Indication:BMI 40.0-44.9, adult Start:13-Jan-2016 Instruction Type:Patient Education How to access health informa tion online - Detail Indication:BMI 40.0-44.9, adult Start:13-Jan-2016 Instruction Type:Patient Education Patient Instructions Indication:BMI 40.0-44.9, adult Start:13-Jan-2016 Instruction Type:Provider Instructions for Treatment How to access health informa tion online Indication:Pharyngitis, acute Start:19-Dec-2014 Instruction Type:Patient Education How to access health informa tion online - Detail Indication:Pharyngitis, acute Start:19-Dec-2014 Instruction Type:Patient Education Patient Instructions Indication:Pharyngitis, acute Start:19-Dec-2014 Instruction Type:Provider Instructions for Treatment Patient Instructions Indication:Obesity, unspecified Start:28-Jul-2013 Instruction Type:Provider Instructions for Treatment Patient Instructions Indication:Abdominal pain, acute, left lower quadrant Start:06-May-2012 Instruction Type:Provider Instructions for Treatment Patient Instructions Indication:Urinary frequency Start:18-Apr-2012 Instruction Type:Provider Instructions for Treatment Name Dates Details How to access health informa tion online Indication:Non-smoker Start:27-Jan-2019 Instruction Type:Patient Education How to access health informa tion online - Detail Indication:Non-smoker Start:27-Jan-2019 Instruction Type:Patient Education Patient Instructions Indication:Non-smoker Start:27-Jan-2019 Instruction Type:Provider Instructions for Treatment How to access health informa tion online Indication:BMI 36.0-36.9,adult Start:20-May-2018 Instruction Type:Patient Education How to access health informa tion online - Detail Indication:BMI 36.0-36.9,adult Start:20-May-2018 Instruction Type:Patient Education Patient Instructions Indication:BMI 36.0-36.9,adult Start:20-May-2018 Instruction Type:Provider Instructions for Treatment How to access health informa tion online Indication:Current non-smoker Start:04-Feb-2018 Instruction Type:Patient Education How to access health informa tion online - Detail Indication:Current non-smoker Start:04-Feb-2018 Instruction Type:Patient Education Patient Instructions Indication:Current non-smoker Start:04-Feb-2018 Instruction Type:Provider Instructions for Treatment How to access health informa tion online Indication:Current non-smoker Start:14-Jan-2018 Instruction Type:Patient Education How to access health informa tion online - Detail Indication:Current non-smoker Start:14-Jan-2018 Instruction Type:Patient Education Patient Instructions Indication:Current non-smoker Start:14-Jan-2018 Instruction Type:Provider Instructions for Treatment How to access health informa tion online Indication:Current non-smoker Start:15-Jul-2017 Instruction Type:Patient Education How to access health informa tion online - Detail Indication:Current non-smoker Start:15-Jul-2017 Instruction Type:Patient Education Patient Instructions Indication:Current non-smoker Start:15-Jul-2017 Instruction Type:Provider Instructions for Treatment How to access health informa tion online Indication:BMI 40.0-44.9, adult Start:18-Mar-2017 Instruction Type:Patient Education How to access health informa tion online - Detail Indication:BMI 40.0-44.9, adult Start:18-Mar-2017 Instruction Type:Patient Education Patient Instructions Indication:Sinusitis, bacterial Start:18-Mar-2017 Instruction Type:Provider Instructions for Treatment How to access health informa tion online Indication:BMI 40.0-44.9, adult Start:20-Mar-2016 Instruction Type:Patient Education How to access health informa tion online - Detail Indication:BMI 40.0-44.9, adult Start:20-Mar-2016 Instruction Type:Patient Education Patient Instructions Indication:BMI 40.0-44.9, adult Start:20-Mar-2016 Instruction Type:Provider Instructions for Treatment How to access health informa tion online Indication:BMI 40.0-44.9, adult Start:13-Jan-2016 Instruction Type:Patient Education How to access health informa tion online - Detail Indication:BMI 40.0-44.9, adult Start:13-Jan-2016 Instruction Type:Patient Education Patient Instructions Indication:BMI 40.0-44.9, adult Start:13-Jan-2016 Instruction Type:Provider Instructions for Treatment How to access health informa tion online Indication:Pharyngitis, acute Start:19-Dec-2014 Instruction Type:Patient Education How to access health informa tion online - Detail Indication:Pharyngitis, acute Start:19-Dec-2014 Instruction Type:Patient Education Patient Instructions Indication:Pharyngitis, acute Start:19-Dec-2014 Instruction Type:Provider Instructions for Treatment Patient Instructions Indication:Obesity, unspecified Start:28-Jul-2013 Instruction Type:Provider Instructions for Treatment Patient Instructions Indication:Abdominal pain, acute, left lower quadrant Start:06-May-2012 Instruction Type:Provider Instructions for Treatment Patient Instructions Indication:Urinary frequency Start:18-Apr-2012 Instruction Type:Provider Instructions for Treatment Name Dates Details How to access health informa tion online Indication:Non-smoker Start:27-Jan-2019 Instruction Type:Patient Education How to access health informa tion online - Detail Indication:Non-smoker Start:27-Jan-2019 Instruction Type:Patient Education Patient Instructions Indication:Non-smoker Start:27-Jan-2019 Instruction Type:Provider Instructions for Treatment How to access health informa tion online Indication:BMI 36.0-36.9,adult Start:20-May-2018 Instruction Type:Patient Education How to access health informa tion online - Detail Indication:BMI 36.0-36.9,adult Start:20-May-2018 Instruction Type:Patient Education Patient Instructions Indication:BMI 36.0-36.9,adult Start:20-May-2018 Instruction Type:Provider Instructions for Treatment How to access health informa tion online Indication:Current non-smoker Start:04-Feb-2018 Instruction Type:Patient Education How to access health informa tion online - Detail Indication:Current non-smoker Start:04-Feb-2018 Instruction Type:Patient Education Patient Instructions Indication:Current non-smoker Start:04-Feb-2018 Instruction Type:Provider Instructions for Treatment How to access health informa tion online Indication:Current non-smoker Start:14-Jan-2018 Instruction Type:Patient Education How to access health informa tion online - Detail Indication:Current non-smoker Start:14-Jan-2018 Instruction Type:Patient Education Patient Instructions Indication:Current non-smoker Start:14-Jan-2018 Instruction Type:Provider Instructions for Treatment How to access health informa tion online Indication:Current non-smoker Start:15-Jul-2017 Instruction Type:Patient Education How to access health informa tion online - Detail Indication:Current non-smoker Start:15-Jul-2017 Instruction Type:Patient Education Patient Instructions Indication:Current non-smoker Start:15-Jul-2017 Instruction Type:Provider Instructions for Treatment How to access health informa tion online Indication:BMI 40.0-44.9, adult Start:18-Mar-2017 Instruction Type:Patient Education How to access health informa tion online - Detail Indication:BMI 40.0-44.9, adult Start:18-Mar-2017 Instruction Type:Patient Education Patient Instructions Indication:Sinusitis, bacterial Start:18-Mar-2017 Instruction Type:Provider Instructions for Treatment How to access health informa tion online Indication:BMI 40.0-44.9, adult Start:20-Mar-2016 Instruction Type:Patient Education How to access health informa tion online - Detail Indication:BMI 40.0-44.9, adult Start:20-Mar-2016 Instruction Type:Patient Education Patient Instructions Indication:BMI 40.0-44.9, adult Start:20-Mar-2016 Instruction Type:Provider Instructions for Treatment How to access health informa tion online Indication:BMI 40.0-44.9, adult Start:13-Jan-2016 Instruction Type:Patient Education How to access health informa tion online - Detail Indication:BMI 40.0-44.9, adult Start:13-Jan-2016 Instruction Type:Patient Education Patient Instructions Indication:BMI 40.0-44.9, adult Start:13-Jan-2016 Instruction Type:Provider Instructions for Treatment How to access health informa tion online Indication:Pharyngitis, acute Start:19-Dec-2014 Instruction Type:Patient Education How to access health informa tion online - Detail Indication:Pharyngitis, acute Start:19-Dec-2014 Instruction Type:Patient Education Patient Instructions Indication:Pharyngitis, acute Start:19-Dec-2014 Instruction Type:Provider Instructions for Treatment Patient Instructions Indication:Obesity, unspecified Start:28-Jul-2013 Instruction Type:Provider Instructions for Treatment Patient Instructions Indication:Abdominal pain, acute, left lower quadrant Start:06-May-2012 Instruction Type:Provider Instructions for Treatment Patient Instructions Indication:Urinary frequency Start:18-Apr-2012 Instruction Type:Provider Instructions for Treatment Summary Purpose Family History No Family History Records FoundNo Family History Records FoundNo Family History Records Found Advance Directives No Advanced Directives Records Found Name Dates Details Immunization Registry [place] - Effective on 01/27/2019. Expiration date unspecified Effective:27-Jan-2019 Chief Complaint and Reason for Visit Chief Complaint EORDER Chief Complaint L hip/groin pain Additional Source Comments INFORMATION SOURCE (unrecogn ized section and content) DATE CREATED AUTHOR 05/21/2018 [facility] DATE CREATED AUTHOR AUTHOR'S ORGANIZ ATION 08/13/2024 [facility] DATE CREATED AUTHOR AUTHOR[facility]S OR[facility]IZ ATION [facility] Goals (unrecognized section and content) Goals may be documented in a n alternate sectionGoals may be documented in an alternate sectionGoals may be documented in an alternate section Care Teams (unrecognized sec tion and content) Team Status: Active Member Role Status Dates Dr. Annie Anglin , DO Family Provider Active Brooke Quintana , DO Primary Care Provider Active Team Status: Inactive Member Role Status Dates Brooke Quintana , DO Primary Care Provi leelee, Attending Provider, Referring Provider Active Team Status: Inactive Member Role Status Dates Brooke Quintana , DO Primary Care Provider, Attending Provider Active Source Comments (unrecognize d section and content) In the event this informatio n is protected by the Federal Confidentiality of Alcohol and Drug Abuse Patient Records regulations: The Federal rules restrict any use of the information to criminally investigate or prosecute any alcohol or drug abuse patient.[facility] the event this information is protected by the Federal Confidentiality of Alcohol and Drug Abuse Patient Records regulations: The Federal rules restrict any use of the information to criminally investigate or prosecute any alcohol or drug abuse patient.[facility] the event this information is protected by the Federal Confidentiality of Alcohol and Drug Abuse Patient Records regulations: The Federal rules restrict any use of the information to criminally investigate or prosecute any alcohol or drug abuse patient.[facility] the event this information is protected by the Federal Confidentiality of Alcohol and Drug Abuse Patient Records regulations: The Federal rules restrict any use of the information to criminally investigate or prosecute any alcohol or drug abuse patient.[facility] the event this information is protected by the Federal Confidentiality of Alcohol and Drug Abuse Patient Records regulations: The Federal rules restrict any use of the information to criminally investigate or prosecute any alcohol or drug abuse patient.[facility] the event this information is protected by the Federal Confidentiality of Alcohol and Drug Abuse Patient Records regulations: The Federal rules restrict any use of the information to criminally investigate or prosecute any alcohol or drug abuse patient.[facility] the event this information is protected by the Federal Confidentiality of Alcohol and Drug Abuse Patient Records regulations: The Federal rules restrict any use of the information to criminally investigate or prosecute any alcohol or drug abuse patient.[facility] the event this information is protected by the Federal Confidentiality of Alcohol and Drug Abuse Patient Records regulations: The Federal rules restrict any use of the information to criminally investigate or prosecute any alcohol or drug abuse patient.[facility] the event this information is protected by the Federal Confidentiality of Alcohol and Drug Abuse Patient Records regulations: The Federal rules restrict any use of the information to criminally investigate or prosecute any alcohol or drug abuse patient.[facility] the event this information is protected by the Federal Confidentiality of Alcohol and Drug Abuse Patient Records regulations: The Federal rules restrict any use of the information to criminally investigate or prosecute any alcohol or drug abuse patient.[facility] the event this information is protected by the Federal Confidentiality of Alcohol and Drug Abuse Patient Records regulations: The Federal rules restrict any use of the information to criminally investigate or prosecute any alcohol or drug abuse patient.[facility] the event this information is protected by the Federal Confidentiality of Alcohol and Drug Abuse Patient Records regulations: The Federal rules restrict any use of the information to criminally investigate or prosecute any alcohol or drug abuse patient.[facility] Hospital[facility] the event this information is protected by the Federal Confidentiality of Alcohol and Drug Abuse Patient Records regulations: The Federal rules restrict any use of the information to criminally investigate or prosecute any alcohol or drug abuse patient.[facility] Hospital[facility] the event this information is protected by the Federal Confidentiality of Alcohol and Drug Abuse Patient Records regulations: The Federal rules restrict any use of the information to criminally investigate or prosecute any alcohol or drug abuse patient.[facility] Hospital[facility] the event this information is protected by the Federal Confidentiality of Alcohol and Drug Abuse Patient Records regulations: The Federal rules restrict any use of the information to criminally investigate or prosecute any alcohol or drug abuse patient.[facility] HospitalIn the event this information is protected by the Federal Confidentiality of Alcohol and Drug Abuse Patient Records regulations: The Federal rules restrict any use of the information to criminally investigate or prosecute any alcohol or drug abuse patient.[facility] Reason for Visit (unrecogniz ed section and content) Reason Comments Well Woman Reason Comments Follow Up From ultrasound Reason Comments Endometrial Biopsy Specialty Diagnoses / Procedures Referred By Jericho luna Referred To Contact [facility] Diagnoses Uterine leiomyoma, unspecified location Procedures ENDOMETRIAL BIOPSY ENDOMETRIAL BX W/WO ENDOCERVIX BX W/O DILAT SPX Janine Barnard MD [address] [place] [address] Phone: tel: fax: [facility] [address] [place] [address] Referral ID Status Reason Start Date Expiration Date V isits Requested Visits Authorized [id number] Closed Auto-Generate d Referral 04/10/2024 04/10/2025 1 1 Reason Comments Discussion Reason Onset Date Comments Opened In Error 06/09/2024 Reason Comments Telemedicine Reason Comments Cancel Surgery due to Illness Reason Comments Results Reason Comments Pre-Op Visit FOR RECORDS PERTAINING TO PATIENTS WHO ARE OR HAVE BEEN ENROLLED IN A CHEMICAL DEPENDENCY/SUBSTANCEABUSE PROGRAM, SOME INFORMATION MAY BE OMITTED. This clinical summary was aggregated from multiple sources. Caution should be exercised in using it in the provision of clinical care. This summary normalizes information from multiple sources, and as a consequence, information in this document may materially change the coding, format and clinical context of patient data. In addition, data may be omitted in some cases. CLINICAL DECISIONS SHOULD BE BASED ON THE PRIMARY CLINICAL RECORDS. [facility] [employer] [facility]. provides no warranty or guarantee of the accuracy or completeness of information in this document.
[2024-08-24 09:20] LABS: Internal QC Validated? YES +Cl - CLEAR BKGD; Pregnancy, Urine Negative Negative
[2024-08-24] MEDS: metroNIDAZOLE 500 MG/100 ML BAG 100 MG IV (09:23)
[2024-08-24] MEDS: Magnesium 2 GM for ERAS IV (09:23)
[2024-08-24] MEDS: Scopolamine 1mg/72hr Patch 1 PATCH TD (09:24)
[2024-08-24] MEDS: Gabapentin 600 MG Tablet PO (09:25)
[2024-08-24] MEDS: Enoxaparin 40 MG/0.4 ML Syringe SC (09:26)
[2024-08-24] MEDS: Lactated Ringers 1,000 ML 40 ML IV (09:26)
[2024-08-24] MEDS: Acetaminophen 500 MG Tablet 1000 MG PO (09:27)
[2024-08-24] MEDS: Celecoxib 200 MG Capsule 400 MG PO (09:27)
[2024-08-24] MEDS: Phenazopyridine 95 MG Tablet 190 MG PO (09:27)
--- NOTE | 2024-08-24 10:04 | PCM.PRE.AN2 ---
ASA Classification* ASA Classification ASA Classification: 3 (BMI > 40; had holter monitor for tachycardia, but patient states results were negative) Assessment & Plan Anesthesia* Anesthesia Assessment Anesthesia Assessment: Discussed sedation and/or anesthesia options, risks, benefits, and alternatives with patient/parents/legal guardian/POA. Questions invited. The patient/parents/legal guardian/POA seems to understand and agrees to proceed with anesthesia plan. Reviewed the physical assessment, medical history, allergy history and patient home medications list prior to surgery/procedure/anesthetic and documented any changes. Performed airway and anesthesia risk assessments. Anesthesia Type Anesthesia Type: General History Source History Obtained from:: Patient and Chart Anesthesia Focused Assessment* Temperature: 99 F Pulse Rate: 84 Blood Pressure: 147/98 Respiratory Rate: 16 Pulse Ox: 100 Oxygen Delivery Method: Room Air Airway Assessment Mouth opens: >3 cm Mallampati Score: II Teeth Condition: Intact Neck Range of motion (ROM): Full ROM Labs Anesthesia Preop lab: CBC WBC 4.7 K/mm3 (4.4-11.0) 08/19/24 10:13 08/19/24 RBC 4.15 M/mm3 (4.2-5.4) L 08/19/24 10:13 08/19/24 Hgb 11.3 g/dL (12.0-15.0) L 08/19/24 10:13 08/19/24 Hct 36.1 % (37-47) L 08/19/24 10:13 08/19/24 Plt Count 274 K/mm3 (150-450) 08/19/24 10:13 08/19/24 CHEMISTRY Potassium 4.0 mmol/L (3.3-5.1) 08/19/24 10:13 08/19/24 Sodium 138 mmol/L (133-145) 08/19/24 10:13 08/19/24 Magnesium 1.8 mg/dL (1.5-2.2) 06/16/24 16:27 06/16/24 BUN 11 mg/dL (4-19) 08/19/24 10:13 08/19/24 Creatinine 0.71 mg/dL (0.70-1.20) 08/19/24 10:13 08/19/24 Glucose 102 mg/dL (70-99) H 08/19/24 10:13 08/19/24 TSH 1.15 uIU/mL (0.358-3.74) 11/18/22 12:53 11/18/22 COAG PT 14.1 SECONDS (11.7-14.9) 06/16/24 16:27 06/16/24 Urine Test Negative Negative 08/24/24 09:00 08/24/24 Pre-Assessment Diagnosis/Proposed Procedure Planned Operative Procedure(s): B) Hysterectomy,TLH, bilateral salpingectomy, cystoscopy, POSSIBLE TOTAL ABDOMINAL HYSTERECTOMY Anesthesia History Anesthesia History - hypoid gear tester: Anesthesia History - hypoid gear tester Hx Hospitalization No 08/14/24 09:17 Any Problems With Anesthesia No 08/14/24 09:17 Cholinesterase deficiency No 08/14/24 09:17 You/Your Family Experience No 08/14/24 09:17 fever (hyperthermia) with Relationship Recent Exposure to Contagious No 08/24/24 09:36 Disease Does patient have nerve No 08/14/24 09:17 stimulator Patient instructed to have device shut off --Does patient have Pacemaker No 08/24/24 09:36 or ICD? When Was Last Pacemaker Check QUESTION #4 FULL TEXT: You/Your Family Experience fever (hyperthermia) with Anesthesia Last Oral Intake Last Oral intake: Last Oral Intake NPO since 06:15 08/24/24 09:36 Meds taken in AM with sips of Yes 08/24/24 09:36 water? Meds patient instructed to take am of surgery PONV PONV - hypoid gear tester: PONV - hypoid gear tester Female Yes 08/14/24 09:17 HX of Motion Sickness No 08/14/24 09:17 HX of N/V After Surgery No 08/14/24 09:17 Non-Smoker Yes 08/14/24 09:17 Duration of Surgery greater No 08/14/24 09:17 than 60 minutes Number of Risk Factors 2 08/14/24 09:17 PONV Score Moderate Risk 08/14/24 09:17 Height & Weight Height & Weight: Anesthesia: Height & Weight Height 5 ft 5 in 08/24/24 09:36 Weight: 109 kg 08/24/24 09:36 Body Mass Index (BMI) 39.9 08/24/24 09:36 Respiratory Assessment Respiratory Assessment - hypoid gear tester: Respiratory Tract Infection Hx - hypoid gear tester Hx Respiratory Tract Infection No 08/14/24 09:17 STOP Sleep Apnea STOP Sleep Apnea - hypoid gear tester: STOP Sleep Apnea - hypoid gear tester Hx Hypertension No 08/14/24 09:17 Hx Sleep Apnea No 08/14/24 09:17 CPAP BIPAP Do you snore loudly (louder No 08/14/24 09:17 than talking or can be heard Do you often feel tired/ No 08/14/24 09:17 fatigued/ sleepy during daytime? Has anyone observed you stop No 08/14/24 09:17 breathing during sleep? STOP Results Negative 08/14/24 09:17 QUESTION #5 FULL TEXT : Do you snore loudly (louder than talking or can be heard through closed doors)? 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 Specify any problems Hx of Preganancy in last 3 No 08/14/24 09:17 Months Nurse Filling Out Transfusion MGGINGER 08/14/24 09:17 & Questions: Date: 08/14/24 08/14/24 09:17 Time: 09:17 08/14/24 09:17 Patient unable to answer at this time (ie. confused, unrespo /Reproduction History /Reproductive History - hypoid gear tester: /Reproductive Hx- hypoid gear tester Hx Now No 08/14/24 09:17 Gestational Age (in weeks): EDC: Hx Hx Para Hx Section SAB No 08/14/24 09:17 Active Medications Active Medications: Current Medications Generic Name Dose Route Start Last Admin Trade Name Freq PRN Reason Stop Dose Admin Acetaminophen 1,000 mg 08/24/24 10:15 08/24/24 09:27 Acetaminophen 500 Mg Tablet PO 08/24/24 10:16 1,000 mg PREOP ONE Administration Celecoxib 400 mg 08/24/24 10:15 08/24/24 09:27 Celecoxib 200 Mg Capsule PO 08/24/24 10:16 400 mg PREOP ONE Administration Dexamethasone Sodium Phosphate 8 mg 08/24/24 10:15 Dexamethasone 4 Mg/Ml Vial IV 08/24/24 10:16 INTRAOP ONE Enoxaparin Sodium 40 mg 08/24/24 10:15 08/24/24 09:26 Enoxaparin 40 Mg/0.4 Ml Syringe SC 08/24/24 10:16 40 mg PREOP ONE Administration Gabapentin 600 mg 08/24/24 10:15 08/24/24 09:25 Gabapentin 600 Mg Tablet PO 08/24/24 10:16 600 mg PREOP ONE Administration Lactated Ringer's 1,000 mls @ 40 mls/hr 08/24/24 10:15 08/24/24 09:26 IV 40 mls/hr .Q25H GARFIELD Administration Metronidazole 500 mg in 100 mls @ 100 mls/hr 08/24/24 10:15 08/24/24 09:23 Flagyl IV 08/24/24 11:14 100 mls/hr INTRAOP ONE Administration Cefazolin Sodium 2 gm/ Sodium 110 mls @ 150 mls/hr 08/24/24 10:15 Chloride IV 08/24/24 10:58 INTRAOP ONE Lactated Ringer's 1,000 mls @ 15 mls/hr 08/24/24 08:30 IV .Q48H GARFIELD Insulin Human Lispro 0 unit 08/24/24 10:15 Insulin Lispro 100 Unit/Ml Insuln.Pen SC 08/24/24 16:15 Q4H PRN PRN BG >/= 180, SEE PROTOCOL Protocol Ondansetron HCl 4 mg 08/24/24 10:15 Ondansetron 4 Mg/2 Ml Vial IV 08/24/24 10:16 INTRAOP ONE Phenazopyridine HCl 190 mg 08/24/24 10:15 08/24/24 09:27 Phenazopyridine 95 Mg Tablet PO 08/24/24 10:16 190 mg PREOP ONE Administration Scopolamine HBr 1 patch 08/24/24 10:15 08/24/24 09:24 Scopolamine 1mg/72hr Patch TD 08/24/24 10:16 1 patch PREOP ONE Administration [facility] Medical History (Updated 08/14/24 @ 09:45 by Marina Lopez) Anemia History of Holter monitoring History of COVID-19 Wears glasses Non-smoker History of stress test Hypertension Home Medications ?Medication ?Instructions ?Recorded ?Last Taken ?Type polysaccharide iron complex 150 mg 150 mg PO DAILY #30 caps 12/14/18 Unknown History iron capsule cholecalciferol (vitamin D3) 25 25 mcg PO DAILY 06/09/24 Unknown History mcg (1,000 unit) capsule (Vitamin D3) multivitamin 1 tab PO DAILY 08/14/24 Unknown History Allergy/AdvReac Type Severity Reaction Status Date / Time Penicillins Allergy Unknown Rash Verified 08/24/24 09:06 clarithromycin (From Biaxin) AdvReac Mild feeling Verified 08/24/24 09:06 out of body telithromycin (From Ketek) AdvReac rapid Verified 08/24/24 09:06 heart rate Surgical History (Updated 06/09/24 @ 08:35 by Bindu Joshua) Hx of section Hx of wisdom tooth extraction Social History (Updated 12/14/18 @ 15:[address] Merrill Paul, DO) Smoking Status: Never smoker Review of Systems (Anesthesia) ROS Narrative System reviewed and no additional complaints, except as documented. Physical Exam Const alert and oriented x3 Nutritional Appearance: obese Resp normal respiratory effort, normal air movement and clear to auscultation bilaterally Cardio regular rate, regular rhythm, no murmurs and diaphoretic
--- NOTE | 2024-08-24 10:15 | UT_PTH ---
PATIENT: MOISES DAVILA [place] [facility] [id number] AGE/SX: 48/F ROOM: RE08/24/[address]: Dr. Shante Dai, MDDOB: 1975 BED: DIS: 08/24/2024 SPEC #: [id number] RECD: 08/24/24 13:40 STATUS: JAMILAH DAWSONAntoinette #: [id number] SCAR: 08/24/24 10:[address]: Shante Dai DEPT: SURGICAL PATHOLOGY RECD BY: Phuc Becker ENTERED: 08/24/24 14:29 SP TYPE: UTERUS OTHR DR: Daya Quintana, [facility], DO Tissues: A - Uterus, NOS Procedures: Surgery Specimen Level V HEADER OPERATION: ERAS, total laparoscopic hysterectomy, salpingectomy PRE-OP DIAGNOSIS: Fibroid uterus and menorrhagia TISSUE SUBMITTED: A- Uterus, cervix and bilateral fallopian tubes MICROSCOPIC DIAGNOSIS A. Uterus, cervix, bilateral fallopian tubes, fibroid uterus and menorrhagia, total laparoscopic hysterectomy: * Cervix: no specific pathologic change. * Endometrium: secretory phase with benign polyp. * Myometrium: adenomyosis, leiomyomata with focal infarction (up to 5.0 cm). * Bilateral fallopian tubes: focal endometriosis. MICROSCOPIC DESCRIPTION Slides are reviewed. GROSS DESCRIPTION A. Received in formalin labeled with the patient's name and date of .? Designated as uterus, cervix, bilateral fallopian tubes is a 515.8 g, 14.6 x 2.9 x 6.9 cm irregular and disrupted uterus (in multiple pieces) with detached fallopian tubes.? The serosa is pizano-pink and focally erythematous with multiple subserosal leiomyomas (0.5 cm - 1.6 cm).? The detached cervix is a pizano-pink to red and disrupted, 2.2 x 1.5 cm; definitive measurement or patency of the os is unable to be determined. There are no identifying landmarks to orient the specimen; the identifiable margins are inked black.? Sectioning reveals numerous, focally congested intramural leiomyomas (up to 5.0 cm) grossly distorting the endometrial canal which is irregular and measures approximately 5.0 cm in length by 4.5 cm in diameter; the endometrial canal is lined by pink-red, lush endometrium and has a possible polyp, 1.0 x 0.7 x 0.7 cm.? The endometrium ranges 0.3 cm to 0.7 cm thick while the myometrium measures approximately 3.8 cm thick however, definitive thickness is difficult to determine due to the number of leiomyomas. The bilateral fallopian tubes are fimbriated, measuring 4.9 x 0.4 cm and 2.4 x 0.5 cm. ?Each has a few paratubal cysts, up to 0.6 cm. Carbon Furnace Operator sections are submitted as follows: A1: CervixA2-A3: EndomyometriumA4-A5: Fallopian tubesA6: Possible polypA7: Subserosal leiomyomasA8: Intramural leiomyomas with focal congestion CA 08/24/2024 CPT:72572
[2024-08-24] MEDS: Cefazolin 2 GM in 0.9% Normal Saline (100mL Bag) 100 ML IV (10:39)
[2024-08-24] MEDS: dexAMETHasone 4 MG/ML Vial 8 MG IV (10:40)
[2024-08-24 11:18] LABS: Bedside Glucose 117 mg/dL (74-106)
--- NOTE | 2024-08-24 12:51 | DCINST_ITS ---
Discharge Instructions Diet Discharge Diet: No restrictions DC O2, CPAP, BIPAP needs Home O2 Discharge instructions: No Dressing / Incision Discharge Activity: May Not Drive (while taking narcotics. may drive when pain controlled. ) and May Shower May shower in (days): 1 May resume sexual activity in: 6-8 weeks Weight Bearing Status: Full weight bearing Lifting Restrictions: 20 Additional Activity Instructions:: NOTHING IN THE VAGINA x 6-8 weeks. Dressing / Incision Call your doctor if your incision/area has: Continuous Slow Oozing, Sudden Increased Bleeding, Increased Pain/ Swelling, Increased Redness, Foul Smelling Discharge and Swelling at the incision site Call your doctor if you observe: Fever of 101 or Higher, Inability to have a bowel movement, Using more than 1 pad per hour and Uncontrolled pain Change Dressing in: do not change dressing Remove Dressing in: 1 week (remove at POD#7 unless dressing gets Saturated or you have a fever. ) Cleanse incision/area with: Soap & Water, Keep Dressing Clean & Dry and - (you may let soap and water run over incision sites and dab dry. ) Follow Up Care Please Follow Up With: Shante Dai MD When: 1 week as scheduled for post op visit and then at 6 weeks post op Test Results: Test results from this visit will be discussed in further detail at your follow- up appointment, if applicable. Discharge Plan Admission Attending Provider: Shante Dai Primary Care Provider: Daya Quintana [facility] Instructions Print Language: Scottish Discharge Orders/Prescriptions Prescriptions: No Action polysaccharide iron complex 150 mg iron capsule 150 mg PO DAILY Qty: 30 Patient Comments: TAKE 1 CAPSULE BY MOUTH EVERY DAY cholecalciferol (vitamin D3) [Vitamin D3] 25 mcg (1,000 unit) capsule 25 mcg PO DAILY multivitamin Tablet 1 tab PO DAILY Disposition Disposition (needs filled in before D/C Order can be placed): Home, Self Care
--- NOTE | 2024-08-24 12:53 | DCINST_ITS ---
Discharge Instructions Diet Discharge Diet: No restrictions DC O2, CPAP, BIPAP needs Home O2 Discharge instructions: No Dressing / Incision May shower in (days): 1 May resume sexual activity in: 6-8 weeks Weight Bearing Status: Full weight bearing Additional Activity Instructions:: NOTHING IN THE VAGINA x 6-8 weeks. Dressing / Incision Call your doctor if your incision/area has: Continuous Slow Oozing, Sudden Increased Bleeding, Increased Pain/ Swelling, Increased Redness, Foul Smelling Discharge and Swelling at the incision site Call your doctor if you observe: Fever of 101 or Higher, Inability to have a bowel movement, Using more than 1 pad per hour and Uncontrolled pain Cleanse incision/area with: Soap & Water, Keep Dressing Clean & Dry and - (you may let soap and water run over incision sites and dab dry. ) Follow Up Care Please Follow Up With: Shante Dai MD Test Results: Test results from this visit will be discussed in further detail at your follow- up appointment, if applicable. Discharge Plan Admission Attending Provider: Shante Dai Primary Care Provider: Daya Quintana [facility] Instructions Print Language: Finnish Discharge Orders/Prescriptions Prescriptions: New oxycodone 5 mg tablet 5 mg PO Q6H PRN (Reason: pain) 5 Days Qty: 15 0RF No Action polysaccharide iron complex 150 mg iron capsule 150 mg PO DAILY Qty: 30 Patient Comments: TAKE 1 CAPSULE BY MOUTH EVERY DAY cholecalciferol (vitamin D3) [Vitamin D3] 25 mcg (1,000 unit) capsule 25 mcg PO DAILY multivitamin Tablet 1 tab PO DAILY Disposition Disposition (needs filled in before D/C Order can be placed): Home, Self Care
--- NOTE | 2024-08-24 12:55 | OP.PCM_ITS ---
Operative Report (Standard) Operative Information Date of Procedure: 08/24/24 Pre-Operative Diagnosis: AUB, Fibroid uterus Post-Operative Diagnosis: same Surgery/Procedure Performed: TLH, bilateral salpingectomy, Cysto, Mini laparotomy early childhood teacher assistant: Yes Real Estate Instructor: Caro Donahue Tasks completed by ophthalmic surgical assistant: Opening & closing, Dissecting tissue, Altering tissue, Hemostasis: Electrocautery and Retracting Additional engineer second assistant?: Yes Additional Cellar Supervisor #2: river Palacio Tasks completed by engineer second assistant #2: Opening & closing, Dissecting tissue, Removing tissue, Hemostasis: Electrocautery and Retracting Additional engineer second assistant?: No Type of Anesthesia: General and Local MAC RN Documented Start/Stop Times: Operation Date: 08/24/24 10:15 Case Time Into Pre-Op 08/24/24 08:21 Out of Pre-Op 08/24/24 10:21 Anesthesia Start 08/24/24 10:24 Into Room 08/24/24 10:24 Procedure Start 08/24/24 10:43 Procedure Start Time: 10:43 Procedure Stop Time: 13:04 Select all DRAINS/GRAFTS/IMPLANTS that apply: None Special Medications: hemoblast Estimated Blood Loss: 100 Fluids Replaced: 1000cc Specimen collected: Yes Description of specimen(s) removed: uterus , Cervix, bilateral fallopian tubes Description of surgery: Patient take to OR and prepped and draped in usual sterile fashion in dorsal lithotomy position with her arms tucked in a neurologically safe and neutral position. The uterus sounded to 12. The medical services manager uterine manipulator was sutured into place at 3/9:00 position and coe were placed. Attention was turned to the abdomen. All port sites were infiltrated with 0.5% marcaine before the incisions were made. The anterior abdominal wall was tented up with towel clamps and using a direct entry approach a 5 mm supraumbilical port was placed. Intraperitoneal placement was confirmed with the laparoscope and the pneumoperitoneum was created. The patient was placed in Trendelenburg and 5 mm right and left lower quadrant ports were placed under direct visualization. Air seal rapid insufflator was used. Large fibroid uterus appreciated, bowel stuck to left side of uterus. Left fallopian tube stuck to bowel - piece of left tube will be left in place due to adhesion. The bowel was swept away. Ovaries appeared normal. The mesosalpinx starting at fimbriated end were grasped, clamped, sealed and transected with the Ligasure. The round ligaments were divided. The anterior peritoneum was dissected down to create the bladder flap with blunt dissection and the LigaSure. The uterine arteries were isolated, clamped, sealed and cut. There was minimal back bleeding from the uterus. Straight bites on uterine arteries performed to drop them off the cuff. The manipulator was used as guide to create colpotomy using monopolar tip of ligasure. once specimen was removed attention was turned to vaginal portion. Due to how large uterus we attempted to core out uterus howver it was too large with minimal vaginal access. decision to make mini laparotomy made. At this time .5% marcaine injected and incision was made with the scalpel carried down to the underlying layer of the fascia. The fascia was then excised laterally using the curved Salazar scissor. At this time then 2 straight Kirill clamps were placed on the superior edge of the fascia and the rectus muscle dissected off sharply peritoneum was then entered bluntly. The small Tera retractor was placed. At this time the uterus was brought to the mini laparotomy and it was cored using a scalpel fibroids were removed in order to remove it from the mini laparotomy. Once the specimen was handed off at this time the fascia was then closed using #1 PDS in a running fashion. The subcutaneous layer was irrigated with normal saline and then closed using 2-0 Vicryl. The skin was closed in a subcutaneous fashion using 4-0 Monocryl. Dry sterile dressing was applied I Went back to vagina where The cuff was closed with interrupted 0-vicryl figure of 8 sutures. Cystoscopy was performed bilateral ureters were visualized with good efflux. bladder was intact. coe replaced and sponge stick placed in vagina. The pneumoperitoneum was recreated and the cuff and pedicles were hemostatic. Hemoblast was placed over cuff and pedicles. The skin incisions were closed with skin glue and 3-0 monocryl in the LLQ port site. The vaginal sweep was completed by me. Grafts/Implants Used: none Surgical Findings: large fibroid uterus. Ovaries normal. Left tube adherant to Bowel. portion of left tube remained attached to bowel. Complications Complications: No Admit VTE Documentation VTE Present on Admission: Yes VTE Mechan Device Prophylaxis: SCD's VTE Pharm Prophylaxis ordered?: Yes
[2024-08-24] MEDS: Bupivacaine Mpf 0.5% 30 ML VIAL (13:12)
--- NOTE | 2024-08-24 13:27 | PCM.POST.ANE ---
Anesthesia: Postop Eval I Current Vital Signs Temperature: 97 F Pulse Rate: 76 Blood Pressure: 111/77 Respiratory Rate: 16 Pulse Ox: 98 Oxygen Delivery Method: Room Air Assessment Airway patent: Yes Spontaneous unlabored respirations: Yes Mental status: Awake and Calm nausea: No Vomiting: No Anesthesia Complication: No Fluid Hydration Crystalloid volume administer (ml): 1,000 Total IV fluid infused: 1,000 Progress Note Anesthesia document: Postop Eval 1 completed: Yes
--- NOTE | 2024-08-24 14:33 | SUR.PHASEI ---
1410 PT STATES , WHEN SHE OPENS HER EYES SHE FEELS DIZZY. Pt requested to have scopolamine patch removed. Patch removed 1420 PT states she feels better.
--- NOTE | 2024-08-24 15:14 | POSTOPAN2_ITS ---
Anesthesia Postop Eval I Sum Postop Eval Completion status Anesthesia document: Postop Eval 1 completed: Yes Anesthesia Postop Eval I Summary Anesthesia Postop Eval I Summary: Anesthesia Postop Eval I: Assessment Summary Airway patent Yes 08/24/24 13:28 BRANCH ASSOCIATE [email or web address] Spontaneous unlabored Yes 08/24/24 13:28 BRANCH ASSOCIATE [email or web address].[email or web address] respirations Mental status Awake,Calm 08/24/24 13:28 BRANCH ASSOCIATE [email or web address].[email or web address] nausea No 08/24/24 13:28 BRANCH ASSOCIATE [email or web address].[email or web address] Vomiting No 08/24/24 13:28 BRANCH ASSOCIATE [email or web address].[email or web address] Anesthesia Postop Eval I: Fluid Summary Crystalloid volume administer 1,000 08/24/24 13:28 BRANCH ASSOCIATE [email or web address].[email or web address] (ml) Colloids volume administered ( ml) Blood Product volume administered (ml) Total IV fluid infused 1,000 08/24/24 13:28 BRANCH ASSOCIATE [email or web address].[email or web address] Anesthesia Postop Eval I: Summary Notes Anesthesia Complication No 08/24/24 13:28 BRANCH ASSOCIATE [email or web address].[email or web address] Anesthesia Complication Comment: Post-operative progress note Anesthesia: Postop Eval II Evaluation Mental status: Awake Pain Level: 0 nausea: No Vomiting: No Complications Anesthesia Complication: No
--- NOTE | 2024-08-24 15:14 | PCM.POSTANE2 ---
Anesthesia Postop Eval I Sum Postop Eval Completion status Anesthesia document: Postop Eval 1 completed: Yes Anesthesia Postop Eval I Summary Anesthesia Postop Eval I Summary: Anesthesia Postop Eval I: Assessment Summary Airway patent Yes 08/24/24 13:28 [email or web address] Spontaneous unlabored Yes 08/24/24 13:28 [email or web address] respirations Mental status Awake,Calm 08/24/24 13:28 [email or web address] nausea No 08/24/24 13:28 [email or web address] [email or web address] Vomiting No 08/24/24 13:28 [email or web address] Anesthesia Postop Eval I: Fluid Summary Crystalloid volume administer 1,000 08/24/24 13:28 [email or web address] (ml) Colloids volume administered ( ml) Blood Product volume administered (ml) Total IV fluid infused 1,000 08/24/24 13:28 [email or web address] [email or web address] Anesthesia Postop Eval I: Summary Notes Anesthesia Complication No 08/24/24 13:28 [email or web address] Anesthesia Complication Comment: Post-operative progress note Anesthesia: Postop Eval II Evaluation Mental status: Awake Pain Level: 0 nausea: No Vomiting: No Complications Anesthesia Complication: No
== END 2024-08-24 17:39 | disposition home or self-care (01) ==
LOC: SDC 08:18 → AC 08:21
PROVIDERS: Anesthesiology; Student in an Organized Health Care Education/Training Program; PCP Family Medicine; Referring Provider Obstetrics & Gynecology; Visit Provider Obstetrics & Gynecology
PROC: 0UT94ZZ Resection of Uterus, Percutaneous Endoscopic Approach (ICD-10-PCS; CPT 58573; principal; 2024-08-24 09:55)
DX: D25.2 Subserosal leiomyoma of uterus (principal); Z79.4 Long term (current) use of insulin; N93.9 Abnormal uterine and vaginal bleeding, unspecified; N92.0 Excessive and frequent menstruation with regular cycle; Z79.899 Other long term (current) drug therapy; I10 Essential (primary) hypertension; E66.9 Obesity, unspecified; N84.0 Polyp of corpus uteri; N80.203 Endometriosis of bilateral fallopian tubes, unspecified depth; D25.1 Intramural leiomyoma of uterus; N83.8 Other noninflammatory disorders of ovary, fallopian tube and broad ligament
CPT/HCPCS: 58573; 00840; 36415; 80048; 81025; 82962; 83735; 85027; 85610; 85730; 86850; 86900; 86901; 88307; J2405